=== PATIENT | female | born 1985 | race Caucasian/White ===

== ENCOUNTER 2024-06-24 19:33 | Outpatient (REF) | payer OTHER, SELFPAY | END 2024-06-24 19:34 | disposition home or self-care (01) | LOC: LAB 19:33 | PROVIDERS: Family Provider Family Medicine; Visit Provider Obstetrics & Gynecology | DX: Z01.419 Encounter for gynecological examination (general) (routine) without abnormal findings (principal) | CPT/HCPCS: 87624; 88175 ==

== ENCOUNTER 2024-06-28 10:02 | Outpatient (OUT) | payer OTHER, SELFPAY ==
--- NOTE | 2024-06-28 | US_ITS ---
[address] [address] Patient Name: BRITTANY CONNORS MRN: [id number] date: 1985 Sex: F Assigned Patient Location: US Current Patient Location: Accession/Order Number: [id number] Exam Date: 06/28/2024 11:00 Report Date: 07/01/2024 15:21 At the request of: LEVI TRAN Procedure: US pelvis w/ transvaginal EXAMINATION: US pelvis w/ transvaginal HISTORY: PCOS (Polycystic ovarian syndrome) (E28.2) COMPARISON: No relevant comparison available. TECHNIQUE: Transabdominal and/or transvaginal sonographic examination was performed as indicated by examination type. FINDINGS: UTERUS: Normal size and appearance. Uterus size: 7.1 x 3.8 x 4.5 cm ENDOMETRIUM: Normal homogeneous appearance. Endometrial thickness: 7 mm RIGHT OVARY: Contains a 3.1 cm round hypoechoic hypovascular mass versus complex cyst, and a 3.0 cm anechoic simple appearing cyst. Blood flow present within ovary on color Doppler. . Ovary size: 5.6 x 4.1 x 4.7 cm LEFT OVARY: Contains a slightly hypoechoic slightly geographic shaped 1.3 cm complex cyst versus mass. Blood flow present within ovary on color Doppler. . Ovary size: 3.0 x 2.7 x 2.9 cm CUL-DE-SAC: Unremarkable. No significant free fluid. BLADDER: Unremarkable. OTHER: None. US/US pelvis w/ transvaginal IMPRESSION: 1. Nonspecific complex cysts/lesions within right and left ovary. Follow-up ultrasound evaluation in 6 weeks to document regression is recommended. 2. No findings to suggest polycystic ovarian syndrome. Electronically authenticated by: MARCIE ALMANZA Date: 07/01/2024 15:21
--- OUTSIDE RECORDS SUMMARY | 2024-06-28 10:05 | XMS_ITS | CCD ---
Author Organization [facility] Care Team Providers Care Director Of Maintenance Name Role Phone Estevan Howardn Unavailable Jarred Siegel Unavailable Anglim, Gordon Primary Care Unavailable Jarred Siegel Attending Unavailable Jarred Siegel Admitting Unavailable TALEBROGELIO Attending Unavailable ANGLIM, GORDON A Referring Unavailable ANGLIM, GORDON A Primary Care Unavailable TALEB, ROGELIO Attending Unavailable TALEB, BRANDYD Referring Unavailable ANGLIM, GORDON A Primary Care Unavailable ANGLIM, GORDON A Referring Unavailable ANGLIM, GODRON A Primary Care Unavailable ANGLIM, GORDON A Referring Unavailable ANGLIM, GORDON A Primary Care Unavailable PHILLY RASHEED Referring Unavailab le NASREEN, ALBINA Primary Care Unavailable PHILLY RASHEED Referring Unavailab le NASREEN, ALVARADO Primary Care Unavailable PROVIDER, UNKNOWN Referring Unavailable NASREEN, ALBINA Primary Care Unavailable KATELYN ZAMORA Referring Unavailable NASREEN, ALVARADO Primary Care Unavailable NINA NGUYEN Referring Unavailable ANGLIM, GORDON A Primary Care Unavailable LEVI TRAN Attending Unavailable Medications Current Medications Medication Drug Class(es) Dates Sig (Normalized) Sig (Original) 0.25 MG, 0.5 MG Dose 3 ML semaglutide 0.68 MG/ML Pen Injector [Ozempic] (2 sources) Start: 09-03-2023 Ozempic (0.25 or 0.5 MG/DOSE) 2 MG/3ML 0.25 mg for one month and then increase to 0.5 mg dose Subcutaneous weekly for Aug, Active [id number] actuat albuterol 0.09 mg/actuat metered dose inhaler (1 source) beta2-Adrenergic Agonist Start: 01-21-2024 take 1 puff(s) by inhalation four times daily Albuterol Sulfate Active 2 PUFF INHALATION Four times daily January 21, 2024 12:00am ARIPiprazole 5 mg oral tablet (13 sources) Atypical Antipsychotic Start: 01-21-2024 take 5 mg by mouth once daily Aripiprazole Active 5 MG PO Daily January 21, 2024 12:00am [facility] ARIPiprazole 5 MG 1 tablet Orally Once a day Active atomoxetine 40 mg oral capsule (13 sources) Norepinephrine Reuptake Inhibitor Start: 01-21-2024 take 40 mg by mouth once daily Atomoxetine Active 40 MG PO Daily January 21, 2024 12:00am Strattera take 1 capsule by mo [facility] every twenty-four hours Atomoxetine HCl 40 MG 1 capsule in the morning Orally Once a day Active busPIRone hydrochloride 10 mg oral tablet (13 sources) Start: 01-21-2024 take 10 mg by mouth twice daily Buspirone Active 10 MG PO Twice daily January 21, 2024 12:00am busPIRone HCl 10 MG 1 tablet am and 1 tab. with supper( 5-6 pm) Orally Twice a day Active hydroCHLOROthiazide 25 mg oral tablet (7 sources) Thiazide Diuretic Start: 01-21-2024 take 25 mg by mouth once daily Hydrochlorothiazide Active 25 MG PO Daily January 21, 2024 12:00am hydroCHLOROthiaz mariusz 25 MG Oral for 30 Days Active hydroCHLOROthiazide 12.5 mg / lisinopril 20 mg oral tablet (6 sources) Thiazide Diuretic, Angiotensin Converting Enzyme Inhibitor take 1 tablet by mouth every twenty-four hours Lisinopril-hydroCHLOROthiazide 20-12.5 MG 1 tablet Orally Once a day Active hydrOXYzine pamoate 50 mg oral capsule ([address]) [address] ar t: take 50 mg by mouth once daily at bedtime Hydroxyzine Pamoate Active 50 MG PO Daily at bedtime January 21, 2024 12:00am take 1 capsule by mo ut every twenty-four hours hydrOXYzine Pamoate 50 MG 1 capsule at bedtime as needed Orally Once a day Active lamoTRIgine 100 mg oral tablet (13 sources) Mood Stabilizer, Anti-epileptic Agent Start: 01-21-2024 take 1 tablet by mouth once daily Lamotrigine (Lamictal) 100 mg tablet Active 100 MG PO Daily January 21, 2024 12:00am take 1 tablet by cristine th every twenty-four hours LaMICtal 100 MG 1 tablet Orally Once a day Active lisinopril 30 mg oral tablet (7 sources) Angiotensin Converting Enzyme Inhibitor Start: 01-21-2024 take 30 mg by mouth once daily Lisinopril Active 30 MG PO Daily January 21, 2024 12:00am Lisinopril 30 MG Oral for 30 Days Active magnesium oxide 400 mg oral tablet (13 sources) Start: 01-21-2024 take 400 mg by mouth once daily at bedtime Magnesium Oxide Active 400 MG PO Daily at bedtime January 21, 2024 12:00am take 1 tablet by mouth at bedtim e Magnesium Oxide 400 MG 1 tablet Orally at bedtime Active montelukast 10 mg oral tablet (13 sources) Leukotriene Receptor Antagonist Start: 01-21-2024 take 10 mg by mouth once daily Montelukast Active 10 MG PO Daily January 21, 2024 12:00am take 1 tablet by cristine th every twenty-four hours Montelukast Sodium 10 MG 1 tablet Orally Once a day Active ozempic (0.25 or 0.5 mg/dose) 2 mg/3ml solution pen-injector (1 source) Start: 09-03-2023 Ozempic (0.25 or 0.5 MG/DOSE) 2 MG/3ML 0.25 mg for one month and then increase to 0.5 mg dose Subcutaneous weekly for 30 Aug, Active microencapsulated potassium chloride 20 meq extended release oral tablet (12 sources) take 1 tablet by mouth every twenty-four hours Klor-Con M20 20 MEQ 1 tablet with food Orally Once a day Active potassium citrate (1 source) Start: 01-21-2024 Potassium Citr ate Active 0 PO .COMPLEX January 21, 2024 12:00am orally daily; wegovy 1 mg/0.5ml solution auto-injector (1 source) Start: 10-19-2023 Wegovy 1 MG/0. 5ML as directed Subcutaneous Weekly for 30 days Sep, Active Completed/Discontinued Medications Medication Drug Class(es) Dates Sig (Normalized) Sig (Original) Semaglutide (1 source) Start: 01-21-2024 End: 01-21-2024 Semaglutide (Ozempic) 0.25 mg or 0.5 mg (2 mg/3 mL) pen injector Discontinued 0.5 MG SUBCUT every week January 21, 2024 12:00am January 21, 2024 7:47am Semaglutide Base (1 source) Start: 01-21-2024 End: 03-05-2024 inject 1 mL by subcutaneous injection every week Semaglutide Base Discontinued 0.33 ML SUBCUT every week 1.32 January 21, 2024 12:00am March 05, 2024 7:23am [facility] Pre-filled Syringes using Semaglutide Base. Dispense 1.32 mL = (Four 0.33 mL pre-filled syringes) Problems Active Problems Problem Classification Problem Date Documented Da te Episodic/Chronic Asthma (20 sources) Asthma; Translations: [Unspecified asthma, uncomplicated] Onset: 11-12-2023 Chronic Diabetes mellitus without complication (8 sources) Prediabetes; Translations: [Prediabetes] Episodic Disorders of lipid metabolism (20 sources) Mixed hyperlipidemia; Translations: [Mixed hyperlipidemia] Chronic Essential hypertension (20 sources) Hypertensive disorder; Translations: [Essential (primary) hypertension] Chronic Mood disorders (18 sources) Bipolar disorder; Translations: [Bipolar disorder, unspecified] Chronic Other lower respiratory disease (6 sources) Snoring Episodic Other lower respiratory disease (1 source) Wheezing Onset: 05-12-2024 Episodic Other lower respiratory disease (1 source) Cough Onset: 05-12-2024 Episodic Other lower respiratory disease (1 source) Shortness of breath Onset: 05-12-2024 Episodic Other nutritional; endocrine; and metabolic disorders (20 sources) Obesity; Translations: [Obesity, unspecified] Chronic Other nutritional; endocrine; and metabolic disorders (20 sources) Body mass index 40+ - severely obese; Translations: [Body mass index (BMI) 40.0-44.9, adult] 01-21-2024 Chronic Other nutritional; endocrine; and metabolic disorders (10 sources) Metabolic syndrome X; Translations: [Metabolic syndrome] Chronic Other nutritional; endocrine; and metabolic disorders (8 sources) Metabolic syndrome; Translations: [Metabolic syndrome X] Chronic Other nutritional; endocrine; and metabolic disorders (5 sources) Body mass index (BMI) 45.0-49.9, adult Chronic Other nutritional; endocrine; and metabolic disorders (6 sources) Obesity, unspecified; Translations: [Obesity] Chronic Other nutritional; endocrine; and metabolic disorders (8 sources) Body mass index (BMI) 40.0-44.9, adult; Translations: [Body Mass Index 40.0-44.9, adult] Chronic Other nutritional; endocrine; and metabolic disorders (1 source) Morbid (severe) obesity due to excess calories; Translations: [Morbid (severe) obesity due to excess calories] Onset: 05-12-2024 Chronic Other nutritional; endocrine; and metabolic disorders (1 source) Abnormal weight gain Episodic Other screening for suspected conditions (not mental disorders or infectious disease) (3 sources) Encounter for screening mammogram for malignant neoplasm of breast; Translations: [Other abnormal and inconclusive findings on diagnostic imaging of breast] Onset: 05-17-2024 Episodic Unclassified (1 source) New Patient Onset: 05-12-2024 Past or Other Problems Problem Classification Problem Date Documented Date Episodic/Chronic Administrative/social admission (1 source) Dietary counseling and surveillance; Translations: [Dietary counseling and surveillance] Onset: 11-28-2023 Episodic Residual codes; unclassified (1 source) Genetic susceptibility to malignant neoplasm of breast; Translations: [Genetic susceptibility to malignant neoplasm of breast] Onset: 11-17-2023 Episodic Residual codes; unclassified (1 source) Genetic susceptibility to other malignant neoplasm; Translations: [Genetic susceptibility to other malignant neoplasm] Onset: 11-17-2023 Episodic Results Test Name Value Interpretation Reference Range Facility MAMM BX BREAST STEREO GUID I NITIAL LTon 06-10-2024 MAMM BX BREAST STEREO GUID INITIAL LT MAMM BX BREAST STEREO GUID INITIAL LT *ADDENDUM*Addendum issued for newly received pathology results, 06/10/2024 8:33 AM: For the left breast biopsy site there are pathology results of benign breast tissue with focal, mild cystic change and fibrosis. See dedicated pathology report for further detail. Results are benign and concordant with imaging findings. Patient may return to annual screening mammography. Procedure performed by Dr. Zamora, addendum issued by Dr. Romo. Continued MRI exams recommended given elevated risk ( 67 %TC lifetime risk). Patient is due October 2024. Finalized by Breanne Romo MD on 06/10/2024 8:35 AM 2000 [facility] MAMM POST BX DIAG UNI LTon 0 06-10-2024 MAMM POST BX DIAG UNI LT MAMM POST BX DIAG UNI LT *ADDENDUM*Addendum issued for newly received pathology results, 06/10/2024 8:33 AM: For the left breast biopsy site there are pathology results of benign breast tissue with focal, mild cystic change and fibrosis. See dedicated pathology report for further detail. Results are benign and concordant with imaging findings. Patient may return to annual screening mammography. Procedure performed by Dr. Zamora, addendum issued by Dr. Romo. Continued MRI exams recommended given elevated risk ( 67 %TC lifetime risk). Patient is due October 2024. Finalized by Breanne Romo MD on 06/10/2024 8:35 AM 2000 Normal [facility] Surgical Pathologyon 024 Surgical Pathology Normal [facility] Comment on above: Result Comment: [facility] [address] [place] [address] Surgical Pathology Consultation Patient Name:BRITTANY CONNORS:1985 (Age: 39)Gender:FTaken:06/06/2024eported:06/09/2024hysician(s):Philly Rasheed NP ([phone])Copy To:Katelyn ZamoraAccession #:[id number]. Rec. #:[id number]: #[id number] Final Pathologic Diagnosis Left breast, needle biopsy @3-4:00, 5 cm fn: Benign breast tissue with focal, mild cystic change and fibrosis. Report Electronically Signed Out /06/09/2024Robin Villanueva MD Interpretation [place] [address], License number: [id number]. Clinical History Biopsy procedure: Stereotactic; Target: Mass; Laterality: Left breast; Location: 3-4:00, 5cm from nipple; BI-RAD: 4a; Suspect: Fibroadenoma vs. cyst vs. R/O malignancy. Gross Description Received in formalin labeled DORY, left breast tissue are five pale mera to yellow paredes, delicate needle core biopsy segments, 0.3 to 1.6 cm in length with detached fragments of fibrofatty tissue, 1.8 x 1.2 x 0.3 cm in aggregate. The cores are entirely submitted in Cassette A with the fragmented fibrofatty tissue entirely submitted in cassette A-B. The specimen is radiographed and no definitive calcifications are identified. Fixation time: Time tissue removed from patient: 956 Time specimen placed in formalin: 1000 Cold ischemic time: 3 minutes Total fixation time: 8 hours and 30 minutes (2, ns, [id number], A???B, m1) JG jmg/06/06/2024SSI Specimen(s) Received Left breast Fee Codes(s): 1; 12318 MAMM DIAGNOSTIC UNILAT LT W CADon 05-29-2024 MAMM DIAGNOSTIC UNILAT LT W CAD MAMM DIAGNOSTIC UNILAT LT W CAD EXAM: MAMM DIAGNOSTIC UNILAT LT W CAD, US BREAST LT LIMITED, 05/29/2024 8:51 AM CLINICAL INDICATIONS: Abnormal mammogram of left breast, COMPARISON: Prior mammogram 05/17/2024 and dating back to 2019. Prior MRI of the breast 11/17/2023 TECHNIQUE: Supplemental views of the left breast were obtained for diagnostic workup. Digital tomosynthesis images were obtained, with creation of synthetic 2D views. Computer aided detection was utilized. FINDINGS: The breasts are almost entirely fatty. Redemonstration of the previously described mass at the 3 to 4:00 position left breast, 5 cm from the nipple. Targeted ultrasound will be performed for further characterization. There are no other suspicious masses, calcifications, or areas of architectural distortions. __ Left Breast Ultrasound, Limited TECHNIQUE: Multiple real-time henry-scale images of the left breast in the 2-5 o'clock axis were performed. Color Doppler was utilized to assess vascular flow. FINDINGS: Initial ultrasound evaluation demonstrated a possible corresponding sonographic abnormality as documented metastatic images and cine clip in PACS. However subsequent real-time scanning while personally present failed to reproduce an obvious sonographic correlate. __ COMBINED IMPRESSION: New 5 mm left breast mass, best demonstrated mammographically, suspicious given the setting of 67% increased lifetime risk of developing breast cancer. Stereotactic biopsy is recommended. BI-RADS: BI-RADS 4 - Suspicious Recommendation: Biopsy is recommended Patient was given the results before leaving the department. Finalized by Ned Soto MD on 05/29/2024 9:42 AM 4 a BIOPSY Normal [facility] US BREAST LT LIMITEDon 05-29 US BREAST LT LIMITED US BREAST LT LIMITED EXAM: MAMM DIAGNOSTIC UNILAT LT W CAD, US BREAST LT LIMITED, 05/29/2024 8:51 AM CLINICAL INDICATIONS: Abnormal mammogram of left breast, COMPARISON: Prior mammogram 05/17/2024 and dating back to 2019. Prior MRI of the breast 11/17/2023 TECHNIQUE: Supplemental views of the left breast were obtained for diagnostic workup. Digital tomosynthesis images were obtained, with creation of synthetic 2D views. Computer aided detection was utilized. FINDINGS: The breasts are almost entirely fatty. Redemonstration of the previously described mass at the 3 to 4:00 position left breast, 5 cm from the nipple. Targeted ultrasound will be performed for further characterization. There are no other suspicious masses, calcifications, or areas of architectural distortions. __ Left Breast Ultrasound, Limited TECHNIQUE: Multiple real-time henry-scale images of the left breast in the 2-5 o'clock axis were performed. Color Doppler was utilized to assess vascular flow. FINDINGS: Initial ultrasound evaluation demonstrated a possible corresponding sonographic abnormality as documented metastatic images and cine clip in PACS. However subsequent real-time scanning while personally present failed to reproduce an obvious sonographic correlate. __ COMBINED IMPRESSION: New 5 mm left breast mass, best demonstrated mammographically, suspicious given the setting of 67% increased lifetime risk of developing breast cancer. Stereotactic biopsy is recommended. BI-RADS: BI-RADS 4 - Suspicious Recommendation: Biopsy is recommended Patient was given the results before leaving the department. 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 BRCA2 positive, high risk COMPARISON: 02/07/2023, 08/11/2021, 08/10/2020 TECHNIQUE: Bilateral digital tomosynthesis MLO and CC views of the breasts were obtained, with creation of synthetic 2D views. Computer aided detection was utilized. FINDINGS: The breasts are almost entirely fatty. There is a new 4 x 5 mm mass of the 3-4 o'clock left breast, 5 cm from the nipple. There are no right breast suspicious masses, calcifications, or areas of architectural distortion. IMPRESSION: 1. There is a new mammographic mass measuring 5 mm of the 3-4:00 left breast. This is indeterminate, possibly a small intramammary lymph node. Additional mammographic and possibly sonographic images are recommended for further characterization. 2. Negative mammogram of the right breast. BI-RADS: BI-RADS 0 - Incomplete. Needs additional imaging evaluation. Recommendation: Additional imaging required. Additionally, continued MRI is recommended given significantly elevated risk (Tc lifetime risk 67%). Patient is due in October 2024. Finalized by Breanne Romo MD on 05/20/2024 3:05 PM 0A a ADDITIONAL I Normal [facility] XR CHEST 2 VWSon 03-18-2024 XR CHEST 2 VWS XR CHEST 2 VWS Chest 2 views History: Asthma, unspecified asthma severity, unspecified whether complicated, unspecified whether persistent Comparison: 09/15/2021 Findings: Chest 2 views. Stable cardiomediastinal silhouette. No focal opacity, effusion or pneumothorax. Impression: No evident acute cardiopulmonary process. Finalized by Jack Do MD on 03/18/2024 6:47 PM Normal [facility] Laboratory - Chemistry and C hemistry - challengeon 02-18-2024 Albumin [Mass/Vol] 4.8 g/dL [facility] ALP [Catalytic activity/Vol] 111 U/L [facility] ALT [Catalytic activity/Vol] 22 U/L [facility] AST [Catalytic activity/Vol] 16 U/L [facility] Bilirubin [Mass/Vol] 0.4 mg/dL [facility] Calcium [Mass/Vol] 9.5 mg/dL [facility] Chloride [Moles/Vol] 102 mmol/L [facility] Cholesterol [Mass/Vol] 204 mg/dL [facility] Cholesterol in HDL [Mass/Vol] 54 mg/dL [facility] Cholesterol in LDL [Mass/Vol] 122 mg/dL [facility] Cholesterol.total/C holesterol in HDL [Mass ratio] 3.8 {ratio} [facility] CO2 [Moles/Vol] 27 mmol/L [facility] Creatinine [Mass/Vol] 0.74 mg/dL [facility] GFR/1.73 sq M.predicted MDRD (S/P/Bld) [Vol rate/Area] 105 mL/min/{1.73_m2} [facility] Glucose [Mass/Vol] 98 mg/dL [facility] Potassium [Moles/Vol] 4.0 mmol/L [facility] Protein [Mass/Vol] 6.3 g/dL [facility] Sodium [Moles/Vol] 140 mmol/L [facility] Triglyceride [Mass/Vol] 142 mg/dL [facility] Urea nitrogen [Mass/Vol] 12 mg/dL [facility] Laboratory - Hematology and Cell countson 02-18-2024 HbA1c (Bld) [Mass fraction] 5.2 % [facility] No Panel Informationon 02-17 Estimated GFR (Non- 105 mL/min [facility] Thyroid Stimulating Hormone 3rd Gen 2.34 [facility] VLDL Cholesterol 28 mg/dL [facility] Vital Signs Date Time Vital Sign Value Performing Clinician Facility 03-27-2024 08:05-0400 Body height 170.18 cm [facility] 03-27-2024 08:05-0400 Body mass index (BMI) [Ratio] 45.6 kg/m2 [facility] 03-27-2024 08:050400 Body weight 132.13 kg [facility] 03-05-2024 07:120400 Body height 170.18 cm [facility] 03-05-2024 07:12-0400 Body mass index (BMI) [Ratio] 45.7 kg/m2 [facility] 03-05-2024 07:120400 Body weight 132.5 kg [facility] 03-05-2024 07:12-0400 Diastolic blood pressure 18 mm[Hg] [facility] 03-05-2024 07:12-0400 Heart rate 95 /min [facility] 03-05-2024 07:12-0400 Respiratory rate 18 /min [facility] 03-05-2024 07:12-0400 SaO2% (BldA) [Mass fraction] 99 % [facility] 03-05-2024 07:12-0400 Systolic blood pressure 100 mm[Hg] [facility] 01-24-2024 15:39-0400 Body height 170.18 cm [facility] 01-24-2024 15:39-0400 Body mass index (BMI) [Ratio] 43.8 kg/m2 [facility] 01-24-2024 15:39-0400 Body weight 127 kg [facility] 01-21-2024 07:13-0400 Body height 170.18 cm [facility] 01-21-2024 07:13-0400 Body mass index (BMI) [Ratio] 44 kg/m2 [facility] 01-21-2024 07:13-0400 Body weight 127.62 kg [facility] 01-21-2024 07:13-0400 Diastolic blood pressure 84 mm[Hg] [facility] 01-21-2024 07:13-0400 Heart rate 95 /min [facility] 01-21-2024 07:13-0400 Respiratory rate 18 /min [facility] 01-21-2024 07:13-0400 SaO2% (BldA) [Mass fraction] 98 % [facility] 01-21-2024 07:13-0400 Systolic blood pressure 121 mm[Hg] [facility] 10-19-2023 07:30-0500 Body height 170.18 cm Jarred Siegel Other [employer] [employer] Other 10-19-2023 07:30-0500 Body mass index (BMI) [Ratio] 45.13 kg/m2 Jarred Siegel Other [employer] Other 10-19-2023 07:30-0500 Body weight 130.73 kg Jarred Siegel Other [employer] Other 10-19-2023 07:30-0500 Diastolic blood pressure 89 mm[Hg] Jarred Siegel Other [employer] Other 10-19-2023 07:30-0500 Respiratory rate 18 /min Jarred Siegel Other [employer] Other 10-19-2023 07:30-0500 SaO2% (BldA) [Mass fraction] 100 % Jarred Siegel Other [employer] Other 10-19-2023 07:30-0500 Systolic blood pressure 128 mm[Hg] Jarred Siegel Other [employer] Other 10-04-2023 07:15-0500 Body height 170.18 cm Sameera Howard Other [employer] Other 10-04-2023 07:15-0500 Body mass index (BMI) [Ratio] 45.68 kg/m2 Sameera Fitt Other [employer] Other 10-04-2023 07:15-0500 Body weight 132.32 kg Sameera Fitt Other [employer] Other 09-03-2023 07:15-0500 Body height 170.18 cm Jarred Siegel Other [employer] Other 09-03-2023 07:15-0500 Body mass index (BMI) [Ratio] 46.67 kg/m2 Jarred Siegel Other [employer] Other 09-03-2023 07:15-0500 Body weight 135.17 kg Jarred Siegel Other [employer] Other 09-03-2023 07:15-0500 Diastolic blood pressure 85 mm[Hg] Jarred Siegel Other [employer] Other 09-03-2023 07:15-0500 Respiratory rate 18 /min Jarred Siegel Other [employer] Other 09-03-2023 07:15-0500 SaO2% (BldA) [Mass fraction] 98 % Jarred Siegel Other [employer] Other 09-03-2023 07:15-0500 Systolic blood pressure 121 mm[Hg] Jarred Siegel Other [employer] Other 08-09-2023 07:15-0400 Body height 170.18 cm Sameera Fitt Other [employer] Other 08-09-2023 07:15-0400 Body mass index (BMI) [Ratio] 46.26 kg/m2 Sameera Fitt Other [employer] Other 08-09-2023 07:15-0400 Body weight 133.99 kg Sameera Fitt Other [employer] Other 06-14-2023 08:00-0400 Body height 170.18 cm Sameera Fitt Other [employer] Other 06-14-2023 08:00-0400 Body mass index (BMI) [Ratio] 46.56 kg/m2 Sameera Fitt Other [employer] Other 06-14-2023 08:00-0400 Body weight 134.86 kg Sameera Fitt Other [employer] Other 03-27-2023 07:15-0400 Body height 170.18 cm Jarred Siegel Other [employer] Other 03-27-2023 07:15-0400 Body mass index (BMI) [Ratio] 47.44 kg/m2 Jarred Siegel Other [employer] Other 03-27-2023 07:15-0400 Body weight 137.4 kg Jarred Siegel Other [employer] Other 03-27-2023 07:15-0400 Diastolic blood pressure 88 mm[Hg] Jarred Siegel Other [employer] Other 03-27-2023 07:15-0400 Respiratory rate 18 /min Jarred Siegel Other [employer] Other 03-27-2023 07:15-0400 SaO2% (BldA) [Mass fraction] 99 % Jarred Bushdiff Other [employer] Other 03-27-2023 07:15-0400 Systolic blood pressure 138 mm[Hg] Jarred Bushdiff Other [employer] Other 02-06-2023 09:15-0400 Body height 170.18 cm Sameera Howard Other [employer] Other 02-05-2023 08:15-0400 Body height 170.18 cm Jarred Bushdiff Other [employer] Other 02-05-2023 08:15-0400 Body mass index (BMI) [Ratio] 45.67 kg/m2 Jarred Bushdiff Other [employer] Other 02-05-2023 08:15-0400 Body weight 132.27 kg Jarred Bushdiff Other [employer] Other 02-05-2023 08:15-0400 Diastolic blood pressure 93 mm[Hg] Jarred Siegel Other [employer] Other 02-05-2023 08:15-0400 Respiratory rate 18 /min Jarred Bushdiff Other [employer] Other 02-05-2023 08:15-0400 SaO2% (BldA) [Mass fraction] 99 % Jarred Bushdiff Other [employer] Other 02-05-2023 08:15-0400 Systolic blood pressure 123 mm[Hg] Jarred Bushdiff Other [employer] Other 12-26-2022 08:00-0500 Body height 170.18 cm Jarred Siegel Other [employer] Other 12-26-2022 08:00-0500 Body mass index (BMI) [Ratio] 45.34 kg/m2 Jarred Bushdiff Other [employer] Other 12-26-2022 08:00-0500 Body weight 131.32 kg Jarred Bushdiff Other [employer] Other 12-26-2022 08:00-0500 Diastolic blood pressure 92 mm[Hg] Jarred Bushdiff Other [employer] Other 12-26-2022 08:00-0500 Respiratory rate 18 /min Jarred Bushdiff Other [employer] Other 12-26-2022 08:00-0500 SaO2% (BldA) [Mass fraction] 98 % Jarred Bushdiff Other [employer] Other 12-26-2022 08:00-0500 Systolic blood pressure 122 mm[Hg] Jarredpearl Bushdiff Other [employer] Other 12-04-2022 09:15-0500 Body height 170.18 cm Jarred Bushdiff Other [employer] Other 12-04-2022 09:15-0500 Body mass index (BMI) [Ratio] 44.41 kg/m2 Jarred Bushdiff Other [employer] Other 12-04-2022 09:15-0500 Body weight 128.64 kg Jarred Bushdiff Other [employer] Other 12-04-2022 09:15-0500 Diastolic blood pressure 93 mm[Hg] Jarred Bushdiff Other [employer] Other 12-04-2022 09:15-0500 Respiratory rate 18 /min Jarred Bushdiff Other [employer] Other 12-04-2022 09:15-0500 SaO2% (BldA) [Mass fraction] 99 % Jarred Bushdiff Other [employer] Other 12-04-2022 09:15-0500 Systolic blood pressure 122 mm[Hg] Jarred Christal Other [employer] Other Encounters Encounter Date Encounter Type Care Provider Facility Start: 06-24-2024 End: 06-24-2024 ambulatory LEVI TRAN Not Available Start: 06-06-2024 End: 06-06-2024 ambulatory [facility] Start: 06-06-2024 End: 06-06-2024 ambulatory UNKNOWN PROVIDER [facility] Start: 05-29-2024 End: 05-29-2024 ambulatory PHILLY RASHEED [facility] Start: 05-17-2024 End: 05-17-2024 ambulatory GORDON Doron [facility] Start: 05-12-2024 End: 05-12-2024 ambulatory [facility] Start: 03-27-2024 End: 03-27-2024 Patient encounter procedure [facility] Work Phone: Start: 03-18-2024 End: 03-18-2024 ambulatory MOHAMMAD [facility] Start: 03-05-2024 End: 03-05-2024 Patient encounter procedure [facility] Work Phone: Start: 02-18-2024 Non-patient / Non-visit [facility] [employer] Work Phone: Start: 01-24-2024 End: 01-24-2024 Patient encounter procedure [facility] Work Phone: Start: 01-21-2024 End: 01-21-2024 Patient encounter procedure [facility] Work Phone: Start: 11-28-2023 End: 11-28-2023 ambulatory [facility] Facility:[facility] Start: 11-17-2023 End: 11-17-2023 ambulatory [facility] Start: 11-12-2023 End: 11-12-2023 ambulatory GORDON A [facility] Start: 10-19-2023 End: 10-19-2023 ambulatory Jarred Siegel Other [employer] Other Start: 10-19-2023 Follow-up encounter [facility] Start: 10-04-2023 ([facility] RD FU) [facility] F/ [facility] Assistant Sameera Howard [facility] Start: 10-04-2023 End: 10-04-2023 ambulatory Sameera Howard Other [employer] Other Start: 09-03-2023 End: 09-03-2023 ambulatory Jarred Siegel Other [employer] Other Start: 09-03-2023 Follow-up encounter [facility] Start: 08-09-2023 ([facility] RD FU) [facility] F/ [facility] Assistant Sameera Howard [facility] Start: 08-09-2023 End: 08-09-2023 ambulatory Sameera Kylet Other [employer] Other Start: 06-22-2023 End: 06-22-2023 ambulatory Jarred Siegel Other [employer] Other Start: 06-22-2023 Telephone encounter aJrred Bushdicanelo [facility] Start: 06-14-2023 ([facility] RD FU) [facility] F/ [facility] Assistant Sameera Howard [facility] Start: 06-14-2023 End: 06-14-2023 ambulatory Sameera Wrightt Other [employer] Other Start: 03-27-2023 End: 03-27-2023 ambulatory Jarred Mayerff Other [employer] Other Start: 03-27-2023 Follow-up encounter Jarred Christal [facility] Start: 02-06-2023 ([facility]) [facility] Initial Provider Sameera Howard [facility] Start: 02-06-2023 End: 02-06-2023 ambulatory Sameera Kylet Other [employer] Other Start: 02-05-2023 End: 02-05-2023 ambulatory Jarred Siegel Other [employer] Other Start: 02-05-2023 Follow-up encounter Jarred Christalcanelo [facility] Start: 12-26-2022 End: 12-26-2022 ambulatory Jarred Mayerff Other [employer] Other Start: 12-26-2022 Follow-up encounter Jarred Christal [facility] Start: 12-04-2022 End: 12-04-2022 ambulatory Jarred Siegel Other [employer] Other Start: 12-04-2022 Nutrition therapy Jarredpearl Siegel [facility] Start: 10-31-2022 End: 10-31-2022 ambulatory Sameera Howard Other [employer] Other Start: 10-31-2022 Telephone encounter Sameera Howard [facility] Payers Date Payer Category Payer Self-pay 2022 Unknown [id number]. [id number] 1985 Unknown [id number] 2.16.8 [id number] 1984 Unknown [id number] 2.16.8 [id number] 1984 Unknown [id number] 2.16.8 [id number] 1984 Unknown [id number] 2.16.84 [id number] 1984 Unknown [id number] 2.16.8 [id number] 1984 Unknown [id number] 2.16.8 [id number] 1984 Unknown [id number] 2.16.8 [id number] 1984 Unknown [id number] 2.16.8 [id number] 1984 Unknown [id number] 2.16.84 [id number] 1984 Unknown [id number] 2.16.84 [id number] Unknown [employer] [id number] Unknown [id number] 2.16.8 [id number] Social History Date Type Detail Facility Unknown if ever smoked [employer] Other Sex Assigned At Sex Assigned At Bir th [employer] Other Start: 1985 Sex Assigned At Female F [facility] Clinical Notes 12-04-2022 to 01-21-2024 Note Date & Type Note Facility 01-21-2024 Evaluation note Authored January 21, 2024 7:47am Start/highest weight: 283.6 lbs. She is up 2.0 lbs. today with a weight of 281.6 lbs, and down 0.7 lbs. since her last visit on 11/28/2023. Starting Date: 12/04/2022. 1. Abnormal weight gain. Her dad is a type II diabetic. She has a very strong family history of significant obesity. Everyone has some weight issues by her history. 2. Obesity-some improvement recently. We are going to increase from Ozempic 0.5 mg samples to compounded semaglutide at 1.2 mg and then increase if affordable and tolerated. She should continue to try to eat out less, not skip breakfast, make more whole food choices by eating less highly processed food, trying to increase her protein intake, cutting back her preferentially completely eliminate her regular soda, sweet tea and sugary beverage intake, try to preplan and make more of her own foods and continuing to get more exercise and activity. She needs to continue to get to bed earlier. She had issues with TikTok at night. She still needs to try to eat more fruits and vegetables and follow the plate method. Her insurance does not cover Wegovy or Ozempic but she is considering compounded semaglutide. Her psychiatric prescriber is concerned about her using Qsymia or Contrave. She is on a nonstimulant for ADHD. She has never tried Adipex in the past. We could always consider metformin. She should continue to treat with long-term lifestyle changes of improved nutrition, increased exercise and activity, stress reduction, adequate sleep and behavioral modification versus short-term dieting. She has a strong family history of obesity and has been heavy since puberty. Before starting the program she had bad eating habits she notes that she would often skip breakfast and then did not take the time to preplan and eats easy processed food . She previously did not feel she has time to make healthier things. She lives with her mom and dad and her brother. She is on multiple potentially weight positive medications for her bipolar disorder with a PHQ-9 of 7 with starting the program. Her psychiatric prescriber is Brittany Gamino from [place] where they live. Her dad is a type II diabetic and has lost 80 pounds with Ozempic and Jardiance. She has known BRCA2 positivity. She has incompletely controlled hypertension on lisinopril-HCTZ, recent onset of asthma and some mixed hypercholesterolemia. She does get the bed early but sometimes was up late on her phone and gets up about 6:30 in the morning. 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 3. Hypertension- controlled on lisinopril-HCTZ. She will treat with a low-salt diet, decreased processed and restaurant foods, healthy lifestyle changes and achieve long-term weight loss. Monitor outside the office. 4. Broca 2 positivity-benefits of healthy eating, exercise and abdominal weight loss discussed. 5. Mixed hyperlipidemia- improving with decreasing the simple sweets, added sugars, refined starches, and bad/added fats, increasing activity and exercise and continued long-term weight loss. 6. Bipolar disorder-she feels controlled on her present medications. Her PHQ-9 was 7 with starting the program. 7. ADHD-untreated. She could consider a stimulant if approved by her psychiatric prescriber. 8. Snorer/[place] of 6/neck size of 15.5 inches/mallampati score of 4-she denies significant daytime fatigue or any problems with driving. Treat with weight loss. Consider sleep study. 9. Asthma-she notes this is a newer condition. We discussed the benefits of eating anti-inflammatory food, healthy lifestyle change and abdominal weight loss. 10. Prediabetes- improving with now eating healthier and taking Ozempic. First-line treatment with long-term healthy lifestyle change, decreased simple sweets and refined starches, increased exercise and activity and long-term weight loss. Consider metformin. She needs close long-term follow-up for this condition to prevent diabetes. 11. Knee and low back pain-improving with weight loss and healthier lifestyle. 12. Metabolic syndrome-treat with long-term healthy lifestyle changes, behavioral changes, healthy nutritional changes, increased activity and exercise and achieve long-term weight loss. Follow up with me in 6 weeks. New labs needed: Up-to-date. She will continue regular lab work with her PCP. Author Jarred Siegel [facility] Authored March 05, 2024 7:59am Start/highest weight: 283.6 lbs. She is up 8.6 lbs. today with a weight of 292.2 lbs. and up 10.6 lbs. since her last visit on 01/21/2024. Starting Date: 12/04/2022. 1. Abnormal weight gain. Her dad is a type II diabetic. She has a very strong family history of significant obesity. Everyone has some weight issues by her history. 2. Obesity-some improvement recently on samples of Ozempic 0.5 mg. She had significant weight regain, increase in appetite and decreased fullness off medication. Since she cannot afford compounded semaglutide at 1.2 mg, were going to try to keep her in Ozempic samples. She has bipolar disorder so medication options are limited. She could consider bariatric surgery if covered by her commercial insurance. She should continue to try to eat out less, not skip breakfast, make more whole food choices by eating less highly processed food, trying to increase her protein intake, cutting back her preferentially completely eliminate her regular soda, sweet tea and sugary beverage intake, try to preplan and make more of her own foods and continuing to get more exercise and activity. She needs to continue to get to bed earlier. She had issues with TikTok at night. She still needs to try to eat more fruits and vegetables and follow the plate method. Her insurance does not cover Wegovy or Ozempic but she is considering compounded semaglutide. Her psychiatric prescriber is concerned about her using Qsymia or Contrave. She is on a nonstimulant for ADHD. She has never tried Adipex in the past. We could always consider metformin. She should continue to treat with long-term lifestyle changes of improved nutrition, increased exercise and activity, stress reduction, adequate sleep and behavioral modification versus short-term dieting. She has a strong family history of obesity and has been heavy since puberty. Before starting the program she had bad eating habits she notes that she would often skip breakfast and then did not take the time to preplan and eats easy processed food . She previously did not feel she has time to make healthier things. She lives with her mom and dad and her brother. She is on multiple potentially weight positive medications for her bipolar disorder with a PHQ-9 of 7 with starting the program. Her psychiatric prescriber is Brittany Gamino from [place] where they live. Her dad is a type II diabetic and has lost 80 pounds with Ozempic and Jardiance. She has known BRCA2 positivity. She has incompletely controlled hypertension on lisinopril-HCTZ, recent onset of asthma and some mixed hypercholesterolemia. She does get the bed early but sometimes was up late on her phone and gets up about 6:30 in the morning. 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 3. Hypertension-borderline controlled on lisinopril-HCTZ. She will treat with a low-salt diet, decreased processed and restaurant foods, healthy lifestyle changes and achieve long-term weight loss. Monitor outside the office. 4. Broca 2 positivity-benefits of healthy eating, exercise and abdominal weight loss discussed. 5. Mixed hyperlipidemia- improved/normalized with decreasing the simple sweets, added sugars, refined starches, and bad/added fats, increasing activity and exercise and continued long-term weight loss. 6. Bipolar disorder-she feels controlled on her present medications. Her PHQ-9 was 7 with starting the program. 7. ADHD-untreated. She could consider a stimulant if approved by her psychiatric prescriber. 8. Snorer/[place] of 6/neck size of 15.5 inches/mallampati score of 4-she denies significant daytime fatigue or any problems with driving. Treat with weight loss. Consider sleep study. 9. Asthma-she notes this is a newer condition. We discussed the benefits of eating anti-inflammatory food, healthy lifestyle change and abdominal weight loss. 10. Prediabetes- improved/resolved with now eating healthier and taking Ozempic. First-line treatment with long-term healthy lifestyle change, decreased simple sweets and refined starches, increased exercise and activity and long-term weight loss. Consider metformin. She needs close long-term follow-up for this condition to prevent diabetes. 11. Knee and low back pain-improving with weight loss and healthier lifestyle. 12. Metabolic syndrome-treat with long-term healthy lifestyle changes, behavioral changes, healthy nutritional changes, increased activity and exercise and achieve long-term weight loss. Follow up with me in 6 weeks. New labs needed: Up-to-date. She will continue regular lab work with her PCP. [facility] Work Phone: [phone]) 480-959112-22-2023 Evaluation note* Encounter Date Diagnosis Assessment Notes Treatment Notes Treatment Clinical Notes Sep, Hypertension (ICD-10 - I10) Sep, Body mass index (BMI ) of 45.0-49.9 in adult (ICD-10 - Z68.42) Sep, Mixed hyperlipidemia (ICD-10 - E78.2) Sep, Prediabetes (ICD-10 - R73.03) Sep, Metabolic syndrome X (ICD-10 - E88.81) Sep, Bipolar affective disorder (ICD-10 - F31.9) Sep, Snores (ICD-10 - R06.83) Sep, Asthma (ICD-10 - J45.909) [employer] Other 12-07-2023 Evaluation note* Encounter Date Diagnosis Assessment Notes Treatment Notes Treatment Clinical Notes Sep, Obesity (ICD-10 - E66.9) Sep, BMI 40.0-44.9, adult (ICD-10 - Z68.41) Sep, Other Summary of Visi t: (A) reviewed hunger /satiety scale in relation to food cravings, holiday sweets. Reviewed strategies of avoidance, moderation in relation to sweet cravings (B) recipe resouces (C) goal setting Patient set the following goals: - trial some new recipes to add variety; MET, CONTINUE - NEW: use hunger scale to assess reason behind snacks- pair sweets w/ a protein food or meal - NEW: continue to increase fruits and veggies - NEW: re-start walking / exercise routine using treadmill at home [employer] Other 11-06-2023 Evaluation note* Encounter Date Diagnosis Assessment Notes Treatment Notes Treatment Clinical Notes Aug, Hypertension (ICD-10 - I10) Aug, Body mass index (BMI ) of 45.0-49.9 in adult (ICD-10 - Z68.42) Aug, Mixed hyperlipidemia (ICD-10 - E78.2) Aug, Prediabetes (ICD-10 - R73.03) Aug, Metabolic syndrome X (ICD-10 - E88.81) Aug, Bipolar affective disorder (ICD-10 - F31.9) Aug, Snores (ICD-10 - R06.83) Aug, Asthma (ICD-10 - J45.909) [employer] Other 10-12-2023 Evaluation note* Encounter Date Diagnosis Assessment Notes Treatment Notes Treatment Clinical Notes Jul, Obesity (ICD-10 - E66.9) Jul, BMI 40.0-44.9, adult (ICD-10 - Z68.41) Jul, Other Summary of Visi t: (A) discussed benefits of increasing fruits and veggies for disease prevention and weight management (B) reviewed budget friendly ingredients and recipes ideas. (C) Reviewed breakfast ideas Patient set the following goals: - trial some new recipes to add variety; MET, CONTINUE [employer] Other 08-17-2023 Evaluation note* Encounter Date Diagnosis Assessment Notes Treatment Notes Treatment Clinical Notes May, Obesity (ICD-10 - E66.9) May, BMI 40.0-44.9, adult (ICD-10 - Z68.41) May, Other Summary of Visi t: (A) discussed benefits of increasing fruits and veggies for disease prevention and weight management (B) reviewed RECIPE ideas that incorporate garden produce (C) discussed variety in beverages , no sweetener options including herbal teas, hot/iced teas, infused water Patient set the following goals: - trial some new recipes to add variety; MET, CONTINUE [employer] Other 05-30-2023 Evaluation note* Encounter Date Diagnosis Assessment Notes Treatment Notes Treatment Clinical Notes February, Hypertension (ICD-10 - I10) February, Body mass index (BMI ) of 45.0-49.9 in adult (ICD-10 - Z68.42) February, Mixed hyperlipidemia (ICD-10 - E78.2) February, Prediabetes (ICD-10 - R73.03) February, Metabolic syndrome X (ICD-10 - E88.81) February, Bipolar affective disorder (ICD-10 - F31.9) February, Snores (ICD-10 - R06.83) February, Asthma (ICD-10 - J45.909) [employer] Other 04-11-2023 Evaluation note* Encounter Date Diagnosis Assessment Notes Treatment Notes Treatment Clinical Notes Jan, Obesity (ICD-10 - E66.9) Jan, BMI 40.0-44.9, adult (ICD-10 - Z68.41) Jan, Other Summary of Visi t: (A) discussed foods that can help prevent breast cancer and help w/ WM (B) benefits of fiber foods Patient set the following goals: [employer] Other 04-10-2023 Evaluation note* Encounter Date Diagnosis Assessment Notes Treatment Notes Treatment Clinical Notes Jan, Hypertension (ICD-10 - I10) Jan, Body mass index (BMI ) of 45.0-49.9 in adult (ICD-10 - Z68.42) Jan, Mixed hyperlipidemia (ICD-10 - E78.2) Jan, Prediabetes (ICD-10 - R73.03) Jan, Metabolic syndrome X (ICD-10 - E88.81) Jan, Bipolar affective disorder (ICD-10 - F31.9) Jan, Snores (ICD-10 - R06.83) Jan, Asthma (ICD-10 - J45.909) [employer] Other 02-28-2023 Evaluation note* Encounter Date Diagnosis Assessment Notes Treatment Notes Treatment Clinical Notes Nov, Hypertension (ICD-10 - I10) Nov, Body mass index (BMI ) of 45.0-49.9 in adult (ICD-10 - Z68.42) Nov, Mixed hyperlipidemia (ICD-10 - E78.2) Nov, Prediabetes (ICD-10 - R73.03) Nov, Metabolic syndrome X (ICD-10 - E88.81) Nov, Bipolar affective disorder (ICD-10 - F31.9) Nov, Snores (ICD-10 - R06.83) Nov, Asthma (ICD-10 - J45.909) [employer] Other 02-06-2023 Evaluation note* Encounter Date Diagnosis Assessment Notes Treatment Notes Treatment Clinical Notes Nov, Abnormal weight gain (ICD-10 - R63.5) Nov, Hypertension (ICD-10 - I10) Nov, Mixed hyperlipidemia (ICD-10 - E78.2) Nov, Metabolic syndrome X (ICD-10 - E88.81) Nov, Bipolar affective disorder (ICD-10 - F31.9) Nov, Snores (ICD-10 - R06.83) Nov, Asthma (ICD-10 - J45.909) [employer] Other Evaluation noteNo [employer] Other History general Narrative - Reported* Type Description Date Medical History ADHD Medical History anxiety Medical History asthma Medical History bipolar Medical History BRCA2 positive Medical History endometriosis Medical History high blood pressure Medical History hypokalemia Medical History leg cramps Surgical History gallbladder 09/19 Surgical History ERCP 09/19 Surgical History wisdom teeth Hospitalization History see above [employer] Other Chief Complaint and Reason for Visit Chief Complaint WM RD 3 mo follow up WM RD follow up 2 mo Reason for Visit BMI 40.0-44.9, adult Essential hypertension Mixed hyperlipidemia Prediabetes BMI 40.0-44.9, adult Essential hypertension Mixed hyperlipidemia Prediabetes Family History No Family History Records Found Relationship Condition Age at Onset Recorded Date/T kirill family member Obesity Unknown brother Obesity Unknown father Hypertension Unknown Diabetes mellitus Unknown Not Specified Malignant neoplasm Unknown Hypertension Unknown sister Obesity Unknown Advance Directives No Advanced Directives Records Found Advance Directive Response Recorded Date/ Time Advance Directives No December 01, 2022 4:22pm Summary Purpose Additional Source Comments REASON FOR VISIT (unrecogniz ed section and content) WMN VoicemailInitial WMNWMN f/uWMN F/UWM first after class- s/p marlee/ brca+[address] follow up2 moDLC Cx appt 07/16/23 L/VMWM RD follow up - 2 m oWMN f/uWM RD follow up 2 moWMN f/u Care Teams (unrecognized sec tion and content) Team Status: Active Member Role Status Dates Gordon Velazco APRN MACHINE PULLER OVER-C Primary Care Provider Active Team Status: Inactive Member Role Status Dates Gordon Velazco APRN MACHINE P[employer] OVER-C Primary Care Provider Active Start: January 21, 2024 End: January 21, 2024 Jarred Siegel MD Attending Provider Active Start: January 21, 2024 End: January 21, 2024 Team Status: Inactive Member Role Status Dates Gordon Velazco APRN MACHINE PULLER OVER-C Primary Care Provider Active Start: January 24, 2024 End: January 24, 2024 MGA Johnson Attending Provider Active Start: January 24, 2024 End: January 24, 2024 Team Status: Active Member Role Status Dates Gordon Velazco APRN MACHINE PULLER OVER-C Primary Care Pr ovider, Attending Provider Active Start: February 18, 2024 Team Status: Inactive Member Role Status Dates Gordon Velazco APRN MACHINE PULLER OVER-C Primary Care Provider Active Start: March 05, 2024 End: March 05, 2024 Jarred Siegel MD Attending Provider Active Start: March 05, 2024 End: March 05, 2024 Team Status: Inactive Member Role Status Dates Gordon Velazco APRN MACHINE PULLER OVER-C Primary Care Provider Active Start: March 27, 2024 End: March 27, 2024 MAG Johnson Attending Provider Active Start: March 27, 2024 End: March 27, 2024 Goals (unrecognized section and content) Goals may be documented in a n alternate section INFORMATION SOURCE (unrecogn ized section and content) DATE CREATED AUTHOR 04/01/2024 [facility] DATE CREATED AUTHOR AUTHOR'S ORGANIZ ATION 05/16/2024 [facility] DATE CREATED AUTHOR AUTHOR'S ORGANIZ ATION 05/23/2024 [facility] DATE CREATED AUTHOR AUTHOR'S ORGANIZ ATION [facility]/31/[facility] DATE CREATED AUTHOR AUTHOR'S ORGANIZ ATION 06/10/2024 [facility] DATE CREATED AUTHOR AUTHOR'S ORGANIZ ATION 06/25/2024 [facility] FOR RECORDS PERTAINING TO PATIENTS WHO ARE OR HAVE BEEN ENROLLED IN A CHEMICAL DEPENDENCY/SUBSTANCEABUSE PROGRAM, SOME INFORMATION MAY BE OMITTED. This clinical summary was aggregated from multiple sources. Caution should be exercised in using it in the provision of clinical care. This summary normalizes information from multiple sources, and as a consequence, information in this document may materially change the coding, format and clinical context of patient data. In addition, data may be omitted in some cases. CLINICAL DECISIONS SHOULD BE BASED ON THE PRIMARY CLINICAL RECORDS. [employer] provides no warranty or guarantee of the accuracy or completeness of information in this document.
[2024-06-28 10:36] LABS: Basophils Absolute Auto 0.1 10^3/uL (0.0-0.1); Basophils Percent Auto 0.8 % (0.2-2.0); Eosinophils Absolute Auto 0.1 10^3/uL (0.0-0.7); Eosinophils Percent Auto 1.4 % (0.9-7.0); Hematocrit 40.6 % (36.0-48.0); Hemoglobin 14.8 g/dL (12.0-16.0); Immature Granulocytes Abs Auto 0.02 10^3/uL (0.00-0.03); Immature Granulocytes Pct Auto 0.3 % (0.0-0.5); Lymphocytes Absolute Auto 1.6 10^3/uL (1.2-3.8); Mean Corpuscular HGB Conc 36.5 g/dL (29.9-35.2); Mean Corpuscular Hemoglobin 29.9 pg (26.7-34.0); Mean Platelet Volume 10.5 fL (9.5-13.5); Monocytes Absolute Auto 0.5 10^3/uL (0.3-0.8); Monocytes Percent Auto 6.9 % (1.7-12.0); Neutrophils Absolute Auto 5.1 10^3/uL (1.4-6.5); Neutrophils Percent Auto 69.6 % (43.0-75.0); Platelet Count 214 10^3/uL (150-450); Red Blood Count 4.95 10^6/uL (4.20-5.40); Red Cell Distribution Width 12.8 % (11.0-15.0); White Blood Count 7.4 10^3/uL (4.0-11.0)
[2024-06-28 11:08] LABS: Estimated Average Glucose 94 mg/dL; Glycohemoglobin A1C 4.9 % (4.5-6.2)
[2024-06-28 11:13] LABS: Free T4 1.32 ng/dL (0.76-1.46)
[2024-06-28 11:17] LABS: Thyroid Stimulating Hormone 1.412 uIU/mL (0.358-3.740)
[2024-06-28 11:21] LABS: HCG Quantitative <1 mIU/mL
[2024-06-29 06:37] LABS: FSH 8.3 mIU/mL (.); Luteinizing Hormone(LH) 4.8 mIU/mL (.)
[2024-07-03 16:09] LABS: DHEA, Serum 180 ng/dL (31-701)
== END 2024-06-28 10:03 | disposition home or self-care (01) ==
LOC: US 10:02
PROVIDERS: Family Provider Family Medicine; Visit Provider Obstetrics & Gynecology
DX: E28.2 Polycystic ovarian syndrome (principal); N92.0 Excessive and frequent menstruation with regular cycle
CPT/HCPCS: 36415; 76830; 76856; 82626; 82627; 83001; 83002; 83036; 84439; 84443; 84702; 85025

== ENCOUNTER 2024-07-19 10:56 | Outpatient (OUT) | payer OTHER, SELFPAY ==
--- OUTSIDE RECORDS SUMMARY | 2024-07-19 11:01 | XMS_ITS | CCD ---
Author Organization [facility] Care Team Providers Care Backpackers Manager Name Role Phone Estevan Howardn Unavailable Jarred [...] Unavailable PHILLY RASHEED Referring Unavailab le NASREEN, DARBY Primary Care Unavailable PROVIDER, UNKNOWN Referring Unavailable NASREEN, ALBINA Primary Care Unavailable KATELYN ZAMORA Referring Unavailable NASREEN, DARBY Primary Care Unavailable NINA NGUYEN Referring Unavailable [...] mg dose Subcutaneous weekly for Aug, Active [id number] 200 actuat albuterol 0.09 mg/actuat metered dose [...] 21, 2024 12:00am [facility] ARIPiprazole 5 MG 1 tablet Orally Once a day Active atomoxetine 40 mg oral capsule (13 sources) Norepinephrine Reuptake Inhibitor Start: 01-21-2024 take 40 mg by mouth once daily Atomoxetine Active 40 MG PO Daily January 21, 2024 12:00am Strattera take 1 capsule by mo [facility] every twenty-four hours Atomoxetine HCl 40 MG [...] Romo MD on 06/10/2024 8:35 AM 2000 [facility] MAMM POST BX DIAG UNI LTon [...] MD on 06/10/2024 8:35 AM 2000 Normal [facility] Surgical Pathologyon 024 Surgical Pathology Normal [facility] Comment on above: Result Comment: [facility] [address] [place] [address] Surgical Pathology Consultation Patient Name:BRITTANY CONNORS:1985 (Age: 39)Gender:FTaken:06/06/2024eported:06/09/2024hysician(s):Philly Rasheed NP ([phone])Copy To:Katelyn ZamoraAccession #:[id number]. Rec. #:[id number]: #[id number] Final Pathologic Diagnosis Left breast, needle biopsy @3-4:00, 5 cm fn: Benign breast tissue with focal, mild cystic change and fibrosis. Report Electronically Signed Out /06/09/2024Robin Villanueva MD Interpretation [place] [address], License number: [id number]. Clinical History Biopsy procedure: Stereotactic; Target: Mass; [...] 8 hours and 30 minutes (2, ns, [id number], A???B, m1) JG jmg/06/06/2024SSI Specimen(s) Received Left breast Fee Codes(s): 1; 81247 MAMM DIAGNOSTIC UNILAT LT W CADon 05-29-2024 [...] 05/29/2024 9:42 AM 4 a BIOPSY Normal [facility] US BREAST LT LIMITEDon 05-29 US BREAST [...] 05/29/2024 9:42 AM 4 a BIOPSY Normal [facility] MAMM SCREENING BILATERAL W C senior ssis developer 05-20-2024 MAMM SCREENING BILATERAL W CAD MAMM [...] 3:05 PM 0A a ADDITIONAL I Normal [facility] XR CHEST 2 VWSon 03-18-2024 XR CHEST 2 VWS XR CHEST 2 VWS Chest 2 views History: Asthma, unspecified asthma severity, unspecified whether complicated, unspecified whether persistent Comparison: 09/15/2021 Findings: Chest 2 views. Stable cardiomediastinal silhouette. No focal opacity, effusion or pneumothorax. Impression: No evident acute cardiopulmonary process. Finalized by Jack Do MD on 03/18/2024 6:47 PM Normal [facility] Laboratory - Chemistry and C hemistry - challengeon 02-18-2024 Albumin [Mass/Vol] 4.8 g/dL [facility] ALP [Catalytic activity/Vol] 111 U/L [facility] ALT [Catalytic activity/Vol] 22 U/L [facility] AST [Catalytic activity/Vol] 16 U/L [facility] Bilirubin [Mass/Vol] 0.4 mg/dL [facility] Calcium [Mass/Vol] 9.5 mg/dL [facility] Chloride [Moles/Vol] 102 mmol/L [facility] Cholesterol [Mass/Vol] 204 mg/dL [facility] Cholesterol in HDL [Mass/Vol] 54 mg/dL [facility] Cholesterol in LDL [Mass/Vol] 122 mg/dL [facility] Cholesterol.total/C holesterol in HDL [Mass ratio] 3.8 {ratio} [facility] CO2 [Moles/Vol] 27 mmol/L [facility] Creatinine [Mass/Vol] 0.74 mg/dL [facility] GFR/1.73 sq M.predicted MDRD (S/P/Bld) [Vol rate/Area] 105 mL/min/{1.73_m2} [facility] Glucose [Mass/Vol] 98 mg/dL [facility] Potassium [Moles/Vol] 4.0 mmol/L [facility] Protein [Mass/Vol] 6.3 g/dL [facility] Sodium [Moles/Vol] 140 mmol/L [facility] Triglyceride [Mass/Vol] 142 mg/dL [facility] Urea nitrogen [Mass/Vol] 12 mg/dL [facility] Laboratory - Hematology and Cell countson 02-18-2024 HbA1c (Bld) [Mass fraction] 5.2 % [facility] No Panel Informationon 02-17 Estimated GFR (Non- 105 mL/min [facility] Thyroid Stimulating Hormone 3rd Gen 2.34 [facility] VLDL Cholesterol 28 mg/dL [facility] Vital Signs Date Time Vital Sign Value Performing Clinician Facility 03-27-2024 08:05-0400 Body height 170.18 cm [facility] 03-27-2024 08:05-0400 Body mass index (BMI) [Ratio] 45.6 kg/m2 [facility] 03-27-2024 08:050400 Body weight 132.13 kg [facility] 03-05-2024 07:120400 Body height 170.18 cm [facility] 03-05-2024 07:12-0400 Body mass index (BMI) [Ratio] 45.7 kg/m2 [facility] 03-05-2024 07:120400 Body weight 132.5 kg [facility] 03-05-2024 07:12-0400 Diastolic blood pressure 18 mm[Hg] [facility] 03-05-2024 07:12-0400 Heart rate 95 /min [facility] 03-05-2024 07:12-0400 Respiratory rate 18 /min [facility] 03-05-2024 07:12-0400 SaO2% (BldA) [Mass fraction] 99 % [facility] 03-05-2024 07:12-0400 Systolic blood pressure 100 mm[Hg] [facility] 01-24-2024 15:39-0400 Body height 170.18 cm [facility] 01-24-2024 15:39-0400 Body mass index (BMI) [Ratio] 43.8 kg/m2 [facility] 01-24-2024 15:39-0400 Body weight 127 kg [facility] 01-21-2024 07:13-0400 Body height 170.18 cm [facility] 01-21-2024 07:13-0400 Body mass index (BMI) [Ratio] 44 kg/m2 [facility] 01-21-2024 07:13-0400 Body weight 127.62 kg [facility] 01-21-2024 07:13-0400 Diastolic blood pressure 84 mm[Hg] [facility] 01-21-2024 07:13-0400 Heart rate 95 /min [facility] 01-21-2024 07:13-0400 Respiratory rate 18 /min [facility] 01-21-2024 07:13-0400 SaO2% (BldA) [Mass fraction] 98 % [facility] 01-21-2024 07:13-0400 Systolic blood pressure 121 mm[Hg] [facility] 10-19-2023 07:30-0500 Body height 170.18 cm Jarred Siegel Other [id number] Other 10-19-2023 07:30-0500 Body mass index (BMI) [Ratio] 45.13 kg/m2 Jarred Siegel Other [facility] Other 10-19-2023 07:30-0500 Body weight 130.73 kg Jarred Siegel Other [facility] Other 10-19-2023 07:30-0500 Diastolic blood pressure 89 mm[Hg] Jarred Siegel Other [facility] Other 10-19-2023 07:30-0500 Respiratory rate 18 /min Jarred Siegel Other [facility] Other 10-19-2023 07:30-0500 SaO2% (BldA) [Mass fraction] 100 % Jarred Siegel Other [facility] Other 10-19-2023 07:30-0500 Systolic blood pressure 128 mm[Hg] Jarred Siegel Other [facility] Other 10-04-2023 07:15-0500 Body height 170.18 cm Sameera Howard Other [facility] Other 10-04-2023 07:15-0500 Body mass index (BMI) [Ratio] 45.68 kg/m2 Sameera Fitt Other [facility] Other 10-04-2023 07:15-0500 Body weight 132.32 kg Sameera Fitt Other [facility] Other 09-03-2023 07:15-0500 Body height 170.18 cm Jarred Siegel Other [facility] Other 09-03-2023 07:15-0500 Body mass index (BMI) [Ratio] 46.67 kg/m2 Jarred Siegel Other [facility] Other 09-03-2023 07:15-0500 Body weight 135.17 kg Jarred Siegel Other [facility] Other 09-03-2023 07:15-0500 Diastolic blood pressure 85 mm[Hg] Jarred Siegel Other [facility] Other 09-03-2023 07:15-0500 Respiratory rate 18 /min Jarred Siegel Other [facility] Other 09-03-2023 07:15-0500 SaO2% (BldA) [Mass fraction] 98 % Jarred Siegel Other [facility] Other 09-03-2023 07:15-0500 Systolic blood pressure 121 mm[Hg] Jarred Siegel Other [facility] Other 08-09-2023 07:15-0400 Body height 170.18 cm Sameera Fitt Other [facility] Other 08-09-2023 07:15-0400 Body mass index (BMI) [Ratio] 46.26 kg/m2 Sameera Fitt Other [facility] Other 08-09-2023 07:15-0400 Body weight 133.99 kg Sameera Fitt Other [facility] Other 06-14-2023 08:00-0400 Body height 170.18 cm Sameera Fitt Other [facility] Other 06-14-2023 08:00-0400 Body mass index (BMI) [Ratio] 46.56 kg/m2 Sameera Fitt Other [facility] Other 06-14-2023 08:00-0400 Body weight 134.86 kg Sameera Fitt Other [facility] Other 03-27-2023 07:15-0400 Body height 170.18 cm Jarred Siegel Other [facility] Other 03-27-2023 07:15-0400 Body mass index (BMI) [Ratio] 47.44 kg/m2 Jarred Siegel Other [facility] Other 03-27-2023 07:15-0400 Body weight 137.4 kg Jarred Siegel Other [facility] Other 03-27-2023 07:15-0400 Diastolic blood pressure 88 mm[Hg] Jarred Siegel Other [facility] Other 03-27-2023 07:15-0400 Respiratory rate 18 /min Jarred Siegel Other [facility] Other 03-27-2023 07:15-0400 SaO2% (BldA) [Mass fraction] 99 % Jarred Bushdiff Other [facility] Other 03-27-2023 07:15-0400 Systolic blood pressure 138 mm[Hg] Jarred Bushdiff Other [facility] Other 02-06-2023 09:15-0400 Body height 170.18 cm Sameera Howard Other [facility] Other 02-05-2023 08:15-0400 Body height 170.18 cm Jarred Bushdiff Other [facility] Other 02-05-2023 08:15-0400 Body mass index (BMI) [Ratio] 45.67 kg/m2 Jarred Bushdiff Other [facility] Other 02-05-2023 08:15-0400 Body weight 132.27 kg Jarred Bushdiff Other [facility] Other 02-05-2023 08:15-0400 Diastolic blood pressure 93 mm[Hg] Jarred Siegel Other [facility] Other 02-05-2023 08:15-0400 Respiratory rate 18 /min Jarred Bushdiff Other [facility] Other 02-05-2023 08:15-0400 SaO2% (BldA) [Mass fraction] 99 % Jarred Bushdiff Other [facility] Other 02-05-2023 08:15-0400 Systolic blood pressure 123 mm[Hg] Jarred Bushdiff Other [facility] Other 12-26-2022 08:00-0500 Body height 170.18 cm Jarred Siegel Other [facility] Other 12-26-2022 08:00-0500 Body mass index (BMI) [Ratio] 45.34 kg/m2 Jarred Bushdiff Other [facility] Other 12-26-2022 08:00-0500 Body weight 131.32 kg Jarred Bushdiff Other [facility] Other 12-26-2022 08:00-0500 Diastolic blood pressure 92 mm[Hg] Jarred Bushdiff Other [facility] Other 12-26-2022 08:00-0500 Respiratory rate 18 /min Jarred Bushdiff Other [facility] Other 12-26-2022 08:00-0500 SaO2% (BldA) [Mass fraction] 98 % Jarred Bushdiff Other [facility] Other 12-26-2022 08:00-0500 Systolic blood pressure 122 mm[Hg] Jarredpearl Bush[facility] Other [facility] Other 12-04-2022 09:15-0500 Body height 170.18 cm Jarred Bushdiff Other [facility] Other 12-04-2022 09:15-0500 Body mass index (BMI) [Ratio] 44.41 kg/m2 Jarred Bushdiff Other [facility] Other 12-04-2022 09:15-0500 Body weight 128.64 kg Jarred Bushdiff Other [facility] Other 12-04-2022 09:15-0500 Diastolic blood pressure 93 mm[Hg] Jarred Bushdiff Other [facility] Other 12-04-2022 09:15-0500 Respiratory rate 18 /min Jarred Bushdiff Other [facility] Other 12-04-2022 09:15-0500 SaO2% (BldA) [Mass fraction] 99 % Jarred Bushdiff Other [facility] Other 12-04-2022 09:15-0500 Systolic blood pressure 122 mm[Hg] Jarred Christal Other [facility] Other Encounters Encounter Date Encounter Type Care Provider Facility Start: 06-24-2024 End: 06-24-2024 ambulatory LEVI TRAN Not Available Start: 06-06-2024 End: 06-06-2024 ambulatory [facility] Start: 06-06-2024 End: 06-06-2024 ambulatory UNKNOWN PROVIDER [facility] Start: 05-29-2024 End: 05-29-2024 ambulatory PHILLY RASHEED [facility] Start: 05-17-2024 End: 05-17-2024 ambulatory GORDON Doron [facility] Start: 05-12-2024 End: 05-12-2024 ambulatory [facility] Start: 03-27-2024 End: 03-27-2024 Patient encounter procedure [facility] Work Phone: Start: 03-18-2024 End: 03-18-2024 ambulatory MOHAMMAD [facility] Start: 03-05-2024 End: 03-05-2024 Patient encounter procedure [facility] Work Phone: Start: 02-18-2024 Non-patient / Non-visit [facility] [employer] Work Phone: Start: 01-24-2024 End: 01-24-2024 Patient encounter procedure [facility] Work Phone: Start: 01-21-2024 End: 01-21-2024 Patient encounter procedure [facility] Work Phone: Start: 11-28-2023 End: 11-28-2023 ambulatory [facility] Facility:[facility] Start: 11-17-2023 End: 11-17-2023 ambulatory [facility] Start: 11-12-2023 End: 11-12-2023 ambulatory GORDON A [facility] Start: 10-19-2023 End: 10-19-2023 ambulatory Jarred Siegel Other [facility] Other Start: 10-19-2023 Follow-up encounter [facility] Start: 10-04-2023 ([facility] RD FU) [facility] F/ U [employer] Daycare Manager Sameera Howard [facility] Start: 10-04-2023 End: 10-04-2023 ambulatory Sameera Howard Other [facility] Other Start: 09-03-2023 End: 09-03-2023 ambulatory Jarred Siegel Other [facility] Other Start: 09-03-2023 Follow-up encounter [facility] Start: 08-09-2023 ([facility] RD FU) [facility] F/ U [employer] Daycare Manager Sameera Howard [facility] Start: 08-09-2023 End: 08-09-2023 ambulatory Sameera Kylet Other [facility] Other Start: 06-22-2023 End: 06-22-2023 ambulatory Jarred Siegel Other [facility] Other Start: 06-22-2023 Telephone encounter Jarred Bushdicanelo [facility] Start: 06-14-2023 ([facility] RD FU) [facility] F/ U [employer] Daycare Manager Sameera Howard [facility] Start: 06-14-2023 End: 06-14-2023 ambulatory Sameera Wrightt Other [facility] Other Start: 03-27-2023 End: 03-27-2023 ambulatory Jarred Mayerff Other [facility] Other Start: 03-27-2023 Follow-up encounter Jarred Christal [facility] Start: 02-06-2023 ([facility] WMNI) [facility] Initial Provider Sameera Howard [facility] Start: 02-06-2023 End: 02-06-2023 ambulatory Sameera Kylet Other [facility] Other Start: 02-05-2023 End: 02-05-2023 ambulatory Jarred Siegel Other [facility] Other Start: 02-05-2023 Follow-up encounter Jarred Christalcanelo [facility] Start: 12-26-2022 End: 12-26-2022 ambulatory Jarred Mayerff Other [facility] Other Start: 12-26-2022 Follow-up encounter Jarred Christal [facility] Start: 12-04-2022 End: 12-04-2022 ambulatory Jarred Siegel Other [facility] Other Start: 12-04-2022 Nutrition therapy Jarredpearl Siegel [facility] Start: 10-31-2022 End: 10-31-2022 ambulatory Sameera Howard Other [facility] Other Start: 10-31-2022 Telephone encounter Sameera Howard [facility] Payers Date Payer Category Payer Self-pay 2022 Unknown [id number] 2. [id number] 1985 Unknown [id number] 2.16.8 [id number] 1985 Unknown [id number] 2.16.8 [id number] 1985 Unknown [id number] 2.16.8 [id number] 1985 Unknown [id number] 2.16.84 [id number] 1985 Unknown [id number] 2.16.8 [id number] 1985 Unknown [id number] 2.16.8 [id number] 1985 Unknown [id number] 2.16.8 [id number] 1985 Unknown [id number] 2.16.8 [id number] 1985 Unknown [id number] 2.16.84 [id number] 1985 Unknown [id number] 2.16.84 [id number] Unknown [employer] [id number] Unknown [id number] 2.16.8 [id number] Social History Date Type Detail Facility Unknown if ever smoked [facility] Other Sex Assigned At Sex Assigned At Bir th [facility] Other Start: 1985 Sex Assigned At Female F [facility] Clinical Notes 12-04-2022 to 01-21-2024 Note Date [...] Her psychiatric prescriber is Brittany Gamino from [place] where they live. Her dad is a [...] in the morning. 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 8. Snorer/[place] of 6/neck size of 15.5 inches/mallampati score [...] work with her PCP. Author Jarred Siegel [facility] Authored March 05, 2024 7:59am Start/highest weight: [...] Her psychiatric prescriber is Brittany Gamino from [place] where they live. Her dad is a [...] in the morning. 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 8. Snorer/[place] of 6/neck size of 15.5 inches/mallampati score [...] continue regular lab work with her PCP. [facility] Work Phone: [phone] 943-935412-22-2023 Evaluation note* Encounter Date Diagnosis Assessment Notes [...] - R06.83) Sep, Asthma (ICD-10 - J45.909) [facility] Other 12-07-2023 Evaluation note* Encounter Date Diagnosis [...] / exercise routine using treadmill at home [facility] Other 11-06-2023 Evaluation note* Encounter Date Diagnosis [...] - R06.83) Aug, Asthma (ICD-10 - J45.909) [facility] Other 10-12-2023 Evaluation note* Encounter Date Diagnosis [...] new recipes to add variety; MET, CONTINUE [facility] Other 08-17-2023 Evaluation note* Encounter Date Diagnosis [...] new recipes to add variety; MET, CONTINUE [facility] Other 05-30-2023 Evaluation note* Encounter Date Diagnosis [...] - R06.83) February, Asthma (ICD-10 - J45.909) [facility] Other 04-11-2023 Evaluation note* Encounter Date Diagnosis Assessment Notes Treatment Notes Treatment Clinical Notes Jan, Obesity (ICD-10 - E66.9) Jan, BMI 40.0-44.9, adult (ICD-10 - Z68.41) Jan, Other Summary of Visi t: (A) discussed foods that can help prevent breast cancer and help w/ WM (B) benefits of fiber foods Patient set the following goals: [facility] Other 04-10-2023 Evaluation note* Encounter Date Diagnosis [...] - R06.83) Jan, Asthma (ICD-10 - J45.909) [facility] Other 02-28-2023 Evaluation note* Encounter Date Diagnosis [...] - R06.83) Nov, Asthma (ICD-10 - J45.909) [facility] Other 02-06-2023 Evaluation note* Encounter Date Diagnosis Assessment Notes Treatment Notes Treatment Clinical Notes Nov, Abnormal weight gain (ICD-10 - R63.5) Nov, Hypertension (ICD-10 - I10) Nov, Mixed hyperlipidemia (ICD-10 - E78.2) Nov, Metabolic syndrome X (ICD-10 - E88.81) Nov, Bipolar affective disorder (ICD-10 - F31.9) Nov, Snores (ICD-10 - R06.83) Nov, Asthma (ICD-10 - J45.909) [facility] Other Evaluation noteNo InformationNort APR Other History general Narrative - Reported* Type Description Date Medical History ADHD Medical History anxiety Medical History asthma Medical History bipolar Medical History BRCA2 positive Medical History endometriosis Medical History high blood pressure Medical History hypokalemia Medical History leg cramps Surgical History gallbladder 09/19 Surgical History ERCP 09/19 Surgical History wisdom teeth Hospitalization History see above [facility] Other Chief Complaint and Reason for Visit [...] Member Role Status Dates Gordon Velazco APRN CHECK WEIGHER-C Primary Care Provider Active Team Status: Inactive Member Role Status Dates Gordon Velazco APRN CHECK WEIGHER-C Primary Care Provider Active Start: January 21, 2024 End: January 21, 2024 Jarred Sigeel MD Attending Provider Active Start: January 21, 2024 End: January 21, 2024 Team Status: Inactive Member Role Status Dates Gordon Velazco APRN CHECK WEIGHER-C Primary Care Provider Active Start: January 24, 2024 End: January 24, 2024 MAG Johnson Attending Provider Active Start: January 24, 2024 End: January 24, 2024 Team Status: Active Member Role Status Dates Gordon Velazco APRN CHECK WEIGHER-C Primary Care Pr ovider, Attending Provider Active Start: February 18, 2024 Team Status: Inactive Member Role Status Dates Gordon Velazco APRN CHECK WEIGHER-C Primary Care Provider Active Start: March 05, 2024 End: March 05, 2024 Jarred Siegel MD Attending Provider Active Start: March 05, 2024 End: March 05, 2024 Team Status: Inactive Member Role Status Dates Gordon Velazco APRN CHECK WEIGHER-C Primary Care Provider Active Start: March 27, 2024 End: March 27, 2024 MAG Johnson Attending Provider Active Start: March 27, 2024 End: March 27, 2024 Goals (unrecognized section and content) Goals may be documented in a n alternate section INFORMATION SOURCE (unrecogn ized section and content) DATE CREATED AUTHOR 04/01/2024 [facility] DATE CREATED AUTHOR AUTHOR'S ORGANIZ ATION 05/16/2024 [facility] DATE CREATED AUTHOR AUTHOR'S ORGANIZ ATION 05/23/2024 [facility] DATE CREATED AUTHOR AUTHOR'S ORGANIZ ATION 05/31/2024 [facility] DATE CREATED AUTHOR AUTHOR'S ORGANIZ ATION 06/10/2024 [facility] DATE CREATED AUTHOR AUTHOR'S ORGANIZ ATION 06/25/2024 [facility] FOR RECORDS PERTAINING TO PATIENTS WHO ARE [...] BE BASED ON THE PRIMARY CLINICAL RECORDS. [employer] provides no warranty or guarantee of the accuracy or completeness of information in this document.
[2024-07-19 11:48] LABS: Lactate Dehydrogenase 177 U/L (81-234)
== END 2024-07-19 10:57 | disposition home or self-care (01) ==
LOC: LAB 10:58
PROVIDERS: Family Provider Family Medicine; Visit Provider Obstetrics & Gynecology
DX: Z15.01 Genetic susceptibility to malignant neoplasm of breast (principal); Z15.09 Genetic susceptibility to other malignant neoplasm
CPT/HCPCS: 36415; 83615

== ENCOUNTER 2024-07-22 07:22 | Outpatient (RCR) | payer OTHER, SELFPAY ==
[2024-07-23 08:12] LABS: Cancer Antigen (CA) 125 34.4 U/mL (0.0-38.1)
== END 2024-07-28 23:59 | disposition home or self-care (01) ==
LOC: HEMC 07:22
PROVIDERS: Family Provider Family Medicine; PCP Nurse Practitioner; Visit Provider Internal Medicine Hematology & Oncology
DX: Z15.09 Genetic susceptibility to other malignant neoplasm (principal); Z84.81 Family history of carrier of genetic disease; Z80.3 Family history of malignant neoplasm of breast; Z80.6 Family history of leukemia; Z80.8 Family history of malignant neoplasm of other organs or systems
CPT/HCPCS: 36415; 86304; G0463

== ENCOUNTER 2024-07-29 13:58 | Outpatient (REF) | payer OTHER, SELFPAY ==
--- OUTSIDE RECORDS SUMMARY | 2024-07-31 14:08 | XMS_ITS | CCD ---
Author Organization [facility] Care Team Providers Care Vp Clinical Research Name Role Phone Sameera Howard Unavailable Jarred Siegel Unavailable Anglim, Gordon Primary Care Unavailable Jarred Siegel Attending Unavailable Jarred Siegel Admitting Unavailable TALEBROGELIO Attending Unavailable ANGLIM, GORDON A Referring Unavailable ANGLIM, GORDON A Primary Care Unavailable TALEB, ROGELIO Attending Unavailable TALEB, DESIREAMMAD Referring Unavailable ANGLIM, GORDON A Primary Care Unavailable ANGLIM, GORDON A Referring Unavailable ANGLIM, GORDON A Primary Care Unavailable ANGLIM, GORDON A Referring Unavailable ANGLIM, GORDON A Primary Care Unavailable PHILLY RASHEED Referring Unavailab le NASREEN, ALBINA Primary Care Unavailable PHILLY RASHEED Referring Unavailab le NASREEN, ALBINA Primary Care Unavailable PROVIDER, UNKNOWN Referring Unavailable NASREEN, ALBINA Primary Care Unavailable KATELYN ZAMORA Referring Unavailable NASREEN, ALBINA Primary Care Unavailable AHMED, ABEER Referring Unavailable ANGLIM, GORDON A Primary Care Unavailable Unavailable Primary Care Provider Unavailabl e LEVI DORSEY Attending Unavailable LEVI DORSEY Attending Unavailable Allergies Allergy Classification Reported Allergen(s) Allergy Type Date of Onset Reaction(s) Facility (1 source) Shellfish Propensity to adverse reactions 4 [facility] Work Phone: (1 source) Fish-Derived Products Propensity to adverse reactions 4 Anaphylaxis, Hives, Itching [facility] (1 source) Shellfish-Deriv ed Products Drug Allergy 4 Anaphylaxis [facility] Medications Current Medications Medication Drug Class(es) Dates Sig (Normalized) Sig (Original) 0.25 MG, 0.5 MG Dose 3 ML semaglutide 0.68 MG/ML Pen Injector [Ozempic] (2 sources) Start: 09-03-2023 Ozempic (0.25 or 0.5 MG/DOSE) 2 MG/3ML 0.25 mg for one month and then increase to 0.5 mg dose Subcutaneous weekly for 30 Aug, Active [id number] 200 actuat albuterol 0.09 mg/actuat metered dose inhaler (2 sources) beta2-Adrenergic Agonist Start: 05-12-2024 take 2 puff(s) by inhalation every six hours albuterol HFA 90 mcg/act inhaler Inhale 2 puffs every 6 (six) hours if needed 05/12/2024 Active Start: 01-21-2024 take 1 puff(s) by in halation four times daily Albuterol Sulfate Active 2 PUFF INHALATION Four times daily January 21, 2024 12:00am ARIPiprazole 5 mg oral tablet (15 sources) Atypical Antipsychotic Start: 07-15-2024 take 1 tablet by mouth at bedtime ARIPiprazole (Abilify) 5 MG tablet Take 5 mg by mouth at bedtime 07/15/2024 Active Start: 01-21-2024 take 5 mg by mouth once daily Aripiprazole Active 5 MG PO Daily January 21, 2024 12:00am Start: 06-23-2020 take 1 tablet by cristine th in the morning ARIPiprazole (Abilify) 2 MG tablet Take 2 mg by mouth in the morning. 06/23/2020 Active take 1 tablet by cristine th every twenty-four hours ARIPiprazole 5 MG 1 tablet Orally Once a day Active atomoxetine 40 mg oral capsule (14 sources) Norepinephrine Reuptake Inhibitor Start: 01-21-2024 take 40 mg by mouth once daily Atomoxetine Active 40 MG PO Daily January 21, 2024 12:00am Strattera breath-actuated 120 actuat beclomethasone dipropionate 0.04 mg/actuat metered dose inhaler (1 source) Corticosteroid Start: 05-12-2024 take 2 puff(s) by inhalation in the morning beclomethasone HFA (Qvar) 40 MCG/ACT inhaler Inhale 2 puffs in the morning and 2 puffs in the evening. 05/12/2024 Active busPIRone hydrochloride 10 mg oral tablet (14 sources) Start: 06-23-2020 take 10 mg by mouth twice daily Buspirone Active 10 MG PO Twice daily January 21, 2024 12:00am hydroCHLOROthiazide 25 mg oral tablet (7 sources) Thiazide Diuretic Start: 01-21-2024 take 25 mg by mouth once daily Hydrochlorothiazide Active 25 MG PO Daily January 21, 2024 12:00am hydroCHLOROthiaz mariusz 25 MG Oral for 30 Days Active hydroCHLOROthiazide 12.5 mg / lisinopril 20 mg oral tablet (7 sources) Thiazide Diuretic, Angiotensin Converting Enzyme Inhibitor take 1 tablet by mouth in the morning lisinopril-hydroCHLOROthiazide 20-12.5 MG tablet Take 1 tablet by mouth in the morning. Active take 1 tablet by cristine th every twenty-four hours Lisinopril-hydroCHLOROthiazide 20-12.5 M G 1 tablet Orally Once a day Active hydrOXYzine pamoate 50 mg oral capsule (14 sources) Antihistamine Start: 01-21-2024 take 1 capsule by mouth once hydrOXYzine pamoate (Vistaril) 50 MG capsule Take 50 mg by mouth 1 (one) time 01/21/2024 Active take 1 capsule by mo [facility] every twenty-four hours hydrOXYzine Pamoate 50 MG 1 capsule at bedtime as needed Orally Once a day Active lamoTRIgine 100 mg oral tablet (14 sources) Mood Stabilizer, Anti-epileptic Agent Start: 01-21-2024 take 1 tablet by mouth every other day lamoTRIgine (LaMICtal) 100 MG tablet Take 100 mg by mouth every other day 01/21/2024 Active Start: 01-21-2024 take 1 tablet by cristine th once daily Lamotrigine (Lamictal) 100 mg tablet Active 100 MG PO Daily January 21, 2024 12:00am take 1 tablet by cristine th every twenty-four hours LaMICtal 100 MG 1 tablet Orally Once a day Active lisinopril 30 mg oral tablet (8 sources) Angiotensin Converting Enzyme Inhibitor Start: 01-21-2024 lisinopril 30 MG tablet 1 (one) time each day at the same time 01/21/2024 Active Lisinopril 30 MG Oral for 30 Days Active magnesium oxide 400 mg oral tablet (15 sources) Start: 01-21-2024 take 400 mg by mouth once daily at bedtime Magnesium Oxide Active 400 MG PO Daily at bedtime January 21, 2024 12:00am take 1 capsule by mouth once ewa ly Magnesium 500 MG capsule Take 500 mg by mouth Daily Active montelukast 10 mg oral tablet (14 sources) Leukotriene Receptor Antagonist Start: 01-21-2024 take 1 tablet by mouth at bedtime montelukast (Singulair) 10 MG tablet Take 10 mg by mouth at bedtime 01/21/2024 Active take 1 tablet by cristine th every twenty-four hours Montelukast Sodium 10 MG 1 tablet Orally Once a day Active ozempic (0.25 or 0.5 mg/dose) 2 mg/3ml solution pen-injector (1 source) Start: 09-03-2023 Ozempic (0.25 or 0.5 MG/DOSE) 2 MG/3ML 0.25 mg for one month and then increase to 0.5 mg dose Subcutaneous weekly for Aug, Active potassium 99 mg extended release oral tablet (1 source) take 1 tablet by mouth once daily Potassium 99 MG tablet Take 99 mg by mouth Daily Active microencapsulated potassium chloride 20 meq extended release oral tablet (12 sources) take 1 tablet by mouth every twenty-four hours Klor-Con M20 20 MEQ 1 tablet with food Orally Once a day Active potassium citrate (1 source) Start: 01-21-2024 Potassium Citr ate Active 0 PO .COMPLEX January 21, 2024 12:00am orally daily; Semaglutide (OZEMPIC, 1 MG/DOSE, SC) (1 source) Semaglutide (OZEMPIC, 1 MG/DOSE, SC) Active semaglutide (Ozempic, 1 MG/DOSE,) 4 MG/3ML solution pen-injector (1 source) Start: 04-16-2024 inject 1 mg by subcutaneous injection every week semaglutide (Ozempic, 1 MG/DOSE,) 4 MG/3ML solution pen-injector Inject 1 mg under the skin 1 (one) time per week 04/16/2024 Active Vitamin D-Vitamin K (K2-D3 10,000) 36011-89 UNIT-MCG capsule (1 source) take 1 capsule by mouth once daily Vitamin D-Vitamin K (K2-D3 10,000) 74823-72 UNIT-MCG capsule Take 1 each by mouth Daily Active wegovy 1 mg/0.5ml solution auto-injector (1 source) [...] Base Discontinued 0.33 ML SUBCUT every week .32 January 21, 2024 12:00am March 05, 2024 7:23am [facility] Pre-filled Syringes using Semaglutide Base. Dispense 1.32 mL = (Four 0.33 mL pre-filled syringes) Problems Active Problems Problem Classification Problem Date Documented Date Episodic/Chronic Abdominal pain (1 source) Pain in female pelvis; Translations: [Pelvic and perineal pain] 07-29-2024 Episodic Asthma (20 sources) Asthma; Translations: [Unspecified asthma, uncomplicated] Onset: 11-12-2023 Chronic Diabetes mellitus without complication (8 sources) Prediabetes; Translations: [Prediabetes] Episodic Disorders of lipid metabolism (20 sources) Mixed hyperlipidemia; Translations: [Mixed hyperlipidemia] Chronic Essential hypertension (20 sources) Hypertensive disorder; Translations: [Essential (primary) hypertension] Chronic Menstrual disorders (1 source) Menorrhagia; Translations: [Excessive and frequent menstruation with regular cycle] 07-29-2024 Chronic Mood disorders (18 sources) Bipolar disorder; [...] diagnostic imaging of breast] Onset: 05-17-2024 Episodic Ovarian cyst (1 source) Complex ovarian cyst; Translations: [Other ovarian cyst, unspecified side] 07-29-2024 Episodic Residual codes; unclassified (1 source) BRCA2 gene mutation positive; Translations: [Genetic susceptibility to malignant neoplasm of breast] 07-29-2024 Episodic Unclassified (1 source) New Patient Onset: [...] Test Name Value Interpretation Reference Range Facility HCG ( test) Ql (U)o n 07-29-2024 Interpretation and review of laboratory results [facility], Ur Negative [facility] Health [facility] MAMM BX BREAST STEREO GUID I NITIAL [...] Breanne Romo MD on 06/10/2024 8:35 AM 1999 Normal [facility] MAMM POST BX DIAG UNI LTon [...] Breanne Romo MD on 06/10/2024 8:35 AM 1999 Normal [facility] Surgical Pathologyon 024 Surgical Pathology Normal [facility] Comment on above: Result Comment: [facility] [address] [place] [address] Surgical Pathology Consultation Patient Name:BRITTANY CONNORS:1985 (Age: 39)Gender:FTaken:06/06/2024eported:06/09/2024hysician(s):Philly Rasheed NP ([phone])Copy To:Katelyn ZamoraAccession #:[id number]. Rec. #:[id number]: #[id number] Final Pathologic Diagnosis Left breast, needle biopsy @3-4:00, 5 cm fn: Benign breast tissue with focal, mild cystic change and fibrosis. Report Electronically Signed Out 06/09/2024Robin Villanueva MD [place] [address], License number: [id number]. Clinical History Biopsy procedure: Stereotactic; Target: Mass; [...] 8 hours and 30 minutes (2, ns, [id number], A???B, m1) JG jmg/06/06/2024SSI Specimen(s) Received Left breast Fee Codes(s): 1; 42056 MAMM DIAGNOSTIC UNILAT LT W CADon 05-29-2024 [...] masses, calcifications, or areas of architectural distortions. ____ Left Breast Ultrasound, Limited TECHNIQUE: Multiple real-time henry-scale images of the left breast in the 2-5 o'clock axis were performed. Color Doppler was utilized to assess vascular flow. FINDINGS: Initial ultrasound evaluation demonstrated a possible corresponding sonographic abnormality as documented metastatic images and cine clip in PACS. However subsequent real-time scanning while personally present failed to reproduce an obvious sonographic correlate. ____ COMBINED IMPRESSION: New 5 mm left breast mass, best demonstrated mammographically, suspicious given the setting of 67% increased lifetime risk of developing breast cancer. Stereotactic biopsy is recommended. BI-RADS: BI-RADS 4 - Suspicious Recommendation: Biopsy is recommended Patient was given the results before leaving the department. Finalized by Ned Soto MD on 05/29/2024 9:42 AM 4 a BIOPSY Normal [facility] US BREAST LT LIMITEDon 05-29 US [...] masses, calcifications, or areas of architectural distortions. ____ Left Breast Ultrasound, Limited TECHNIQUE: Multiple real-time henry-scale images of the left breast in the 2-5 o'clock axis were performed. Color Doppler was utilized to assess vascular flow. FINDINGS: Initial ultrasound evaluation demonstrated a possible corresponding sonographic abnormality as documented metastatic images and cine clip in PACS. However subsequent real-time scanning while personally present failed to reproduce an obvious sonographic correlate. ____ COMBINED IMPRESSION: New 5 mm left breast mass, best demonstrated mammographically, suspicious given the setting of 67% increased lifetime risk of developing breast cancer. Stereotactic biopsy is recommended. BI-RADS: BI-RADS 4 - Suspicious Recommendation: Biopsy is recommended Patient was given the results before leaving the department. Finalized by Ned Soto MD on 05/29/2024 9:42 AM 4 a BIOPSY Normal [facility] MAMM SCREENING BILATERAL W C receiving associate 05-20-2024 MAMM SCREENING BILATERAL W CAD MAMM [...] 3:05 PM 0A a ADDITIONAL I Normal [facility] XR CHEST 2 VWSon 03-18-2024 XR CHEST 2 VWS XR CHEST 2 VWS Chest 2 views History: Asthma, unspecified asthma severity, unspecified whether complicated, unspecified whether persistent Comparison: 09/15/2021 Findings: Chest 2 views. Stable cardiomediastinal silhouette. No focal opacity, effusion or pneumothorax. Impression: No evident acute cardiopulmonary process. Finalized by Jack Do MD on 03/18/2024 6:47 PM Normal [facility] Laboratory - Chemistry and C hemistry - challengeon 02-18-2024 Albumin [Mass/Vol] 4.8 g/dL [facility] ALP [Catalytic activity/Vol] 111 U/L [facility] ALT [Catalytic activity/Vol] 22 U/L [facility] AST [Catalytic activity/Vol] 16 U/L [facility] Bilirubin [Mass/Vol] 0.4 mg/dL [facility] Calcium [Mass/Vol] 9.5 mg/dL [facility] Chloride [Moles/Vol] 102 mmol/L [facility] Cholesterol [Mass/Vol] 204 mg/dL [facility] Cholesterol in HDL [Mass/Vol] 54 mg/dL [facility] Cholesterol in LDL [Mass/Vol] 122 mg/dL [facility] Cholesterol.total/C holesterol in HDL [Mass ratio] 3.8 {ratio} [facility] CO2 [Moles/Vol] 27 mmol/L [facility] Creatinine [Mass/Vol] 0.74 mg/dL [facility] GFR/1.73 sq M.predicted MDRD (S/P/Bld) [Vol rate/Area] 105 mL/min/{1.73_m2} [facility] Glucose [Mass/Vol] 98 mg/dL [facility] Potassium [Moles/Vol] 4.0 mmol/L [facility] Protein [Mass/Vol] 6.3 g/dL [facility] Sodium [Moles/Vol] 140 mmol/L [facility] Triglyceride [Mass/Vol] 142 mg/dL [facility] Urea nitrogen [Mass/Vol] 12 mg/dL [facility] Laboratory - Hematology and Cell countson 02-18-2024 HbA1c (Bld) [Mass fraction] 5.2 % [facility] No Panel Informationon 02-17 Estimated GFR (Non- 105 mL/min [facility] Thyroid Stimulating Hormone 3rd Gen 2.34 [facility] VLDL Cholesterol 28 mg/dL [facility] Vital Signs Date Time Vital Sign Value Performing Clinician Facility 07-29-2024 09:45-0400 Body mass index (BMI) [Ratio] 44.9 kg/m2 [facility] Work Phone: [facility] 07-29-2024 09:45-0400 Body weight 122.38 kg [facility] [employer] Work Phone: [facility] 07-29-2024 09:45-0400 Diastolic blood pressure 80 mm[Hg] [facility] [employer] Work Phone: [facility] 07-29-2024 09:45-0400 Systolic blood pressure 124 mm[Hg] [facility] [employer] Work Phone: [facility] 03-27-2024 08:05-0400 Body height 170.18 cm [facility] 03-27-2024 08:05-0400 Body mass index (BMI) [Ratio] 45.6 kg/m2 [facility] 03-27-2024 08:05-0400 Body weight 132.13 kg [facility] 03-05-2024 07:120400 Body height 170.18 cm [facility] 03-05-2024 07:12-0400 Body mass index (BMI) [Ratio] 45.7 kg/m2 [facility] 03-05-2024 07:12-0400 Body weight 132.5 kg [facility] 03-05-2024 07:12-0400 Diastolic blood pressure 18 mm[Hg] [facility] 03-05-2024 07:12-0400 Heart rate 95 /min [facility] 03-05-2024 07:12-0400 Respiratory rate 18 /min [facility] 03-05-2024 07:12-0400 SaO2% (BldA) [Mass fraction] 99 % [facility] 03-05-2024 07:12-0400 Systolic blood pressure 100 mm[Hg] [facility] 01-24-2024 15:39-0400 Body height 170.18 cm [facility] 01-24-2024 15:39-0400 Body mass index (BMI) [Ratio] 43.8 kg/m2 [facility] 01-24-2024 15:39-0400 Body weight 127 kg [facility] 01-21-2024 07:13-0400 Body height 170.18 cm [facility] 01-21-2024 07:13-0400 Body mass index (BMI) [Ratio] 44 kg/m2 [facility] 01-21-2024 07:13-0400 Body weight 127.62 kg [facility] 01-21-2024 07:13-0400 Diastolic blood pressure 84 mm[Hg] [facility] 01-21-2024 07:13-0400 Heart rate 95 /min [facility] 01-21-2024 07:13-0400 Respiratory rate 18 /min [facility] 01-21-2024 07:13-0400 SaO2% (BldA) [Mass fraction] 98 % [facility] 01-21-2024 07:13-0400 Systolic blood pressure 121 mm[Hg] [facility] 10-19-2023 07:30-0500 Body height 170.18 cm Jarred Bushdiff Other [facility] Other 10-19-2023 07:30-0500 Body mass index (BMI) [Ratio] 45.13 kg/m2 Jarred Siegel Other [facility] Other 10-19-2023 07:30-0500 Body weight 130.73 kg Jarred Bushdiff Other [facility] Other 10-19-2023 07:30-0500 Diastolic blood pressure 89 mm[Hg] Jarred [facility]diff Other [facility] Other 10-19-2023 07:30-0500 Respiratory rate 18 /min Jarred Bushdiff Other [facility] Other 10-19-2023 07:30-0500 SaO2% (BldA) [Mass fraction] 100 % Jarred [facility]diff Other [facility] Other 10-19-2023 07:30-0500 Systolic blood pressure 128 mm[Hg] Jarred Christal Other [facility] Other 10-04-2023 07:15-0500 Body height 170.18 cm Sameera Fitt Other [facility] Other 10-04-2023 07:15-0500 Body mass index (BMI) [Ratio] 45.68 kg/m2 Sameera Fitt Other [facility] 10-04-2023 07:15-0500 Body weight 132.32 kg Sameera Fitt Other [facility] Other 09-03-2023 07:15-0500 Body height 170.18 cm Jarred Bushdiff Other [facility] Other 09-03-2023 07:15-0500 Body mass index (BMI) [Ratio] 46.67 kg/m2 Jarred Bushdiff Other [facility] Other 09-03-2023 07:15-0500 Body weight 135.17 kg Jarred Bushdiff Other [facility] Other 09-03-2023 07:15-0500 Diastolic blood pressure 85 mm[Hg] Jarred Bushdiff Other [facility] Other 09-03-2023 07:15-0500 Respiratory rate 18 /min Jarred Bushdiff Other [facility] Other 09-03-2023 07:15-0500 SaO2% (BldA) [Mass fraction] 98 % Jarred Bushdiff Other [facility] Other 09-03-2023 07:15-0500 Systolic blood pressure 121 mm[Hg] Jarred Siegel Other [facility] Other 08-09-2023 07:15-0400 Body height 170.18 cm Sameera Fitt Other [facility] Other 08-09-2023 07:15-0400 Body mass index (BMI) [Ratio] 46.26 kg/m2 Sameera Fitt Other [facility] Other 08-09-2023 07:15-0400 Body weight 133.99 kg Sameera Fitt Other [facility] Other 06-14-2023 08:00-0400 Body height 170.18 cm Sameera Fitt Other [facility] Other 06-14-2023 08:00-0400 Body mass index (BMI) [Ratio] 46.56 kg/m2 Sameera Fitt Other [facility] Other 06-14-2023 08:00-0400 Body weight 134.86 kg Sameera Fitt Other [facility] Other 03-27-2023 07:15-0400 Body height 170.18 cm Jarredpearl Siegel Other [facility] Other 03-27-2023 07:15-0400 Body mass index (BMI) [Ratio] 47.44 kg/m2 Jarred Siegel Other [facility] Other 03-27-2023 07:15-0400 Body weight 137.4 kg Jarred Siegel Other [facility] Other 03-27-2023 07:15-0400 Diastolic blood pressure 88 mm[Hg] Jarred Siegel Other [facility] Other 03-27-2023 07:15-0400 Respiratory rate 18 /min Jarred Siegel Other [facility] Other 03-27-2023 07:15-0400 SaO2% (BldA) [Mass fraction] 99 % Jarred Siegel Other [facility] Other 03-27-2023 07:15-0400 Systolic blood pressure 138 mm[Hg] Jarred Christal Other [facility] Other 02-06-2023 09:15-0400 Body height 170.18 cm Sameera Howard Other [facility] Other 02-05-2023 08:15-0400 Body height 170.18 cm Jarredpearl Siegel Other [facility] Other 02-05-2023 08:15-0400 Body mass index (BMI) [Ratio] 45.67 kg/m2 Jarred Siegel Other [facility] Other 02-05-2023 08:15-0400 Body weight 132.27 kg Jarred Siegel Other [facility] Other 02-05-2023 08:15-0400 Diastolic blood pressure 93 mm[Hg] Jarred Siegel Other [facility] Other 02-05-2023 08:15-0400 Respiratory rate 18 /min Jarred Christal Other [facility] Other 02-05-2023 08:15-0400 SaO2% (BldA) [Mass fraction] 99 % Jarred Siegel Other [facility] Other 02-05-2023 08:15-0400 Systolic blood pressure 123 mm[Hg] Jarred Siegel Other [facility] Other 12-26-2022 08:00-0500 Body height 170.18 cm Jarred Siegel Other [facility] Other 12-26-2022 08:00-0500 Body mass index (BMI) [Ratio] 45.34 kg/m2 Jarred [facility]diff Other [facility] Other 12-26-2022 08:00-0500 Body weight 131.32 kg Jarred Bushdiff Other [facility] Other 12-26-2022 08:00-0500 Diastolic blood pressure 92 mm[Hg] Jarred Bushdiff Other [facility] Other 12-26-2022 08:00-0500 Respiratory rate 18 /min Jarred Bushdiff Other [facility] Other 12-26-2022 08:00-0500 SaO2% (BldA) [Mass fraction] 98 % Jarred Bushdiff Other [facility] Other 12-26-2022 08:00-0500 Systolic blood pressure 122 mm[Hg] Jarred Christal Other [facility] Other 12-04-2022 09:15-0500 Body height 170.18 cm Jarred Christal Other [facility] Other 12-04-2022 09:15-0500 Body mass index (BMI) [Ratio] 44.41 kg/m2 Jarred Bushdiff Other [facility] Other 12-04-2022 09:15-0500 Body weight 128.64 kg Jarred Christal Other [facility] Other 12-04-2022 09:15-0500 Diastolic blood pressure 93 mm[Hg] Jarred Siegel Other [facility] Other 12-04-2022 09:15-0500 Respiratory rate 18 /min Jarred Siegel Other [facility] Other 12-04-2022 09:15-0500 SaO2% (BldA) [Mass fraction] 99 % Jarred Siegel Other [facility] Other 12-04-2022 09:15-0500 Systolic blood pressure 122 mm[Hg] Jarred Siegel Other [facility] Other Encounters Encounter Date Encounter Type Care Provider Facility Start: 07-29-2024 End: 07-29-2024 Patient encounter procedure Levi Sunita DO Work Phone: [facility] Comment on above: Menorrhagia with reg ular cycle; BRCA2 gene mutation positive; Complex ovarian cyst; Pelvic pain in female Start: 07-29-2024 End: 07-29-2024 ambulatory LEVI SUNITA Not Available Start: 06-24-2024 End: 06-24-2024 ambulatory LEVI SUNITA Not Available Start: 06-06-2024 End: 06-06-2024 ambulatory [facility] Start: 06-06-2024 End: 06-06-2024 ambulatory [facility] Start: 05-29-2024 End: 05-29-2024 ambulatory PHILLY RASHEED [facility] Start: 05-17-2024 End: 05-17-2024 [facility] Start: 05-12-2024 End: 05-12-2024 ambulatory [facility] Start: 03-27-2024 End: 03-27-2024 Patient encounter procedure [facility][note 3] Work Phone: Start: 03-18-2024 End: 03-18-2024 ambulatory ROGELIO FENTON [facility] Start: 03-05-2024 End: 03-05-2024 Patient encounter procedure [facility] Work Phone: Start: 02-18-2024 Non-patient / Non-visit [facility] [place] Work Phone: Start: 01-24-2024 End: 01-24-2024 Patient encounter procedure [facility] Work Phone: Start: 01-21-2024 End: 01-21-2024 Patient encounter procedure [facility] Work Phone: Start: 11-28-2023 End: 11-28-2023 ambulatory [facility] Facility:[facility] Start: 11-17-2023 End: 11-17-2023 ambulatory [facility] Start: 11-12-2023 End: 11-12-[address] [facility] Start: 10-19-2023 End: 10-19-2023 ambulatory Jarred Siegel Other [facility] Other Start: 10-19-2023 Follow-up encounter [facility] Start: 10-04-2023 ([facility] FU) [facility] F/ [employer] Psychologist Sameera Howard [facility] Start: 10-04-2023 End: 10-04-2023 ambulatory Sameera Howard Other [facility] Other Start: 09-03-2023 End: 09-03-2023 ambulatory Jarred Siegel Other [facility] Other Start: 09-03-2023 Follow-up encounter Jarred [facility] Start: 08-09-2023 ([facility] FU) [facility] F/ [employer] Psych[employer] Sameera Howard [facility] Start: 08-09-2023 End: 08-09-2023 ambulatory Sameera Wrightt Other [facility] Other Start: 06-22-2023 End: 06-22-2023 ambulatory Jarred Siegel Other [facility] Other Start: 06-22-2023 Telephone encounter Jarred Bush[facility] Start: 06-14-2023 ([facility] [address] FU) [facility]/ [employer] Psychologist Sameera Howard [facility] Start: 06-14-2023 End: 06-14-2023 ambulatory Sameera Howard Other [facility] Other Start: 03-27-2023 End: 03-27-2023 ambulatory Jarred Siegel Other [facility] Other Start: 03-27-2023 Follow-up encounter Jarred Christalcanelo [facility] Start: 02-06-2023 ([facility]) [facility] Init ial Provider Sameera Howard [facility] Start: 02-06-2023 End: 02-06-2023 ambulatory Sameera Wrightt Other [facility] Other Start: 02-05-2023 End: 02-05-2023 ambulatory Jarred Siegel Other [facility] Other Start: 02-05-2023 Follow-up encounter Jarred Christalcanelo [facility] Start: 12-26-2022 End: 12-26-2022 ambulatory Jarred Mayerff Other [facility] Other Start: 12-26-2022 Follow-up encounter Jarred Christal Boyd [facility] Start: 12-04-2022 End: 12-04-2022 ambulatory Jarred Siegel Other [facility] Other Start: 12-04-2022 Nutrition therapy Jarred Siegel [facility] Start: 10-31-2022 End: 10-31-2022 ambulatory Sameera Howard Other [facility] Other Start: 10-31-2022 Telephone encounter Sameera Howard [facility] Procedures Date Procedure Procedure Detail Performing Clinician Start: 07-29-2024 Urine test visual color cmprsn meths Levi Fano DO Work Phone: Start: 06-24-2024 Microscopic observat ion [Identifier] in Cervix by Cyto stain Levi Fano DO Work Phone: Start: 06-06-2024 Mammography Levi ViewReple o DO Work Phone: Plan of Treatment Date Care Activity Detail Author Start: 06-24-2027 Screening for malign ant neoplasm of cervix [facility] Start: 06-06-2025 Screening for malign ant neoplasm of breast Mammogram [facility] Start: 06-29-2024 Influenza vaccination Influenza Vacc ine (#1) [facility] Start: 02-21-2014 Screening for malign ant neoplasm of cervix HPV/Cotest [facility] Biopsy endometrium Biopsy endome trium Procedures Routine Menorrhagia with regular cycle Ordered: 07/29/2024 [facility] Work Phone: Comment on above: Ordered: 07/29/2024 Immunizations Immunization Date Immunization Notes Care Provider Fa cility 08-28-2023 influenza virus vacc ine, unspecified formulation Levi Dorsey DO Work Phone: [facility] Payers Date Payer Category Payer Unknown [employer] [id number] 2023-Present [address] [place] [address] [id number] 2022 Self-pay 2022 Unknown [id number] 1984 Unknown [id number] 1984 Unknown [id number] [id number] 1984 Unknown [id number] [id number] 1984 Unknown [id number] [id number] 1984 Unknown [id number] 2.16.840.1.141768.3.579.2.1285 1984 Unknown [id number] 2.840.1.547051.3.579.2.1285 1984 Unknown [id number] 2.840.1.175173.3.579.2.1285 1984 Unknown [id number] 2.16840.1.886082.3.579.2.128 1984 Unknown [id number] 2.16840.1.777134.3.579.2.1285 1984 Unknown [id number] 2.16840.1.135070.3.579.2.1259 1984 Unknown [id number] 2.840.1.259566.3.579.2.1259 Unknown [employer] [id number] Unknown [id number] Social History Date Type Detail Facility Unknown if ever smoked [facility] Other Sex Assigned At [facility] Other Start: 1985 Sex Assigned At Female [facility] Tobacco smoking status NHIS Tobacco smoking consumption unknown [facility] Start: 06-18-2024 Gender identity Identifies as female gender (finding) [facility] Clinical Notes 12-04-2022 to 07-29-2024 Iwona LermaARETHA - 07/29/2024 9:30 AM EDT Note Date & Type Note Facility 07-29-2024 History of Presen t illness Narrative Reason for Appointment: Patient ID: Brittany Connors is a 39 y.o. female who presents for EMBX Patient presents today for Acute Visit. and Consult appointment. MEDICATIONS Current Outpatient Medications Medication Instructions albuterol HFA 90 mcg/act inhaler 2 puffs, Inhalation, Every 6 hours PRN ARIPiprazole (ABILIFY) 2 mg, Oral, Daily RT ARIPiprazole (ABILIFY) 5 mg, Oral, Nightly atomoxetine (STRATTERA) 40 mg, Oral, Daily beclomethasone HFA (Qvar) 40 MCG/ACT inhaler 2 puffs, Inhalation, 2 times daily busPIRone (BUSPAR) 10 mg, Oral, 2 times daily hydrOXYzine pamoate (VISTARIL) 50 mg, Oral, Once lamoTRIgine (LAMICTAL) 100 mg, Oral, Every other day lisinopril 30 MG tablet Every 24 hours lisinopril-hydroCHLOROthiazide 20-12.5 MG tablet 1 tablet, Oral, Daily RT magnesium oxide (MAG-OX) 400 mg, Oral, Nightly Magnesium 500 mg, Oral, Daily montelukast (SINGULAIR) 10 mg, Oral, Nightly Ozempic (1 MG/DOSE) 1 mg, Subcutaneous, Weekly Potassium 99 mg, Oral, Daily Semaglutide (OZEMPIC, 1 MG/DOSE, SC) Vitamin D-Vitamin K (K2-D3 10,000) 35261-04 UNIT-MCG capsule 1 each, Oral, Daily ALLERGIES Allergies Allergen Reactions Fish-Derived Products Anaphylaxis, Hives and Itching Shellfish-Derived Products Anaphylaxis Shellfish Allergy PROBLEMS Active Ambulatory Problems Diagnosis Date Noted No Active Ambulatory Problems Resolved Ambulatory Problems Diagnosis Date Noted No Resolved Ambulatory Problems Past Medical History: Diagnosis Date ADHD (attention deficit hyperactivity disorder) ([facility] Anxiety and depression ([facility]) Asthma ([facility]) Bipolar 1 disorder ([facility]) BRCA gene positive High blood pressure ([facility]) HISTORY PAST MEDICAL HISTORY SOCIAL HISTORY Past Medical History: Diagnosis Date ADHD (attention deficit hyperactivity disorder) ([facility]) Anxiety and depression ([facility]) Asthma ([facility]) Bipolar 1 disorder ([facility]) BRCA gene positive 2 High blood pressure ([facility]) Social History Tobacco Use Smoking status: Not on file Smokeless tobacco: Not on file Substance Use Topics Alcohol use: Not on file Drug use: Not on file FAMILY HISTORY Family History Problem Relation Name Age of Onset Breast cancer Mother Breast cancer Mother's Sister 75 LUMPECTOMY Pancreatic cancer Maternal Grandfather Leukemia Paternal Grandfather Brain cancer Cousin SURGICAL HISTORY Past Surgical History: Procedure Laterality Date BI STEREOTACTIC GUIDED BREAST LOCALIZATION AND BIOPSY LEFT Left 06/06/2024 BI STEREOTACTIC GUIDED BREAST LOCALIZATION AND BIOPSY LEFT 06/06/2024 ERCP 09/13/2022 GALLBLADDER 09/27/2022 WISDOM TOOTH EXTRACTION REVIEW OF SYSTEMS Review of Systems: Review of Systems Constitutional: Negative. HENT: Negative. Eyes: Negative. Respiratory: Negative. Cardiovascular: Negative. Gastrointestinal: Negative. Genitourinary: Negative. Musculoskeletal: Negative. Skin: Negative. Neurological: Negative. All other systems reviewed and are negative. Hematological: Negative. Endocrine: Negative. Allergic/Immunologic: Negative. OBJECTIVE Objective: Physical Exam Constitutional: Appearance: Normal appearance. She is well-developed. Genitourinary: Vulva normal. Cardiovascular: Rate and Rhythm: Normal rate and regular rhythm. Pulmonary: Effort: Pulmonary effort is normal. Breath sounds: Normal breath sounds. Abdominal: General: Bowel sounds are normal. There is no distension. Palpations: Abdomen is soft. Tenderness: There is no abdominal tenderness. There is no guarding or rebound. Musculoskeletal: General: No swelling. Normal range of motion. Right lower leg: No edema. Left lower leg: No edema. Neurological: Mental Status: She is alert and oriented to person, place, and time. Skin: General: Skin is warm and dry. Psychiatric: Mood and Affect: Mood normal. Behavior: Behavior normal. Vitals and nursing note reviewed. Exam conducted with a ruby software developer present. Vitals: Estimated body mass index is 44.9 kg/m as calculated from the following: Height as of 06/24/24: 5' 5 . Weight as of this encounter: 269 lb 12.8 oz. BP: 124/80 No LMP recorded. ASSESSMENT & PLAN ICD-10-CM 1. Menorrhagia with regular cycle N92.0 Biopsy endometrium POC , urine 2. BRCA2 gene mutation positive Z15.01 Z15.09 3. Complex ovarian cyst N83.299 4. Pelvic pain in female R10.2 EMBX: Patient was placed in dorsal lithotomy position with feet in stirrups. A sterile speculum was placed into the vagina and the cervix was visualized. The cervix was grasped with a single tooth tenaculum. The endometrial pipette was placed through the cervix into the uterus, endometrial curettage was performed and sampling was obtained, endometrial curettings were placed in formalin, and single tooth tenaculum was removed. Excellent hemostasis was assured. All instruments were removed from vagina. Reviewed labs with pt in detail. Pt saw Dr Vega and desires surgical management at this time. Pt to be scheduled for a bilateral oophorectomy. Follow Up: Patient is to return for preop. Documented by Iwona Lerma LPN on behalf of: Levi Dorsey DO documented in this encounter [facility] 01-21-2024 Evaluation note Authored January 21, 2024 [...] Her psychiatric prescriber is Brittany Gamino from [place] where they live. Her dad is a [...] in the morning. 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 8. Snorer/[place] of 6/neck size of 15.5 inches/mallampati score [...] work with her PCP. Author Jarred Siegel [facility] Authored March 05, 2024 7:59am Start/highest [...] Her psychiatric prescriber is Brittany Gamino from [place] where they live. Her dad is a [...] in the morning. 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 8. Snorer/[place] of 6/neck size of 15.5 inches/mallampati score [...] continue regular lab work with her PCP. [facility] Work Phone: [phone] 526-159512-22-2023 Evaluation note* Encounter Date Diagnosis Assessment Notes [...] - R06.83) Sep, Asthma (ICD-10 - J45.909) [facility] Other 12-07-2023 Evaluation note* Encounter Date Diagnosis [...] / exercise routine using treadmill at home [facility] Other 11-06-2023 Evaluation note* Encounter Date Diagnosis [...] - R06.83) Aug, Asthma (ICD-10 - J45.909) [facility] Other 10-12-2023 Evaluation note* Encounter Date Diagnosis [...] new recipes to add variety; MET, CONTINUE [facility] Other 08-17-2023 Evaluation note* Encounter Date Diagnosis [...] new recipes to add variety; MET, CONTINUE [facility] Other 05-30-2023 Evaluation note* Encounter Date Diagnosis [...] - R06.83) February, Asthma (ICD-10 - J45.909) [facility] Other 04-11-2023 Evaluation note* Encounter Date Diagnosis Assessment Notes Treatment Notes Treatment Clinical Notes Jan, Obesity (ICD-10 - E66.9) Jan, BMI 40.0-44.9, adult (ICD-10 - Z68.41) Jan, Other Summary of Visi t: (A) discussed foods that can help prevent breast cancer and help w/ WM (B) benefits of fiber foods Patient set the following goals: [facility] Other 04-10-2023 Evaluation note* Encounter Date Diagnosis [...] - R06.83) Jan, Asthma (ICD-10 - J45.909) [facility] Other 02-28-2023 Evaluation note* Encounter Date Diagnosis [...] - R06.83) Nov, Asthma (ICD-10 - J45.909) [facility] Other 02-06-2023 Evaluation note* Encounter Date Diagnosis Assessment Notes Treatment Notes Treatment Clinical Notes Nov, Abnormal weight gain (ICD-10 - R63.5) Nov, Hypertension (ICD-10 - I10) Nov, Mixed hyperlipidemia (ICD-10 - E78.2) Nov, Metabolic syndrome X (ICD-10 - E88.81) Nov, Bipolar affective disorder (ICD-10 - F31.9) Nov, Snores (ICD-10 - R06.83) Nov, Asthma (ICD-10 - J45.909) [facility] Other [facility] Other Evaluation note* Diagnosis Menorrhagia with regular cycle BRCA2 gene mutation positive Complex ovarian cyst Pelvic pain in female Unspecified symptom associated with female genital organs documented in this [facility] N[facility] - Reported* Type Description Date Medical History ADHD Medical History anxiety Medical History asthma Medical History bipolar Medical History BRCA2 positive Medical History endometriosis Medical History high blood pressure Medical History hypokalemia Medical History leg cramps Surgical History gallbladder 09/19 Surgical History ERCP 09/19 Surgical History wisdom teeth Hospitalization History see above [facility] Other Chief Complaint and Reason for Visit [...] FOR VISIT (unrecogniz ed section and content) Reason Comments EMBX Care Teams (unrecognized sec tion and content) Team Status: Active Member Role Status Dates Gordon Velazco APRN GRAIN MILL WORKER-C Primary Care Provider Active Team Status: Inactive Member Role Status Dates Gordon Velazco APRN GRAIN MILL WORKER-C Primary Care Provider Active Start: January 21, 2024 End: January 21, 2024 Jarred Siegel MD Attending Provider Active Start: January 21, 2024 End: January 21, 2024 Team Status: Inactive Member Role Status Dates Gordon Velazco APRN GRAIN MILL WORKER-C Primary Care Provider Active Start: January 24, 2024 End: January 24, 2024 MAG Johnson Attending Provider Active Start: January 24, 2024 End: January 24, 2024 Team Status: Active Member Role Status Dates Gordon Velazco APRN GRAIN MILL WORKER-C Primary Care Ani acmpo Attending Provider Active Start: February 18, 2024 Team Status: Inactive Member Role Status Dates Gordon Velazco APRN GRAIN MILL WORKER-C Primary Care Provider Active Start: March 05, 2024 End: March 05, 2024 Jarred Siegel MD Attending Provider Active Start: March 05, 2024 End: March 05, 2024 Team Status: Inactive Member Role Status Dates Gordon Velazco APRN GRAIN MILL WORKER-C Primary Care Provider Active Start: March 27, 2024 End: March 27, 2024 MAG Johnson Attending Provider Active Start: March 27, 2024 End: March 27, 2024 Goals (unrecognized section and content) Goals may be documented in a n alternate section INFORMATION SOURCE (unrecogn ized section and content) DATE CREATED AUTHOR 04/01/2024 [facility] DATE CREATED AUTHOR AUTHOR'S ORGANIZ ATION 05/16/2024 [facility] DATE CREATED AUTHOR AUTHOR'S ORGANIZ ATION [facility] DATE CREATED AUTHOR AUTHOR'S ORGANIZ ATION 05/31/2024 [facility] DATE CREATED AUTHOR AUTHOR'S ORGANIZ ATION 06/10/2024 [facility] DATE CREATED AUTHOR AUTHOR'S ORGANIZ ATION 07/30/2024 [facility] EPIC FOR RECORDS PERTAINING TO PATIENTS WHO ARE [...] BE BASED ON THE PRIMARY CLINICAL RECORDS. [facility]. provides no warranty or guarantee of the accuracy or completeness of information in this document.
== END 2024-07-29 13:59 | disposition home or self-care (01) ==
LOC: LAB 13:58
PROVIDERS: Family Provider Family Medicine; PCP Nurse Practitioner; Visit Provider Obstetrics & Gynecology
DX: N92.0 Excessive and frequent menstruation with regular cycle (principal)
CPT/HCPCS: 88305

== ENCOUNTER 2024-08-07 07:35 | Outpatient (RCR) | payer OTHER, SELFPAY | END 2024-08-28 23:59 | disposition home or self-care (01) | LOC: HEMC 07:35 | PROVIDERS: Family Provider Family Medicine; PCP Nurse Practitioner; Visit Provider Internal Medicine Hematology & Oncology | DX: Z15.09 Genetic susceptibility to other malignant neoplasm (principal); Z84.81 Family history of carrier of genetic disease; Z80.3 Family history of malignant neoplasm of breast; Z80.6 Family history of leukemia; Z80.8 Family history of malignant neoplasm of other organs or systems | CPT/HCPCS: G0463 ==

== ENCOUNTER 2024-08-07 07:51 | Outpatient (OUT) | payer OTHER, SELFPAY ==
--- OUTSIDE RECORDS SUMMARY | 2024-08-07 07:54 | XMS_ITS | CCD ---
Author Organization [facility] Care Team Providers Care Marketing Liaison Name Role Phone Sameera Howard Unavailable Jarred Siegel Unavailable ROGELIO FENTON Attending Unavailable ANGLIM, GORDON A Referring Unavailable ANGLIM, GORDON A Primary Care Unavailable TALEB, BRANDYD Attending Unavailable TALEB, DESIREAMMAD Referring Unavailable ANGLIM, GORDON A Primary Care Unavailable ANGLIM, GORDON A Referring Unavailable ANGLIM, GORDON A Primary Care Unavailable ANGLIM, GORDON A Referring Unavailable ANGLIM, GORDON A Primary Care Unavailable MYERESTELA GAMAINE K Referring Unavailab le NASREEN, ALBINA Primary Care Unavailable MYERHOLPHILLY RICHARDSON K Referring Unavailab le NASREEN, FARRAGUT Primary Care Unavailable PROVIDER, UNKNOWN Referring Unavailable NASREEN, FARRAGUT Primary Care Unavailable KATELYN ZAMORA Referring Unavailable NASREEN, FARRAGUT Primary Care Unavailable AHMED, EER Referring Unavailable ANGLIM, GORDON A Primary Care Unavailable Unavailable Primary Care Provider Unavailabl e LEVI DORSEY Attending Unavailable LEVI DORSEY Attending Unavailable Levi Dorsey Admitting Unavailable Anglim, Gordon Primary Care Unavailable Levi Dorsey Attending Unavailable Anglim, Gordon Primary Care Unavailable Jarred Siegel Attending Unavailable Jarred Siegel Admitting Unavailable Anglim, ROOF DESIGNER Gordon Primary Care Provider DO Levi Dorsey Attending Provider [phone] Allergies Allergy Classification Reported Allergen(s) Allergy Type [...] mg dose Subcutaneous weekly for Aug, Active [id number] 200 actuat albuterol 0.09 mg/actuat metered dose inhaler (3 sources) beta2-Adrenergic Agonist Start: 05-12-2024 take 2 puff(s) by inhalation every six hours albuterol HFA 90 mcg/act inhaler Inhale 2 puffs every 6 (six) hours if needed 05/12/2024 Active Start: 01-21-2024 take 1 puff(s) by in halation four times daily Albuterol Sulfate Active 2 PUFF INHALATION Four times daily January 21, 2024 12:00am ARIPiprazole 5 mg oral tablet (16 sources) Atypical Antipsychotic Start: 01-21-2024 take 1 tablet by mouth at bedtime ARIPiprazole (Abilify) 5 MG tablet Take 5 mg by mouth at bedtime 07/15/2024 Active Start: 06-23-2020 take 1 tablet by cristine th in the morning ARIPiprazole (Abilify) 2 MG tablet Take 2 mg by mouth in the morning. 06/23/2020 Active take 1 tablet by cristine th every twenty-four hours ARIPiprazole 5 MG 1 tablet Orally Once a day Active atomoxetine 40 mg oral capsule (15 sources) Norepinephrine Reuptake Inhibitor Start: 01-21-2024 take [...] Active busPIRone hydrochloride 10 mg oral tablet (15 sources) Start: 06-23-2020 take 10 mg by mouth twice daily Buspirone Active 10 MG PO Twice daily January 21, 2024 12:00am hydroCHLOROthiazide 25 mg oral tablet (8 sources) Thiazide Diuretic Start: 01-21-2024 take 25 [...] Active hydrOXYzine pamoate 50 mg oral capsule (15 sources) Antihistamine Start: 01-21-2024 take 50 mg by mouth once daily at bedtime Hydroxyzine Pamoate Active 50 MG PO Daily at bedtime January 21, 2024 12:00am take 1 capsule by mo ut every twenty-four hours hydrOXYzine Pamoate 50 MG 1 capsule at bedtime as needed Orally Once a day Active lamoTRIgine 100 mg oral tablet (15 sources) Mood Stabilizer, Anti-epileptic Agent Start: 01-21-2024 [...] day Active lisinopril 30 mg oral tablet (9 sources) Angiotensin Converting Enzyme Inhibitor Start: 01-21-2024 take 30 mg by mouth once daily Lisinopril Active 30 MG PO Daily January 21, 2024 12:00am Lisinopril 30 MG Oral for 30 Days Active montelukast 10 mg oral tablet (15 sources) Leukotriene Receptor Antagonist Start: 01-21-2024 take [...] dose Subcutaneous weekly for 30 Aug, Active potassium 99 mg extended release oral tablet (1 source) take 1 tablet by mouth once daily Potassium 99 MG tablet Take 99 mg by mouth Daily Active microencapsulated potassium chloride 20 meq extended release oral tablet (12 sources) take 1 tablet by mouth every twenty-four hours Klor-Con M20 20 MEQ 1 tablet with food Orally Once a day Active potassium citrate (2 sources) Start: 01-21-2024 Potassium Citr ate Active 0 [...] 04/16/2024 Active Vitamin D-Vitamin K (K2-D3 10,000) 46119-32 UNIT-MCG capsule (1 source) take 1 capsule by mouth once daily Vitamin D-Vitamin K (K2-D3 10,000) 98806-41 UNIT-MCG capsule Take 1 each by mouth Daily Active wegovy 1 mg/0.5ml solution auto-injector (1 source) Start: 10-19-2023 Wegovy 1 MG/0. 5ML as directed Subcutaneous Weekly for 30 days Sep, Active Completed/Discontinued Medications Medication Drug Class(es) Dates Sig (Normalized) Sig (Original) magnesium oxide 400 mg oral tablet (16 sources) Start: 01-21-2024 End: 04-17-2024 take 400 mg by mouth once daily at bedtime Magnesium Oxide Discontinued 400 MG PO Daily at bedtime January 21, 2024 12:00am April 17, 2024 7:54am take 1 capsule by mouth once ewa ly Magnesium 500 MG capsule Take 500 mg by mouth Daily Active Semaglutide (2 sources) Start: 01-21-2024 End: 01-21-2024 Semaglutide (Ozempic) 0.25 mg or 0.5 mg (2 mg/3 mL) pen injector Discontinued 0.5 MG SUBCUT every week January 21, 2024 12:00am January 21, 2024 7:47am Semaglutide Base (2 sources) Start: 01-21-2024 End: 03-05-2024 inject 1 mL [...] Onset: 11-12-2023 Chronic Diabetes mellitus without complication (9 sources) Prediabetes; Translations: [Prediabetes] Episodic Disorders of [...] [facility] Test, Ur Negative [facility] Health care [facility] 07-29-2024 L Specimen: [id number] Received: 07/30/24 Status: EDGARDO Gus Num: [id number] Spec Type: Surgical Subm Dr: Levi Dorsey Tissues: A Endometrium - Biopsy (EMBX) Procedures: HE/2, Gross/Micro L4 Age/ Patient Sex Location Account Attending Physician Brittany Connors 39/F LABELL [id number] Levi Dorsey SPEC NUM: [id number] RECD: 07/30/24 STATUS: EDGARDO WEBER NUM: [id number] JERMAINE: 07/29/[address]: Levi Dorsey ENTERED: 07/30/24 [facility] DR: Ligia,Lab SPEC TYPE: Surgical DEPT: KRUPA COREY ENTERED BY: [id number] RECV BY: [id number] ORDERED: HE/2, Gross/Micro L4 ORDERED: HE/2, Gross/Micro L4 Pathological Diagnosis Endometrium, biopsy: - Late secretory phase endometrium. - No evidence of hyperplasia or malignancy identified. Clinical Information Menorrhagia with regular cycles N92.0 Gross Description The specimen is received in formalin with the patient's name and endometrial biopsy and consists of multiple paredes tissue fragments measuring 1.5 x 0.9 x 0.4 cm in aggregate. The specimen is filtered and entirely submitted in cassette A1. Microscopic Description Microscopic examination is performed CPT Codes 17170 ---- ---- Specimen: [id number] Received: 07/30/24 Status: EDGARDO Weber Num: [id number] Spec Type: Surgical Subm Dr: Levi Dorsey Tissues: A Endometrium - Biopsy (EMBX) Procedures: HE/2, Gross/Micro L4 ---- Patient: Brittany Connors [id number] (Continued) ---- Signed (signature on file) Librado Sheehan MD 07/31/24 1118 Normal [facility] MAMM BX BREAST STEREO GUID I NITIAL [...] MD on 06/10/2024 8:35 AM 1999 Normal [facility] MAMM POST BX DIAG UNI LTon 0 [...] MD on 06/10/2024 8:35 AM 1999 Normal [facility] Surgical Pathologyon 024 Surgical Pathology Normal [facility] Comment on above: Result Comment: [facility] [address] [place] [address] Surgical Pathology Consultation Patient Name:BRITTANY CONNORS:1985 (Age: 39)Gender:FTaken:4Reported:06/09/2024hysician(s):Philly Rasheed NP ([phone])Copy To:Katelyn ZamoraAccession #:[id number]. Rec. #:[id number]: #[id number] Final Pathologic Diagnosis Left breast, needle biopsy @3-4:00, 5 cm fn: Benign breast tissue with focal, mild cystic change and fibrosis. Report Electronically Signed Out gr/06/09/2024Robin Villanueva MD Interpretation [place] [address], License number: [id number]. 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 Stable cardiomediastinal silhouette. No focal opacity, effusion or pneumothorax. Impression: No evident acute cardiopulmonary process. Finalized by Jack Do MD on 03/18/2024 6:47 PM Normal [facility] Laboratory - Chemistry and C hemistry - challengeon 02-18-2024 Albumin [Mass/Vol] 4.8 g/dL [facility] ALP [Catalytic activity/Vol] 111 U/L [facility] ALT [Catalytic activity/Vol] 22 U/L [facility] AST [Catalytic activity/Vol] 16 U/L [facility] Bilirubin [Mass/Vol] 0.4 mg/dL [facility] Calcium [Mass/Vol] 9.5 mg/dL [facility] Chloride [Moles/Vol] 102 mmol/L [facility] Cholesterol [Mass/Vol] 204 mg/dL [facility] Cholesterol in HDL [Mass/Vol] 54 mg/dL [facility] Cholesterol in LDL [Mass/Vol] 122 mg/dL [facility] Cholesterol.total/C holesterol in HDL [Mass ratio] 3.8 {ratio} [facility] CO2 [Moles/Vol] 27 mmol/L [facility] Creatinine [Mass/Vol] 0.74 mg/dL [facility] GFR/1.73 sq M.predicted MDRD (S/P/Bld) [Vol rate/Area] 105 mL/min/{1.73_m2} [facility] Glucose [Mass/Vol] 98 mg/dL [facility] Potassium [Moles/Vol] 4.0 mmol/L [facility] Protein [Mass/Vol] 6.3 g/dL [facility] Sodium [Moles/Vol] 140 mmol/L [facility] Triglyceride [Mass/Vol] 142 mg/dL [facility] Urea nitrogen [Mass/Vol] 12 mg/dL [facility] Laboratory - Hematology and Cell countson 02-18-2024 HbA1c (Bld) [Mass fraction] 5.2 % [facility] No Panel Informationon 02-17 Estimated GFR (Non- 105 mL/min [facility] Thyroid Stimulating Hormone 3rd Gen 2.34 [facility] VLDL Cholesterol 28 mg/dL [facility] Vital Signs Date Time Vital Sign Value Performing Clinician Facility 07-29-2024 09:45-0400 Body mass index (BMI) [Ratio] 44.9 kg/m2 [employer] Work Phone: [facility] 07-29-2024 09:45-0400 Body weight 122.38 kg [employer] Work Phone: [facility] 07-29-2024 09:45-0400 Diastolic blood pressure 80 mm[Hg] [employer] Work Phone: [facility] 07-29-2024 09:45-0400 Systolic blood pressure 124 mm[Hg] [employer] Work Phone: [facility] 03-27-2024 08:05-0400 Body height 170.18 cm [facility] 03-27-2024 08:05-0400 Body mass index (BMI) [Ratio] 45.6 kg/m2 [facility] 03-27-2024 08:05-0400 Body weight 132.13 kg [facility] 03-05-2024 07:12-0400 Body height 170.18 cm [facility] 03-05-2024 07:12-0400 Body mass index (BMI) [Ratio] 45.7 kg/m2 [facility] 03-05-2024 07:12-0400 Body weight 132.5 kg [facility] 03-05-2024 07:12-0400 Diastolic blood pressure 18 mm[Hg] [facility] 03-05-2024 07:12-0400 Heart rate 95 /min [facility] 03-05-2024 07:12-0400 Respiratory rate 18 /min [facility] 03-05-2024 07:12-0400 SaO2% (BldA) [Mass fraction] 99 % [facility] 03-05-2024 07:12-0400 Systolic blood pressure 100 mm[Hg] [facility] 01-24-2024 15:39-0400 Body height 170.18 cm [facility] 01-24-2024 15:39-0400 Body mass index (BMI) [Ratio] 43.8 kg/m2 [facility] 01-24-2024 15:39-0400 Body weight 127 kg [facility] 01-21-2024 07:13-0400 Body height 170.18 cm [facility] 01-21-2024 07:13-0400 Body mass index (BMI) [Ratio] 44 kg/m2 [facility] 01-21-2024 07:13-0400 Body weight 127.62 kg [facility] 01-21-2024 07:13-0400 Diastolic blood pressure 84 mm[Hg] [facility] 01-21-2024 07:13-0400 Heart rate 95 /min [facility] 01-21-2024 07:13-0400 Respiratory rate 18 /min [facility] 01-21-2024 07:13-0400 SaO2% (BldA) [Mass fraction] 98 % [facility] 01-21-2024 07:13-0400 Systolic blood pressure 121 mm[Hg] [facility] 10-19-2023 07:30-0500 Body height 170.18 cm Jarred Siegel Other [employer] [facility] [employer] Other 10-19-2023 07:30-0500 Body mass index (BMI) [Ratio] 45.13 kg/m2 Jarred Siegel Other [employer] [facility] [employer] Other 10-19-2023 07:30-0500 Body weight 130.73 kg Jarred Siegel Other [employer] [facility] [employer] Other 10-19-2023 07:30-0500 Diastolic blood pressure 89 mm[Hg] Jarred Siegel Other [employer] Other 10-19-2023 07:30-0500 Respiratory rate 18 /min Jarred Bushdiff Other [employer] Other 10-19-2023 07:30-0500 SaO2% (BldA) [Mass fraction] 100 % Jarred Bushdiff Other [employer] Other 10-19-2023 07:30-0500 Systolic blood pressure 128 mm[Hg] Jarred Bushdiff Other [employer] Other 10-04-2023 07:15-0500 Body height 170.18 cm Sameera Fitt Other [employer] Other 10-04-2023 07:15-0500 Body mass index (BMI) [Ratio] 45.68 kg/m2 Sameera Fitt Other [employer] Other 10-04-2023 07:15-0500 Body weight 132.32 kg Sameera Fitt Other [employer] Other 09-03-2023 07:15-0500 Body height 170.18 cm Jarred Bushdiff Other [employer] Other 09-03-2023 07:15-0500 Body mass index (BMI) [Ratio] 46.67 kg/m2 Jarred Christal Other [employer] Other 09-03-2023 07:15-0500 Body weight 135.17 kg Jarred Siegel Other [employer] Other 11-06-2023 07:15-0500 Diastolic blood pressure 85 mm[Hg] Jarred Bushdiff Other [employer] Other 09-03-2023 07:15-0500 Respiratory rate 18 /min Jarred Bushdiff Other [employer] Other 09-03-2023 07:15-0500 SaO2% (BldA) [Mass fraction] 98 % Jarred Bushdiff Other [employer] Other 09-03-2023 07:15-0500 Systolic blood pressure 121 mm[Hg] Jarred Bushdiff Other [employer] Other 08-09-2023 07:15-0400 Body height 170.18 cm Sameera Fitt Other [employer] Other 08-09-2023 07:15-0400 Body mass index (BMI) [Ratio] 46.26 kg/m2 Sameera Fitt Other [employer] Other 08-09-2023 07:15-0400 Body weight 133.99 kg Sameera Fitt Other [employer] Other 06-14-2023 08:00-0400 Body height 170.18 cm Sameera Fitt Other [employer] Other 06-14-2023 08:00-0400 Body mass index (BMI) [Ratio] 46.56 kg/m2 Sameera Fitt Other [employer] Other 06-14-2023 08:00-0400 Body weight 134.86 kg Sameera Fitt Other [employer] Other 03-27-2023 07:15-0400 Body height 170.18 cm Jarred Bushdiff Other [employer] Other 03-27-2023 07:15-0400 Body mass index (BMI) [Ratio] 47.44 kg/m2 Jarred Siegel Other [employer] Other 03-27-2023 07:15-0400 Body weight 137.4 kg Jarred Bushdiff Other [employer] Other 03-27-2023 07:15-0400 Diastolic blood pressure 88 mm[Hg] Jarred Bushdiff Other [employer] Other 03-27-2023 07:15-0400 Respiratory rate 18 /min Jarred Bushdiff Other [employer] Other 03-27-2023 07:15-0400 SaO2% (BldA) [Mass fraction] 99 % Jarred Bushdiff Other [employer] Other 03-27-2023 07:15-0400 Systolic blood pressure 138 mm[Hg] Jarredpearl [employer] Other [employer] Other 02-06-2023 09:15-0400 Body height 170.18 cm Sameera Howard Other [employer] Other 02-05-2023 08:15-0400 Body height 170.18 cm Jarredpearl [employer] Other [employer] Other 02-05-2023 08:15-0400 Body mass index (BMI) [Ratio] 45.67 kg/m2 Jarred Christal Other [employer] Other 02-05-2023 08:15-0400 Body weight 132.27 kg Jarred Siegel Other [employer] Other 02-05-2023 08:15-0400 Diastolic blood pressure 93 mm[Hg] Jarred Bushdiff Other [employer] Other 02-05-2023 08:15-0400 Respiratory rate 18 /min Jarred Bushdiff Other [employer] Other 02-05-2023 08:15-0400 SaO2% (BldA) [Mass fraction] 99 % Jarred Bushdiff Other [employer] Other 02-05-2023 08:15-0400 Systolic blood pressure 123 mm[Hg] Jarred Bushdiff Other [employer] Other 12-26-2022 08:00-0500 Body height 170.18 cm Jarred Bushdiff Other [employer] Other 12-26-2022 08:00-0500 Body mass index (BMI) [Ratio] 45.34 kg/m2 Jarred Bushdiff Other [employer] Other 12-26-2022 08:00-0500 Body weight 131.32 kg Jarredpearl [employer] Other [employer] Other 12-26-2022 08:00-0500 Diastolic blood pressure 92 mm[Hg] Jarredpearl [employer] Other [employer] Other 12-26-2022 08:00-0500 Respiratory rate 18 /min Jarredpearl [employer] Other [employer] Other 12-26-2022 08:00-0500 SaO2% (BldA) [Mass fraction] 98 % Jarred Bushdiff Other [employer] Other 12-26-2022 08:00-0500 Systolic blood pressure 122 mm[Hg] Jarred Siegel Other [employer] Other 12-04-2022 09:15-0500 Body height 170.18 cm Jarred Bushdiff Other [employer] Other 12-04-2022 09:15-0500 Body mass index (BMI) [Ratio] 44.41 kg/m2 Jarred Bushdiff Other [employer] Other 12-04-2022 09:15-0500 Body weight 128.64 kg Jarred Bushdiff Other [employer] Other 12-04-2022 09:15-0500 Diastolic blood pressure 93 mm[Hg] Jarred Christal Other [employer] Other 12-04-2022 09:15-0500 Respiratory rate 18 /min Jarredpearl Siegel Other [employer] Other 12-04-2022 09:15-0500 SaO2% (BldA) [Mass fraction] 99 % Jarred Siegel Other [employer] Other 12-04-2022 09:15-0500 Systolic blood pressure 122 mm[Hg] Jarred Siegel Other [employer] Other Encounters Encounter Date Encounter Type Care Provider Facility Start: 07-30-2024 End: 07-30-2024 ambulatory Levi Sunita Facility:[facility] Start: 07-30-2024 End: 07-30-2024 Departed Referred JOANNA Velazco Work Phone: [facility] Start: 07-29-2024 End: 07-29-2024 Patient encounter procedure Levi Sunita DO Work Phone: [facility] Comment on above: Menorrhagia with reg ular cycle; BRCA2 gene mutation positive; Complex ovarian cyst; Pelvic pain in female Start: 07-29-2024 End: 07-29-2024 ambulatory LEVI SUNITA Not Available Start: 06-24-2024 End: 06-24-2024 ambulatory LEVI SUNITA Not Available Start: 06-06-2024 End: 06-06-2024 ambulatory [facility] Start: 06-06-2024 End: 06-06-2024 ambulatory [facility] Start: 05-29-2024 End: 05-29-2024 [facility] Start: 05-17-2024 End: 05-17-2024 ambulatory GORDON VELAZCO [facility] Start: 05-12-2024 End: 05-12-2024 ambulatory [facility] Start: 03-27-2024 End: 03-27-2024 Patient encounter procedure [facility] Work Phone: Start: 03-18-2024 End: 03-18-2024 ambulatory [facility] Start: 03-05-2024 End: 03-05-2024 Patient encounter procedure [facility] Work Phone: Start: 02-18-2024 Non-patient / Non-visit [facility] Work Phone: Start: 01-24-2024 End: 01-24-2024 Patient encounter procedure [facility] Work Phone: Start: 01-21-2024 End: 01-21-2024 Patient encounter procedure [facility] Work Phone: Start: 11-28-2023 End: 11-28-2023 ambulatory Gordon Velazco Facility:[facility] Start: 11-17-2023 End: 11-17-2023 ambulatory CARLOSR WENDY [facility] Start: 11-12-2023 End: 11-12-2023 ambulatory GORDON Sal [facility] Start: 10-19-2023 End: 10-19-2023 ambulatory Jarred Siegel Other [employer] Other Start: 10-19-2023 Follow-up encounter Jarred [facility] Start: 10-04-2023 ([facility] RD FU) [facility] F/ U Registerd Photographer Still Sameera Howard [facility] Start: 10-04-2023 End: 10-04-2023 ambulatory Sameera Howard Other [employer] Other Start: 09-03-2023 End: 09-03-2023 ambulatory Jarred Siegel Other [employer] Other Start: 09-03-2023 Follow-up encounter Jarred [facility] Start: 08-09-2023 ([facility] RD FU) [facility] F/ U Registerd Photographer Still Sameera Howard [facility] Start: 08-09-2023 End: 08-09-2023 ambulatory Sameera Howard Other [employer] Other Start: 06-22-2023 End: 06-22-2023 ambulatory Jarred Siegel Other [employer] Other Start: 06-22-2023 Telephone encounter Jarred will[facility] Start: 06-14-2023 ([facility] RD FU) [facility] F/ U Registerd Photographer Still Sameera Howard [facility] Start: 06-14-2023 End: 06-14-2023 ambulatory Sameera Howard Other [employer] Other Start: 03-27-2023 End: 03-27-2023 ambulatory Jarred Bushdiff Other [employer] Other Start: 03-27-2023 Follow-up encounter Jarred willis [facility] Start: 02-06-2023 ([facility] WMNI) [facility] Init ial Provider Sameera Howard [facility] Start: 02-06-2023 End: 02-06-2023 ambulatory Sameera Howard Other [employer] Other Start: 02-05-2023 End: 02-05-2023 ambulatory Jarred Siegel Other [employer] Other Start: 02-05-2023 Follow-up encounter Jarred willis [facility] Start: 12-26-2022 End: 12-26-2022 ambulatory Jarred Bushdiff Other [employer] Other Start: 12-26-2022 Follow-up encounter Jarred willis [facility] Start: 12-04-2022 End: 12-04-2022 ambulatory Jarred Bushdiff Other [employer] Other Start: 12-04-2022 [facility] Start: 10-31-2022 End: 10-31-2022 ambulatory Sameera Howard Other [employer] Other Start: 10-31-2022 Telephone encounter Sameera hughes [facility] Procedures Date Procedure Procedure Detail Performing Clinician Start: 07-29-2024 Urine test visual color cmprsn meths Levi Dorsey DO Work Phone: Start: 06-24-2024 Microscopic observat ion [Identifier] in Cervix by Cyto stain Levi Dorsey DO Work Phone: Start: 06-06-2024 Mammography Levinicole cespedes DO Work Phone: Plan of Treatment Date Care Activity Detail Author Start: 06-24-2027 Screening for malign ant neoplasm of cervix [facility] Start: 06-06-2025 Screening for malign ant neoplasm of breast Mammogram [facility] Start: 06-29-2024 Influenza vaccination Influenza Vacc ine (#1) [facility] Start: 02-21-2014 Screening for malign ant neoplasm of cervix HPV/Cotest [facility] Biopsy endometrium Biopsy endome trium Procedures Routine Menorrhagia with regular cycle Ordered: 07/29/2024 [facility] Work Phone: Comment on above: Ordered: 07/29/2024 Immunizations Immunization Date Immunization Notes Care Provider Fa [facility] 08-28-2023 influenza virus vacc ine, unspecified formulation Levi Dorsey DO Work Phone: [facility] Payers Date Payer Category Payer Unknown [employer] [id number] 2023-Present [address] [place] [address] [id number] 2022 Self-pay 2022 Unknown [id number] 1984 Unknown [id number] 2.16.840.1.152827.3.579.2.1286 1984 Unknown [id number] 2..840.1.879247.3.579.2.1286 1984 Unknown [id number] 2.16.840.1.989785.3.579.2.1286 1984 Unknown [id number] 2.16.840.1.105688.3.579.2.1286 1984 Unknown [id number] 2.16.840.1.858259.3.579.2.1286 1984 Unknown [id number] 2.16.840.1.873704.3.579.2.1286 1984 Unknown [id number] 2.16.840.1.121372.3.579.2.1286 1984 Unknown [id number] 2.16.840.1.977215.3.579.2.1286 1984 Unknown [id number] 2.16.840.1.491253.3.579.2.1286 1984 Unknown [id number] 2.16.840.1.313336.3.579.2.1259 1984 Unknown [id number] 2.16.840.1.428546.3.579.2.1259 Unknown [employer] [id number] Unknown [id number] 2.16.840.1.763374.3.579.2.531 Unknown [id number] 2.16.840.1.039461.3.579.2.531 Social History Date Type Detail Facility Unknown if ever smoked [facility] Other Sex Assigned At [facility] Other Start: 1985 Sex Assigned At Female [facility] Tobacco smoking status SCIS Tobacco smoking consumption unknown [facility] Start: 06-18-2024 Gender identity Identifies as female gender (finding) [facility] Clinical Notes 12-04-2022 to 07-29-2024 Iwona Lerma LPN - 07/29/2024 9:30 AM EDT Note Date [...] MG/DOSE, SC) Vitamin D-Vitamin K (K2-D3 10,000) 71790-48 UNIT-MCG capsule 1 each, Oral, Daily ALLERGIES Allergies Allergen Reactions Fish-Derived Products Anaphylaxis, Hives and Itching Shellfish-Derived Products Anaphylaxis Shellfish Allergy PROBLEMS Active Ambulatory Problems Diagnosis Date Noted No Active Ambulatory Problems Resolved Ambulatory Problems Diagnosis Date Noted No Resolved Ambulatory Problems Past Medical History: Diagnosis Date ADHD (attention deficit hyperactivity disorder) (CMS/HCC) Anxiety and depression (CMS/HCC) Asthma (CMS/HCC) Bipolar 1 disorder (CMS/HCC) BRCA gene positive High blood pressure ([facility]/HCC) HISTORY PAST MEDICAL HISTORY SOCIAL HISTORY Past Medical History: Diagnosis Date ADHD (attention deficit hyperactivity disorder) (CMS/HCC) Anxiety and depression (CMS/HCC) Asthma (CMS/HCC) Bipolar 1 disorder (CMS/HCC) BRCA gene positive 2 High blood pressure (CMS/HCC) Social History Tobacco Use Smoking status: Not [...] nursing note reviewed. Exam conducted with a aircraft powerplant repairer present. Vitals: Estimated body mass index is [...] Levi Dorsey DO documented in this encounter [facility] 01-21-2024 Evaluation note Authored January 21, 2024 [...] Her psychiatric prescriber is Brittany Gamino from [place] where they live. Her dad is a [...] in the morning. 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 8. Snorer/Ellabell of 6/neck size of 15.5 inches/mallampati score [...] work with her PCP. Author Jarred Siegel [facility] Authored March 05, 2024 7:59am Start/highest [...] Her psychiatric prescriber is Brittany Gamino from [place] where they live. Her dad is a [...] in the morning. 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 8. Snorer/Ellabell of 6/neck size of 15.5 inches/mallampati score [...] continue regular lab work with her PCP. [facility] Work Phone: [phone] 456-502012-22-2023 Evaluation note* Encounter Date Diagnosis Assessment Notes [...] - R06.83) Sep, Asthma (ICD-10 - J45.909) [facility] Other 12-07-2023 Evaluation note* Encounter Date Diagnosis [...] / exercise routine using treadmill at home [facility] Other 11-06-2023 Evaluation note* Encounter Date Diagnosis [...] - R06.83) Aug, Asthma (ICD-10 - J45.909) [facility] Other 10-12-2023 Evaluation note* Encounter Date Diagnosis [...] new recipes to add variety; MET, CONTINUE [facility] Other 08-17-2023 Evaluation note* Encounter Date Diagnosis [...] new recipes to add variety; MET, CONTINUE [facility] Other 05-30-2023 Evaluation note* Encounter Date Diagnosis [...] - R06.83) February, Asthma (ICD-10 - J45.909) [facility] Other 04-11-2023 Evaluation note* Encounter Date Diagnosis Assessment Notes Treatment Notes Treatment Clinical Notes Jan, Obesity (ICD-10 - E66.9) Jan, BMI 40.0-44.9, adult (ICD-10 - Z68.41) Jan, Other Summary of Visi t: (A) discussed foods that can help prevent breast cancer and help w/ WM (B) benefits of fiber foods Patient set the following goals: [facility] Other 04-10-2023 Evaluation note* Encounter Date Diagnosis [...] - R06.83) Jan, Asthma (ICD-10 - J45.909) [facility] Other 02-28-2023 Evaluation note* Encounter Date Diagnosis [...] - R06.83) Nov, Asthma (ICD-10 - J45.909) [facility] Other 02-06-2023 Evaluation note* Encounter Date Diagnosis Assessment Notes Treatment Notes Treatment Clinical Notes Nov, Abnormal weight gain (ICD-10 - R63.5) Nov, Hypertension (ICD-10 - I10) Nov, Mixed hyperlipidemia (ICD-10 - E78.2) Nov, Metabolic syndrome X (ICD-10 - E88.81) Nov, Bipolar affective disorder (ICD-10 - F31.9) Nov, Snores (ICD-10 - R06.83) Nov, Asthma (ICD-10 - J45.909) [facility] Other Evaluation noteNo InformationNort [employer] Other Evaluation note* Diagnosis Menorrhagia with regular cycle BRCA2 gene mutation positive Complex ovarian cyst Pelvic pain in female Unspecified symptom associated with female genital organs documented in this encounter [facility] HealthcareEvaluation noteNo assessment information availableParkview Health Work Phone: History general Narrative - Reported* Type Description Date Medical History ADHD Medical History anxiety Medical History asthma Medical History bipolar Medical History BRCA2 positive Medical History endometriosis Medical History high blood pressure Medical History hypokalemia Medical History leg cramps Surgical History gallbladder 09/19 Surgical History ERCP 09/19 Surgical History wisdom teeth Hospitalization History see above [facility] Other Chief Complaint and Reason for Visit Chief Complaint WM RD 3 mo follow up WM RD follow up 2 mo Reason for Visit BMI 40.0-44.9, adult Essential hypertension Mixed hyperlipidemia Prediabetes BMI 40.0-44.9, adult Essential hypertension Mixed hyperlipidemia Prediabetes Chief Complaint Unknown Family History Relationship Condition Age at Onset Recorded Date/T kirill family member Obesity Unknown brother Obesity Unknown father Hypertension Unknown Diabetes mellitus Unknown Not Specified Malignant neoplasm Unknown Hypertension Unknown sister Obesity Unknown Relationship Condition Age at Onset Recorded Date/T kirill aunt Obesity Unknown brother Obesity Unknown father Hypertension Unknown Diabetes mellitus Unknown mother Malignant neoplasm Unknown Hypertension Unknown sister Obesity Unknown Advance Directives Advance Directive Response Recorded Date/ Time Advance Directives No December 01, 2022 4:22pm Summary Purpose Additional Source Comments REASON FOR VISIT (unrecogniz ed section and content) Reason Comments [facility] Care Teams (unrecognized sec tion and content) Team Status: Active Member Role Status Dates Gordon Velazco APRN WAREHOUSE CHECKER-C Primary Care Provider Active Team Status: Inactive Member Role Status Dates Gordon Velazco APRN WAREHOUSE CHECKER-C Primary Care Provider Active Start: January 21, 2024 End: January 21, 2024 Jarred Siegel MD Attending Provider Active Start: January 21, 2024 End: January 21, 2024 Team Status: Inactive Member Role Status Bree Velazco APRN WAREHOUSE CHECKER-C Primary Care Provider Active Start: January 24, 2024 End: January 24, 2024 MAG Johnson Attending Provider Active Start: January 24, 2024 End: January 24, 2024 Team Status: Active Member Role Status Bree Velazco APRN WAREHOUSE CHECKER-C Primary Care Pr ovider, Attending Provider Active Start: February 18, 2024 Team Status: Inactive Member Role Status Bree Velazco APRN WAREHOUSE CHECKER-C Primary Care Provider Active Start: March 05, 2024 End: March 05, 2024 Jarred Siegel MD Attending Provider Active Start: March 05, 2024 End: March 05, 2024 Team Status: Inactive Member Role Status Bree Velazco APRN WAREHOUSE CHECKER-C Primary Care Provider Active Start: March 27, 2024 End: March 27, 2024 MAG Johnson Attending Provider Active Start: March 27, 2024 End: March 27, 2024 Team Status: Inactive Member Role Status Dates Gordon Velazco APRN WAREHOUSE CHECKER-C Primary Care Provider Active Start: July 30, 2024 End: July 30, 2024 Levi Dorsey DO Attending Provider Active Start : July 30, 2024 End: July 30, 2024 Goals (unrecognized section and content) Goals may be documented in a n alternate section INFORMATION SOURCE (unrecogn ized section and content) DATE CREATED AUTHOR 05/16/2024 [facility] DATE CREATED AUTHOR AUTHOR'S ORGANIZ ATION 05/23/2024 [facility] DATE CREATED AUTHOR AUTHOR'S ORGANIZ ATION 05/31/2024 [facility] DATE CREATED AUTHOR AUTHOR'S ORGANIZ ATION 06/10/2024 [facility] DATE CREATED AUTHOR AUTHOR'S ORGANIZ ATION 07/30/2024 [facility] EPIC DATE CREATED AUTHOR AUTHOR'S ORGANIZ ATION 08/01/2024 [facility] FOR RECORDS PERTAINING TO PATIENTS WHO ARE [...] BE BASED ON THE PRIMARY CLINICAL RECORDS. [employer] provides no warranty or guarantee of the accuracy or completeness of information in this document.
[2024-08-08 08:12] LABS: AFP, Serum, Tumor Marker 12.4 ng/mL (0.0-6.4); CEA <0.6 ng/mL (0.0-4.7); HCG Tumor Marker <1 mIU/mL (.)
== END 2024-08-07 07:52 | disposition home or self-care (01) ==
LOC: LAB 07:51
PROVIDERS: Family Provider Family Medicine; PCP Nurse Practitioner; Visit Provider Obstetrics & Gynecology
DX: N83.299 Other ovarian cyst, unspecified side (principal)
CPT/HCPCS: 36415; 82105; 82378; 84702

== ENCOUNTER 2024-08-23 08:32 | Outpatient (OUT) | payer OTHER, SELFPAY ==
--- NOTE | 2024-08-23 | US_ITS ---
[address] [address] Patient Name: BRITTANY CONNORS MRN: [id number] date: 1985 Sex: F Assigned Patient Location: [place] Current Patient Location: Accession/Order Number: [id number] Exam Date: 08/23/2024 08:40 Report Date: 08/24/2024 06:02 At the request of: LEVI TRAN Procedure: US pelvis w/ transvaginal EXAMINATION: US pelvis w/ transvaginal HISTORY: COMPLEX OVARIAN CYST N83.299 ; chronic pelvic pain COMPARISON: Ultrasound pelvis/transvaginal 06/28/2024 TECHNIQUE: Transabdominal and/or transvaginal sonographic examination was performed as indicated by examination type. FINDINGS: UTERUS: Normal size and appearance. Uterus size: 6.8 x 4.5 x 3.3 cm ENDOMETRIUM: Normal homogeneous appearance. Endometrial thickness: 9 mm RIGHT OVARY: Contains a 1.8 cm benign-appearing cyst on today's study. Duplex Doppler demonstrates normal waveform and flow; resistive index 3.2 x 2.3 x 2.1 cm. Ovary size: 0.6 LEFT OVARY: Contains a homogeneous hypoechoic complex cyst versus mass on today's study, 2.4 x 2.8 x 3.0 cm. Duplex Doppler demonstrates normal waveform and flow; resistive index 0.6. Ovary size: 4.8 x 3.5 x 3.3 cm CUL-DE-SAC: Unremarkable. No significant free fluid. BLADDER: Unremarkable. OTHER: None. US/US pelvis w/ transvaginal IMPRESSION: 1. Bilateral ovarian cysts/complex cysts. The ovaries may be mobile as the appearance of the right ovary looks like the left ovary on the prior study and today's left ovary looks like prior right ovary, or they may have been inadvertently mislabeled. No appreciable change in appearance of the ovarian cysts/lesions. Consider additional follow-up in 6 weeks to evaluate for regression. Electronically authenticated by: MARCIE ALMANZA Date: 08/24/2024 06:02
--- OUTSIDE RECORDS SUMMARY | 2024-08-23 08:35 | XMS_ITS | CCD ---
Author Organization [facility] Care Team Providers Care Cook Cold Meat Name Role Phone KyleEstevan zhangn Unavailable Jarred Siegel Unavailable ROGELIO FENTON Attending Unavailable ANGLIM, GORDON A Referring Unavailable ANGLIM, GORDON A Primary Care Unavailable TALEBBRANDYD Attending Unavailable TALEB, DESIREAMMAD Referring Unavailable ANGLIM, GORDON A Primary Care Unavailable ANGLIM, GORDON A Referring Unavailable ANGLIM, GORDON A Primary Care Unavailable ANGLIM, GORDON A Referring Unavailable ANGLIM, GORDON A Primary Care Unavailable MYPHILLY BRIGHT K Referring Unavailab le NASREEN, ALBINA Primary Care Unavailable MYERPHILLY GAMA K Referring Unavailab le NASREEN, HAMPSHIRE Primary Care Unavailable PROVIDER, UNKNOWN Referring Unavailable NASREEN, HAMPSHIRE Primary Care Unavailable KATELYN ZAMORA Referring Unavailable NASREEN, HAMPSHIRE Primary Care Unavailable AHMED ABEER Referring Unavailable ANGLIM, GORDON A Primary Care Unavailable Unavailable Primary Care Provider Unavailabl e LEVI DORSEY Attending Unavailable LEVI DORSEY Attending Unavailable Levi Dorsey Admitting Unavailable Anglim, Gordon Primary Care Unavailable Levi Dorsey Attending Unavailable Anglim, Gordon Primary Care Unavailable Jarred Siegel Attending Unavailable Jarred Siegel Admitting Unavailable Anglim, SENIOR [employer] NET DEVELOPER Gordon Primary Care Provider [phone] DO Levi Dorsey Attending Provider Allergies Allergy Classification Reported Allergen(s) Allergy Type Date of Onset Reaction(s) Facility (2 sources) Shellfish Propensity to adverse reactions 4 [facility] Work Phone: (2 sources) Fish-Derived Products Propensity to adverse reactions 4 Anaphylaxis, Hives, Itching [facility] (2 sources) Shellfish-Deriv ed Products Drug Allergy 4 Anaphylaxis [facility] Medications Current Medications Medication Drug Class(es) Dates Sig (Normalized) Sig (Original) 0.25 MG, 0.5 MG Dose 3 ML semaglutide 0.68 MG/ML Pen Injector [Ozempic] (2 sources) Start: 09-03-2023 Ozempic (0.25 or 0.5 MG/DOSE) 2 MG/3ML 0.25 mg for one month and then increase to 0.5 mg dose Subcutaneous weekly for Aug, Active [id number] actuat albuterol 0.09 mg/actuat metered dose inhaler (4 sources) beta2-Adrenergic Agonist Start: 05-12-2024 take 2 puff(s) by inhalation every six hours albuterol HFA 90 mcg/act inhaler Inhale 2 puffs every 6 (six) hours if needed 05/12/2024 Active Start: 01-21-2024 take 1 puff(s) by in halation four times daily Albuterol Sulfate Active 2 PUFF INHALATION Four times daily January 21, 2024 12:00am ARIPiprazole 5 mg oral tablet (18 sources) Atypical Antipsychotic Start: 01-21-2024 take 1 [...] day Active atomoxetine 40 mg oral capsule (16 sources) Norepinephrine Reuptake Inhibitor Start: 01-21-2024 take 40 mg by mouth once daily Atomoxetine Active 40 MG PO Daily January 21, 2024 12:00am Strattera breath-actuated 120 actuat beclomethasone dipropionate 0.04 mg/actuat metered dose inhaler (2 sources) Corticosteroid Start: 05-12-2024 take 2 puff(s) by inhalation in the morning beclomethasone HFA (Qvar) 40 MCG/ACT inhaler Inhale 2 puffs in the morning and 2 puffs in the evening. 05/12/2024 Active busPIRone hydrochloride 10 mg oral tablet (16 sources) Start: 06-23-2020 take 1 tablet by mouth in the morning busPIRone (Buspar) 10 MG tablet Take 10 mg by mouth in the morning and 10 mg before bedtime. 06/23/2020 Active hydroCHLOROthiazide 25 mg oral tablet (8 sources) Thiazide Diuretic Start: 01-21-2024 take 25 mg by mouth once daily Hydrochlorothiazide Active 25 MG PO Daily January 21, 2024 12:00am hydroCHLOROthiaz mariusz 25 MG Oral for 30 Days Active hydroCHLOROthiazide 12.5 mg / lisinopril 20 mg oral tablet (8 sources) Thiazide Diuretic, Angiotensin Converting Enzyme Inhibitor take 1 tablet by mouth in the morning lisinopril-hydroCHLOROthiazide 20-12.5 MG tablet Take 1 tablet by mouth in the morning. Active take 1 tablet by cristine th every twenty-four hours Lisinopril-hydroCHLOROthiazide 20-12.5 M G 1 tablet Orally Once a day Active hydrOXYzine pamoate 50 mg oral capsule (16 sources) Antihistamine Start: 01-21-2024 take 1 capsule by mouth once hydrOXYzine pamoate (Vistaril) 50 MG capsule Take 50 mg by mouth 1 (one) time 01/21/2024 Active take 1 capsule by [facility] every twenty-four hours hydrOXYzine Pamoate 50 MG 1 capsule at bedtime as needed Orally Once a day Active lamoTRIgine 100 mg oral tablet (16 sources) Mood Stabilizer, Anti-epileptic Agent Start: 01-21-2024 [...] day Active lisinopril 30 mg oral tablet (10 sources) Angiotensin Converting Enzyme Inhibitor Start: 01-21-2024 lisinopril 30 MG tablet 1 (one) time each day at the same time 01/21/2024 Active Lisinopril 30 MG Oral for 30 Days Active montelukast 10 mg oral tablet (16 sources) Leukotriene Receptor Antagonist Start: 01-21-2024 take [...] potassium 99 mg extended release oral tablet (2 sources) take 1 tablet by mouth once daily [...] orally daily; Semaglutide (OZEMPIC, 1 MG/DOSE, SC) (2 sources) Semaglutide (OZEMPIC, 1 MG/DOSE, SC) Active semaglutide (Ozempic, 1 MG/DOSE,) 4 MG/3ML solution pen-injector (2 sources) Start: 04-16-2024 inject 1 mg by subcutaneous injection every week semaglutide (Ozempic, 1 MG/DOSE,) 4 MG/3ML solution pen-injector Inject 1 mg under the skin 1 (one) time per week 04/16/2024 Active Vitamin D-Vitamin K (K2-D3 10,000) 44573-26 UNIT-MCG capsule (2 sources) take 1 capsule by mouth once daily Vitamin D-Vitamin K (K2-D3 10,000) 82504-48 UNIT-MCG capsule Take 1 each by mouth Daily Active wegovy 1 mg/0.5ml solution auto-injector (1 source) Start: 10-19-2023 Wegovy 1 MG/0. 5ML as directed Subcutaneous Weekly for 30 days Sep, Active Completed/Discontinued Medications Medication Drug Class(es) Dates Sig (Normalized) Sig (Original) magnesium oxide 400 mg oral tablet (18 sources) Start: 01-21-2024 End: 04-17-2024 take 400 [...] Test Name Value Interpretation Reference Range Facility ALL CEAon 08-08-2024 CEA <0.6 0.0 - 4.7 ng/mL [facility] Comment on above: Nonsmokers <3.9 Smokers <5.6 [employer] Electrochemiluminescence Immunoassay (ECLIA) Values obtained with different assay methods or kits cannot be used interchangeably. Results cannot be interpreted as absolute evidence of the presence or absence of malignant disease. Performed at: [address] [id number] Metallurgy Teacher: Gustavo Dawson PhD, Phone: [phone] [facility] AFP TUMOR MARKERon 07-29 AFP, SERUM, TUMOR MARKER 12.4 ng/mL Abnormal 0.0 - 6.4 ng/mL [facility] Comment on above: [facility] [employer] ectrochemiluminescence Immunoassay (ECLIA) Values obtained with different assay methods or kits cannot be used interchangeably. Results cannot be interpreted as absolute evidence of the presence or absence of malignant disease. This test is not interpretable in females. Interpretation and review of laboratory results Abnormal [facility] No Panel Informationon 08-08 [facility] HCG,BETA-QUANT,TUMOR BHAVESH Dustin 08-08-2024 HCG TUMOR MARKER <1 . mIU/mL [facility] Comment on above: Female (Non- ) 0 - 5 (Postmenopausal) 0 - 8 [employer] [employer] Electrochemiluminescence Immunoassay (ECLIA) The [employer] HCG + beta assay recognizes the holo-hormone, human chorionic gonadotropin (hCG), nicked forms of hCG, the beta-core fragment and the free beta-subunit in human serum and plasma. Results obtained with different test methods or kits cannot used interchangeably. This assay is intended for the early detection of . The result should not be used for treatment or for diagnostic purposes without confirmation of the diagnosis by another medically established diagnostic product or procedure. This test was developed and its performance characteristics determined by [employer]. It has not been cleared or approved by the Food and Drug Administration for use as a tumor marker. This test is not interpretable as a tumor marker in females. Performed at: [address] [id number] Metallurgy Teacher: Gustavo Dawson PhD, Phone: [phone] HCG ( test) Ql (U)o n 07-29-2024 Interpretation and review of laboratory results Normal [facility] Preg Test, Ur Negative [facility] 07-29-2024 L Specimen: [id number] Received: 07/30/24 Status: EDGARDO Weber Num: [id number] Spec Type: Surgical Subm Dr: Levi Dorsey Tissues: A Endometrium - Biopsy (EMBX) Procedures: HE/2, Gross/Micro L4 Age/ Patient Sex Location Account Attending Physician Brittany Connors 39/F LABELL [id number] Levi Dorsey SPEC NUM: [id number] RECD: 07/30/24 STATUS: EDGARDO WEBER NUM: [id number] JERMAINE: 07/29/[address]: Lvei Dorsey ENTERED: 07/30/24 [facility] DR: Ligia,Lab SPEC TYPE: Surgical DEPT: KRUPA COREY ENTERED BY: [id number] RECV BY: [id number] ORDERED: HE/2, Gross/Micro L4 ORDERED: HE/2, Gross/Micro [...] Description Microscopic examination is performed CPT Codes 78516 Specimen: [id number] Received: 07/30/24 Status: EDGARDO Weber Num: [id number] Spec Type: Surgical Subm Dr: Levi Dorsey Tissues: A Endometrium - Biopsy (EMBX) Procedures: HE/2, Gross/Micro L4 Patient: Brittany Connors [id number] (Continued) Signed (signature on file) Librado Sheehan MD 07/31/24 1118 Normal [facility] MAMM BX BREAST STEREO GUID [...] MD on 06/10/2024 8:35 AM 1999 Normal [facility] MAMM POST BX DIAG UNI LTon [...] MD on 06/10/2024 8:35 AM 1999 Normal [facility] Surgical Pathologyon 024 Surgical Pathology Normal [facility] Comment on above: Result Comment: [facility] [address] [place] [address] Surgical Pathology Consultation Patient Name:BRITTANY CONNORS:1985 (Age: 39)Gender:FTaken:4Reported:4Physician(s):Philly Rasheed NP ([phone])Copy To:Katelyn ZamoraAccession #:[id number]. Rec. #:[id number]: #[id number] Final Pathologic Diagnosis Left breast, needle biopsy @3-4:00, 5 cm fn: Benign breast tissue with focal, mild cystic change and fibrosis. Report Electronically Signed Out gr/06/09/2024Robin Villanueva MD [place] [address], License number: [id number]. Clinical History Biopsy procedure: Stereotactic; Target: Mass; [...] 8 hours and 30 minutes (2, ns, [id number], A???B, m1) [facility]06/06/2024SSI Specimen(s) Received Left breast Fee Codes(s): 1; 85867 MAMM DIAGNOSTIC UNILAT LT W CADon 05-29-2024 [...] masses, calcifications, or areas of architectural distortions. Left Breast Ultrasound, Limited TECHNIQUE: Multiple real-time henry-scale images of the left breast in the 2-5 o'clock axis were performed. Color Doppler was utilized to assess vascular flow. FINDINGS: Initial ultrasound evaluation demonstrated a possible corresponding sonographic abnormality as documented metastatic images and cine clip in PACS. However subsequent real-time scanning while personally present failed to reproduce an obvious sonographic correlate. COMBINED IMPRESSION: New 5 mm left breast mass, best demonstrated mammographically, suspicious given the setting of 67% increased lifetime risk of developing breast cancer. Stereotactic biopsy is recommended. BI-RADS: BI-RADS 4 - Suspicious Recommendation: Biopsy is recommended Patient was given the results before leaving the department. Finalized by Ned Soto MD on 05/29/2024 9:42 AM 4 a BIOPSY Normal [facility] US BREAST LT LIMITEDon 05-29 [...] masses, calcifications, or areas of architectural distortions. Left Breast Ultrasound, Limited TECHNIQUE: Multiple real-time henry-scale images of the left breast in the 2-5 o'clock axis were performed. Color Doppler was utilized to assess vascular flow. FINDINGS: Initial ultrasound evaluation demonstrated a possible corresponding sonographic abnormality as documented metastatic images and cine clip in PACS. However subsequent real-time scanning while personally present failed to reproduce an obvious sonographic correlate. COMBINED IMPRESSION: New 5 mm left breast mass, best demonstrated mammographically, suspicious given the setting of 67% increased lifetime risk of developing breast cancer. Stereotactic biopsy is recommended. BI-RADS: BI-RADS 4 - Suspicious Recommendation: Biopsy is recommended Patient was given the results before leaving the department. Finalized by Ned Soto MD on 05/29/2024 9:42 AM 4 a BIOPSY Normal [facility] MAMM SCREENING BILATERAL W C patient registrar 05-20-2024 MAMM SCREENING BILATERAL W CAD MAMM [...] is due in October 2024. Finalized by Braenne Romo MD on 05/20/2024 3:05 PM 0A a ADDITIONAL I Normal [facility] XR CHEST 2 VWSon 03-18-2024 XR CHEST 2 VWS XR CHEST 2 VWS Chest 2 views History: Asthma, unspecified asthma severity, unspecified whether complicated, unspecified whether persistent Comparison: 09/15/2021 Findings: Chest 2 views. Stable cardiomediastinal silhouette. No focal opacity, effusion or pneumothorax. Impression: No evident acute cardiopulmonary process. Finalized by Jack Do MD on 03/18/2024 6:47 PM Normal [facility] Laboratory - Chemistry and C hemistry - challengeon 02-18-2024 Albumin [Mass/Vol] 4.8 g/dL [facility] ALP [Catalytic activity/Vol] 111 U/L [facility] ALT [Catalytic activity/Vol] 22 U/L [facility] AST [Catalytic activity/Vol] 16 U/L [facility] Bilirubin [Mass/Vol] 0.4 mg/dL [facility] Calcium [Mass/Vol] 9.5 mg/dL [facility] Chloride [Moles/Vol] 102 mmol/L [facility] Cholesterol [Mass/Vol] 204 mg/dL [facility] Cholesterol in HDL [Mass/Vol] 54 mg/dL [facility] Cholesterol in LDL [Mass/Vol] 122 mg/dL [facility] Cholesterol.total/ Cholesterol in HDL [Mass ratio] 3.8 {ratio} [facility] CO2 [Moles/Vol] 27 mmol/L [facility] Creatinine [Mass/Vol] 0.74 mg/dL [facility] GFR/1.73 sq M.predicted MDRD (S/P/Bld) [Vol rate/Area] 105 mL/min/{1.73_m2} [facility] Glucose [Mass/Vol] 98 mg/dL [facility] Potassium [Moles/Vol] 4.0 mmol/L [facility] Protein [Mass/Vol] 6.3 g/dL [facility] Sodium [Moles/Vol] 140 mmol/L [facility] Triglyceride [Mass/Vol] 142 mg/dL [facility] Urea nitrogen [Mass/Vol] 12 mg/dL [facility] Laboratory - Hematology and Cell countson 02-18-2024 HbA1c (Bld) [Mass fraction] 5.2 % [facility] No Panel Informationon 02-17 Estimated GFR (Non- 105 mL/min [facility] Thyroid Stimulating Hormone 3rd Gen 2.34 [facility] VLDL Cholesterol 28 mg/dL [facility] Vital Signs Date Time Vital Sign Value Performing Clinician Facility 07-29-2024 09:45-0400 Body mass index (BMI) [Ratio] 44.9 kg/m2 [employer] Work Phone: [facility] 07-29-2024 09:45-0400 Body weight 122.38 kg [employer] Work Phone: [facility] 07-29-2024 09:45-0400 Diastolic blood pressure 80 mm[Hg] [employer] Work Phone: [facility] 07-29-2024 09:45-0400 Systolic blood pressure 124 mm[Hg] [employer] Work Phone: [facility] 03-27-2024 08:05-0400 Body height 170.18 cm [facility] 03-27-2024 08:05-0400 Body mass index (BMI) [Ratio] 45.6 kg/m2 [facility] 03-27-2024 08:05-0400 Body weight 132.13 kg [facility] 03-05-2024 07:12-0400 Body height 170.18 cm [facility] 03-05-2024 07:12-0400 Body mass index (BMI) [Ratio] 45.7 kg/m2 [facility] 03-05-2024 07:12-0400 Body weight 132.5 kg [facility] 03-05-2024 07:12-0400 Diastolic blood pressure 18 mm[Hg] [facility] 03-05-2024 07:12-0400 Heart rate 95 /min [facility] 03-05-2024 07:12-0400 Respiratory rate 18 /min [facility] 03-05-2024 07:12-0400 SaO2% (BldA) [Mass fraction] 99 % [facility] 03-05-2024 07:12-0400 Systolic blood pressure 100 mm[Hg] [facility] 01-24-2024 15:39-0400 Body height 170.18 cm [facility] 01-24-2024 15:39-0400 Body mass index (BMI) [Ratio] 43.8 kg/m2 [facility] 01-24-2024 15:39-0400 Body weight 127 kg [facility] 01-21-2024 07:13-0400 Body height 170.18 cm [facility] 01-21-2024 07:13-0400 Body mass index (BMI) [Ratio] 44 kg/m2 [facility] 01-21-2024 07:13-0400 Body weight 127.62 kg [facility] 01-21-2024 07:13-0400 Diastolic blood pressure 84 mm[Hg] [facility] 01-21-2024 07:13-0400 Heart rate 95 /min [facility] 01-21-2024 07:13-0400 Respiratory rate 18 /min [facility] 01-21-2024 07:13-0400 SaO2% (BldA) [Mass fraction] 98 % [facility] 01-21-2024 07:13-0400 Systolic blood pressure 121 mm[Hg] [facility] 10-19-2023 07:30-0500 Body height 170.18 cm Jarred Siegel Other [employer] [facility] Other 10-19-2023 07:30-0500 Body mass index (BMI) [Ratio] 45.13 kg/m2 Jarred Siegel Other [employer] [facility] Other 10-19-2023 07:30-0500 Body weight 130.73 kg Jarred Siegel Other [employer] [facility] Other 10-19-2023 07:30-0500 Diastolic blood pressure 89 mm[Hg] Jarred Siegel Other [employer] Other 10-19-2023 07:30-0500 Respiratory rate 18 /min Jarred Bushdiff Other [employer] Other 10-19-2023 07:30-0500 SaO2% (BldA) [Mass fraction] 100 % Jarred [employer]diff Other [employer] Other 10-19-2023 07:30-0500 Systolic blood pressure 128 mm[Hg] Jarred Bushdiff Other [employer] Other 10-04-2023 07:15-0500 Body height 170.18 cm Sameera Fitt Other [employer] Other 10-04-2023 07:15-0500 Body mass index (BMI) [Ratio] 45.68 kg/m2 Sameera Fitt Other [employer] Other 10-04-2023 07:15-0500 Body weight 132.32 kg Sameera Fitt Other [employer] Other 09-03-2023 07:15-0500 Body height 170.18 cm Jarred Bushdiff Other [employer] Other 09-03-2023 07:15-0500 Body mass index (BMI) [Ratio] 46.67 kg/m2 Jarred Bushdiff Other [employer] Other 09-03-2023 07:15-0500 Body weight 135.17 kg Jarred Siegel Other [employer] Other 09-03-2023 07:15-0500 Diastolic blood pressure 85 mm[Hg] Jarred Bushdiff Other [employer] Other 09-03-2023 07:15-0500 Respiratory rate 18 /min Jarred [employer]diff Other [employer] Other 09-03-2023 07:15-0500 SaO2% (BldA) [Mass fraction] 98 % Jarred [employer]diff Other [employer] Other 09-03-2023 07:15-0500 Systolic blood pressure 121 mm[Hg] Jarred [employer]diff Other [employer] Other 08-09-2023 07:15-0400 Body height 170.18 cm Sameera Fitt Other [employer] Other 08-09-2023 07:15-0400 Body mass index (BMI) [Ratio] 46.26 kg/m2 Sameera Fitt Other [employer] Other 08-09-2023 07:15-0400 Body weight 133.99 kg Sameera Fitt Other [employer] Other 06-14-2023 08:00-0400 Body height 170.18 cm Sameera Fitt Other [employer] Other 06-14-2023 08:00-0400 Body mass index (BMI) [Ratio] 46.56 kg/m2 Sameera Fitt Other [employer] Other 06-14-2023 08:00-0400 Body weight 134.86 kg Sameera Fitt Other [employer] Other 03-27-2023 07:15-0400 Body height 170.18 cm Jarredpearl [employer] Other [employer] Other 03-27-2023 07:15-0400 Body mass index (BMI) [Ratio] 47.44 kg/m2 Jarred [employer] Other [employer] Other 03-27-2023 07:15-0400 Body weight 137.4 kg Jarred [employer]diff Other [employer] Other 03-27-2023 07:15-0400 Diastolic blood pressure 88 mm[Hg] Jarred [employer] Other [employer] Other 03-27-2023 07:15-0400 Respiratory rate 18 /min Jarred [employer] Other [employer] Other 03-27-2023 07:15-0400 SaO2% (BldA) [Mass fraction] 99 % Jarred [employer]diff Other [employer] Other 03-27-2023 07:15-0400 Systolic blood pressure 138 mm[Hg] Jarred Siegel Other [employer] Other 02-06-2023 09:15-0400 Body height 170.18 cm Sameera Howard Other [employer] Other 02-05-2023 08:15-0400 Body height 170.18 cm Jarred Siegel Other [employer] Other 02-05-2023 08:15-0400 Body mass index (BMI) [Ratio] 45.67 kg/m2 Jarred Christal Other [employer] Other 02-05-2023 08:15-0400 Body weight 132.27 kg Jarred Siegel Other [employer] Other 02-05-2023 08:15-0400 Diastolic blood pressure 93 mm[Hg] Jarred [employer] Other [employer] Other 02-05-2023 08:15-0400 Respiratory rate 18 /min Jarred Siegel Other [employer] Other 02-05-2023 08:15-0400 SaO2% (BldA) [Mass fraction] 99 % Jarred [employer] Other [employer] Other 02-05-2023 08:15-0400 Systolic blood pressure 123 mm[Hg] Jarred Siegel Other [employer] Other 12-26-2022 08:00-0500 Body height 170.18 cm Jarred Siegel Other [employer] Other 12-26-2022 08:00-0500 Body mass index (BMI) [Ratio] 45.34 kg/m2 Jarred [employer]diff Other [employer] Other 12-26-2022 08:00-0500 Body weight 131.32 kg Jarred [employer]diff Other [employer] Other 12-26-2022 08:00-0500 Diastolic blood pressure 92 mm[Hg] Jarred [employer]diff Other [employer] Other 12-26-2022 08:00-0500 Respiratory rate 18 /min Jarredpearl [employer] Other [employer] Other 12-26-2022 08:00-0500 SaO2% (BldA) [Mass fraction] 98 % Jarred [employer] Other [employer] Other 12-26-2022 08:00-0500 Systolic blood pressure 122 mm[Hg] Jarred [employer]diff Other [employer] Other 12-04-2022 09:15-0500 Body height 170.18 cm Jarred Bushdiff Other [employer] Other 12-04-2022 09:15-0500 Body mass index (BMI) [Ratio] 44.41 kg/m2 Jarred [employer] Other [employer] Other 12-04-2022 09:15-0500 Body weight 128.64 kg Jarred Bushdiff Other [employer] Other 12-04-2022 09:15-0500 Diastolic blood pressure 93 mm[Hg] Jarred [employer]diff Other [employer] Other 12-04-2022 09:15-0500 Respiratory rate 18 /min Jarred [employer]diff Other [employer] Other 12-04-2022 09:15-0500 SaO2% (BldA) [Mass fraction] 99 % Jarred [employer]diff Other [employer] Other 12-04-2022 09:15-0500 Systolic blood pressure 122 mm[Hg] Jarred Siegel Other [employer] Other Encounters Encounter Date Encounter Type Care Provider Facility Start: 08-07-2024 End: 08-08-2024 [facility] Result Encounter Levi Sunita DO Work Phone: [facility] Unsolicited Start: 08-07-2024 End: 08-08-2024 [facility] Result Encounter Levi Sunita DO Work Phone: [facility] Unsolicited Start: 07-30-2024 End: 07-30-2024 ambulatory Levi Sunita Facility:[facility] Start: 07-30-2024 End: 07-30-2024 Departed Referred SENIOR [employer] DEVELOPER Gordon Velazco Work Phone: [facility] Start: 07-29-2024 End: 07-29-2024 Patient encounter procedure Levi Sunita DO Work Phone: [facility] Comment on above: Menorrhagia with reg ular cycle; BRCA2 gene mutation positive; Complex ovarian cyst; Pelvic pain in female Start: 07-29-2024 End: 07-29-2024 ambulatory LEVI SUNITA Not Available Start: 06-24-2024 End: 06-24-2024 ambulatory LEVI SUNITA Not Available Start: 06-06-2024 End: 06-06-2024 ambulatory [facility] Start: 06-06-2024 End: 06-06-2024 ambulatory [facility] Start: 05-29-2024 End: 05-29-2024 ambulatory PHILLY RASHEED [facility] Start: 05-17-2024 End: 05-17-2024 ambulatory GORDON [facility] Start: 05-12-2024 End: 05-12-2024 ambulatory [facility] Start: 03-27-2024 End: 03-27-2024 Patient encounter procedure [facility] Work Phone: Start: 03-18-2024 End: 03-18-2024 ambulatory [facility] Start: 03-05-2024 End: 03-05-2024 Patient encounter procedure [facility] Physician [facility] Work Phone: Start: 02-18-2024 Non-patient / Non-visit [facility] Work Phone: Start: 01-24-2024 End: 01-24-2024 Patient encounter procedure [facility] Work Phone: Start: 01-21-2024 End: 01-21-2024 Patient encounter procedure [facility] Work Phone: Start: 11-28-2023 End: 11-28-2023 ambulatory [facility] Facility:[facility] Start: 11-17-2023 End: 11-17-2023 ambulatory [facility] Start: 11-12-2023 End: 11-12-2023 ambulatory [facility] Start: 10-19-2023 End: 10-19-2023 ambulatory Jarred Siegel Other [employer] Other Start: 10-19-2023 Follow-up encounter [facility] Start: 10-04-2023 ([facility] RD FU) [facility] F/ U [employer] Sameera Howard [facility] Start: 10-04-2023 End: 10-04-2023 ambulatory Sameera Howard Other [employer] Other Start: 09-03-2023 End: 09-03-2023 ambulatory Jarred Siegel Other [employer] Other Start: 09-03-2023 Follow-up encounter [facility]red [facility] Start: 08-09-2023 ([facility] RD FU) [facility] F/ U [employer] Sameera Howard [facility] Start: 08-09-2023 End: 08-09-2023 ambulatory Sameera Fitt Other [employer] Other Start: 06-22-2023 End: 06-22-2023 ambulatory Jarred Siegel Other [employer] Other Start: 06-22-2023 Telephone encounter Jarred Bushdicanelo [facility] Start: 06-14-2023 ([facility] RD FU) [facility] F/ U [employer] Sameera Wrightleatha [facility] Start: 06-14-2023 End: 06-14-2023 ambulatory Sameera Fitt Other [employer] Other Start: 03-27-2023 End: 03-27-2023 ambulatory Jarred Bushdiff Other [employer] Other Start: 03-27-2023 Follow-up encounter Jarred Bushdicanelo [facility] Start: 02-06-2023 ([facility] WMNI) [facility] Init ial Provider Sameera Kyleleatha [facility] Start: 02-06-2023 End: 02-06-2023 ambulatory Sameera Fitt Other [employer] Other Start: 02-05-2023 End: 02-05-2023 ambulatory Jarred Christal Other [employer] Other Start: 02-05-2023 Follow-up encounter Jarred Bushdicanelo [facility] Start: 12-26-2022 End: 12-26-2022 ambulatory Jarred Mayerff Other [employer] Other Start: 12-26-2022 Follow-up encounter Jarred Bushdicanelo [facility] Start: 12-04-2022 End: 12-04-2022 ambulatory Jarred Mayerff Other [employer] Other Start: 12-04-2022 Nutrition therapy Jarred Siegel [facility] Start: 10-31-2022 End: 10-31-2022 ambulatory Sameera Howard Other [employer] [facility] [employer] Other Start: 10-31-2022 Telephone encounter Sameera Howard [facility] Procedures Date Procedure Procedure Detail Performing Clinician Start: 08-07-2024 ALL CEA Levi Fazi o DO Work Phone: Start: 08-07-2024 ELCH AFP TUMOR MARKER C orey Sunita DO Work Phone: Start: 08-07-2024 [facility] HCG,BETA-QUANT,TU MOR MARKER Levi Sunita DO Work Phone: Start: 07-29-2024 Urine test visual color cmprsn meths Levi Sunita DO Work Phone: Start: 06-24-2024 Microscopic observat ion [Identifier] in Cervix by Cyto stain Levi Sunita DO Work Phone: Start: 06-06-2024 Mammography Levi Fazi o DO Work Phone: Plan of Treatment Date Care Activity Detail Author Start: 06-24-2027 Screening for malign ant neoplasm of cervix [facility] Start: 06-06-2025 Screening for malign ant neoplasm of breast Mammogram [facility] Start: 09-04-2024 End: 09-04-2024 Patient encounter procedure 09/04/2024 9:40 AM EST Consult [facility] [address] [place] [address] Levi Dorsey, DO [address] [place] [address] [facility] Start: 06-29-2024 Influenza vaccination Influenza Vacc ine (#1) [facility] Start: 02-21-2014 Screening for malign ant neoplasm of cervix HPV/Cotest [facility] Biopsy endometrium Biopsy endome trium Procedures Routine Menorrhagia with regular cycle Ordered: 07/29/2024 [facility] Work Phone: Comment on above: Ordered: 07/29/2024 Immunizations Immunization Date Immunization Notes Care Provider Brenton montana 08-28-2023 influenza virus vacc ine, unspecified formulation Levi Dorsey DO Work Phone: [facility] Payers Date Payer Category Payer Unknown [employer] [id number] 2023-Present [address] [place] [address] [id number] 2022 Self-pay 2022 Unknown [id number] 1984 Unknown [id number] 1984 Unknown [id number] [id number] 1984 Unknown [id number] [id number] 1984 Unknown [id number] 2.16.840.1.419290.3.579.2.1285 1984 Unknown [id number] 2.16.840.1.212303.3.579.2.1285 1984 Unknown [id number] 2.16.840.1.578173.3.579.2.1285 1984 Unknown [id number] 2.16.840.1.145573.3.579.2.1285 1984 Unknown [id number] 2.16.840.1.395710.3.579.2.1285 1984 Unknown [id number] 2.16.840.1.676605.3.579.2.1285 1984 Unknown [id number] 2.16.840.1.420503.3.579.2.1259 1984 Unknown [id number] 2.16.840.1.151075.3.579.2.1259 Unknown [employer] [id number] Unknown [id number] [id number] Unknown [id number] [id number] Social History Date Type Detail Facility Unknown if ever smoked [facility] [employer] Other Sex Assigned At [employer] Other Start: 1985 Sex Assigned At Female [facility] Tobacco smoking status CAIS Tobacco smoking consumption unknown [facility] Start: 06-18-2024 Gender identity Identifies as female gender (finding) [facility] Clinical Notes 12-04-2022 to 07-29-2024 Iwona Lerma [...] MG/DOSE, SC) Vitamin D-Vitamin K (K2-D3 10,000) 17956-66 UNIT-MCG capsule 1 each, Oral, Daily ALLERGIES [...] (CMS/HCC) BRCA gene positive High blood pressure (CMS/HCC) HISTORY PAST MEDICAL HISTORY SOCIAL HISTORY Past [...] nursing note reviewed. Exam conducted with a payment specialist present. Vitals: Estimated body mass index is [...] Levi Dorsey DO documented in this encounter [facility] 01-21-2024 Evaluation note Authored January 21, 2024 [...] Her psychiatric prescriber is Brittany Gamino from [place] where they live. Her dad is a [...] in the morning. 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 8. Snorer/Iron of 6/neck size of 15.5 inches/mallampati score [...] work with her PCP. Author Jarred Siegel [facility] Authored March 05, 2024 7:59am Start/highest [...] Her psychiatric prescriber is Brittany Gamino from [place] where they live. Her dad is a [...] in the morning. 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 8. Snorer/Iron of 6/neck size of 15.5 inches/mallampati score [...] continue regular lab work with her PCP. [facility] Work Phone: [phone] 617-883412-22-2023 Evaluation note* Encounter Date Diagnosis Assessment Notes [...] - R06.83) Sep, Asthma (ICD-10 - J45.909) [employer] Other 12-07-2023 Evaluation note* Encounter Date Diagnosis [...] / exercise routine using treadmill at home [employer] Other 11-06-2023 Evaluation note* Encounter Date Diagnosis [...] (ICD-10 - R06.83) Aug, Asthma (ICD-10 - J45.900) [employer] Other 10-12-2023 Evaluation note* Encounter Date Diagnosis [...] new recipes to add variety; MET, CONTINUE [employer] Other 08-17-2023 Evaluation note* Encounter Date Diagnosis [...] new recipes to add variety; MET, CONTINUE [employer] Other 05-30-2023 Evaluation note* Encounter Date Diagnosis [...] - R06.83) February, Asthma (ICD-10 - J45.909) [employer] Other 04-11-2023 Evaluation note* Encounter Date Diagnosis Assessment Notes Treatment Notes Treatment Clinical Notes 11 Jan, 2023 Obesity (ICD-10 - E66.9) Jan, BMI 40.0-44.9, adult (ICD-10 - Z68.41) Jan, Other Summary of Visi t: (A) discussed foods that can help prevent breast cancer and help w/ WM (B) benefits of fiber foods Patient set the following goals: [employer] Other 04-10-2023 Evaluation note* Encounter Date Diagnosis [...] - R06.83) Jan, Asthma (ICD-10 - J45.909) [employer] Other 02-28-2023 Evaluation note* Encounter Date Diagnosis [...] - R06.83) Nov, Asthma (ICD-10 - J45.909) [employer] Other 02-06-2023 Evaluation note* Encounter Date Diagnosis Assessment Notes Treatment Notes Treatment Clinical Notes Nov, Abnormal weight gain (ICD-10 - R63.5) Nov, Hypertension (ICD-10 - I10) Nov, Mixed hyperlipidemia (ICD-10 - E78.2) Nov, Metabolic syndrome X (ICD-10 - E88.81) Nov, Bipolar affective disorder (ICD-10 - F31.9) Nov, Snores (ICD-10 - R06.83) Nov, Asthma (ICD-10 - J45.909) [employer] Other Evaluation noteNo [employer] Other Evaluation note* Diagnosis Menorrhagia with regular cycle BRCA2 gene mutation positive Complex ovarian cyst Pelvic pain in female Unspecified symptom associated with female genital organs documented in this encounter [facility] HealthcareEvaluation noteNo assessment information [facility] Work Phone: Hisoipv general Narrative - Reported* Type Description Date Medical History ADHD Medical History anxiety Medical History asthma Medical History bipolar Medical History BRCA2 positive Medical History endometriosis Medical History high blood pressure Medical History hypokalemia Medical History leg cramps Surgical History gallbladder 09/19 Surgical History ERCP 09/19 Surgical History wisdom teeth Hospitalization History see above [employer] Other Chief Complaint and Reason for Visit [...] Member Role Status Dates Gordon Velazco APRN [employer]UMP[employer]ER-C Primary Care Provider Active Team Status: Inactive Member Role Status Dates Gordon Velazco APRN [employer]C Primary Care Provider Active Start: January 21, 2024 End: January 21, 2024 Jarred Siegel MD Attending Provider Active Start: January 21, 2024 End: January 21, 2024 Team Status: Inactive Member Role Status Dates Gordon Velazco APRN [employer]C Primary Care Provider Active Start: January 24, 2024 End: January 24, 2024 MAG Johnson Attending Provider Active Start: January 24, 2024 End: January 24, 2024 Team Status: Active Member Role Status Dates Gordon Velazco APRN [employer]C Primary Care Pr ovider, Attending Provider Active Start: February 18, 2024 Team Status: Inactive Member Role Status Dates Gordon Velazco APRN [employer]C Primary Care Provider Active Start: March 05, 2024 End: March 05, 2024 Jarred Siegel MD Attending Provider Active Start: March 05, 2024 End: March 05, 2024 Team Status: Inactive Member Role Status Dates Gordon Velazco APRN [employer]C Primary Care Provider Active Start: March 27, 2024 End: March 27, 2024 MAG Johnson Attending Provider Active Start: March 27, 2024 End: March 27, 2024 Team Status: Inactive Member Role Status Dates Gordon Velazco APRN [employer]C Primary Care Provider Active Start: July 30, 2024 End: July 30, 2024 Levi Dorsey DO Attending Provider Active Start : July 30, 2024 End: July 30, 2024 Goals (unrecognized section and content) Goals may be documented in a n alternate section INFORMATION SOURCE (unrecogn ized section and content) DATE CREATED AUTHOR 05/16/2024 [facility] DATE CREATED AUTHOR AUTHOR'S ORGANIZ ATION 05/23/2024 [facility] DATE CREATED AUTHOR AUTHOR'S ORGANIZ ATION 05/31/2024 [facility] DATE CREATED AUTHOR AUTHOR'S ORGANIZ ATION 06/10/2024 [facility] DATE CREATED AUTHOR AUTHOR'S ORGANIZ ATION 07/30/2024 [facility] EP[facility] DATE CREATED AUTHOR AUTHOR'S DWIGHT ATJO 08/01/2024 [facility] ysician Group FOR RECORDS PERTAINING TO PATIENTS [...] BE BASED ON THE PRIMARY CLINICAL RECORDS. [employer] [facility]. provides no warranty or guarantee of the accuracy or completeness of information in this document.
== END 2024-08-23 08:33 | disposition home or self-care (01) ==
LOC: US 08:33
PROVIDERS: Family Provider Family Medicine; PCP Nurse Practitioner; Visit Provider Obstetrics & Gynecology
DX: N83.291 Other ovarian cyst, right side (principal); N83.292 Other ovarian cyst, left side
CPT/HCPCS: 76830; 76856

== ENCOUNTER 2024-09-23 08:34 | Outpatient (OUT) | payer OTHER, SELFPAY ==
--- OUTSIDE RECORDS SUMMARY | 2024-09-23 08:54 | XMS_ITS | CCD ---
Author Organization [facility] Care Team Providers Care Telecom Assistant Name Role Phone KyleEstevan zhangn Unavailable Jarred Siegel Unavailable ROGELIO FENTON Attending Unavailable ANGLIM, GORDON A Referring Unavailable ANGLIM, GORDON A Primary Care Unavailable TALEBBRANDYD Attending Unavailable TALEB, MOHAMMAD Referring Unavailable ANGLIM, GORDON A Primary Care Unavailable ANGLIM, GORDON A Referring Unavailable ANGLIM, GORDON A Primary Care Unavailable ANGLIM, GORDON A Referring Unavailable ANGLIM, GORDON A Primary Care Unavailable MYPHILLY BRIGHT Referring Unavailab le NASREEN, ALBINA Primary Care Unavailable MYERPHILLY GAMA K Referring Unavailab le NASREEN, [place] Primary Care Unavailable PROVIDER, UNKNOWN Referring Unavailable NASREEN, ALBINA Primary Care Unavailable KATELYN ZAMORA Referring Unavailable NASREEN, [place] Primary Care Unavailable AHMED ABEER Referring Unavailable ANGLIM, GORDON A Primary Care Unavailable Unavailable Primary Care Provider Unavailabl e Levi Dorsey Admitting Unavailable Anglim, Gordon Primary Care Unavailable Levi Dorsey Attending Unavailable Anglim, Gordon Primary Care Unavailable Jarred Siegel Attending Unavailable Jarred Siegel Admitting Unavailable Anglim, TRAVEL AGENT Gordon Primary Care Provider [phone] DO Levi Dorsey Attending Provider LEVI DORSEY Attending Unavailable LEVI DORSEY Attending Unavailable LEVI DORSEY Attending Unavailable Allergies Allergy Classification Reported Allergen(s) Allergy Type Date of Onset Reaction(s) Facility (4 sources) Shellfish Propensity to adverse reactions 4 [facility] Work Phone: (4 sources) Fish-Derived Products Propensity to adverse reactions 4 Anaphylaxis, Hives, Itching [facility] (4 sources) Shellfish-Deriv ed Products Drug Allergy 4 Anaphylaxis [facility] Medications Current Medications Medication Drug Class(es) Dates Sig (Normalized) Sig (Original) 0.25 MG, 0.5 MG Dose 3 ML semaglutide 0.68 MG/ML Pen Injector [Ozempic] (2 sources) Start: 09-03-2023 Ozempic (0.25 or 0.5 MG/DOSE) 2 MG/3ML 0.25 mg for one month and then increase to 0.5 mg dose Subcutaneous weekly for Aug, Active [id number] 200 actuat albuterol 0.09 mg/actuat metered dose inhaler (6 sources) beta2-Adrenergic Agonist Start: 05-12-2024 take 2 puff(s) by inhalation every six hours albuterol HFA 90 mcg/act inhaler Inhale 2 puffs every 6 (six) hours if needed 05/12/2024 Active Start: 01-21-2024 take 1 puff(s) by in halation four times daily Albuterol Sulfate Active 2 PUFF INHALATION Four times daily January 21, 2024 12:00am ARIPiprazole 5 mg oral tablet (20 sources) Atypical Antipsychotic Start: 01-21-2024 take 1 tablet by mouth at bedtime ARIPiprazole (Abilify) 5 MG tablet Take 5 mg by mouth at bedtime 07/15/2024 Active Start: 06-23-2020 End: 09-04-2024 take 1 tablet by mouth in the morning ARIPiprazole (Abilify) 2 MG tablet Take 2 mg by mouth in the morning. 06/23/2020 09/04/2024 Discontinued (Therapy completed) take 1 tablet by cristine th every twenty-four hours ARIPiprazole 5 MG 1 tablet Orally Once a day Active atomoxetine 40 mg oral capsule (18 sources) Norepinephrine Reuptake Inhibitor Start: 01-21-2024 take 40 mg by mouth once daily Atomoxetine Active 40 MG PO Daily January 21, 2024 12:00am Strattera breath-actuated 120 actuat beclomethasone dipropionate 0.04 mg/actuat metered dose inhaler (4 sources) Corticosteroid Start: 05-12-2024 take 2 puff(s) by inhalation in the morning beclomethasone HFA (Qvar) 40 MCG/ACT inhaler Inhale 2 puffs in the morning and 2 puffs in the evening. 05/12/2024 Active busPIRone hydrochloride 10 mg oral tablet (18 sources) Start: 06-23-2020 take 1 tablet by [...] mg / lisinopril 20 mg oral tablet (10 sources) Thiazide Diuretic, Angiotensin Converting Enzyme Inhibitor take 1 tablet by mouth in the morning lisinopril-hydroCHLOROthiazide 20-12.5 MG tablet Take 1 tablet by mouth in the morning. Active take 1 tablet by cristine th every twenty-four hours Lisinopril-hydroCHLOROthiazide 20-12.5 M G 1 tablet Orally Once a day Active hydrOXYzine pamoate 50 mg oral capsule (18 sources) Antihistamine Start: 01-21-2024 take 1 capsule by mouth once hydrOXYzine pamoate (Vistaril) 50 MG capsule Take 50 mg by mouth 1 (one) time 01/21/2024 Active take 1 capsule by mo ut every twenty-four hours hydrOXYzine Pamoate 50 MG 1 capsule at bedtime as needed Orally Once a day Active lamoTRIgine 100 mg oral tablet (18 sources) Mood Stabilizer, Anti-epileptic Agent Start: 01-21-2024 [...] day Active lisinopril 30 mg oral tablet (12 sources) Angiotensin Converting Enzyme Inhibitor Start: 01-21-2024 lisinopril 30 MG tablet 1 (one) time each day at the same time 01/21/2024 Active Lisinopril 30 MG Oral for 30 Days Active montelukast 10 mg oral tablet (18 sources) Leukotriene Receptor Antagonist Start: 01-21-2024 take [...] potassium 99 mg extended release oral tablet (4 sources) take 1 tablet by mouth once [...] orally daily; Semaglutide (OZEMPIC, 1 MG/DOSE, SC) (4 sources) Semaglutide (OZEMPIC, 1 MG/DOSE, SC) Active semaglutide (Ozempic, 1 MG/DOSE,) 4 MG/3ML solution pen-injector (4 sources) Start: 04-16-2024 inject 1 mg by subcutaneous injection every week semaglutide (Ozempic, 1 MG/DOSE,) 4 MG/3ML solution pen-injector Inject 1 mg under the skin 1 (one) time per week 04/16/2024 Active Vitamin D-Vitamin K (K2-D3 10,000) 37444-87 UNIT-MCG capsule (4 sources) take 1 capsule by mouth once daily Vitamin D-Vitamin K (K2-D3 10,000) 48448-22 UNIT-MCG capsule Take 1 each by mouth Daily Active wegovy 1 mg/0.5ml solution auto-injector (1 source) Start: 10-19-2023 Wegovy 1 MG/0. 5ML as directed Subcutaneous Weekly for 30 days Sep, Active Completed/Discontinued Medications Medication Drug Class(es) Dates Sig (Normalized) Sig (Original) magnesium oxide 400 mg oral tablet (20 sources) Start: 01-21-2024 End: 04-17-2024 take 400 [...] to malignant neoplasm of breast] 07-29-2024 Episodic Residual codes; unclassified (2 sources) Breast cancer genetic marker of susceptibility positive; Translations: [Genetic susceptibility to malignant neoplasm of breast] Onset: 09-04-2024 09-04-2024 Episodic Unclassified (1 source) New Patient Onset: [...] 08-08-2024 CEA <0.6 0.0 - 4.7 ng/mL [facility] Comment on above: Nonsmokers <3.9 Smokers <5.6 [employer] [employer] Electrochemiluminescence Immunoassay (ECLIA) Values obtained with different assay methods or kits cannot be used interchangeably. Results cannot be interpreted as absolute evidence of the presence or absence of malignant disease. Performed at: [facility] [employer] [id number] Cable Wire[employer]: Gustavo Dawson PhD, Phone: [phone] [facility] AFP TUMOR MARKERon 07-29 AFP, SERUM, TUMOR MARKER 12.4 ng/mL Abnormal 0.0 - 6.4 ng/mL [facility] Comment on above: [employer] El ectrochemiluminescence Immunoassay (ECLIA) Values obtained with different assay methods or kits cannot be used interchangeably. Results cannot be interpreted as absolute evidence of the presence or absence of malignant disease. This test is not interpretable in females. Interpretation and review of laboratory results Abnormal [facility] No Panel Informationon 08-08 [facility] HCG,BETA-QUANT,TUMOR BHAEVSH Dustin 08-08-2024 HCG TUMOR MARKER <1 . mIU/mL [facility] Comment on above: Female (Non- ) 0 [...] developed and its performance characteristics determined by [facility]. It has not been cleared or approved by the Food and Drug Administration for use as a tumor marker. This test is not interpretable as a tumor marker in females. Performed at: [address] [id number] [employer]: Gustavo Dawson PhD, Phone: [phone] HCG ( test) Ql (U)o n 07-29-2024 Interpretation and review of laboratory results Normal [facility] Preg Test, Ur Negative [facility] 07-29-2024 L Specimen: [id number] Received: 07/30/24 Status: EDGARDO Weber Num: [id number] Spec Type: Surgical Subm Dr: Levi Dorsey Tissues: A Endometrium - Biopsy (EMBX) Procedures: HE/2, Gross/Micro L4 Age/ Patient Sex Location Account Attending Physician Brittany Connors 39/F LABELL [id number] Levi Dorsey SPEC NUM: [id number] RECD: 07/30/24 STATUS: EDGARDO WEBER NUM: [id number] JERMAINE: 07/29/24- SUBM : Levi Dorsey ENTERED: 07/30/24 [facility] DR: Ligia,Lab SPEC TYPE: Surgical DEPT: KRPUA COREY ENTERED BY: [id number] RECV BY: [id number] ORDERED: HE/2, Gross/Micro L4 ORDERED: HE/2, Gross/Micro [...] Description Microscopic examination is performed CPT Codes 55908 Specimen: [id number] Received: 07/30/24 Status: CHARLOTTELeatha Weber Num: [id number] Spec Type: Surgical Subm Dr: Levi Dorsey Tissues: A Endometrium - Biopsy (EMBX) Procedures: Araceli HOFFMAN/Irvin L4 Patient: Brittany Connors [id number] (Continued) Signed (signature on file) Librado Sheehan MD 07/31/24 1118 Normal [facility] MAMM BX BREAST STEREO [...] MD on 06/10/2024 8:35 AM [address] [facility] MAMM POST BX DIAG UNI LTon [...] MD on 06/10/2024 8:35 AM [address] [facility] Surgical Pathologyon 024 Surgical Pathology Normal [facility] Comment on above: Result Comment: [facility] [address] [place] [address] Surgical Pathology Consultation Patient Name:BRITTANY CONNORS:1985 (Age: 39)Gender:FTaken:4Reported:4Physician(s):Philly Rasheed NP ([phone])Copy To:Katelyn ZamoraAccession #:[id number]. Rec. #:[id number]: #[id number] Final Pathologic Diagnosis Left breast, needle biopsy @3-4:00, 5 cm fn: Benign breast tissue with focal, mild cystic change and fibrosis. Report Electronically Signed Out 06/09/2024Robin Villanueva MD Interpretation [place] [address], License number: [id number]. Clinical History Biopsy procedure: Stereotactic; Target: Mass; [...] 8 hours and 30 minutes (2, ns, [id number], A???B, m1) JG jmg/06/06/2024SSI Specimen(s) Received Left breast Fee Codes(s): 1; 18670 MAMM DIAGNOSTIC UNILAT LT W CADon 05-29-2024 [...] 05/29/2024 9:42 AM 4 a BIOPSY Normal [facility] US BREAST LT LIMITEDon 05-29 US BREAST [...] 05/29/2024 9:42 AM 4 a BIOPSY Normal [facility] MAMM SCREENING BILATERAL W C [employer] tech 05-20-2024 MAMM SCREENING BILATERAL W CAD MAMM [...] 3:05 PM 0A a ADDITIONAL I Normal [facility] XR CHEST 2 VWSon 03-18-2024 XR CHEST 2 VWS XR CHEST 2 VWS Chest 2 views History: Asthma, unspecified asthma severity, unspecified whether complicated, unspecified whether persistent Comparison: 09/15/2021 Findings: Chest 2 views. Stable cardiomediastinal silhouette. No focal opacity, effusion or pneumothorax. Impression: No evident acute cardiopulmonary process. Finalized by Jack Do MD on 03/18/2024 6:47 PM Normal [facility] Laboratory - Chemistry and C hemistry - challengeon 02-18-2024 Albumin [Mass/Vol] 4.8 g/dL [facility] ALP [Catalytic activity/Vol] 111 U/L [facility] ALT [Catalytic activity/Vol] 22 U/L [facility] AST [Catalytic activity/Vol] 16 U/L [facility] Bilirubin [Mass/Vol] 0.4 mg/dL [facility] Calcium [Mass/Vol] 9.5 mg/dL [facility] Chloride [Moles/Vol] 102 mmol/L [facility] Cholesterol [Mass/Vol] 204 mg/dL [facility] Cholesterol in HDL [Mass/Vol] 54 mg/dL [facility] Cholesterol in LDL [Mass/Vol] 122 mg/dL [facility] Cholesterol.total/ Cholesterol in HDL [Mass ratio] 3.8 {ratio} [facility] CO2 [Moles/Vol] 27 mmol/L [facility] Creatinine [Mass/Vol] 0.74 mg/dL [facility] GFR/1.73 sq M.predicted MDRD (S/P/Bld) [Vol rate/Area] 105 mL/min/{1.73_m2} [facility] Glucose [Mass/Vol] 98 mg/dL [facility] Potassium [Moles/Vol] 4.0 mmol/L [facility] Protein [Mass/Vol] 6.3 g/dL [facility] Sodium [Moles/Vol] 140 mmol/L [facility] Triglyceride [Mass/Vol] 142 mg/dL [facility] Urea nitrogen [Mass/Vol] 12 mg/dL [facility] Laboratory - Hematology and Cell countson 02-18-2024 HbA1c (Bld) [Mass fraction] 5.2 % [facility] No Panel Informationon 02-17 Estimated GFR (Non- 105 mL/min [facility] Thyroid Stimulating Hormone 3rd Gen 2.34 [facility] VLDL Cholesterol 28 mg/dL [facility] Vital Signs Date Time Vital Sign Value Performing Clinician Facility 09-04-2024 09:54-0500 Body mass index (BMI) [Ratio] 44.93 kg/m2 Levi Sunita DO Work Phone: [facility] 09-04-2024 09:54-0500 Body weight 122.47 kg Levi Sunita DO Work Phone: [facility] 09-04-2024 09:54-0500 Diastolic blood pressure 80 mm[Hg] Levi Sunita DO Work Phone: [facility] 09-04-2024 09:54-0500 Systolic blood pressure 124 mm[Hg] Levi Sunita DO Work Phone: [facility] 07-29-2024 09:45-0400 Body mass index (BMI) [Ratio] 44.9 kg/m2 Levi Sunita DO Work Phone: [facility] 07-29-2024 09:45-0400 Body weight 122.38 kg Levi Sunita DO Work Phone: [facility] 07-29-2024 09:45-0400 Diastolic blood pressure 80 mm[Hg] Levi Sunita DO Work Phone: [facility] 07-29-2024 09:45-0400 Systolic blood pressure 124 mm[Hg] Levi Sunita DO Work Phone: [facility] 03-27-2024 08:05-0400 Body height 170.18 cm [facility] 03-27-2024 08:05-0400 Body mass index (BMI) [Ratio] 45.6 kg/m2 [facility] 03-27-2024 08:05-0400 Body weight 132.13 kg [facility] 03-05-2024 07:12-0400 Body height 170.18 cm [facility] 03-05-2024 07:12-0400 Body mass index (BMI) [Ratio] 45.7 kg/m2 [facility] 03-05-2024 07:12-0400 Body weight 132.5 kg [facility] 03-05-2024 07:12-0400 Diastolic blood pressure 18 mm[Hg] [facility] 03-05-2024 07:12-0400 Heart rate 95 /min [facility] 03-05-2024 07:12-0400 Respiratory rate 18 /min [facility] 03-05-2024 07:12-0400 SaO2% (BldA) [Mass fraction] 99 % [facility] 03-05-2024 07:12-0400 Systolic blood pressure 100 mm[Hg] [facility] 01-24-2024 15:39-0400 Body height 170.18 cm [facility] 01-24-2024 15:39-0400 Body mass index (BMI) [Ratio] 43.8 kg/m2 [facility] 01-24-2024 15:39-0400 Body weight 127 kg [facility] 01-21-2024 07:13-0400 Body height 170.18 cm [facility] 01-21-2024 07:13-0400 Body mass index (BMI) [Ratio] 44 kg/m2 [facility] 01-21-2024 07:13-0400 Body weight 127.62 kg [facility] 01-21-2024 07:13-0400 Diastolic blood pressure 84 mm[Hg] [facility] 01-21-2024 07:13-0400 Heart rate 95 /min [facility] 01-21-2024 07:13-0400 Respiratory rate 18 /min [facility] 01-21-2024 07:13-0400 SaO2% (BldA) [Mass fraction] 98 % [facility] 01-21-2024 07:13-0400 Systolic blood pressure 121 mm[Hg] [facility] 10-19-2023 07:30-0500 Body height 170.18 cm Jarred Siegel Other [employer] Other 10-19-2023 07:30-0500 Body mass index (BMI) [Ratio] 45.13 kg/m2 Jarred Christal Other [employer] Other 10-19-2023 07:30-0500 Body weight 130.73 kg Jarredpearl Bush[facility] Other [employer] Other 10-19-2023 07:30-0500 Diastolic blood pressure 89 mm[Hg] Jarred Siegel Other [employer] Other 10-19-2023 07:30-0500 Respiratory rate 18 /min Jarred Christal Other [employer] Other 10-19-2023 07:30-0500 SaO2% (BldA) [Mass fraction] 100 % Jarred Siegel Other [employer] Other 10-19-2023 07:30-0500 Systolic blood pressure 128 mm[Hg] Jarred Siegel Other [employer] Other 10-04-2023 07:15-0500 Body height 170.18 cm Sameera Spiral Gatewayleatha Other [employer] Other 10-04-2023 07:15-0500 Body mass index (BMI) [Ratio] 45.68 kg/m2 Sameera Fitt Other [employer] Other 10-04-2023 07:15-0500 Body weight 132.32 kg Sameera Fitt Other [employer] Other 09-03-2023 07:15-0500 Body height 170.18 cm Jarred Christal Other [employer] Other 09-03-2023 07:15-0500 Body mass index (BMI) [Ratio] 46.67 kg/m2 Jarred Siegel Other [employer] Other 09-03-2023 07:15-0500 Body weight 135.17 kg Jarred Christal Other [employer] Other 09-03-2023 07:15-0500 Diastolic blood pressure 85 mm[Hg] Jarred Siegel Other [employer] Other 09-03-2023 07:15-0500 Respiratory rate 18 /min Jarred Siegel Other [employer] Other 09-03-2023 07:15-0500 SaO2% (BldA) [Mass fraction] 98 % Jarred Siegel Other [employer] Other 09-03-2023 07:15-0500 Systolic blood pressure 121 mm[Hg] Jarred Siegel Other [employer] Other 08-09-2023 07:15-0400 Body height 170.18 cm Sameera Fitt Other [employer] Other 08-09-2023 07:15-0400 Body mass index (BMI) [Ratio] 46.26 kg/m2 Sameera Fitt Other [employer] Other 08-09-2023 07:15-0400 Body weight 133.99 kg Sameera Fitt Other [employer] Other 06-14-2023 08:00-0400 Body height 170.18 cm Sameera Fitt Other [employer] Other 06-14-2023 08:00-0400 Body mass index (BMI) [Ratio] 46.56 kg/m2 Sameera Fitt Other [employer] Other 06-14-2023 08:00-0400 Body weight 134.86 kg Sameera Fitt Other [employer] Other 03-27-2023 07:15-0400 Body height 170.18 cm Jarred Bushdiff Other [employer] Other 03-27-2023 07:15-0400 Body mass index (BMI) [Ratio] 47.44 kg/m2 Jarred Christal Other [employer] Other 03-27-2023 07:15-0400 Body weight 137.4 kg Jarredpearl Siegel Other [employer] Other 03-27-2023 07:15-0400 Diastolic blood pressure 88 mm[Hg] Jarred Siegel Other [employer] Other 03-27-2023 07:15-0400 Respiratory rate 18 /min Jarredpearl Siegel Other [employer] Other 03-27-2023 07:15-0400 SaO2% (BldA) [Mass fraction] 99 % Jarred Bushdiff Other [employer] Other 03-27-2023 07:15-0400 Systolic blood pressure 138 mm[Hg] Jarred [facility]diff Other [employer] Other 02-06-2023 09:15-0400 Body height 170.18 cm Sameera Kyleleatha Other [employer] Other 02-05-2023 08:15-0400 Body height 170.18 cm Jarredpearl Siegel Other [employer] Other 02-05-2023 08:15-0400 Body mass index (BMI) [Ratio] 45.67 kg/m2 Jarredpearl [employer] Other [employer] Other 02-05-2023 08:15-0400 Body weight 132.27 kg Jarred [employer] Other [employer] Other 02-05-2023 08:15-0400 Diastolic blood pressure 93 mm[Hg] Jrared Siegel Other [employer] Other 02-05-2023 08:15-0400 Respiratory rate 18 /min Jarred Christal Other [employer] Other 02-05-2023 08:15-0400 SaO2% (BldA) [Mass fraction] 99 % Jarred Siegel Other [employer] Other 02-05-2023 08:15-0400 Systolic blood pressure 123 mm[Hg] Jarred Siegel Other [employer] Other 12-26-2022 08:00-0500 Body height 170.18 cm Jarred [facility]diff Other [employer] Other 12-26-2022 08:00-0500 Body mass index (BMI) [Ratio] 45.34 kg/m2 Jarredpearl [employer] Other [employer] Other 12-26-2022 08:00-0500 Body weight 131.32 kg Jarred [facility]diff Other [employer] Other 12-26-2022 08:00-0500 Diastolic blood pressure 92 mm[Hg] Jarred Siegel Other [employer] Other 12-26-2022 08:00-0500 Respiratory rate 18 /min Jarred Siegel Other [employer] Other 12-26-2022 08:00-0500 SaO2% (BldA) [Mass fraction] 98 % Jarred Siegel Other [employer] Other 12-26-2022 08:00-0500 Systolic blood pressure 122 mm[Hg] Jarred Siegel Other [employer] Other 12-04-2022 09:15-0500 Body height 170.18 cm Jarred Siegel Other [employer] Other 12-04-2022 09:15-0500 Body mass index (BMI) [Ratio] 44.41 kg/m2 Jarred Siegel Other [employer] Other 12-04-2022 09:15-0500 Body weight 128.64 kg Jarred Siegel Other [employer] Other 12-04-2022 09:15-0500 Diastolic blood pressure 93 mm[Hg] Jarred Siegel Other [employer] Other 12-04-2022 09:15-0500 Respiratory rate 18 /min Jarred Siegel Other [employer] Other 12-04-2022 09:15-0500 SaO2% (BldA) [Mass fraction] 99 % Jarred Siegel Other [employer] Other 12-04-2022 09:15-0500 Systolic blood pressure 122 mm[Hg] Jarred Siegel Other [employer] Other Encounters Encounter Date Encounter Type Care Provider Facility Start: 09-04-2024 End: 09-04-2024 Bamboo flowsheet Levi Sunita DO Work Phone: [facility] Start: 09-04-2024 End: 09-04-2024 Bamboo flowsheet Levi Sunita DO Work Phone: [facility] Start: 09-04-2024 End: 09-04-2024 Office outpatient visit 15 minutes Levi Sunita DO Work Phone: [facility] Comment on above: Pre-op examination; BRCA gene mutation positive Start: 09-04-2024 End: 09-04-2024 Preprocedural examination done Levi Sunita DO Work Phone: [facility] Start: 09-04-2024 End: 09-04-2024 ambulatory LEVI SUNITA Not Available Start: 08-07-2024 End: 08-08-2024 Clinis[facility] Result Encounter Levi Sunita DO Work Phone: [facility] External Department Unsolicited Start: 08-07-2024 End: 08-08-2024 Clinisync Result Encounter Levi Sunita DO Work Phone: [facility] External Department Unsolicited Start: 07-30-2024 End: 07-30-2024 ambulatory Levi Sunita Facility:[facility] Start: 07-30-2024 End: 07-30-2024 Departed Referred TRAVEL AGENT Gordon Velazco Work Phone: [facility] Start: 07-29-2024 End: 07-29-2024 Patient encounter procedure Levi Sunita DO Work Phone: [facility] Comment on above: Menorrhagia with reg ular cycle; BRCA2 gene mutation positive; Complex ovarian cyst; Pelvic pain in female Start: 07-29-2024 End: 07-29-2024 ambulatory LEVI SUNITA Not Available Start: 06-24-2024 End: 06-24-2024 ambulatory LEVI SUNITA Not Available Start: 06-06-2024 End: 06-06-2024 ambulatory [facility] Start: 06-06-2024 End: 06-06-2024 ambulatory [facility] Start: 05-29-2024 End: 05-29-2024 [facility] Start: 05-17-2024 End: 05-17-2024 ambulatory GORDON VELAZCO [facility] Start: 05-12-2024 End: 05-12-2024 ambulatory [facility] Start: 03-27-2024 End: 03-27-2024 Patient encounter procedure [facility] Work Phone: Start: 03-18-2024 End: 03-18-2024 ambulatory [facility] Start: 03-05-2024 End: 03-05-2024 Patient encounter procedure [facility] Work Phone: Start: 02-18-2024 Non-patient / Non-visit [facility] Work Phone: Start: 01-24-2024 End: 01-24-2024 Patient encounter procedure [facility] Work Phone: Start: 01-21-2024 End: 01-21-2024 Patient encounter procedure [facility] Work Phone: Start: 11-28-2023 End: 11-28-2023 ambulatory [facility] Facility:[facility] Start: 11-17-2023 End: 11-17-2023 ambulatory ABR [facility] Start: 11-12-2023 End: 11-12-2023 ambulatory GORDON A [facility] Start: 10-19-2023 End: 10-19-2023 ambulatory Jarred Siegel Other [employer] Other Start: 10-19-2023 Follow-up encounter Jarred Siegel [facility] Start: 10-04-2023 ([facility] FU) [facility] F/ U Registerd Patcher Sameera Howard [facility] Start: 10-04-2023 End: 10-04-2023 ambulatory Sameera Wrightt Other [employer] Other Start: 09-03-2023 End: 09-03-2023 ambulatory Jarred Siegel Other [employer] Other Start: 09-03-2023 Follow-up encounter Jarred Christal [facility] Start: 08-09-2023 ([facility] F[facility]) [facility] F/ U Registerd Patcher Sameera Howard [facility] Start: 08-09-2023 End: 08-09-2023 ambulatory Sameera Fitt Other [employer] Other Start: 06-22-2023 End: 06-22-2023 ambulatory Jarred Siegel Other [employer] Other Start: 06-22-2023 Telephone encounter Jarred Bushdicanelo will[facility] Start: 06-14-2023 ([facility]) [facility] F/ U Registerd Patcher Sameera Howard [facility] Start: 06-14-2023 End: 06-14-2023 ambulatory Sameera Howard Other [employer] Other Start: 03-27-2023 End: 03-27-2023 ambulatory Jarred Siegel Other [employer] Other Start: 03-27-2023 Follow-up encounter Jarred Bushdicanelo [facility] Start: 02-06-2023 ([facility]) [facility] Init ial Provider Sameera Howard [facility] Start: 02-06-2023 End: 02-06-2023 ambulatory Sameera Howard Other [employer] Other Start: 02-05-2023 End: 02-05-2023 ambulatory Jarred Siegel Other [employer] Other Start: 02-05-2023 Follow-up encounter Jarred Christal [facility] Start: 12-26-2022 End: 12-26-2022 ambulatory Jarred Siegel Other [employer] Other Start: 12-26-2022 Follow-up encounter Jarred Christal [facility] Start: 12-04-2022 End: 12-04-2022 ambulatory Jarred Siegel Other [employer] Other Start: 12-04-2022 Nutrition therapy Jarred hughes [facility] Start: 10-31-2022 End: 10-31-2022 ambulatory Sameera Howard Other [facility] [employer] Other Start: 10-31-2022 Telephone encounter Sameera Cadena [facility] Procedures Date Procedure Procedure [...] Screening for malign ant neoplasm of cervix [facility] Start: 06-06-2025 Screening for malign ant neoplasm of breast Mammogram [facility] Start: 09-04-2024 End: 09-04-2024 Patient encounter procedure [facility] OB Comment on above: Arrived Start: 06-29-2024 Influenza vaccination Influenza Vacc ine (#1) [facility] Start: 02-21-2014 Screening for malign ant neoplasm of cervix HPV/Cotest [facility] Biopsy endometrium Biopsy endome trium Procedures Routine Menorrhagia with regular cycle Ordered: 07/29/2024 [facility] Work Phone: Comment on above: Ordered: 07/29/2024 Immunizations Immunization Date Immunization Notes Care Provider Fa cility 08-28-2023 influenza virus vacc ine, unspecified formulation Levi Sunita DO Work Phone: [facility] Payers Date Payer Category Payer Private Health Insurance [employer] [id number] 2023 Unknown [employer] [id number] 2023-Present [address] [place] [address] [id number] 2022 Self-pay 2022 Unknown [id number] 1984 Unknown [id number] 2.840.1.119167.3.579.2. 1285 1984 Unknown [id number] 2.840.1.047762.3.579.2. 1285 1984 Unknown [id number] 2.16840.1.762287.3.579.2. 1285 1984 Unknown [id number] 2.16840.1.660007.3.579.2. 1285 1984 Unknown [id number] 2.16840.1.432800.3.579.2. 1285 1984 Unknown [id number] 2.16840.1.461341.3.579.2. 1285 1984 Unknown [id number] 2.16840.1.439057.3.579.2. 1285 1984 Unknown [id number] 2.16840.1.625271.3.579.2. 1285 1984 Unknown [id number] 2.16840.1.039566.3.579.2. 1285 1984 Unknown [id number] 2.16.840.1.508909.3.579.2. 1259 1984 Unknown [id number] 2.16.840.1.712587.3.579.2. 1259 1984 Unknown [id number] 2.16.840.1.675070.3.579.2. 1259 Unknown [employer] [id number] Unknown [id number] 2.16.840.1.347898.3.579.2. 531 Unknown [id number] 2.16.840.1.312058.3.579.2. 531 Social History Date Type Detail Facility Unknown if ever smoked [facility] [employer] Other Sex Assigned At [employer] Other Start: 1985 Sex Assigned At Female F [facility] Tobacco smoking status DEIS Tobacco smoking consumption unknown [facility] Start: 06-18-2024 Gender identity Identifies as female gender (finding) [facility] Clinical Notes 12-04-2022 to 09-04-2024 Elaine Walters - 09/04/2024 9:40 AM Darrell Lerma LPN - 07/29/2024 9:30 AM EDT Note Date & Type Note Facility 09-04-2024 History of Presen t illness Narrative Reason for Appointment: Patient ID: Brittany Connors is a 39 y.o. female who presents for Pre-op Visit Patient presents today for Pre Op appointment. Patient is scheduled to undergo Da Helga assisted Bilateral Laparoscopic Salpingo-Oophorectomy on 10/03/[address] Dorsey at [facility]. MEDICATIONS Current Outpatient Medications Medication Instructions albuterol [...] MG/DOSE, SC) Vitamin D-Vitamin K (K2-D3 10,000) 49385-51 UNIT-MCG capsule 1 each, Oral, Daily ALLERGIES [...] (CMS/HCC) BRCA gene positive High blood pressure ([facility]/HCC) HISTORY PAST MEDICAL HISTORY SOCIAL HISTORY Past Medical History: Diagnosis Date ADHD (attention deficit hyperactivity disorder) (CMS/HCC) Anxiety and depression (CMS/HCC) Asthma (CMS/HCC) Bipolar 1 disorder (CMS/HCC) BRCA gene positive 2 High blood pressure ([facility]/HCC) Social History Tobacco Use Smoking status: Not [...] Constitutional: Appearance: Normal appearance. She is well-developed. Cardiovascular: Rate and Rhythm: Normal rate and [...] nursing note reviewed. Exam conducted with a record changer tester present. Vitals: Estimated body mass index is 44.9 kg/m as calculated from the following: Height as of 06/24/24: 5' 5 . Weight as of 07/29/24: 269 lb 12.8 oz. BP: No LMP recorded. ASSESSMENT & PLAN ICD-10-CM 1. Pre-op examination Z01.818 2. BRCA gene mutation positive Z15.01 Z15.09 Pre Op: Patient and mother present for pre-op appointment today. Patient is doing well but has desire for permanent sterilization with the removal of her ovaries due to BRAC gene mutation positive. I have discussed conservative management vs. surgical management with the patient in detail and patient desires surgical management at this time. Patient has voiced understanding that a Bilateral Salpingectomy is considered to be permanent and patient will undergo Da Helga assisted Bilateral Laparoscopic Salpingo-Oophorectomy on 10/03/2024. Surgical consents were signed, mmc was reviewed, and patient is to proceed to [facility] OR. Patient aware that she will be off at least a week after procedure. Follow Up: Patient is to follow up between 1-2 weeks post op to assess proper healing and recovery from procedure. Documented by Sylvia Benz LPN on behalf of: Levi Dorsey DO documented in this encounter [facility] 07-29-2024 History of Presen t illness Narrative [...] MG/DOSE, SC) Vitamin D-Vitamin K (K2-D3 10,000) 61447-83 UNIT-MCG capsule 1 each, Oral, Daily ALLERGIES [...] (CMS/HCC) BRCA gene positive High blood pressure (CMS/[facility]) HISTORY PAST MEDICAL HISTORY SOCIAL HISTORY Past [...] nursing note reviewed. Exam conducted with a record changer tester present. Vitals: Estimated body mass index is [...] Levi Dorsey DO documented in this encounter [facility] 01-21-2024 Evaluation note Authored January 21, 2024 [...] Her psychiatric prescriber is Brittany Gamino from [place] where they live. Her dad is a [...] in the morning. 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 8. Snorer/[place]iston of 6/neck size of 15.5 inches/mallampati score [...] work with her PCP. Author Jarred Siegel [facility] Authored March 05, 2024 7:59am Start/highest [...] Her psychiatric prescriber is Brittany Gamino from [place] where they live. Her dad is a [...] in the morning. 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 8. Snorer/[place]iston of 6/neck size of 15.5 inches/mallampati score [...] continue regular lab work with her PCP. [facility] Work Phone: [phone] 680-798712-22-2023 Evaluation note* Encounter Date Diagnosis Assessment Notes [...] - R06.83) Sep, Asthma (ICD-10 - J45.909) [employer] Other 12-07-2023 Evaluation note* Encounter Date Diagnosis [...] / exercise routine using treadmill at home [employer] Other 11-06-2023 Evaluation note* Encounter Date Diagnosis [...] - R06.83) Aug, Asthma (ICD-10 - J45.909) [employer] Other 10-12-2023 Evaluation note* Encounter Date Diagnosis [...] new recipes to add variety; MET, CONTINUE [employer] Other 08-17-2023 Evaluation note* Encounter Date Diagnosis [...] new recipes to add variety; MET, CONTINUE [employer] Other 05-30-2023 Evaluation note* Encounter Date Diagnosis [...] - R06.83) February, Asthma (ICD-10 - J45.909) [employer] Other 04-11-2023 Evaluation note* Encounter Date Diagnosis Assessment Notes Treatment Notes Treatment Clinical Notes Jan, Obesity (ICD-10 - E66.9) Jan, BMI 40.0-44.9, adult (ICD-10 - Z68.41) Jan, Other Summary of Visi t: (A) discussed foods that can help prevent breast cancer and help w/ WM (B) benefits of fiber foods Patient set the following goals: [employer] Other 04-10-2023 Evaluation note* Encounter Date Diagnosis [...] - R06.83) Jan, Asthma (ICD-10 - J45.909) [employer] Other 02-28-2023 Evaluation note* Encounter Date Diagnosis [...] - R06.83) Nov, Asthma (ICD-10 - J45.909) [employer] Other 02-06-2023 Evaluation note* Encounter Date Diagnosis Assessment Notes Treatment Notes Treatment Clinical Notes Nov, Abnormal weight gain (ICD-10 - R63.5) Nov, Hypertension (ICD-10 - I10) Nov, Mixed hyperlipidemia (ICD-10 - E78.2) Nov, Metabolic syndrome X (ICD-10 - E88.81) Nov, Bipolar affective disorder (ICD-10 - F31.9) Nov, Snores (ICD-10 - R06.83) Nov, Asthma (ICD-10 - J45.909) [employer] Other Evaluation noteNo [employer] Other Evaluation note* Diagnosis Menorrhagia with regular cycle BRCA2 gene mutation positive Complex ovarian cyst Pelvic pain in female Unspecified symptom associated with female genital organs documented in this encounter [facility] HealthcareEvaluation noteNo assessment [facility] Work Phone: Evaluation note* Diagnosis Pre-op examination BRCA gene mutation positive documented in this encounter [facility] general Narrative - Reported* Type Description Date Medical History ADHD Medical History anxiety Medical History asthma Medical History bipolar Medical History BRCA2 positive Medical History endometriosis Medical History high blood pressure Medical History hypokalemia Medical History leg cramps Surgical History gallbladder 09/19 Surgical History ERCP 09/19 Surgical History wisdom teeth Hospitalization History see above [employer] Other Chief Complaint and Reason for Visit Chief Complaint WM RD 3 mo follow up WM RD follow up 2 mo Reason for Visit BMI 40.0-44.9, adult Essential hypertension Mixed hyperlipidemia Prediabetes BMI 40.0-44.9, adult Essential hypertension Mixed hyperlipidemia Prediabetes Chief Complaint Unknown Family History No Family History Records Found [...] ed section and content) Reason Comments EMBX Reason Comments Pre-op Visit Care Teams (unrecognized sec tion and content) Team Status: Active Member Role Status Dates Gordon Velazco APRN OUTPLACEMENT CONSULTANT-C Primary Care Provider Active Team Status: Inactive Member Role Status Dates Gordon Velazco APRN OUTPLACEMENT CONSULTANT-C Primary Care Provider Active Start: January 21, 2024 End: January 21, 2024 Jarred Siegel MD Attending Provider Active Start: January 21, 2024 End: January 21, 2024 Team Status: Inactive Member Role Status Dates Gordon Velazco APRN OUTPLACEMENT CONSULTANT-C Primary Care Provider Active Start: January 24, 2024 End: January 24, 2024 MAG Johnson Attending Provider Active Start: January 24, 2024 End: January 24, 2024 Team Status: Active Member Role Status Dates Gordon Velazco APRN OUTPLACEMENT CONSULTANT-C Primary Care Ani campo Attending Provider Active Start: February 18, 2024 Team Status: Inactive Member Role Status Dates Gordon Velazco APRN OUTPLACEMENT CONSULTANT-C Primary Care Provider Active Start: March 05, 2024 End: March 05, 2024 Jarred Siegel MD Attending Provider Active Start: March 05, 2024 End: March 05, 2024 Team Status: Inactive Member Role Status Dates Gordon Velazco APRN OUTPLACEMENT CONSULTANT-C Primary Care Provider Active Start: March 27, 2024 End: March 27, 2024 MAG Johnson Attending Provider Active Start: March 27, 2024 End: March 27, 2024 Team Status: Inactive Member Role Status Dates Gordon Velazco APRN OUTPLACEMENT CONSULTANT-C Primary Care Provider Active Start: July 30, 2024 End: July 30, 2024 Levi Dorsey DO Attending Provider Active Start : July 30, 2024 End: July 30, 2024 Goals (unrecognized section and content) Goals may be documented in a n alternate section INFORMATION SOURCE (unrecogn ized section and content) DATE CREATED AUTHOR 05/16/2024 [facility] DATE CREATED AUTHOR AUTHOR'S ORGANIZ ATION 05/23/2024 [facility] DATE CREATED AUTHOR AUTHOR'S ORGANIZ ATION 05/31/2024 [facility] DATE CREATED AUTHOR AUTHOR'S ORGANIZ ATION 06/10/[address] [facility] DATE CREATED AUTHOR AUTHOR'S ORGANIZ ATION 08/01/2024 [facility] DATE CREATED AUTHOR AUTHOR'S ORGANIZ ATION 09/06/2024 [facility] dical Specialists EPIC FOR RECORDS PERTAINING [...] BE BASED ON THE PRIMARY CLINICAL RECORDS. [employer] provides no warranty or guarantee of the accuracy or completeness of information in this document.
--- NOTE | 2024-09-23 09:42 | ECG_ITS ---
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
[2024-09-23 13:21] LABS: Anion Gap 16.7; BUN Creatinine Ratio 15.1; Calcium 9.5 mg/dL (8.5-10.1); Carbon Dioxide 25.1 mmol/L (21.0-32.0); Chloride 102 mmol/L (98-107); Estimated GFR (African America >60 (>=60 mL/min/1.73m^2); Estimated GFR (Non-African Ame >60 (>=60 mL/min/1.73m^2); Glucose 91 mg/dL (74-106); Potassium 3.8 mmol/L (3.5-5.1); Sodium 140 mmol/L (136-145)
== END 2024-09-23 08:35 | disposition home or self-care (01) ==
LOC: PST 08:35
PROVIDERS: Family Provider Family Medicine; PCP Nurse Practitioner; Visit Provider Obstetrics & Gynecology
DX: Z01.810 Encounter for preprocedural cardiovascular examination (principal); Z01.812 Encounter for preprocedural laboratory examination; Z15.01 Genetic susceptibility to malignant neoplasm of breast
CPT/HCPCS: 36415; 80048; 93005

== ENCOUNTER 2024-09-27 08:53 | Outpatient (OUT) | payer OTHER, SELFPAY ==
--- NOTE | 2024-09-27 08:54 | US_ITS ---
[address] [address] Patient Name: RBITTANY CONNORS MRN: [id number] date: 1985 Sex: F Assigned Patient Location: US Current Patient Location: Accession/Order Number: [id number] Exam Date: 09/27/2024 09:00 Report Date: 09/28/2024 06:20 At the request of: LEVI TRAN Procedure: US pelvis w/ transvaginal EXAMINATION: US pelvis w/ transvaginal HISTORY: Bilateral ovarian cysts COMPARISON: Ultrasound pelvis 08/23/2024 TECHNIQUE: Transabdominal and/or transvaginal sonographic examination was performed as indicated by examination type. FINDINGS: UTERUS: Normal size and appearance. Uterus size: 7.7 x 4.6 x 3.3 cm ENDOMETRIUM: Normal homogeneous appearance. Endometrial thickness: 8 mm RIGHT OVARY: Contains a 2.5 cm cyst. In addition there may be a 1.6 cm paraovarian cyst or exophytic uterine cyst. Duplex Doppler demonstrates normal waveform and flow; resistive index 0.5. Ovary size: 3.1 x 2.7 x 2.6 cm LEFT OVARY: Contains a 3.3 cm hypoechoic slightly heterogeneous cyst. Duplex Doppler demonstrates normal waveform and flow; resistive index 0.6. Ovary size: 4.9 x 3.9 x 3.3 cm CUL-DE-SAC: Unremarkable. No significant free fluid. BLADDER: Unremarkable. OTHER: None. US/US pelvis w/ transvaginal IMPRESSION: 1. Nonspecific bilateral ovarian cysts. The largest 3.3 cm left ovarian cyst may represent an endometrioma given its appearance. Electronically authenticated by: MARCIE ALMANZA Date: 09/28/2024 06:20
--- OUTSIDE RECORDS SUMMARY | 2024-09-27 08:55 | XMS_ITS | CCD ---
Author Organization [facility] Care Team Providers Care Diesel Engine Operator Name Role Phone Estevan Howardn Unavailable Jarred Siegel Unavailable ROGELIO FENTON Attending [...] MYERPHILLY GAMA K Referring Unavailab le NASREEN, MOBILE Primary Care Unavailable PROVIDER, UNKNOWN Referring Unavailable NASREEN, ALBINA Primary Care Unavailable KATELYN ZAMORA Referring Unavailable NASREEN, MOBILE Primary Care Unavailable AHMED ABEER Referring Unavailable ANGLIM, GORDON A Primary Care Unavailable Unavailable Primary Care Provider Unavailabl e Levi Dorsey Admitting Unavailable Anglim, Gordon Primary Care Unavailable Levi Dorsey Attending Unavailable Anglim, Gordon Primary Care Unavailable Jarred Siegel Attending Unavailable Jarred Siegel Admitting Unavailable Anglim, AS400 PROGRAMMER Gordon Primary Care Provider DO Levi Dorsey Attending Provider LEVI DORSEY Attending Unavailable LEVI DORSEY Attending Unavailable LEVI DORSEY Attending Unavailable Allergies Allergy Classification Reported Allergen(s) Allergy Type Date of Onset Reaction(s) Facility (5 sources) Shellfish Propensity to adverse reactions 4 [facility] Work Phone: (5 sources) Fish-Derived Products Propensity to adverse reactions 4 Anaphylaxis, Hives, Itching [facility] (5 sources) Shellfish-Deriv ed Products Drug Allergy 4 Anaphylaxis [facility] Medications Current Medications Medication Drug Class(es) Dates Sig (Normalized) Sig (Original) 0.25 MG, 0.5 MG Dose 3 ML semaglutide 0.68 MG/ML Pen Injector [Ozempic] (2 sources) Start: 09-03-2023 Ozempic (0.25 or 0.5 MG/DOSE) 2 MG/3ML 0.25 mg for one month and then increase to 0.5 mg dose Subcutaneous weekly for Aug, Active [id number] 200 actuat albuterol 0.09 mg/actuat metered dose inhaler (7 sources) beta2-Adrenergic Agonist Start: 05-12-2024 take 2 [...] day Active atomoxetine 40 mg oral capsule (19 sources) Norepinephrine Reuptake Inhibitor Start: 01-21-2024 take 40 mg by mouth once daily Atomoxetine Active 40 MG PO Daily January 21, 2024 12:00am Strattera breath-actuated 120 actuat beclomethasone dipropionate 0.04 mg/actuat metered dose inhaler (5 sources) Corticosteroid Start: 05-12-2024 take 2 puff(s) by inhalation in the morning beclomethasone HFA (Qvar) 40 MCG/ACT inhaler Inhale 2 puffs in the morning and 2 puffs in the evening. 05/12/2024 Active busPIRone hydrochloride 10 mg oral tablet (19 sources) Start: 06-23-2020 take 1 tablet by [...] mg / lisinopril 20 mg oral tablet (11 sources) Thiazide Diuretic, Angiotensin Converting Enzyme Inhibitor take 1 tablet by mouth in the morning lisinopril-hydroCHLOROthiazide 20-12.5 MG tablet Take 1 tablet by mouth in the morning. Active take 1 tablet by cristine th every twenty-four hours Lisinopril-hydroCHLOROthiazide 20-12.5 M G 1 tablet Orally Once a day Active hydrOXYzine pamoate 50 mg oral capsule (19 sources) Antihistamine Start: 01-21-2024 take 1 capsule by mouth once hydrOXYzine pamoate (Vistaril) 50 MG capsule Take 50 mg by mouth 1 (one) time 01/21/2024 Active take 1 capsule by mo uth every twenty-four hours hydrOXYzine Pamoate 50 MG 1 capsule at bedtime as needed Orally Once a day Active lamoTRIgine 100 mg oral tablet (19 sources) Mood Stabilizer, Anti-epileptic Agent Start: 01-21-2024 [...] day Active lisinopril 30 mg oral tablet (13 sources) Angiotensin Converting Enzyme Inhibitor Start: 01-21-2024 lisinopril 30 MG tablet 1 (one) time each day at the same time 01/21/2024 Active Lisinopril 30 MG Oral for 30 Days Active montelukast 10 mg oral tablet (19 sources) Leukotriene Receptor Antagonist Start: 01-21-2024 take [...] potassium 99 mg extended release oral tablet (5 sources) take 1 tablet by mouth once [...] orally daily; Semaglutide (OZEMPIC, 1 MG/DOSE, SC) (5 sources) Semaglutide (OZEMPIC, 1 MG/DOSE, SC) Active semaglutide (Ozempic, 1 MG/DOSE,) 4 MG/3ML solution pen-injector (5 sources) Start: 04-16-2024 inject 1 mg by subcutaneous injection every week semaglutide (Ozempic, 1 MG/DOSE,) 4 MG/3ML solution pen-injector Inject 1 mg under the skin 1 (one) time per week 04/16/2024 Active Vitamin D-Vitamin K (K2-D3 10,000) 85534-01 UNIT-MCG capsule (5 sources) take 1 capsule by mouth once daily Vitamin D-Vitamin K (K2-D3 10,000) 54588-89 UNIT-MCG capsule Take 1 each by mouth [...] of breast] 07-29-2024 Episodic Residual codes; unclassified (3 sources) Breast cancer genetic marker of susceptibility [...] Name Value Interpretation Reference Range Facility ALL BASIC METABOLIC PANELon 09-23-2024 Anion gap [Moles/Vol] 16.7 mmol/L [facility] Calcium [Mass/Vol] 9.5 mg/dL 8.5 - 10. 1 mg/dL [facility] Chloride [Moles/Vol] 102 mmol/L 98 - 107 mmol/L [facility] CO2 [Moles/Vol] 25.1 mmol/L 21.0 - 32.0 mmol/L [facility] Creatinine [Mass/Vol] 0.73 mg/dL 0.55 - 1.02 mg/dL [facility] GFR/1.73 sq M.predicted CKD-EPI (S/P/Bld) [Vol rate/Area] >60 >=60 mL/min/1.73m 2 [facility] Glucose [Mass/Vol] 91 mg/dL 74 - 106 mg/dL [facility] Potassium [Moles/Vol] 3.8 mmol/L 3.5 - 5.1 mmol/L [facility] Sodium [Moles/Vol] 140 mmol/L 136 - 145 mmol/L [facility] TBH EGFR-NON AF CHINESE >60 >=60 mL/min/1.73m 2 [facility] Urea nitrogen [Mass/Vol] 11 mg/dL 7.0 - 18.0 mg/dL [facility] Urea nitrogen/Creatinin e [Mass ratio] 15.1 mg/mg [facility] ALL CEAon 08-08-2024 CEA <0.6 0.0 - 4.7 ng/mL [facility] Comment on above: Nonsmokers <3.9 Smokers <5.6 [employer] Electrochemiluminescence Immunoassay (ECLIA) Values obtained with different assay methods or kits cannot be used interchangeably. Results cannot be interpreted as absolute evidence of the presence or absence of malignant disease. Performed at: [facility] [address] [id number] Power Transformer Assembler: Gustavo Dawson PhD, Phone: [phone] [facility] AFP TUMOR MARKERon 07-29 AFP, SERUM, TUMOR MARKER 12.4 ng/mL Abnormal 0.0 - 6.4 ng/mL [facility] Comment on above: [employer] El ectrochemiluminescence Immunoassay (ECLIA) Values obtained with different assay methods or kits cannot be used interchangeably. Results cannot be interpreted as absolute evidence of the presence or absence of malignant disease. This test is not interpretable in females. Interpretation and review of laboratory results Abnormal [facility] No Panel Informationon 08-08 [facility] HCG,BETA-QUANT,TUMOR BHAVESH Dustin 08-08-2024 HCG TUMOR MARKER <1 . mIU/mL [facility] Comment on above: Female (Non- ) 0 [...] developed and its performance characteristics determined by [employer]. It has not been cleared or approved by the Food and Drug Administration for use as a tumor marker. This test is not interpretable as a tumor marker in females. Performed at: [facility] [address] [id number] Power Transformer Assembler: Gustavo Dawson PhD, Phone: [phone] HCG ( test) Ql (U)o n 07-29-2024 Interpretation and review of laboratory results Normal [facility] Preg Test, Ur Negative [facility] Grupo 07-29-2024 L Specimen: [id number] Received: 07/30/24 Status: EDGARDO Dow: [id number] Spec Type: Surgical Subm Dr: Levi Dorsey Tissues: A Endometrium - Biopsy (EMBX) Procedures: HE/2, Gross/Micro L4 Age/ Patient Sex Location Account Attending Physician DoryBrittany Jarquin 39/F [facility] [id number] Levi Dorsey SPEC NUM: [id number] RECD: 07/30/24 STATUS: EDGARDO GUS NUM: [id number] JERMAINE: 07/29/24- SUBM DR: Levi Dorsey ENTERED: 07/30/24 [facility] DR: Santosh Strong SPEC TYPE: Surgical DEPT: KRUPA COREY ENTERED BY: [id number] RECV BY: [id number] ORDERED: HE/2, Gross/Micro L4 ORDERED: HE/2, Gross/Micro [...] Description Microscopic examination is performed CPT Codes 46266 Specimen: [id number] Received: 07/30/24 Status: EDGARDO Gus Num: [id number] Spec Type: Surgical Subm Dr: Levi Dorsey Tissues: A Endometrium - Biopsy (EMBX) Procedures: HE/2, Gross/Micro L4 Patient: Brittany Connors [id number] (Continued) Signed (signature on file) Librado Sheehan MD 07/31/24 1118 Normal [facility] MAMM BX BREAST STEREO GUID [...] MD on 06/10/2024 8:35 AM 1999 Normal [facility] MAMM POST BX DIAG UNI LTon 0 [...] MD on 06/10/2024 8:35 AM 1999 Normal [facility] Surgical Pathologyon 024 Surgical Pathology Normal [facility] Comment on above: Result Comment: [facility] [address] [place] [address] Surgical Pathology Consultation Patient Name:BRITTANY CONNORS:1985 (Age: 39)Gender:FTaken:4Reported:06/09/2024hysician(s):Philly Rasheed NP ([phone])Copy To:Katelyn Vickers NoahAccession #:[id number]. Rec. #:[id number]: #[id number] Final Pathologic Diagnosis Left breast, needle biopsy @3-4:00, 5 cm fn: Benign breast tissue with focal, mild cystic change and fibrosis. Report Electronically Signed Out gr/06/09/2024Robin Villanueva MD [place] [address], License number: [id number]. 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 Stable cardiomediastinal silhouette. No focal opacity, effusion or pneumothorax. Impression: No evident acute cardiopulmonary process. Finalized by Jack Do MD on 03/18/2024 6:47 PM Normal [facility] Laboratory - Chemistry and C hemistry - challengeon 02-18-2024 Albumin [Mass/Vol] 4.8 g/dL [facility] ALP [Catalytic activity/Vol] 111 U/L [facility] ALT [Catalytic activity/Vol] 22 U/L [facility] AST [Catalytic activity/Vol] 16 U/L [facility] Bilirubin [Mass/Vol] 0.4 mg/dL [facility] Calcium [Mass/Vol] 9.5 mg/dL [facility] Chloride [Moles/Vol] 102 mmol/L [facility] Cholesterol [Mass/Vol] 204 mg/dL [facility] Cholesterol in HDL [Mass/Vol] 54 mg/dL [facility] Cholesterol in LDL [Mass/Vol] 122 mg/dL [facility] Cholesterol.total/ Cholesterol in HDL [Mass ratio] 3.8 {ratio} [facility] CO2 [Moles/Vol] 27 mmol/L [facility] Creatinine [Mass/Vol] 0.74 mg/dL [facility] GFR/1.73 sq M.predicted MDRD (S/P/Bld) [Vol rate/Area] 105 mL/min/{1.73_m2} [facility] Glucose [Mass/Vol] 98 mg/dL [facility] Potassium [Moles/Vol] 4.0 mmol/L [facility] Protein [Mass/Vol] 6.3 g/dL [facility] Sodium [Moles/Vol] 140 mmol/L [facility] Triglyceride [Mass/Vol] 142 mg/dL [facility] Urea nitrogen [Mass/Vol] 12 mg/dL [facility] Laboratory - Hematology and Cell countson 02-18-2024 HbA1c (Bld) [Mass fraction] 5.2 % [facility] No Panel Informationon 02-17 Estimated GFR (Non- 105 mL/min [facility] Thyroid Stimulating Hormone 3rd Gen 2.34 [facility] VLDL Cholesterol 28 mg/dL [facility] Vital Signs Date Time Vital Sign Value Performing Clinician Facility 09-04-2024 09:54-0500 Body mass index (BMI) [Ratio] 44.93 kg/m2 Levi Dorsey DO Work Phone: [facility] 09-04-2024 09:54-0500 Body weight 122.47 kg Levi Sunita DO Work Phone: [facility] 09-04-2024 09:54-0500 Diastolic blood pressure 80 mm[Hg] Levi Sunita DO Work Phone: [facility] 09-04-2024 09:54-0500 Systolic blood pressure 124 mm[Hg] Levi Sunita DO Work Phone: [facility] 07-29-2024 09:45-0400 Body mass index (BMI) [Ratio] 44.9 kg/m2 Levi Sunita DO Work Phone: [facility] 07-29-2024 09:45-0400 Body weight 122.38 kg Levi Sunita DO Work Phone: [facility] 07-29-2024 09:45-0400 Diastolic blood pressure 80 mm[Hg] Levi Sunita DO Work Phone: [facility] 07-29-2024 09:45-0400 Systolic blood pressure 124 mm[Hg] Levi Sunita DO Work Phone: [facility] 03-27-2024 08:05-0400 Body height 170.18 cm [facility] 03-27-2024 08:05-0400 Body mass index (BMI) [Ratio] 45.6 kg/m2 [facility] 03-27-2024 08:05-0400 Body weight 132.13 kg [facility] 03-05-2024 07:12-0400 Body height 170.18 cm [facility] 03-05-2024 07:12-0400 Body mass index (BMI) [Ratio] 45.7 kg/m2 [facility] 03-05-2024 07:12-0400 Body weight 132.5 kg [facility] 03-05-2024 07:12-0400 Diastolic blood pressure 18 mm[Hg] [facility] 03-05-2024 07:12-0400 Heart rate 95 /min [facility] 03-05-2024 07:12-0400 Respiratory rate 18 /min [facility] 03-05-2024 07:12-0400 SaO2% (BldA) [Mass fraction] 99 % [facility] 03-05-2024 07:12-0400 Systolic blood pressure 100 mm[Hg] [facility] 01-24-2024 15:39-0400 Body height 170.18 cm [facility] 01-24-2024 15:39-0400 Body mass index (BMI) [Ratio] 43.8 kg/m2 [facility] 01-24-2024 15:39-0400 Body weight 127 kg [facility] 01-21-2024 07:13-0400 Body height 170.18 cm [facility] 01-21-2024 07:13-0400 Body mass index (BMI) [Ratio] 44 kg/m2 [facility] 01-21-2024 07:13-0400 Body weight 127.62 kg [facility] 01-21-2024 07:13-0400 Diastolic blood pressure 84 mm[Hg] [facility] 01-21-2024 07:13-0400 Heart rate 95 /min [facility] 01-21-2024 07:13-0400 Respiratory rate 18 /min [facility] 01-21-2024 07:13-0400 SaO2% (BldA) [Mass fraction] 98 % [facility] 01-21-2024 07:13-0400 Systolic blood pressure 121 mm[Hg] [facility] 10-19-2023 07:30-0500 Body height 170.18 cm Jarred Siegel Other [facility] Other 10-19-2023 07:30-0500 Body mass index (BMI) [Ratio] 45.13 kg/m2 Jarred Siegel Other [facility] Other 10-19-2023 07:30-0500 Body weight 130.73 kg Jarred Siegel Other [facility] Other 10-19-2023 07:30-0500 Diastolic blood pressure 89 mm[Hg] Jarred Christal Other [facility] Other 10-19-2023 07:30-0500 Respiratory rate 18 /min Jarred Bushdiff Other [facility] Other 10-19-2023 07:30-0500 SaO2% (BldA) [Mass fraction] 100 % Jarred Bushdiff Other [facility] Other 10-19-2023 07:30-0500 Systolic blood pressure 128 mm[Hg] Jarred Siegel Other [facility] Other 10-04-2023 07:15-0500 Body height 170.18 cm Sameera Fitt Other [facility] Other 10-04-2023 07:15-0500 Body mass index (BMI) [Ratio] 45.68 kg/m2 Sameera Fitt Other [facility] Other 10-04-2023 07:15-0500 Body weight 132.32 kg Sameera Fitt Other [facility] Other 09-03-2023 07:15-0500 Body height 170.18 cm Jarred Siegel Other [facility] Other 09-03-2023 07:15-0500 Body mass index (BMI) [Ratio] 46.67 kg/m2 Jarred Siegel Other [facility] Other 09-03-2023 07:15-0500 Body weight 135.17 kg Jarred Siegel Other [facility] Other 09-03-2023 07:15-0500 Diastolic blood pressure 85 mm[Hg] Jarred Bushdiff Other [facility] Other 09-03-2023 07:15-0500 Respiratory rate 18 /min Jarred Bushdiff Other [facility] Other 09-03-2023 07:15-0500 SaO2% (BldA) [Mass fraction] 98 % Jarred Bushdiff Other [facility] Other 09-03-2023 07:15-0500 Systolic blood pressure 121 mm[Hg] Jarred Bushdiff Other [facility] Other 08-09-2023 07:15-0400 Body height 170.18 cm Sameera Fitt Other [facility] Other 08-09-2023 07:15-0400 Body mass index (BMI) [Ratio] 46.26 kg/m2 Sameera Fitt Other [facility] Other 08-09-2023 07:15-0400 Body weight 133.99 kg Sameera Fitt Other [facility] Other 06-14-2023 08:00-0400 Body height 170.18 cm Sameera Fitt Other [facility] Other 06-14-2023 08:00-0400 Body mass index (BMI) [Ratio] 46.56 kg/m2 Sameera Fitt Other [facility] Other 06-14-2023 08:00-0400 Body weight 134.86 kg Sameera Fitt Other [facility] Other 03-27-2023 07:15-0400 Body height 170.18 cm Jarred Bushdiff Other [facility] Other 03-27-2023 07:15-0400 Body mass index (BMI) [Ratio] 47.44 kg/m2 Jarred Bushdiff Other [facility] Other 03-27-2023 07:15-0400 Body weight 137.4 kg Jarred Bushdiff Other [facility] Other 03-27-2023 07:15-0400 Diastolic blood pressure 88 mm[Hg] Jarred Christal Other [facility] Other 03-27-2023 07:15-0400 Respiratory rate 18 /min Jarred Bushdiff Other [facility] Other 03-27-2023 07:15-0400 SaO2% (BldA) [Mass fraction] 99 % Jarred Bushdiff Other [facility] Other 03-27-2023 07:15-0400 Systolic blood pressure 138 mm[Hg] Jarred Siegel Other [facility] Other 02-06-2023 09:15-0400 Body height 170.18 cm Sameera Fitt Other [facility] Other 02-05-2023 08:15-0400 Body height 170.18 cm Jarred Siegel Other [facility] Other 02-05-2023 08:15-0400 Body mass index (BMI) [Ratio] 45.67 kg/m2 Jarred Siegel Other [facility] Other 02-05-2023 08:15-0400 Body weight 132.27 kg Jarred Siegel Other [facility] Other 02-05-2023 08:15-0400 Diastolic blood pressure 93 mm[Hg] Jarred Bushdiff Other [facility] Other 02-05-2023 08:15-0400 Respiratory rate 18 /min Jarred Bushdiff Other [facility] Other 02-05-2023 08:15-0400 SaO2% (BldA) [Mass fraction] 99 % Jarred Bushdiff Other [facility] Other 02-05-2023 08:15-0400 Systolic blood pressure 123 mm[Hg] Jarred Bushdiff Other [facility] Other 12-26-2022 08:00-0500 Body height 170.18 cm Jarred Bushdiff Other [facility] Other 12-26-2022 08:00-0500 Body mass index (BMI) [Ratio] 45.34 kg/m2 Jarred Siegel Other [facility] Other 12-26-2022 08:00-0500 Body weight 131.32 kg Jarred Bushdiff Other [facility] Other 12-26-2022 08:00-0500 Diastolic blood pressure 92 mm[Hg] Jarredpearl Bushdiff Other [facility] Other 12-26-2022 08:00-0500 Respiratory rate 18 /min Jarred Siegel Other [facility] Other 12-26-2022 08:00-0500 SaO2% (BldA) [Mass fraction] 98 % Jarred Siegel Other [facility] Other 12-26-2022 08:00-0500 Systolic blood pressure 122 mm[Hg] Jarred Siegel Other [facility] Other 12-04-2022 09:15-0500 Body height 170.18 cm Jarred Siegel Other [facility] Other 12-04-2022 09:15-0500 Body mass index (BMI) [Ratio] 44.41 kg/m2 Jarred Siegel Other [facility] Other 12-04-2022 09:15-0500 Body weight 128.64 kg Jarred Siegel Other [facility] Other 12-04-2022 09:15-0500 Diastolic blood pressure 93 mm[Hg] Jarred Siegel Other [facility] Other 12-04-2022 09:15-0500 Respiratory rate 18 /min Jarred Siegel Other [facility] Other 12-04-2022 09:15-0500 SaO2% (BldA) [Mass fraction] 99 % Jarred Siegel Other [facility] Other 12-04-2022 09:15-0500 Systolic blood pressure 122 mm[Hg] Jarred Siegel Other [facility] [employer] Other Encounters Encounter Date Encounter Type Care Provider Facility Start: 09-23-2024 End: 09-23-2024 [facility] Result Encounter Levi Sunita DO Work Phone: [facility] Unsolicited Start: 09-23-2024 End: 09-23-2024 [facility] Result Encounter Levi Sunita DO Work Phone: [facility] Unsolicited Start: 09-04-2024 End: 09-04-2024 Bamboo flowsheet Levi Sunita DO Work Phone: [facility] Start: 09-04-2024 End: 09-04-2024 Bamboo flowsheet Levi Sunita DO Work Phone: [facility] Start: 09-04-2024 End: 09-04-2024 Office outpatient visit 15 minutes Levi Sunita DO Work Phone: [facility] Comment on above: Pre-op examination; BRCA gene mutation positive Start: 09-04-2024 End: 09-04-2024 Preprocedural examination done Levi Sunita DO Work Phone: [facility] Start: 09-04-2024 End: 09-04-2024 ambulatory LEVI SUNIAT Not Available Start: 08-07-2024 End: 08-08-2024 [facility] Result Encounter Levi Sunita DO Work Phone: [facility] Unsolicited Start: 08-07-2024 End: 08-08-2024 [facility] Result Encounter Levi Sunita DO Work Phone: [facility] Unsolicited Start: 07-30-2024 End: 07-30-2024 ambulatory Levi Sunita Facility:[facility] Start: 07-30-2024 End: 07-30-2024 Departed Referred JOANNA Velazco Work Phone: [facility] Start: 07-29-2024 End: 07-29-2024 Patient encounter procedure Levi Fano DO Work Phone: [facility] Comment on above: Menorrhagia with reg ular cycle; BRCA2 gene mutation positive; Complex ovarian cyst; Pelvic pain in female Start: 07-29-2024 End: 07-29-2024 ambulatory LEVI SUNITA Not Available Start: 06-24-2024 End: 06-24-2024 ambulatory LEVI SUNITA Not Available Start: 06-06-2024 End: [facility]: 06-06-[facility]24 End: 06-06-2024 ambulatory [facility] Start: 05-29-2024 End: 05-29-2024 ambulatory PHILLY RASHEED [facility] Start: 05-17-2024 End: 05-17-2024 ambulatory REGINA Doron [facility] Start: 05-12-2024 End: 05-12-2024 ambulatory [facility] Start: 03-27-2024 End: 03-27-2024 Patient encounter procedure [facility] Work Phone: Start: 03-18-2024 End: 03-18-2024 ambulatory [facility] Start: 03-05-2024 End: 03-05-2024 Patient encounter procedure [facility] Work Phone: Start: 02-18-2024 Non-patient / Non-visit [facility] Work Phone: Start: 01-24-2024 End: 01-24-2024 Patient encounter procedure [facility] Work Phone: Start: 01-21-2024 End: 01-21-2024 Patient encounter procedure [facility] Work Phone: Start: 11-28-2023 End: 11-28-2023 ambulatory Gordon Velazco Facility:[facility] Start: 11-17-2023 End: 11-17-2023 ambulatory NINA JUNIOR [facility] Start: 11-12-2023 End: 11-12-2023 ambulatory GORDON Sal [facility] Start: 10-19-2023 End: 10-19-2023 ambulatory Jarred Siegel Other [facility] Other Start: 10-19-2023 Follow-up encounter Jarred Bushdicanelo [facility] Start: 10-04-2023 ([facility] RD FU) [facility] F/ U Registerd Seo Engineer Sameera Howard [facility] Start: 10-04-2023 End: 10-04-2023 ambulatory Sameera Fitt Other [facility] Other Start: 09-03-2023 End: 09-03-2023 ambulatory Jarredpearl Bushdiff Other [facility] Other Start: 09-03-2023 Follow-up encounter Jarredpearl Bushdicanelo [facility] Start: 08-09-2023 ([facility] RD FU) [facility] F/ U Registerd Seo Engineer Sameera Howard [facility] Start: 08-09-2023 End: 08-09-2023 ambulatory Sameera Fitt Other [facility] Other Start: 06-22-2023 End: 06-22-2023 ambulatory Jarredpearl Siegel Other [facility] Other Start: 06-22-2023 Telephone encounter Jarredpearl Bushdicanelo [facility] Start: 06-14-2023 ([facility] RD FU) [facility] F/ U Registerd Seo Engineer Sameera Howard [facility] Start: 06-14-2023 End: 06-14-2023 ambulatory Sameera Fitt Other [facility] Other Start: 03-27-2023 End: 03-27-2023 ambulatory Jarred Siegel Other [facility] Other Start: 03-27-2023 Follow-up encounter Jarred [facility] Start: 02-06-2023 ([facility] Init ial Provider Sameera Howard [facility] Start: 02-06-2023 End: 02-06-2023 ambulatory Sameera Howard Other [facility] Other Start: 02-05-2023 End: 02-05-2023 ambulatory Jarred Siegel Other [facility] Other Start: 02-05-2023 Follow-up encounter Jarred Nix [facility] Start: 12-26-2022 End: 12-26-2022 ambulatory Jarred Siegel Other [facility] Other Start: 12-26-2022 Follow-up encounter Jarred willis [facility] Start: 12-04-2022 End: 12-04-2022 ambulatory Jarred Siegel Other [facility] Other Start: 12-04-2022 Nutrition therapy Jarred Mayercanelo [facility] Start: 10-31-2022 End: 10-31-2022 ambulatory Sameera Howard Other [facility] Other Start: 10-31-2022 Telephone encounter Sameera Howard Tammi [facility] Procedures Date Procedure Procedure Detail Performing Clinician Start: 09-23-2024 ALL BASIC METABOLIC PANEL Levi Sunita DO Work Phone: Start: 08-07-2024 ALL CEA Levi Fazi o DO Work Phone: Start: 08-07-2024 ELCH AFP TUMOR MARKER C peggy Dorsey DO Work Phone: Start: 08-07-2024 [facility] HCG,BETA-QUANT,TU MOR MARKER Levi Dorsey DO Work Phone: Start: 07-29-2024 Urine test visual color cmprsn meths Levi Dorsey DO Work Phone: Start: 06-24-2024 Microscopic observat ion [Identifier] in Cervix by Cyto stain Levi Dorsey DO Work Phone: Start: 06-06-2024 Mammography Levinicole cespedes DO Work Phone: Plan of Treatment Date Care Activity Detail Author Start: 06-24-2027 Screening for malign ant neoplasm of cervix [facility] Start: 06-06-2025 Screening for malign ant neoplasm of breast Mammogram [facility] Start: 09-04-2024 End: 09-04-2024 Patient encounter procedure [facility] OB Comment on above: Arrived Start: 06-29-2024 Influenza vaccination Influenza Vacc ine (#1) [facility] Start: 02-21-2014 Screening for malign ant neoplasm of cervix HPV/Cotest [facility] Biopsy endometrium Biopsy endome trium Procedures Routine Menorrhagia with regular cycle Ordered: 07/29/2024 [facility] Work Phone: Comment on above: Ordered: 07/29/2024 Immunizations Immunization Date Immunization Notes Care Provider [facility] 08-28-2023 influenza virus vacc ine, unspecified formulation Levi Dorsey DO Work Phone: [facility] Payers Date Payer Category Payer Private Health Insurance [employer] [id number] 2023 Unknown [employer] [id number] 2023-Present [address] [place] [address] [id number] 2022 Self-pay 2022 Unknown [id number] 1984 Unknown [id number] 2.16.840.1.783920.3.579.2. 1285 1984 Unknown [id number] 2.16.840.1.235294.3.579.2. 1285 1984 Unknown [id number] 2.16.840.1.647491.3.579.2. 1285 1984 Unknown [id number] 2.16.840.1.217796.3.579.2. 1286 1984 Unknown [id number] 2.16.840.1.490496.3.579.2. 1285 1984 Unknown [id number] 2.16.840.1.250009.3.579.2. 1285 1984 Unknown [id number] 2.16.840.1.430288.3.579.2. 1285 1984 Unknown [id number] 2.16.840.1.964404.3.579.2. 128 1984 Unknown [id number] 2.16.840.1.467476.3.579.2. 1285 1984 Unknown [id number] 2.16.840.1.457618.3.579.2. 9 1984 Unknown [id number] 2.16.840.1.760805.3.579.2. 9 1984 Unknown [id number] 2.16.840.1.450589.3.579.2. 1259 Unknown [employer] [id number] Unknown [id number] 2.16.840.1.742512.3.579.2. 531 Unknown [id number] 2.16.840.1.500896.3.579.2. 531 Social History Date Type Detail Facility Unknown if ever smoked [facility] Other Sex Assigned At tritrue Other Start: 1985 Sex Assigned At Female F [facility] Tobacco smoking status OHIS Tobacco smoking consumption unknown [facility] Start: 06-18-2024 Gender identity Identifies as female gender (finding) [facility] Clinical Notes 12-04-2022 to 09-04-2024 Elaine Walters [...] on 10/03/[address] Dorsey at [facility]. MEDICATIONS Current Outpatient Medications Medication Instructions albuterol [...] MG/DOSE, SC) Vitamin D-Vitamin K (K2-D3 10,000) 39644-98 UNIT-MCG capsule 1 each, Oral, Daily ALLERGIES [...] nursing note reviewed. Exam conducted with a insurance inspector present. Vitals: Estimated body mass index is [...] reviewed, and patient is to proceed to TB OR. Patient aware that she will be off at least a week after procedure. Follow Up: Patient is to follow up between 1-2 weeks post op to assess proper healing and recovery from procedure. Documented by Sylvia Benz LPN on behalf of: Levi Dorsey DO documented in this encounter [facility] 07-29-2024 History of Presen t illness Narrative [...] MG/DOSE, SC) Vitamin D-Vitamin K (K2-D3 10,000) 18673-32 UNIT-MCG capsule 1 each, Oral, Daily ALLERGIES Allergies Allergen Reactions Fish-Derived Products Anaphylaxis, Hives and Itching Shellfish-Derived Products Anaphylaxis Shellfish Allergy PROBLEMS Active Ambulatory Problems Diagnosis Date Noted No Active Ambulatory Problems Resolved Ambulatory Problems Diagnosis Date Noted No Resolved Ambulatory Problems Past Medical History: Diagnosis Date ADHD (attention deficit hyperactivity disorder) ([facility]) Anxiety and depression ([facility] Asthma ([facility] Bipolar 1 disorder ([facility]) BRCA gene positive High blood pressure ([facility]) HISTORY PAST MEDICAL HISTORY SOCIAL HISTORY Past Medical History: Diagnosis Date ADHD (attention deficit hyperactivity disorder) ([facility]) Anxiety and depression ([facility] Asthma ([facility] Bipolar 1 disorder ([facility] BRCA gene positive 2 High blood pressure ([facility]) Social History Tobacco Use Smoking status: Not [...] nursing note reviewed. Exam conducted with a insurance inspector present. Vitals: Estimated body mass index is [...] Levi Dorsey DO documented in this encounter [facility] 01-21-2024 Evaluation note Authored January 21, 2024 [...] Her psychiatric prescriber is Brittany Gamino from [place] where they live. Her dad is a [...] in the morning. 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 8. Snorer/[place] of 6/neck size of 15.5 inches/mallampati score [...] with her PCP. Author Jarred Siegel [facility] Authored March 05, 2024 7:59am Start/highest [...] Her psychiatric prescriber is Brittany Gamino from [place] where they live. Her dad is a [...] in the morning. 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 8. Snorer/[place] of 6/neck size of 15.5 inches/mallampati score [...] continue regular lab work with her PCP. [facility] Work Phone: [phone] 624-749912-22-2023 Evaluation note* Encounter Date Diagnosis Assessment Notes [...] - R06.83) Sep, Asthma (ICD-10 - J45.909) [facility] Other 12-07-2023 Evaluation note* Encounter Date Diagnosis [...] / exercise routine using treadmill at home [facility] Other 11-06-2023 Evaluation note* Encounter Date Diagnosis [...] - R06.83) Aug, Asthma (ICD-10 - J45.909) [facility] Other 10-12-2023 Evaluation note* Encounter Date Diagnosis [...] new recipes to add variety; MET, CONTINUE [facility] Other 08-17-2023 Evaluation note* Encounter Date Diagnosis [...] new recipes to add variety; MET, CONTINUE [facility] Other 05-30-2023 Evaluation note* Encounter Date Diagnosis [...] - R06.83) February, Asthma (ICD-10 - J45.909) [facility] Other 04-11-2023 Evaluation note* Encounter Date Diagnosis Assessment Notes Treatment Notes Treatment Clinical Notes Jan, Obesity (ICD-10 - E66.9) Jan, BMI 40.0-44.9, adult (ICD-10 - Z68.41) Jan, Other Summary of Visi t: (A) discussed foods that can help prevent breast cancer and help w/ WM (B) benefits of fiber foods Patient set the following goals: [facility] Other 04-10-2023 Evaluation note* Encounter Date Diagnosis [...] - R06.83) Jan, Asthma (ICD-10 - J45.909) [facility] Other 02-28-2023 Evaluation note* Encounter Date Diagnosis [...] - R06.83) Nov, Asthma (ICD-10 - J45.909) [facility] Other 02-06-2023 Evaluation note* Encounter Date Diagnosis Assessment Notes Treatment Notes Treatment Clinical Notes Nov, Abnormal weight gain (ICD-10 - R63.5) Nov, Hypertension (ICD-10 - I10) Nov, Mixed hyperlipidemia (ICD-10 - E78.2) Nov, Metabolic syndrome X (ICD-10 - E88.81) Nov, Bipolar affective disorder (ICD-10 - F31.9) Nov, Snores (ICD-10 - R06.83) Nov, Asthma (ICD-10 - J45.909) [facility] Other [facility]No [facility] Other Evaluation note* Diagnosis Menorrhagia with regular cycle BRCA2 gene mutation positive Complex ovarian cyst Pelvic pain in female Unspecified symptom associated with female genital organs [facility] note[facility] assessment information available[facility] Work Phone: Evaluation note* Diagnosis Pre-op examination BRCA gene mutation positive documented [facility] this encounter [facility] Narrative - Reported* Type Description Date Medical History ADHD Medical History anxiety Medical History asthma Medical History bipolar Medical History BRCA2 positive Medical History endometriosis Medical History high blood pressure Medical History hypokalemia Medical History leg cramps Surgical History gallbladder 09/19 Surgical History ERCP 11/22 Surgical History wisdom teeth Hospitalization History see above [facility] Other Chief Complaint and Reason for Visit [...] Member Role Status Dates Gordon Velazco APRN VP RESPIRATORY-C Primary Care Provider Active Team Status: Inactive Member Role Status Dates Gordon Velaczo APRN VP RESPIRATORY-C Primary Care Provider Active Start: January 21, 2024 End: January 21, 2024 Jarred Siegel MD Attending Provider Active Start: January 21, 2024 End: January 21, 2024 Team Status: Inactive Member Role Status Dates Gordon Velazco APRN VP RESPIRATORY-C Primary Care Provider Active Start: January 24, 2024 End: January 24, 2024 MAG Johnson Attending Provider Active Start: January 24, 2024 End: January 24, 2024 Team Status: Active Member Role Status Dates Gordon Velazco APRN VP RESPIRATORY-C Primary Care Pr ovider, Attending Provider Active Start: February 18, 2024 Team Status: Inactive Member Role Status Dates Gordon Velazco APRN VP RESPIRATORY-C Primary Care Provider Active Start: March 05, 2024 End: March 05, 2024 Jarred Siegel MD Attending Provider Active Start: March 05, 2024 End: March 05, 2024 Team Status: Inactive Member Role Status Dates Gordon Velazco APRN VP RESPIRATORY-C Primary Care Provider Active Start: March 27, 2024 End: March 27, 2024 MAG Johnson Attending Provider Active Start: March 27, 2024 End: March 27, 2024 Team Status: Inactive Member Role Status Dates Gordon Velazco APRN VP RESPIRATORY-C Primary Care Provider Active Start: July 30, 2024 End: July 30, 2024 Levi Dorsey DO Attending Provider Active Start : July 30, 2024 End: July 30, 2024 Goals (unrecognized section and content) Goals may be documented in a n alternate section INFORMATION SOURCE (unrecogn ized section and content) DATE CREATED AUTHOR 05/16/2024 [facility] al Amb[facility] DATE CREATED AUTHOR AUTHOR'S ORGANIZ ATION 05/23/2024 [facility] DATE CREATED AUTHOR AUTHOR'S ORGANIZ ATION 05/31/2024 [facility] DATE CREATED AUTHOR AUTHOR'S ORGANIZ ATION 06/10/2024 [facility] DATE CREATED AUTHOR AUTHOR'S ORGANIZ ATION 08/01/2024 [facility] DATE CREATED AUTHOR AUTHOR'S ORGANIZ ATION 09/06/2024 [facility] EPIC FOR RECORDS PERTAINING [...] BE BASED ON THE PRIMARY CLINICAL RECORDS. [employer] provides no warranty or guarantee of the accuracy or completeness of information in this document.
== END 2024-09-27 08:54 | disposition home or self-care (01) ==
LOC: US 08:53
PROVIDERS: Family Provider Family Medicine; PCP Nurse Practitioner; Visit Provider Obstetrics & Gynecology
DX: N83.291 Other ovarian cyst, right side (principal); N83.292 Other ovarian cyst, left side
CPT/HCPCS: 76830; 76856

== ENCOUNTER 2024-10-03 08:24 | Day surgery (SDC) | payer OTHER, SELFPAY ==
[2024-09-23 09:16] VITALS: BP 129/87; PULSE 107; TEMP 36.6; O2SAT 98; BMI 44.0
[2024-10-03] VITALS (11 sets, daily range): BP systolic 110–148; BP diastolic 74–94; PULSE 91–109; TEMP 36.2–36.6; O2SAT 98–100; BMI 44.3
--- OUTSIDE RECORDS SUMMARY | 2024-10-03 08:28 | XMS_ITS | CCD ---
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 Name Role Phone Estevan Howardn Unavailable [...] MYERPHILLY GAMA K Referring Unavailab le NASREEN, WENDELL Primary Care Unavailable PROVIDER, UNKNOWN Referring Unavailable NASREEN, ALBINA Primary Care Unavailable KATELYN ZAMORA Referring Unavailable NASREEN, WENDELL Primary Care Unavailable AHMED ABEER Referring Unavailable ANGLIM, GORDON A Primary Care Unavailable Unavailable Primary Care Provider Unavailabl e Levi Dorsey Admitting Unavailable Anglim, Gordon Primary Care Unavailable Levi Dorsey Attending Unavailable Anglim, Gordon Primary Care Unavailable Jarred Siegel Attending Unavailable Jarred Siegel Admitting Unavailable Anglim, SHRIMP PEELER Gordon Primary Care Provider DO Levi Dorsey Attending Provider [phone] LEVI DORSEY Attending Unavailable LEVI DORSEY Attending [...] mg dose Subcutaneous weekly for Aug, Active [id number] 200 actuat albuterol 0.09 mg/actuat metered dose [...] 04/16/2024 Active Vitamin D-Vitamin K (K2-D3 10,000) 96571-21 UNIT-MCG capsule (5 sources) take 1 capsule by mouth once daily Vitamin D-Vitamin K (K2-D3 10,000) 90679-77 UNIT-MCG capsule Take 1 each by mouth [...] PANELon 09-23-2024 Anion gap [Moles/Vol] 16.7 mmol/L [facility] Calcium [Mass/Vol] 9.5 mg/dL 8.5 - 10. 1 mg/dL [facility] Chloride [Moles/Vol] 102 mmol/L 98 - 107 mmol/L [facility] CO2 [Moles/Vol] 25.1 mmol/L 21.0 - 32.0 mmol/L [facility] Creatinine [Mass/Vol] 0.73 mg/dL 0.55 - 1.02 mg/dL [facility] GFR/1.73 sq M.predicted CKD-EPI (S/P/Bld) [Vol rate/Area] >60 >=60 mL/min/1.73m 2 [facility] Glucose [Mass/Vol] 91 mg/dL 74 - 106 mg/dL [facility] Potassium [Moles/Vol] 3.8 mmol/L 3.5 - 5.1 mmol/L [facility] Sodium [Moles/Vol] 140 mmol/L 136 - 145 mmol/L [facility] TBH EGFR-NON AF GUATEMALAN >60 >=60 mL/min/1.73m 2 [facility] Urea nitrogen [Mass/Vol] 11 mg/dL 7.0 - 18.0 mg/dL [facility] Urea nitrogen/Creatinin e [Mass ratio] 15.1 mg/mg [facility] ALL CEAon 08-08-2024 CEA <0.6 0.0 - 4.7 ng/mL [facility] Comment on above: Nonsmokers <3.9 Smokers <5.6 [employer] Electrochemiluminescence Immunoassay (ECLIA) Values obtained with different assay methods or kits cannot be used interchangeably. Results cannot be interpreted as absolute evidence of the presence or absence of malignant disease. Performed at: [facility] [address] [id number] [employer]: Gustavo Dawson PhD, Phone: [phone] [facility] AFP TUMOR MARKERon 07-29 AFP, SERUM, TUMOR MARKER 12.4 ng/mL Abnormal 0.0 - 6.4 ng/mL [facility] Comment on above: [employer] El ectrochemiluminescence Immunoassay (ECLIA) Values obtained with different assay methods or kits cannot be used interchangeably. Results cannot be interpreted as absolute evidence of the presence or absence of malignant disease. This test is not interpretable in females. Interpretation and review of laboratory results Abnormal [facility] No Panel Informationon 08-08 [facility]H HCG,BETA-QUANT,TUMOR BHAVESH Dustin 08-08-2024 HCG TUMOR MARKER <1 . mIU/mL [facility] Comment on above: Female (Non- ) 0 [...] developed and its performance characteristics determined by [employer]. It has not been cleared or approved by the Food and Drug Administration for use as a tumor marker. This test is not interpretable as a tumor marker in females. Performed at: [facility] [address] [id number] [employer]: Gustavo Dawson PhD, Phone: [phone] HCG ( test) Ql (U)o n 07-29-2024 Interpretation and review of laboratory results Normal [facility] Preg Test, Ur Negative [facility] 07-29-2024 L Specimen: [id number] Received: 07/30/24 Status: EDGARDO Dow: [id number] Spec Type: Surgical Subm Dr: Levi Dorsey Tissues: A Endometrium - Biopsy (EMBX) Procedures: HE/2, Gross/Micro L4 Age/ Patient Sex Location Account Attending Physician DoryBrittany Jarquin 39/F [place] [id number] Levi Dorsey SPEC NUM: [id number] RECD: 07/30/24 STATUS: EDGARDO GUS NUM: [id number] JERMAINE: 07/29/24- SUBM DR: Levi Dorsey ENTERED: 07/30/[address] [facility] [address]: Santosh Strong SPEC TYPE: Surgical DEPT: KRUPA COREY ENTERED BY: [id number] RECV BY: [id number] ORDERED: HE/2, Gross/Micro L4 ORDERED: HE/2, Gross/Micro [...] Description Microscopic examination is performed CPT Codes 07824 Specimen: [id number] Received: 07/30/24 Status: EDGARDO Gus Num: [id number] Spec Type: Surgical Subm Dr: Levi Dorsey Tissues: A Endometrium - Biopsy (EMBX) Procedures: HE/2, Gross/Micro L4 Patient: Brittany Connors [id number] (Continued) Signed (signature on file) Librado Sheehan MD 07/31/24 1118 Normal [facility] MAMM BX BREAST [...] MD on 06/10/2024 8:35 AM 1999 Normal [facility] MAMM POST BX DIAG UNI LTon [...] MD on 06/10/2024 8:35 AM 1999 Normal [facility] Surgical Pathologyon 024 Surgical Pathology Normal [facility] Comment on above: Result Comment: [facility] [address] [place] [address] Surgical Pathology Consultation Patient Name:BRITTANY CONNORS:1985 (Age: 39)Gender:FTaken:4Reported:06/09/2024hysician(s):Philly Rasheed NP ([phone])Copy To:Katelyn Vickers NoahAccession #:[id number]. Rec. #:[id number]: #[id number] Final Pathologic Diagnosis Left breast, needle biopsy @3-4:00, 5 cm fn: Benign breast tissue with focal, mild cystic change and fibrosis. Report Electronically Signed Out gr/06/09/2024Robin Villanueva MD [place] [address], License number: [id number]. Clinical History Biopsy procedure: Stereotactic; Target: Mass; [...] 8 hours and 30 minutes (2, yogi, [id number], A???B, m1) JG jmg/06/06/2024SSI Specimen(s) Received Left breast Fee Codes(s): 1; 86276 MAMM DIAGNOSTIC UNILAT LT W CADon 05-29-2024 [...] 05/29/2024 9:42 AM 4 a BIOPSY Normal [facility] US BREAST LT LIMITEDon 05-29 US [...] 05/29/2024 9:42 AM 4 a BIOPSY Normal [facility] MAMM SCREENING BILATERAL W C athletic scout 05-20-2024 MAMM SCREENING BILATERAL W CAD MAMM [...] 3:05 PM 0A a ADDITIONAL I Normal [facility] XR CHEST 2 VWSon 03-18-2024 XR CHEST 2 VWS XR CHEST 2 VWS Chest 2 views History: Asthma, unspecified asthma severity, unspecified whether complicated, unspecified whether persistent Comparison: 09/15/2021 Findings: Chest 2 views. Stable cardiomediastinal silhouette. No focal opacity, effusion or pneumothorax. Impression: No evident acute cardiopulmonary process. Finalized by Jack Do MD on 03/18/2024 6:47 PM Normal [facility] Laboratory - Chemistry and C hemistry - challengeon 02-18-2024 Albumin [Mass/Vol] 4.8 g/dL [facility] ALP [Catalytic activity/Vol] 111 U/L [facility] ALT [Catalytic activity/Vol] 22 U/L [facility] AST [Catalytic activity/Vol] 16 U/L [facility] Bilirubin [Mass/Vol] 0.4 mg/dL [facility] Calcium [Mass/Vol] 9.5 mg/dL [facility] Chloride [Moles/Vol] 102 mmol/L [facility] Cholesterol [Mass/Vol] 204 mg/dL [facility] Cholesterol in HDL [Mass/Vol] 54 mg/dL [facility] Cholesterol in LDL [Mass/Vol] 122 mg/dL [facility] Cholesterol.total/ Cholesterol in HDL [Mass ratio] 3.8 {ratio} [facility] CO2 [Moles/Vol] 27 mmol/L [facility] Creatinine [Mass/Vol] 0.74 mg/dL [facility] GFR/1.73 sq M.predicted MDRD (S/P/Bld) [Vol rate/Area] 105 mL/min/{1.73_m2} [facility] Glucose [Mass/Vol] 98 mg/dL [facility] Potassium [Moles/Vol] 4.0 mmol/L [facility] Protein [Mass/Vol] 6.3 g/dL [facility] Sodium [Moles/Vol] 140 mmol/L [facility] Triglyceride [Mass/Vol] 142 mg/dL [facility] Urea nitrogen [Mass/Vol] 12 mg/dL [facility] Laboratory - Hematology and Cell countson 02-18-2024 HbA1c (Bld) [Mass fraction] 5.2 % [facility] No Panel Informationon 02-17 Estimated GFR (Non- 105 mL/min [facility] Thyroid Stimulating Hormone 3rd Gen 2.34 [facility] VLDL Cholesterol 28 mg/dL [facility] Vital Signs Date Time Vital Sign Value Performing Clinician Facility 09-04-2024 09:54-0500 Body mass index (BMI) [Ratio] 44.93 kg/m2 Levi Dorsey DO Work Phone: [facility] 09-04-2024 09:54-0500 Body weight 122.47 kg Levi Sunita DO Work Phone: [facility] 09-04-2024 09:54-0500 Diastolic blood pressure 80 mm[Hg] Levi Sunita DO Work Phone: [facility] 09-04-2024 09:54-0500 Systolic blood pressure 124 mm[Hg] Levi Sunita DO Work Phone: [facility] 07-29-2024 09:45-0400 Body mass index (BMI) [Ratio] 44.9 kg/m2 Levi Sunita DO Work Phone: [facility] 07-29-2024 09:45-0400 Body weight 122.38 kg Levi Sunita DO Work Phone: [facility] 07-29-2024 09:45-0400 Diastolic blood pressure 80 mm[Hg] Levi Sunita DO Work Phone: [facility] 07-29-2024 09:45-0400 Systolic blood pressure 124 mm[Hg] Levi Sunita DO Work Phone: [facility] 03-27-2024 08:05-0400 Body height 170.18 cm [facility] 03-27-2024 08:05-0400 Body mass index (BMI) [Ratio] 45.6 kg/m2 [facility] 03-27-2024 08:05-0400 Body weight 132.13 kg [facility] 03-05-2024 07:12-0400 Body height 170.18 cm [facility] 03-05-2024 07:12-0400 Body mass index (BMI) [Ratio] 45.7 kg/m2 [facility] 03-05-2024 07:12-0400 Body weight 132.5 kg [facility] 03-05-2024 07:12-0400 Diastolic blood pressure 18 mm[Hg] [facility] 03-05-2024 07:12-0400 Heart rate 95 /min [facility] 03-05-2024 07:12-0400 Respiratory rate 18 /min [facility] 03-05-2024 07:12-0400 SaO2% (BldA) [Mass fraction] 99 % [facility] 03-05-2024 07:12-0400 Systolic blood pressure 100 mm[Hg] [facility] 01-24-2024 15:39-0400 Body height 170.18 cm [facility] 01-24-2024 15:39-0400 Body mass index (BMI) [Ratio] 43.8 kg/m2 [facility] 01-24-2024 15:39-0400 Body weight 127 kg [facility] 01-21-2024 07:13-0400 Body height 170.18 cm [facility] 01-21-2024 07:13-0400 Body mass index (BMI) [Ratio] 44 kg/m2 [facility] 01-21-2024 07:13-0400 Body weight 127.62 kg [facility] 01-21-2024 07:13-0400 Diastolic blood pressure 84 mm[Hg] [facility] 01-21-2024 07:13-0400 Heart rate 95 /min [facility] 01-21-2024 07:13-0400 Respiratory rate 18 /min [facility] 01-21-2024 07:13-0400 SaO2% (BldA) [Mass fraction] 98 % [facility] 01-21-2024 07:13-0400 Systolic blood pressure 121 mm[Hg] [facility] 10-19-2023 07:30-0500 Body height 170.18 cm Jarred Siegel Other [facility] Other 10-19-2023 07:30-0500 Body mass index (BMI) [Ratio] 45.13 kg/m2 Jarred Siegel Other [facility] Other 10-19-2023 07:30-0500 Body weight 130.73 kg Jarred Siegel Other [facility] Other 10-19-2023 07:30-0500 Diastolic blood pressure 89 mm[Hg] Jarred Christal Other [facility] Other 10-19-2023 07:30-0500 Respiratory rate 18 /min Jarred Bushdiff Other [facility] Other 10-19-2023 07:30-0500 SaO2% (BldA) [Mass fraction] 100 % Jarred Bushdiff Other [facility] Other 10-19-2023 07:30-0500 Systolic blood pressure 128 mm[Hg] Jarred Siegel Other [facility] Other 10-04-2023 07:15-0500 Body height 170.18 cm Sameera Fitt Other [facility] Other 10-04-2023 07:15-0500 Body mass index (BMI) [Ratio] 45.68 kg/m2 Sameera Fitt Other [facility] Other 10-04-2023 07:15-0500 Body weight 132.32 kg Sameera Fitt Other [facility] Other 09-03-2023 07:15-0500 Body height 170.18 cm Jarred Siegel Other [facility] Other 09-03-2023 07:15-0500 Body mass index (BMI) [Ratio] 46.67 kg/m2 Jarred Siegel Other [facility] Other 09-03-2023 07:15-0500 Body weight 135.17 kg Jarred Siegel Other [facility] Other 09-03-2023 07:15-0500 Diastolic blood pressure 85 mm[Hg] Jarred Bushdiff Other [facility] Other 09-03-2023 07:15-0500 Respiratory rate 18 /min Jarred Bushdiff Other [facility] Other 09-03-2023 07:15-0500 SaO2% (BldA) [Mass fraction] 98 % Jarred Bushdiff Other [facility] Other 09-03-2023 07:15-0500 Systolic blood pressure 121 mm[Hg] Jarred Bushdiff Other [facility] Other 08-09-2023 07:15-0400 Body height 170.18 cm Sameera Fitt Other [facility] Other 08-09-2023 07:15-0400 Body mass index (BMI) [Ratio] 46.26 kg/m2 Sameera Fitt Other [facility] Other 08-09-2023 07:15-0400 Body weight 133.99 kg Sameera Fitt Other [facility] Other 06-14-2023 08:00-0400 Body height 170.18 cm Sameera Fitt Other [facility] Other 06-14-2023 08:00-0400 Body mass index (BMI) [Ratio] 46.56 kg/m2 Sameera Fitt Other [facility] Other 06-14-2023 08:00-0400 Body weight 134.86 kg Sameera Fitt Other [facility] Other 03-27-2023 07:15-0400 Body height 170.18 cm Jarred Bushdiff Other [facility] Other 03-27-2023 07:15-0400 Body mass index (BMI) [Ratio] 47.44 kg/m2 Jarred Bushdiff Other [facility] Other 03-27-2023 07:15-0400 Body weight 137.4 kg Jarred Bushdiff Other [facility] Other 03-27-2023 07:15-0400 Diastolic blood pressure 88 mm[Hg] Jarred Christal Other [facility] Other 03-27-2023 07:15-0400 Respiratory rate 18 /min Jarred Bushdiff Other [facility] Other 03-27-2023 07:15-0400 SaO2% (BldA) [Mass fraction] 99 % Jarred Bushdiff Other [facility] Other 03-27-2023 07:15-0400 Systolic blood pressure 138 mm[Hg] Jarred Siegel Other [facility] Other 02-06-2023 09:15-0400 Body height 170.18 cm Sameera Fitt Other [facility] Other 02-05-2023 08:15-0400 Body height 170.18 cm Jarred Siegel Other [facility] Other 02-05-2023 08:15-0400 Body mass index (BMI) [Ratio] 45.67 kg/m2 Jarred Siegel Other [facility] Other 02-05-2023 08:15-0400 Body weight 132.27 kg Jarred Siegel Other [facility] Other 02-05-2023 08:15-0400 Diastolic blood pressure 93 mm[Hg] Jarred Bushdiff Other [facility] Other 02-05-2023 08:15-0400 Respiratory rate 18 /min Jarred Bushdiff Other [facility] Other 02-05-2023 08:15-0400 SaO2% (BldA) [Mass fraction] 99 % Jarred Bushdiff Other [facility] Other 02-05-2023 08:15-0400 Systolic blood pressure 123 mm[Hg] Jarred Bushdiff Other [facility] Other 12-26-2022 08:00-0500 Body height 170.18 cm Jarred Bushdiff Other [facility] Other 12-26-2022 08:00-0500 Body mass index (BMI) [Ratio] 45.34 kg/m2 Jarred Siegel Other [facility] Other 12-26-2022 08:00-0500 Body weight 131.32 kg Jarred Bushdiff Other [facility] Other 12-26-2022 08:00-0500 Diastolic blood pressure 92 mm[Hg] Jarredpearl [facility]diff Other [facility] Other 12-26-2022 08:00-0500 Respiratory rate 18 /min Jarred Siegel Other [facility] Other 12-26-2022 08:00-0500 SaO2% (BldA) [Mass fraction] 98 % Jarred Siegel Other [facility] Other 12-26-2022 08:00-0500 Systolic blood pressure 122 mm[Hg] Jarred Siegel Other [facility] Other 12-04-2022 09:15-0500 Body height 170.18 cm Jarred Siegel Other [facility] Other 12-04-2022 09:15-0500 Body mass index (BMI) [Ratio] 44.41 kg/m2 Jarred Siegel Other [facility] Other 12-04-2022 09:15-0500 Body weight 128.64 kg Jarred Siegel Other [facility] Other 12-04-2022 09:15-0500 Diastolic blood pressure 93 mm[Hg] Jarred Siegel Other [facility] Other 12-04-2022 09:15-0500 Respiratory rate 18 /min Jarred Siegel Other [facility] Other 12-04-2022 09:15-0500 SaO2% (BldA) [Mass fraction] 99 % Jarred Siegel Other [facility] Other 12-04-2022 09:15-0500 Systolic blood pressure 122 mm[Hg] Jarred Siegel Other [facility] [employer] Other Encounters Encounter Date Encounter Type Care [...] Start: 07-30-2024 End: 07-30-2024 ambulatory Levi Sunita Facility:[facility] Start: 07-30-2024 End: 07-30-2024 Departed Referred JOANNA Velazco Work Phone: [facility] Start: 07-29-2024 End: 07-29-2024 Patient encounter procedure Levi Fano DO Work Phone: [facility] Comment on above: Menorrhagia with reg ular cycle; BRCA2 gene mutation positive; Complex ovarian cyst; Pelvic pain in female Start: 07-29-2024 End: 07-29-2024 ambulatory LEVI SUNITA Not Available Start: 06-24-2024 End: 06-24-2024 ambulatory LEVI SUNITA Not Available Start: 06-06-2024 End: 06-06-2024 [facility] Start: 06-06-2024 End: 06-06-2024 ambulatory [facility] Start: 05-29-2024 End: 05-29-2024 ambulatory PHILLY RASHEED [facility] Start: 05-17-2024 End: 05-17-2024 ambulatory POWDERLY Doron [facility] Start: 05-12-2024 End: 05-12-2024 ambulatory [facility] Start: 03-27-2024 End: 03-27-2024 Patient encounter procedure [facility] Work Phone: Start: 03-18-2024 End: 03-18-2024 ambulatory [facility] Start: 03-05-2024 End: 03-05-2024 Patient encounter procedure [facility] Work Phone: Start: 02-18-2024 Non-patient / Non-visit [facility] [place] Work Phone: Start: 01-24-2024 End: 01-24-2024 Patient encounter procedure [facility] Work Phone: Start: 01-21-2024 End: 01-21-2024 Patient encounter procedure [facility] Work Phone: Start: 11-28-2023 End: 11-28-2023 ambulatory Gordon Velazco Facility:[facility] Start: 11-17-2023 End: 11-17-2023 ambulatory NINA JUNIOR [facility] Start: 11-12-2023 End: 11-12-2023 ambulatory GORDON Sal [facility] Start: 10-19-2023 End: 10-19-2023 ambulatory Jarred Siegel Other [facility] Other Start: 10-19-2023 Follow-up encounter Jarred Bushdicanelo [facility] Start: 10-04-2023 ([facility] RD FU) [facility] F/ [employer] Manager Sameera Howard [facility] Start: 10-04-2023 End: 10-04-2023 ambulatory Sameera Fitt Other [facility] Other Start: 09-03-2023 End: 09-03-2023 ambulatory Jarredpearl Bushdiff Other [facility] Other Start: 09-03-2023 Follow-up encounter Jarredpearl Bushdicanelo [facility] Start: 08-09-2023 ([facility] [address] FU) [facility] F/ [employer] Manager Sameera Howard [facility] Start: 08-09-2023 End: 08-09-2023 ambulatory Sameera Fitt Other [facility] Other Start: 06-22-2023 End: 06-22-2023 ambulatory Jarredpearl Siegel Other [facility] Other Start: 06-22-2023 Telephone encounter Jarredpearl Bushdicanelo [facility] Start: 06-14-2023 ([facility] FU) [facility] F/ [employer] Sameera Howard [facility] Start: 06-14-2023 End: 06-14-2023 ambulatory Sameera Fitt Other [facility] Other Start: 03-27-2023 End: 03-27-2023 ambulatory Jarred Siegel Other [facility] Other Start: 03-27-2023 Follow-up encounter Jarred willis [facility] Sameera Howard [facility] Start: 02-06-2023 End: 02-06-2023 ambulatory Sameera Howard Other [facility] Other Start: 02-05-2023 End: 02-05-2023 ambulatory Jarred Siegel Other [facility] Other Start: 02-05-2023 Follow-up encounter Jarred N[facility] Start: 12-26-2022 End: 12-26-2022 ambulatory Jarred Siegel Other [facility] Other Start: 12-26-2022 Follow-up encounter Jarred willis [facility] Start: 12-04-2022 End: 12-04-2022 ambulatory Jarred Siegel Other [facility] Other Start: 12-04-2022 Nutrition therapy Jarred Mayercanelo Cad[facility] Start: 10-31-2022 End: 10-31-2022 ambulatory Sameera Howard Other [facility] Other Start: 10-31-2022 Telephone encounter Sameera Howard [facility] Procedures Date Procedure [...] Screening for malign ant neoplasm of cervix [facility] Start: 06-06-2025 Screening for malign ant neoplasm of breast Mammogram [facility] Start: 09-04-2024 End: 09-04-2024 Patient encounter procedure [facility] Comment on above: Arrived Start: 06-29-2024 Influenza vaccination Influenza Vacc ine (#1) [facility] Start: 02-21-2014 Screening for malign ant neoplasm of cervix HPV/Cotest [facility] Biopsy endometrium Biopsy endome trium Procedures Routine Menorrhagia with regular cycle Ordered: 07/29/2024 [facility] Work Phone: Comment on above: Ordered: 07/29/2024 Immunizations Immunization Date Immunization Notes Care Provider [facility] 08-28-2023 influenza virus vacc ine, unspecified formulation Levi Dorsey DO Work Phone: [facility] Payers Date Payer Category Payer Private Health Insurance [employer] [id number] 2023 Unknown [employer] [id number] 2023-Present [address] [place] [address] [id number] 2022 Self-pay 2022 Unknown [id number] 1984 Unknown [id number] 2.16.840.1.513262.3.579.2. 1285 1984 Unknown [id number] 2.16.840.1.431519.3.579.2. 1285 1984 Unknown [id number] 2.16.840.1.657900.3.579.2. 1285 1984 Unknown [id number] 2.16.840.1.393857.3.579.2. 1286 1984 Unknown [id number] 2.16.840.1.345751.3.579.2. 1285 1984 Unknown [id number] 2.16.840.1.169794.3.579.2. 1285 1984 Unknown [id number] 2.16.840.1.371800.3.579.2. 1285 1984 Unknown [id number] 2.16.840.1.438111.3.579.2. 128 1984 Unknown [id number] 2.16.840.1.365903.3.579.2. 1285 1984 Unknown [id number] 2.16.840.1.606693.3.579.2. 9 1984 Unknown [id number] 2.16.840.1.197549.3.579.2. 9 1984 Unknown [id number] 2.16.840.1.563289.3.579.2. 1259 Unknown [employer] [id number] Unknown [id number] 2.16.840.1.061546.3.579.2. 531 Unknown [id number] Social History Date Type Detail Facility Unknown if ever smoked [facility] Other Sex Assigned At [facility] Other Start: 1985 Sex Assigned At Female F [facility] Tobacco smoking status LAIS Tobacco smoking consumption unknown [facility] Start: 06-18-2024 Gender identity Identifies as female gender (finding) [facility] Clinical Notes 12-04-2022 to 09-04-2024 Elaine Walters [...] on 10/03/[address] Dorsey at [facility]. MEDICATIONS Current Outpatient Medications Medication Instructions [...] MG/DOSE, SC) Vitamin D-Vitamin K (K2-D3 10,000) 34187-47 UNIT-MCG capsule 1 each, Oral, Daily ALLERGIES [...] nursing note reviewed. Exam conducted with a recharger present. Vitals: Estimated body mass index is [...] Levi Dorsey DO documented in this encounter [facility] 07-29-2024 History of Presen t illness Narrative [...] MG/DOSE, SC) Vitamin D-Vitamin K (K2-D3 10,000) 39799-97 UNIT-MCG capsule 1 each, Oral, Daily ALLERGIES Allergies Allergen Reactions Fish-Derived Products Anaphylaxis, Hives and Itching Shellfish-Derived Products Anaphylaxis Shellfish Allergy PROBLEMS Active Ambulatory Problems Diagnosis Date Noted No Active Ambulatory Problems Resolved Ambulatory Problems Diagnosis Date Noted No Resolved Ambulatory Problems Past Medical History: Diagnosis Date ADHD (attention deficit hyperactivity disorder) ([facility]) Anxiety and depression ([facility]) Asthma ([facility]) Bipolar 1 disorder ([facility]) BRCA gene positive High blood pressure ([facility]) HISTORY PAST MEDICAL HISTORY SOCIAL HISTORY Past Medical History: Diagnosis Date ADHD (attention deficit hyperactivity disorder) ([facility]) Anxiety and depression ([facility] Asthma ([facility]) Bipolar 1 disorder ([facility]) BRCA gene positive 2 High blood pressure ([facility]) Social History Tobacco Use Smoking status: Not [...] nursing note reviewed. Exam conducted with a recharger present. Vitals: Estimated body mass index is [...] Levi Dorsey DO documented in this encounter [facility] 01-21-2024 Evaluation note Authored January 21, 2024 [...] Her psychiatric prescriber is Brittany Gamino from [place] where they live. Her dad is a [...] in the morning. 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 8. Snorer/[place] of 6/neck size of 15.5 inches/mallampati score [...] work with her PCP. Author Jarred Siegel [facility] Authored March 05, 2024 7:59am Start/highest weight: [...] Her psychiatric prescriber is Brittany Gamino from [place] where they live. Her dad is a [...] in the morning. 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 8. Snorer/[place] of 6/neck size of 15.5 inches/mallampati score [...] continue regular lab work with her PCP. [facility] Work Phone: [phone]) 903-296812-22-2023 Evaluation note* Encounter Date Diagnosis Assessment Notes [...] - R06.83) Sep, Asthma (ICD-10 - J45.909) [facility] Other 12-07-2023 Evaluation note* Encounter Date Diagnosis [...] / exercise routine using treadmill at home [facility] Other 11-06-2023 Evaluation note* Encounter Date Diagnosis [...] - R06.83) Aug, Asthma (ICD-10 - J45.909) [facility] Other 10-12-2023 Evaluation note* Encounter Date Diagnosis [...] new recipes to add variety; MET, CONTINUE [facility] Other 08-17-2023 Evaluation note* Encounter Date Diagnosis [...] new recipes to add variety; MET, CONTINUE [facility] Other 05-30-2023 Evaluation note* Encounter Date Diagnosis [...] - R06.83) February, Asthma (ICD-10 - J45.909) [facility] Other 04-11-2023 Evaluation note* Encounter Date Diagnosis Assessment Notes Treatment Notes Treatment Clinical Notes Jan, Obesity (ICD-10 - E66.9) Jan, BMI 40.0-44.9, adult (ICD-10 - Z68.41) Jan, Other Summary of Visi t: (A) discussed foods that can help prevent breast cancer and help w/ WM (B) benefits of fiber foods Patient set the following goals: [facility] Other 04-10-2023 Evaluation note* Encounter Date Diagnosis [...] - R06.83) Jan, Asthma (ICD-10 - J45.909) [facility] Other 02-28-2023 Evaluation note* Encounter Date Diagnosis [...] - R06.83) Nov, Asthma (ICD-10 - J45.909) [facility] Other 02-06-2023 Evaluation note* Encounter Date Diagnosis Assessment Notes Treatment Notes Treatment Clinical Notes Nov, Abnormal weight gain (ICD-10 - R63.5) Nov, Hypertension (ICD-10 - I10) Nov, Mixed hyperlipidemia (ICD-10 - E78.2) Nov, Metabolic syndrome X (ICD-10 - E88.81) Nov, Bipolar affective disorder (ICD-10 - F31.9) Nov, Snores (ICD-10 - R06.83) Nov, Asthma (ICD-10 - J45.909) [facility] Other Evaluation note* Diagnosis Menorrhagia with regular cycle BRCA2 gene mutation positive Complex ovarian cyst Pelvic pain in female Unspecified symptom associated with female genital organs documented [facility] assessment information available[facility] Work Phone: Evaluation note* Diagnosis [...] History wisdom teeth Hospitalization History see above [facility] Other Chief Complaint and Reason for Visit [...] Member Role Status Dates Gordon Velazco APRN [employer] DEVELOPER-C Primary Care Provider Active Team Status: Inactive Member Role Status Dates Gordon Velazco APRN [employer] DEVELOPER-C Primary Care Provider Active Start: January 21, 2024 End: January 21, 2024 Jarred Siegel MD Attending Provider Active Start: January 21, 2024 End: January 21, 2024 Team Status: Inactive Member Role Status Dates Gordon Velazco APRN [employer] DEVELOPER-C Primary Care Provider Active Start: January 24, 2024 End: January 24, 2024 MAG Johnson Attending Provider Active Start: January 24, 2024 End: January 24, 2024 Team Status: Active Member Role Status Dates Gordon Velazco APRN [employer] DEVELOPER-C Primary Care Pr ovider, Attending Provider Active Start: February 18, 2024 Team Status: Inactive Member Role Status Dates Gordon Velazco APRN [employer] DEVELOPER-C Primary Care Provider Active Start: March 05, 2024 End: March 05, 2024 Jarred Siegel MD Attending Provider Active Start: March 05, 2024 End: March 05, 2024 Team Status: Inactive Member Role Status Dates Gordon Velazco APRN [employer] DEVELOPER-C Primary Care Provider Active Start: March 27, 2024 End: March 27, 2024 MAG Johnson Attending Provider Active Start: March 27, 2024 End: March 27, 2024 Team Status: Inactive Member Role Status Dates Gordon Velazco APRN [employer] DEVELOPER-C Primary Care Provider Active Start: July 30, 2024 End: July 30, 2024 Levi Dorsey DO Attending Provider Active Start : July 30, 2024 End: July 30, 2024 Goals (unrecognized section and content) Goals may be documented in a n alternate section INFORMATION SOURCE (unrecogn ized section and content) DATE CREATED AUTHOR 05/16/2024 [facility] Ambulatory [facility] DATE CREATED AUTHOR AUTHOR'S ORGANIZ ATION 05/23/2024 [facility] DATE CREATED AUTHOR AUTHOR'S ORGANIZ ATION 05/31/2024 [facility] DATE CREATED AUTHOR AUTHOR'S ORGANIZ ATION 06/10/2024 [facility] DATE CREATED AUTHOR AUTHOR'S ORGANIZ ATION 08/01/2024 [facility] DATE CREATED AUTHOR AUTHOR'S ORGANIZ ATION 09/06/2024 [facility] EPIC FOR RECORDS PERTAINING [...] BE BASED ON THE PRIMARY CLINICAL RECORDS. [employer] provides no warranty or guarantee of the accuracy or completeness of information in this document.
[2024-10-03 08:42] LABS: Basophils Absolute Auto 0.1 10^3/uL (0.0-0.1); Basophils Percent Auto 0.6 % (0.2-2.0); Eosinophils Absolute Auto 0.1 10^3/uL (0.0-0.7); Eosinophils Percent Auto 1.6 % (0.9-7.0); Hematocrit 44.7 % (36.0-48.0); Hemoglobin 15.2 g/dL (12.0-16.0); Immature Granulocytes Abs Auto 0.02 10^3/uL (0.00-0.03); Immature Granulocytes Pct Auto 0.2 % (0.0-0.5); Lymphocytes Absolute Auto 2.2 10^3/uL (1.2-3.8); Lymphocytes Percent Auto 27.3 % (20.5-60.0); Mean Corpuscular Hemoglobin 29.1 pg (26.7-34.0); Mean Corpuscular Volume 85.5 fL (81.0-99.0); Mean Platelet Volume 9.9 fL (9.5-13.5); Monocytes Absolute Auto 0.5 10^3/uL (0.3-0.8); Monocytes Percent Auto 6.6 % (1.7-12.0); Neutrophils Absolute Auto 5.2 10^3/uL (1.4-6.5); Neutrophils Percent Auto 63.7 % (43.0-75.0); Platelet Count 229 10^3/uL (150-450); Red Blood Count 5.23 10^6/uL (4.20-5.40); Red Cell Distribution Width 12.9 % (11.0-15.0); White Blood Count 8.2 10^3/uL (4.0-11.0)
--- NOTE | 2024-10-03 09:21 | PC.NURSE ---
Rash to inside of left thigh per patient.
[2024-10-03 09:22] LABS: HCG Quantitative <1 mIU/mL
[2024-10-03] MEDS: LACTATED RINGER'S SOLUTION 1,000 ML 50 ML IV ×3 (09:22→14:17)
--- NOTE | 2024-10-03 11:36 | P.ON_ITS ---
Brief Operative Note Date of procedure: 10/03/24 Pre-op diagnosis general: family ho of ovarian ca, brca gene positive Post-op diagnosis: same as pre-op Procedure: NAME OF PROCEDURE: robotic assisted bilateral laparoscopic salpingoopherectomy PROCEDURE: The patient was taken back to the Operating Room where she was given general anesthesia without difficulty. She was then prepped and draped in the normal sterile fashion after being placed in a dorsal lithotomy position. A wet sponge stick was placed into the patient's vagina. Attention was then turned to the patient's abdomen, where a scalpel was used to make a small infraumbilical incision. The S retractors were then used to dissect the underlying layers until the fascia could be seen. The fascia was then grasped with Roula clamps and tented up. A knife was then used to make a small incision to the fascia. The muscle was identified, at that time two sutures of #0 Vicryl on a GI needle was then used and placed through the fascia. the peritoneum was then identified and entered bluntly. The 10-4 Jeremías was then placed into the patient's abdomen. This was confirmed with direct visualization of the bowel, using the laparoscope. The patient's abdomen was then insufflated using approximately 4 liters of CO2 gas. Survey of the patient's abdomen demonstrated ovaries were normal in appearance as well as both tubes and uterus. A second and third rt and lt lateral robotic ports which were 8 mm in size, was then placed after the skin incision was made under direct visualization . the robotic arms were engaged. The patient's tube and ovary on the patient's right side was identified and tented up using a grasper, the ligasure apparatus was then used to come across the mesosalpingx from the fimbriated end to the insertion site at the uterus and the infundibular pelvic ligament, the tube and ovary was then amputated and removed in its entirety. This was done on the contralateral side. The tubes were the removed from the patients abdomen. Excellent hemostasis was noted. The lateral ports were then moved under direct visualization with excellent hemostasis. All instruments were removed from the patient's abdomen. The fascia was closed using the #0 Vicryl on GI needle. The skin was closed using 4-0 Vicryl subcuticularly. All instruments were removed from the patient's vagina as well. The patient was taken out of the dorsal lithotomy position and placed in the supine position and taken to recovery in stable condition. Sponge, lap and needle counts were correct x2. please note the endocatch was used to remove the tubes and ovaries Surgeon: Cheikh Dorsey Digital Advertising Specialist: Jaimie Humphries Estimated blood loss (mL): 5 Pathology: other (tubes and ovaries) Condition: stable Disposition: PACU Urinary Catheter Management Urinary Catheter Management Urethral: Cath placed during this visit: no
--- NOTE | 2024-10-03 13:26 | PC.NURSE ---
Very drowsy; does not rate surgical pain; states that it hurts; no restlessness or facial grimacing; heating pack applied
== END 2024-10-03 15:20 | disposition home or self-care (01) ==
PROVIDERS: Family Provider Family Medicine; PCP Nurse Practitioner; Visit Provider Obstetrics & Gynecology
PROC: (CPT 840; principal; 2024-10-03 09:45)
DX: Z15.01 Genetic susceptibility to malignant neoplasm of breast (principal); Z80.41 Family history of malignant neoplasm of ovary; N83.8 Other noninflammatory disorders of ovary, fallopian tube and broad ligament; N83.202 Unspecified ovarian cyst, left side; N83.201 Unspecified ovarian cyst, right side; Z90.49 Acquired absence of other specified parts of digestive tract; I10 Essential (primary) hypertension; F41.9 Anxiety disorder, unspecified; F31.9 Bipolar disorder, unspecified; Z15.09 Genetic susceptibility to other malignant neoplasm
CPT/HCPCS: 58661; 36415; 84702; 85025; 88305; J1100; J1885; J2250; J2405; J3010

== ENCOUNTER 2025-01-27 07:30 | Outpatient (RCR) | payer OTHER, SELFPAY ==
--- OUTSIDE RECORDS SUMMARY | 2025-01-27 07:33 | XMS_ITS | CCD ---
Author Organization [facility] Care Team Providers Care [employer]eg[employer] Console Operator Track Name Role Phone Estevan Howardn Unavailable Jarred Siegel Unavailable JOSH FENTON Attending Unavailable ANGLIM, GORDON A Referring Unavailable ANGLIM, GORDON A Primary Care Unavailable TALEB, BRANDYD Attending Unavailable TALEB, MOHAMMAD Referring Unavailable ANGLIM, GORDON A Primary Care Unavailable ANGLIM, GORDON A Referring Unavailable ANGLIM, GORDON A Primary Care Unavailable ANGLIM, GORDON A Referring Unavailable ANGLIM, GORDON A Primary Care Unavailable PHILLY RASHEED K Referring Unavailab le NASREEN, ALBINA Primary Care Unavailable MYPHILLY BRIGHT Referring Unavailab le NASREEN, ALBINA Primary Care Unavailable PROVIDER, UNKNOWN Referring Unavailable NASREEN, ALBINA Primary Care Unavailable KATELYN ZAMORA Referring Unavailable NASREEN, ALBINA Primary Care Unavailable NINA NGUYEN Referring Unavailable ANGLIM, GORDON A Primary Care Unavailable Unavailable Primary Care Provider Unavailabl e Anglim, CAREER DEVELOPMENT COORDINATOR/TEACHER Gordon Primary Care Provider [phone] DO Josue Dorseyy Attending Provider Sunita, Cheikh Admitting Unavailable Sunita, Cheikh Attending Unavailable Anglim, Gordon Primary Care Unavailable Sunita, Cheikh Attending Unavailable Anglim, Gordon Primary Care Unavailable Sunita, Cheikh Admitting Unavailable Johnie Siegelald L Admitting Unavailable Johnie Siegelald L Attending Unavailable Anglim, Gordon Primary Care Unavailable SUNITA, CHEIKH Attending Unavailable SUNITA, CHEIKH Attending Unavailable SUNITA, CHIEKH Attending Unavailable SUELLEN JUAREZ Attending Unavailable Anglim CAREER DEVELOPMENT COORDINATOR/TEACHER-DISABILITIES SERVICES OFFICER, Gordon A Primary Care Provider Nasreen CAREER DEVELOPMENT COORDINATOR/TEACHER-TACK CUTTER, Albina Primary Care Provider Allergies Allergy Classification Reported Allergen(s) Allergy Type Date of Onset Reaction(s) Facility (14 sources) Shellfish Propensity to adverse reactions 4 [facility] Work Phone: (9 sources) Fish-Derived Products Propensity to adverse reactions 4 Anaphylaxis, Hives, Itching [facility] (9 sources) Shellfish-Deriv ed Products Drug Allergy 4 Anaphylaxis [facility] Medications Current Medications Medication Drug Class(es) Dates Sig (Normalized) Sig (Original) 0.25 MG, 0.5 MG Dose 3 ML semaglutide 0.68 MG/ML Pen Injector [Ozempic] (2 sources) Start: 09-03-2023 Ozempic (0.25 or 0.5 MG/DOSE) 2 MG/3ML 0.25 mg for one month and then increase to 0.5 mg dose Subcutaneous weekly for Aug, Active [id number] actuat albuterol 0.09 mg/actuat metered dose inhaler (20 sources) beta2-Adrenergic Agonist Start: 05-12-2024 take 2 puff(s) by inhalation every six hours albuterol HFA 90 mcg/act inhaler Inhale 2 puffs every 6 (six) hours if needed 05/12/2024 Active Start: 05-12-2024 take 2 puff(s) by in halation every six hours as needed for wheezing albuterol (PROVENTIL HFA;VENTOLIN HFA) 90 mcg/actuation inhaler Indications: Mild persistent asthma without complication Inhale 2 puffs every 6 (six) hours as needed for wheezing or shortness of breath. 18 g 11 05/12/2024 Active Start: 01-21-2024 take 1 puff(s) by in halation four times daily Albuterol Sulfate Active 2 PUFF INHALATION Four times daily January 21, 2024 12:00am End: 05-12-2024 take 2 puff(s) by inhalation every six hours as needed for wheezing albuterol (PROVENTIL HFA;VENTOLIN HFA) 90 mcg/actuation inhaler Inhale 2 puffs every 6 (six) hours as needed for wheezing or shortness of breath. 05/12/2024 Discontinued (Reorder) ARIPiprazole 5 mg oral tablet (20 sources) [...] day Active atomoxetine 40 mg oral capsule (20 sources) Norepinephrine Reuptake Inhibitor Start: 01-21-2024 take 40 mg by mouth once daily Atomoxetine Active 40 MG PO Daily January 21, 2024 12:00am Strattera breath-actuated 120 actuat beclomethasone dipropionate 0.04 mg/actuat metered dose inhaler (12 sources) Corticosteroid Start: 05-12-2024 take 2 puff(s) by inhalation in the morning beclomethasone HFA (Qvar) 40 MCG/ACT inhaler Inhale 2 puffs in the morning and 2 puffs in the evening. 05/12/2024 Active Start: 05-12-2024 take 2 puff(s) by in halation in the morning beclomethasone HFA (QVAR REDIHALER) 40 mcg/actuation Inhale 2 puffs in the morning and 2 puffs before bedtime. 10.6 g 11 05/12/2024 Active busPIRone hydrochloride 10 mg oral tablet (20 sources) Start: 06-23-2020 take 1 tablet by [...] mg / lisinopril 20 mg oral tablet (20 sources) Thiazide Diuretic, Angiotensin Converting Enzyme Inhibitor take 1 tablet by mouth in the morning lisinopril-hydroCHLOROthiazide 20-12.5 MG tablet Take 1 tablet by mouth in the morning. Active take 1 tablet by cristine th once in the morning lisinopril-hydroCHLOROthiazide (PRINZIDE ,ZESTORETIC) 20-12.5 mg per tablet Indications: hypertension Take 1 tablet by mouth in the morning. Indications: high blood pressure. Active take 1 tablet by cristine th every twenty-four hours Lisinopril-hydroCHLOROthiazide 20-12.5 M G 1 tablet Orally Once a day Active hydrOXYzine pamoate 50 mg oral capsule (20 sources) Antihistamine Start: 08-18-2022 take 1 capsule by mouth once hydrOXYzine pamoate (Vistaril) 50 MG capsule Take 50 mg by mouth 1 (one) time 01/21/2024 Active lamoTRIgine 100 mg oral tablet (20 sources) Mood Stabilizer, Anti-epileptic Agent Start: 01-21-2024 [...] day Active lisinopril 30 mg oral tablet (17 sources) Angiotensin Converting Enzyme Inhibitor Start: 01-21-2024 lisinopril 30 MG tablet 1 (one) time each day at the same time 01/21/2024 Active Lisinopril 30 MG Oral for 30 Days Active montelukast 10 mg oral tablet (20 sources) Leukotriene Receptor Antagonist Start: 01-21-2024 take 1 tablet by mouth at bedtime montelukast (Singulair) 10 MG tablet Take 10 mg by mouth at bedtime 01/21/2024 Active ozempic (0.25 or 0.5 mg/dose) 2 mg/3ml solution pen-injector (1 source) Start: 09-03-2023 Ozempic (0.25 or 0.5 MG/DOSE) 2 MG/3ML 0.25 mg for one month and then increase to 0.5 mg dose Subcutaneous weekly for Aug, Active potassium 99 mg extended release oral tablet (14 sources) take 1 tablet by mouth once daily Potassium 99 MG tablet Take 99 mg by mouth Daily Active microencapsulated potassium chloride 10 meq extended release oral tablet (16 sources) potassium chloride (K-TAB,KLOR-CON) 10 MEQ CR tablet Take 10 mEq by mouth daily. Active take 1 tablet by cristine th every twenty-four hours Klor-Con M20 20 MEQ 1 tablet with food Orally Once a day Active potassium citrate (2 sources) Start: 01-21-2024 Potassium Citr ate Active 0 PO .COMPLEX January 21, 2024 12:00am orally daily; Semaglutide (OZEMPIC, 1 MG/DOSE, SC) (9 sources) End: 10-13-2024 Semaglutide (OZEMPIC, 1 MG/D OSE, SC) 10/13/2024 Discontinued Semaglutide (OZE MPIC, 1 MG/DOSE, SC) Active semaglutide (Ozempic, 1 MG/DOSE,) 4 MG/3ML solution pen-injector (14 sources) Start: 04-16-2024 inject 1 mg by subcutaneous injection every week semaglutide (Ozempic, 1 MG/DOSE,) 4 MG/3ML solution pen-injector Inject 1 mg under the skin 1 (one) time per week 04/16/2024 Active Vitamin D-Vitamin K (K2-D3 10,000) 04982-16 UNIT-MCG capsule (14 sources) take 1 capsule by mouth once daily Vitamin D-Vitamin K (K2-D3 10,000) 11906-90 UNIT-MCG capsule Take 1 each by mouth [...] Problem Date Documented Date Episodic/Chronic Abdominal pain (3 sources) Pain in female pelvis; Translations: [Pelvic and perineal pain] 07-29-2024 Episodic Asthma (20 sources) Asthma; Translations: [Unspecified asthma, uncomplicated] Onset: 11-12-2023 Chronic Attention-deficit, conduct, and disruptive behavior disorders (4 sources) Attention deficit hyperactivity disorder; Translations: [Attention-deficit hyperactivity disorder, unspecified type] 05-29-2019 Chronic Diabetes mellitus without complication (9 sources) Prediabetes; Translations: [Prediabetes] Episodic Disorders of lipid metabolism (20 sources) Mixed hyperlipidemia; Translations: [Mixed hyperlipidemia] Chronic Essential hypertension (20 sources) Hypertensive disorder; Translations: [Essential (primary) hypertension] Chronic Menstrual disorders (3 sources) Menorrhagia; Translations: [Excessive and frequent menstruation with regular cycle] 07-29-2024 Chronic Mood disorders (18 sources) Bipolar disorder; Translations: [Bipolar disorder, unspecified] Chronic Other aftercare (2 sources) Surgical follow-up; Translations: [Encounter for follow-up examination after completed treatment for conditions other than malignant neoplasm] 10-13-2024 Episodic Other endocrine disorders (2 sources) Polycystic ovary syndrome; Translations: [Polycystic ovarian syndrome] 06-24-2024 Chronic Other lower respiratory disease (6 sources) [...] endocrine; and metabolic disorders (1 source) Morbid obesity; Translations: [Morbid (severe) obesity due to excess calories] 05-12-2024 Chronic Other nutritional; endocrine; and metabolic [...] unspecified side] 07-29-2024 Episodic Residual codes; unclassified (3 sources) BRCA2 gene mutation positive; Translations: [Genetic susceptibility to malignant neoplasm of breast] 07-29-2024 Episodic Residual codes; unclassified (7 sources) Breast cancer genetic marker of susceptibility positive; Translations: [Genetic susceptibility to malignant neoplasm of breast] Onset: 09-04-2024 09-04-2024 Episodic Unclassified (1 source) New Patient Onset: 05-12-2024 Past or Other Problems Problem Classification Problem Date Documented Date Episodic/Chronic Administrative/social admission (1 source) Dietary counseling and surveillance; Translations: [Dietary counseling and surveillance] Onset: 11-28-2023 Episodic Biliary tract disease (4 sources) Common bile duct calculus; Translations: [Calculus of bile duct without cholangitis or cholecystitis without obstruction] Onset: 09-06-2022 09-06-2022 Episodic Nonspecific chest pain (4 sources) Chest pain; Translations: [Other chest pain] Onset: 10-11-2021 10-11-2021 Episodic Residual codes; unclassified (1 source) Genetic susceptibility to malignant neoplasm of breast; Translations: [Genetic susceptibility to malignant neoplasm of breast] Onset: 11-17-2023 Episodic Residual codes; unclassified (1 source) Genetic susceptibility to other malignant neoplasm; Translations: [Genetic susceptibility to other malignant neoplasm] Onset: 11-17-2023 Episodic Results Test Name Value Interpretation Reference Range Facility ALL CBC WITH AUTO DIFFon BASOPHILS ABSOLUTE AUTO 0.1 [facility] Basophils/100 WBC (Bld) 0.6 % 0.2 - 2.0 % [facility] Eosinophils/100 WBC (Bld) 1.6 % 0.9 - 7.0 % [facility] Erythrocyte distribution width (RBC) [Ratio] 12.9 % 11.0 - 15.0 % [facility] Hematocrit (Bld) [Volume fraction] 44.7 % 36.0 - 48.0 % [facility] Hemoglobin (Bld) [Mass/Vol] 15.2 g/dL 12.0 - 16.0 g/dL [facility] IMMATURE GRANULOCYTES ABS AUTO 0.02 [facility] Immature granulocytes/100 WBC (Bld) 0.2 % 0.0 - 0.5 % [facility] LYMPHOCYTES ABSOLUTE AUTO 2.2 [facility] Lymphocytes/100 WBC (Bld) 27.3 % 20.5 - 60.0 % [facility] MCH (RBC) [Entitic mass] 29.1 pg 26.7 - 34.0 pg [facility] MCHC (RBC) [Mass/Vol] 34 g/dL 29.9 - 35.2 g/dL [facility] MCV (RBC) [Entitic vol] 85.5 fL 81.0 - 99.0 fL [facility] MONOCYTES ABSOLUTE AUTO 0.5 [facility] Monocytes/100 WBC (Bld) 6.6 % 1.7 - 12.0 % [facility] NEUTROPHILS ABSOLUTE AUTO 5.2 [facility] Neutrophils/100 WBC (Bld) 63.7 % 43.0 - 75.0 % [facility] Platelet mean volume (Bld) [Entitic vol] 9.9 fL 9.5 - 13.5 fL [facility] EO # 0.1 [facility] PLT 229 [facility] RBC 5.23 [facility] WBC 8.2 [facility] Grupo 10-03-2024 L ------- Specimen: [id number] Received: 10/06/24 Status: EDGARDO Weber Num: [id number] Spec Type: Surgical Subm Dr: Cheikh Dorsey Tissues: A Ovary W/ or W/O Fallopian Tube, Non-Neoplastic (BILATERAL FAL TUBES AND OVAR Procedures: , Gross/Micro L4 Age/ Patient Sex Location Account Attending Physician Patricia Connors 39/F LABELL [id number] Cheikh Dorsey SPEC NUM: [id number] RECD: 10/06/24 STATUS: EDGARDO WEBER NUM: [id number] JERMAINE: 10/03/[address]: Cheikh Dorsey ENTERED: 10/06/[address]: Ligia,Lab SPEC TYPE: Surgical DEPT: [facility] C[facility] ENTERED BY: [id number] RECV BY: [id number] ORDERED: HE/, Gross/Micro L4 ORDERED: , Gross/Micro L4 Pathological Diagnosis Bilateral fallopian tube and ovaries, bilateral salpingo-oophorectomy: - Bilateral fallopian tubes with paratubal cysts. - Bilateral ovaries with hemorrhagic functional cysts. - No evidence of malignancy identified. Clinical Information BRCA gene positive Gross Description Received in formalin labeled with the patients name, date of , and bilateral ovaries and tubes are bilateral, unoriented adnexal complexes. The first adnexal complex is 17.2 grams and displays a collapsed, cystic ovary, 2.9 x 2.5 x 3.1 cm. The capsular surface is paredes-pink to henry-purple, ranging from smooth and glistening to bosselated. Serial sections reveal peripheral smooth lined cysts, 2.5 cm in greatest dimension, filled with a henry-pink, watery material. The remaining ovarian parenchyma is paredes-pink to yellow with focal simple cysts. The overlying fallopian tube with fimbriated distal and is 7 cm in length by up to 0.9 cm in diameter. The serosa is henry-purple, smooth and glistening. Serial sections reveal a pinpoint lumen. The second adnexal complex is 16.7 grams and displays a cystic, intact ovary, 3.2 x 2.9 x 2.7 cm. The capsular surface is paredes-pink to henry-purple, ranging from smooth and glistening to bosselated. Serial sections reveal peripheral, smooth lined cysts, 2.5 cm in greatest Specimen: [id number] Received: 10/06/24 Status: EDGARDO Weber Num: [id number] Spec Type: Surgical Subm Dr: Cheikh Dorsey Tissues: A Ovary W/ or W/O Fallopian Tube, Non-Neoplastic (BILATERAL FAL TUBES AND OVAR Procedures: , Gross/Micro L4 Patient: Patricia Connors [id number] (Continued) Specimen: [id number] Received: 10/06/24 (Continued) Gross Description (Continued) Signed (signature on file) Librado Sheehan MD 10/07/24 1425 Specimen: [id number] Received: 10/06/24 Status: EDGARDO Weber Num: [id number] Spec Type: Surgical Subm Dr: Cheikh Dorsey Tissues: A Ovary W/ or W/O Fallopian Tube, Non-Neoplastic (BILATERAL FAL TUBES AND OVAR Procedures: , Gross/Micro L4 Patient: Patricia Connors [id number] (Continued) Specimen: [id number] Received: 10/06/24 (Continued) Gross Description (Continued) dimension that are filled with a henry-pink, watery material. The remaining ovarian parenchyma is paredes-pink to yellow with focal simple cysts. No papillations or excrescences are identified. The overlying fallopian tube with fimbriated distal end is 6.5 cm in length by up to 1.5 cm in diameter. The serosa is henry-purple, smooth and glistening with a 1.6 cm in greatest dimension paratubal cyst. Serial sections reveal a pinpoint lumen. The specimen is entirely submitted as follows:. Cassettes: A1?A8 Entirety of first, cystic and collapsed ovary A9?A12 Entirety of first fallopian tube, progressing from proximal to distal (SEE-FIM protocol) A13?A20 Entirety of second, cystic and intact ovary A21?A25 Entirety of second fallopian tube, progressing from proximal to distal (to include paratubal cyst, SEE-FIM protocol) (25, ns, [id number] A)J Microscopic Description Microscopic examination is performed. CPT Codes 77536 (more content not included)... Normal [facility] ALL BASIC METABOLIC PANELon 09-23-2024 Anion gap [Moles/Vol] 16.7 mmol/L [facility] Calcium [Mass/Vol] 9.5 mg/dL 8.5 - 10. 1 mg/dL [facility] Chloride [Moles/Vol] 102 mmol/L 98 - 107 mmol/L [facility] CO2 [Moles/Vol] 25.1 mmol/L 21.0 - 32.0 mmol/L [facility] Creatinine [Mass/Vol] 0.73 mg/dL 0.55 - 1.02 mg/dL [facility] GFR/1.73 sq M.predicted CKD-EPI (S/P/Bld) [Vol rate/Area] >60 >=60 mL/min/1.73m 2 [facility] Glucose [Mass/Vol] 91 mg/dL 74 - 106 mg/dL [facility] Potassium [Moles/Vol] 3.8 mmol/L 3.5 - 5.1 mmol/L [facility] Sodium [Moles/Vol] 140 mmol/L 136 - 145 mmol/L [facility]H EGFR-NON AF ENGLISH >60 >=60 mL/min/1.73m 2 [facility] Urea nitrogen [Mass/Vol] 11 mg/dL 7.0 - 18.0 mg/dL [facility] Urea nitrogen/Creatinin e [Mass ratio] 15.1 mg/mg [facility] ALL CEAon 08-08-2024 CEA <0.6 0.0 - 4.7 ng/mL [facility] Comment on above: Nonsmokers <3.9 Smokers <5.6 [employer] Electrochemiluminescence Immunoassay (ECLIA) Values obtained with different assay methods or kits cannot be used interchangeably. Results cannot be interpreted as absolute evidence of the presence or absence of malignant disease. Performed at: [address] [id number] [employer] Console Operator Track: Gustavo Dawson PhD, Phone: [phone] [facility] AFP TUMOR MARKERon 07-29 AFP, SERUM, TUMOR MARKER 12.4 ng/mL Abnormal 0.0 - 6.4 ng/mL [facility] Comment on above: [employer] ectrochemiluminescence Immunoassay (ECLIA) Values obtained with different assay methods or kits cannot be used interchangeably. Results cannot be interpreted as absolute evidence of the presence or absence of malignant disease. This test is not interpretable in females. Interpretation and review of laboratory results Abnormal [facility] No Panel Informationon 08-08 [facility] HCG,BETA-QUANT,TUMOR BHAVESH Dustin 08-08-2024 HCG TUMOR MARKER <1 . mIU/mL [facility] Comment on above: Female (Non- ) 0 [...] developed and its performance characteristics determined by [employer]. It has not been cleared or approved by the Food and Drug Administration for use as a tumor marker. This test is not interpretable as a tumor marker in females. Performed at: [address] [id number] [employer] Console Operator Track: Gustavo Dawson PhD, Phone: [phone] HCG ( test) Ql (U)o n 07-29-2024 Interpretation and review of laboratory results Normal [facility] Preg Test, Ur Negative [facility] 07-29-2024 L Specimen: [id number] Received: 07/30/24 Status: EDGARDO Weber Num: [id number] Spec Type: Surgical Subm Dr: Cheikh Dorsey Tissues: A Endometrium - Biopsy (EMBX) Procedures: HE/2, Gross/Micro L4 Age/ Patient Sex Location Account Attending Physician Patricia Connors 39/F LABE[facility] [id number] Cheikh Dorsey SPEC NUM: [id number] RECD: 07/30/24 STATUS: EDGARDO WEBER NUM: [id number] JERMAINE: 07/29/24 DR: Cheikh Dorsey ENTERED: 07/30/24 [facility] DR: Ligia,Lab SPEC TYPE: Surgical DEPT: [facility] ENTERED BY: [id number] RECV BY: [id number] ORDERED: HE/2, Gross/Micro L4 ORDERED: HE/2, Gross/Micro [...] Description Microscopic examination is performed CPT Codes 70981 Specimen: [id number] Received: 07/30/24 Status: EDGARDO Weber Num: [id number] Spec Type: Surgical Subm Dr: Cheikh Dorsey Tissues: A Endometrium - Biopsy (EMBX) Procedures: HE/2, Gross/Micro L4 Patient: Patricia Connors [id number] (Continued) Signed (signature on file) Librado Sheehan MD 07/31/24 1118 Normal [facility] ALL LDHon 07-19-2024 LDH [Catalytic activity/Vol] 177 U/L 81 - 234 U/L [facility] IGP,APTIMA HPV,AGE GDLNon AGE GDLN ACOG TESTING Note . [facility] Comment on above: TESTS RESULT FLAG UN ITS REF RANGE LAB Clinician Provided Cytology Information Source.............Cervix;Endocervix No. of containers..01 ThinPrep Vial Age Algo ACOG Tiffanie... 29 FLAG LEGEND: L-Low Normal,H-High Normal,LL-Alert Low,HH-Alert High <-Panic Low,>-Panic High,A-Abnormal,AA-Critical Abnormal Performed at: 01 = [facility] [id number] Carole Arnold MD, HPV APTIMA Negative Negative [facility] Comment on above: This nucleic acid am plification test detects fourteen high- risk HPV types (16,18,31,33,35,39,45,51,52,56,58,59,66,68) without differentiation. Performed at: =[facility] [id number] [employer] Console Operator Track: Carole Arnold MD, Phone: [phone] Performed at: [facility] [id number] [place] [id number] [employer] Console Operator Track: Sammy Murrieta MD, Phone: [phone] IGP, APTIMA HPV, RFX 16/18,45 Note . [facility] Comment on above: TESTS RESULT FLAG UN ITS REF RANGE LAB DIAGNOSIS: 02 NEGATIVE FOR INTRAEPITHELIAL LESION OR MALIGNANCY. Specimen adequacy: 02 Satisfactory for evaluation. Endocervical and/or squamous metaplastic cells (endocervical component) are present. Performed by: 02 Сергей Connors Community Relations Representative (ASCP) . 02 Note: Note 03 The Pap smear is a screening test designed to aid in the detection of premalignant and malignant conditions of the uterine cervix. It is not a diagnostic procedure and should not be used as the sole means of detecting cervical cancer. Both false-positive and false-negative reports do occur. Test Methodology: Note 03 This liquid based ThinPrep(R) pap test was screened with the use of an image guided system. HPV Genotype Reflex Note 02 Criteria not met, HPV Genotype not performed. FLAG LEGEND: L-Low Normal,H-High Normal,LL-Alert Low,HH-Alert High <-Panic Low,>-Panic High,A-Abnormal,AA-Critical Abnormal Performed at: 02 [facility] [address] [place] [address] Sammy Murrieta MD, 03 WB [facility] [address] [address] Carole Arnold MD, BRUSH-SPATULA ENDOCERVIX CERVIX [facility] ALL CBC WITH AUTO DIFFon BASOPHILS ABSOLUTE AUTO 0.1 [facility] Basophils/100 WBC (Bld) 0.8 % 0.2 - 2.0 % [facility] Eosinophils/100 WBC (Bld) 1.4 % 0.9 - 7.0 % [facility] Erythrocyte distribution width (RBC) [Ratio] 12.8 % 11.0 - 15.0 % [facility] Hematocrit (Bld) [Volume fraction] 40.6 % 36.0 - 48.0 % [facility] Hemoglobin (Bld) [Mass/Vol] 14.8 g/dL 12.0 - 16.0 g/dL [facility] IMMATURE GRANULOCYTES ABS AUTO 0.02 [facility] Immature granulocytes/100 WBC (Bld) 0.3 % 0.0 - 0.5 % [facility] Interpretation and review of laboratory results Abnormal [facility] LYMPHOCYTES ABSOLUTE AUTO 1.6 [facility] Lymphocytes/100 WBC (Bld) 21.0 % 20.5 - 60.0 % [facility] MCH (RBC) [Entitic mass] 29.9 pg 26.7 - 34.0 pg [facility] MCHC (RBC) [Mass/Vol] 36.5 g/dL High 29.9 - 35.2 g/dL [facility] MCV (RBC) [Entitic vol] 82.0 fL 81.0 - 99.0 fL [facility] MONOCYTES ABSOLUTE AUTO 0.5 [facility] Monocytes/100 WBC (Bld) 6.9 % 1.7 - 12.0 % [facility] NEUTROPHILS ABSOLUTE AUTO 5.1 [facility] Neutrophils/100 WBC (Bld) 69.6 % 43.0 - 75.0 % [facility] [facility] Platelet mean volume (Bld) [Entitic vol] 10.5 fL 9.5 - 13.5 fL [facility] EO # 0.1 [facility] PLT 214 [facility] RBC 4.95 [facility] WBC 7.4 [facility] CLINISYNC [facility] MAMM BX BREAST STEREO GUID I NITIAL [...] MD on 06/10/2024 8:35 AM 1999 Normal [facility] MAMM POST BX DIAG UNI LTon 0 [...] MD on 06/10/2024 8:35 AM 1999 Normal [facility] Surgical Pathologyon 024 Surgical Pathology Normal [facility] Comment on above: Result Comment: [facility] [address] [place] [address] Surgical Pathology Consultation Patient Name:PATRICIA CONNORS:1985 (Age: 39)Gender:FTaken:4Reported:06/09/2024hysician(s):Philly Rasheed NP ([phone])Copy To:Katelyn Alee ZamoraAccession #:[id number]. Rec. #:[id number]: #[id number] Final Pathologic Diagnosis Left breast, needle biopsy @3-4:00, 5 cm fn: Benign breast tissue with focal, mild cystic change and fibrosis. Report Electronically Signed Out gr/06/09/2024Robin Villanueva MD Interpretation [place] [address], License number: [id number]. Clinical History Biopsy procedure: Stereotactic; Target: Mass; Laterality: Left breast; Location: 3-4:00, 5cm from nipple; BI-RAD: 4a; Suspect: Fibroadenoma vs. cyst vs. R/O malignancy. 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 Stable cardiomediastinal silhouette. No focal opacity, effusion or pneumothorax. Impression: No evident acute cardiopulmonary process. Finalized by Jack Do MD on 03/18/2024 6:47 PM Normal [facility] Laboratory - Chemistry and C hemistry - challengeon 02-18-2024 Albumin [Mass/Vol] 4.8 g/dL [facility] ALP [Catalytic activity/Vol] 111 U/L [facility] ALT [Catalytic activity/Vol] 22 U/L [facility] AST [Catalytic activity/Vol] 16 U/L [facility] Bilirubin [Mass/Vol] 0.4 mg/dL [facility] Calcium [Mass/Vol] 9.5 mg/dL [facility] Chloride [Moles/Vol] 102 mmol/L [facility] Cholesterol [Mass/Vol] 204 mg/dL [facility] Cholesterol in HDL [Mass/Vol] 54 mg/dL [facility] Cholesterol in LDL [Mass/Vol] 122 mg/dL [facility] Cholesterol.total/ Cholesterol in HDL [Mass ratio] 3.8 {ratio} [facility] CO2 [Moles/Vol] 27 mmol/L [facility] Creatinine [Mass/Vol] 0.74 mg/dL [facility] GFR/1.73 sq M.predicted MDRD (S/P/Bld) [Vol rate/Area] 105 mL/min/{1.73_m2} [facility] Glucose [Mass/Vol] 98 mg/dL [facility] Potassium [Moles/Vol] 4.0 mmol/L [facility] Protein [Mass/Vol] 6.3 g/dL [facility] Sodium [Moles/Vol] 140 mmol/L [facility] Triglyceride [Mass/Vol] 142 mg/dL [facility] Urea nitrogen [Mass/Vol] 12 mg/dL [facility] Laboratory - Hematology and Cell countson 02-18-2024 HbA1c (Bld) [Mass fraction] 5.2 % [facility] No Panel Informationon 02-17 Estimated GFR (Non- 105 mL/min [facility] Thyroid Stimulating Hormone 3rd Gen 2.34 [facility] VLDL Cholesterol 28 mg/dL [facility] Vital Signs Date Time Vital Sign Value Performing Clinician Facility 10-13-2024 09:00-0500 Body mass index (BMI) [Ratio] 43.93 kg/m2 Suellen CONNOR Work Phone: [facility] 10-13-2024 09:00-0500 Body weight 119.75 kg Suellen Neeraj CONNOR Work Phone: [facility] 10-13-2024 09:00-0500 Diastolic blood pressure 84 mm[Hg] Suellen CONNOR Work Phone: [facility] 10-13-2024 09:00-0500 Systolic blood pressure 120 mm[Hg] Suellen Neeraj CONNOR Work Phone: [facility] 09-04-2024 09:54-0500 Body mass index (BMI) [Ratio] 44.93 kg/m2 Cheikh Sunita DO Work Phone: [facility] 09-04-2024 09:54-0500 Body weight 122.47 kg Cheikh Sunita DO Work Phone: [facility] 09-04-2024 09:54-0500 Diastolic blood pressure 80 mm[Hg] Cheikh Sunita DO Work Phone: [facility] 09-04-2024 09:54-0500 Systolic blood pressure 124 mm[Hg] Cheikh Sunita DO Work Phone: [facility] 07-29-2024 09:45-0400 Body mass index (BMI) [Ratio] 44.9 kg/m2 Cheikh Sunita DO Work Phone: [facility] 07-29-2024 09:45-0400 Body weight 122.38 kg Cheikh Sunita DO Work Phone: [facility] 07-29-2024 09:45-0400 Diastolic blood pressure 80 mm[Hg] Cheikh Sunita DO Work Phone: [facility] 07-29-2024 09:45-0400 Systolic blood pressure 124 mm[Hg] Cheikh Sunita DO Work Phone: [facility] 06-24-2024 09:13-0400 Body height 165.1 cm Cheikh Sunita DO Work Phone: [facility] 06-24-2024 09:13-0400 Body mass index (BMI) [Ratio] 46.06 kg/m2 Cheikh Sunita DO Work Phone: [facility] 06-24-2024 09:13-0400 Body weight 125.56 kg Cheikh Sunita DO Work Phone: [facility] 06-24-2024 09:13-0400 Diastolic blood pressure 82 mm[Hg] Cheikh Sunita DO Work Phone: [facility] 06-24-2024 09:13-0400 Systolic blood pressure 120 mm[Hg] Cheikh Sunita DO Work Phone: [facility] 05-12-2024 12:54-0400 Body height 167.6 cm Josh Fenton MD Work Phone: [facility] 05-12-2024 12:54-0400 Body mass index (BMI) [Ratio] 45.68 kg/m2 Josh Fenton MD Work Phone: [facility] 05-12-2024 12:54-0400 Body weight 128.37 kg Josh Fenton MD Work Phone: [facility] 05-12-2024 12:54-0400 Diastolic blood pressure 96 mm[Hg] Josh Fenton MD Work Phone: [facility] 05-12-2024 12:54-0400 Heart rate 105 /min Josh Fenton MD Work Phone: [facility] 05-12-2024 12:54-0400 SaO2% (BldA) [Mass fraction] 97 % Josh Fenton MD Work Phone: [facility] 05-12-2024 12:54-0400 Systolic blood pressure 139 mm[Hg] Josh Fenton MD Work Phone: [facility] 03-27-2024 08:05-0400 Body height 170.18 cm [facility] 03-27-2024 08:05-0400 Body mass index (BMI) [Ratio] 45.6 kg/m2 [facility] 03-27-2024 08:05-0400 Body weight 132.13 kg [facility] 03-05-2024 07:12-0400 Body height 170.18 cm [facility] 03-05-2024 07:12-0400 Body mass index (BMI) [Ratio] 45.7 kg/m2 [facility] 03-05-2024 07:12-0400 Body weight 132.5 kg [facility] 03-05-2024 07:12-0400 Diastolic blood pressure 18 mm[Hg] [facility] 03-05-2024 07:12-0400 Heart rate 95 /min [facility] 03-05-2024 07:12-0400 Respiratory rate 18 /min [facility] 03-05-2024 07:12-0400 SaO2% (BldA) [Mass fraction] 99 % [facility] 03-05-2024 07:12-0400 Systolic blood pressure 100 mm[Hg] [facility] 01-24-2024 15:39-0400 Body height 170.18 cm [facility] 01-24-2024 15:39-0400 Body mass index (BMI) [Ratio] 43.8 kg/m2 [facility] 01-24-2024 15:39-0400 Body weight 127 kg [facility] 01-21-2024 07:13-0400 Body height 170.18 cm [facility] 01-21-2024 07:13-0400 Body mass index (BMI) [Ratio] 44 kg/m2 [facility] 01-21-2024 07:13-0400 Body weight 127.62 kg [facility] 01-21-2024 07:13-0400 Diastolic blood pressure 84 mm[Hg] [facility] 01-21-2024 07:13-0400 Heart rate 95 /min [facility] 01-21-2024 07:13-0400 Respiratory rate 18 /min [facility] 01-21-2024 07:13-0400 SaO2% (BldA) [Mass fraction] 98 % [facility] 01-21-2024 07:13-0400 Systolic blood pressure 121 mm[Hg] [facility] 10-19-2023 07:30-0500 Body height 170.18 cm Jarred Bushdiff Other [employer] Other 10-19-2023 07:30-0500 Body mass index (BMI) [Ratio] 45.13 kg/m2 Jarred Bushdiff Other [employer] Other 10-19-2023 07:30-0500 Body weight 130.73 kg Jarred Bushdiff Other [employer] Other 10-19-2023 07:30-0500 Diastolic blood pressure 89 mm[Hg] Jarred Christal Other [employer] Other 10-19-2023 07:30-0500 Respiratory rate 18 /min Jarred Bushdiff Other [employer] Other 10-19-2023 07:30-0500 SaO2% (BldA) [Mass fraction] 100 % Jarred Bushdiff Other [employer] Other 10-19-2023 07:30-0500 Systolic blood pressure 128 mm[Hg] Jarred Siegel Other [employer] Other 10-04-2023 07:15-0500 Body height 170.18 cm Sameerafelicia Howard Other [employer] Other 10-04-2023 07:15-0500 Body mass index (BMI) [Ratio] 45.68 kg/m2 Sameera Fitt Other [employer] Other 10-04-2023 07:15-0500 Body weight 132.32 kg Sameera Fitt Other [employer] Other 09-03-2023 07:15-0500 Body height 170.18 cm Jarredpearl Bushdiff Other [employer] Other 09-03-2023 07:15-0500 Body mass index (BMI) [Ratio] 46.67 kg/m2 Jarred Siegel Other [employer] Other 09-03-2023 07:15-0500 Body weight 135.17 kg Jarred Christal Other [employer] Other 09-03-2023 07:15-0500 Diastolic blood pressure 85 mm[Hg] Jarred Siegel Other [employer] Other 09-03-2023 07:15-0500 Respiratory rate 18 /min Jarred Bushdiff Other [employer] Other 09-03-2023 07:15-0500 SaO2% (BldA) [Mass fraction] 98 % Jarred Siegel Other [employer] Other 09-03-2023 07:15-0500 Systolic blood pressure 121 mm[Hg] Jarred Siegel Other [employer] Other 08-09-2023 07:15-0400 Body height 170.18 cm Sameera Fitt Other [employer] Other 08-09-2023 07:15-0400 Body mass index (BMI) [Ratio] 46.26 kg/m2 Sameera Fitt Other [employer] Other 08-09-2023 07:15-0400 Body weight 133.99 kg Sameera Fitt Other [employer] Other 06-14-2023 08:00-0400 Body height 170.18 cm Sameera Fitt Other [employer] Other 06-14-2023 08:00-0400 Body mass index (BMI) [Ratio] 46.56 kg/m2 Sameera Fitt Other [employer] Other 06-14-2023 08:00-0400 Body weight 134.86 kg Sameera Fitt Other [employer] Other 03-27-2023 07:15-0400 Body height 170.18 cm Jarred Siegel Other [employer] Other 03-27-2023 07:15-0400 Body mass index (BMI) [Ratio] 47.44 kg/m2 Jarred Siegel Other [employer] Other 03-27-2023 07:15-0400 Body weight 137.4 kg Jarred Siegel Other [employer] Other 03-27-2023 07:15-0400 Diastolic blood pressure 88 mm[Hg] Jarred Siegel Other [employer] Other 03-27-2023 07:15-0400 Respiratory rate 18 /min Jarred Siegel Other [employer] Other 03-27-2023 07:15-0400 SaO2% (BldA) [Mass fraction] 99 % Jarred Siegel Other [employer] Other 03-27-2023 07:15-0400 Systolic blood pressure 138 mm[Hg] Jarred Siegel Other [employer] Other 02-06-2023 09:15-0400 Body height 170.18 cm Sameera Howard Other [employer] Other 02-05-2023 08:15-0400 Body height 170.18 cm Jarred Siegel Other [employer] Other 02-05-2023 08:15-0400 Body mass index (BMI) [Ratio] 45.67 kg/m2 Jarredpearl Bushdiff Other [employer] Other 02-05-2023 08:15-0400 Body weight 132.27 kg Jarredpearl Bushdiff Other [employer] Other 02-05-2023 08:15-0400 Diastolic blood pressure 93 mm[Hg] Jarred Siegel Other [employer] Other 02-05-2023 08:15-0400 Respiratory rate 18 /min Jarred Siegel Other [employer] Other 02-05-2023 08:15-0400 SaO2% (BldA) [Mass fraction] 99 % Jarred Siegel Other [employer] Other 02-05-2023 08:15-0400 Systolic blood pressure 123 mm[Hg] Jarred Siegel Other [employer] [facility] Other 12-26-2022 08:00-0500 Body height 170.18 cm Jarred Bushdiff Other [employer] Other 12-26-2022 08:00-0500 Body mass index (BMI) [Ratio] 45.34 kg/m2 Jarred Siegel Other [employer] Other 12-26-2022 08:00-0500 Body weight 131.32 kg Jarred Bushdiff Other [employer] Other 12-26-2022 08:00-0500 Diastolic blood pressure 92 mm[Hg] Jarred Bushdiff Other [employer] Other 12-26-2022 08:00-0500 Respiratory rate 18 /min Jarred Bushdiff Other [employer] Other 12-26-2022 08:00-0500 SaO2% (BldA) [Mass fraction] 98 % Jarred Bushdiff Other [employer] Other 12-26-2022 08:00-0500 Systolic blood pressure 122 mm[Hg] Jarred Bushdiff Other [employer] Other 12-04-2022 09:15-0500 Body height 170.18 cm Jarred Bushdiff Other [employer] Other 12-04-2022 09:15-0500 Body mass index (BMI) [Ratio] 44.41 kg/m2 Jarred Bushdiff Other [employer] Other 12-04-2022 09:15-0500 Body weight 128.64 kg Jarredpearl Bushdiff Other [employer] Other 02-06-2023 09:15-0500 Diastolic blood pressure 93 mm[Hg] Jarred Bushdiff Other [employer] Other 12-04-2022 09:15-0500 Respiratory rate 18 /min Jarred Bushdiff Other [employer] Other 12-04-2022 09:15-0500 SaO2% (BldA) [Mass fraction] 99 % Jarred Bushdiff Other [employer] Other 12-04-2022 09:15-0500 Systolic blood pressure 122 mm[Hg] Jarred Bushdiff Other [employer] Other Encounters Encounter Date Encounter Type Care Provider Facility Start: 10-13-2024 End: 10-13-2024 Bamboo flowsheet Suellen CONNOR Work Phone: [facility] Start: 10-13-2024 End: 10-13-2024 Bamboo flowsheet Suellen CONNOR Work Phone: [facility] Start: 10-13-2024 End: 10-13-2024 Postop follow up visit related to original px Suellen CONNOR Work Phone: [facility] Comment on above: Postoperative examin ation Start: 10-13-2024 End: 10-13-2024 ambulatory SUELLEN JUAREZ Not Available Start: 10-03-2024 End: 10-03-2024 Clinisync Result Encounter Cheikh Sunita DO Work Phone: [facility] Unsolicited Start: 10-03-2024 End: 10-03-2024 Clinisync Result Encounter Cheikh Sunita DO Work Phone: [facility] Unsolicited Start: 10-03-2024 End: 10-03-2024 ambulatory Cheikh Sunita Facility:[facility] Start: 09-23-2024 End: 09-23-2024 Clinisync Result Encounter Cheikh Sunita DO Work Phone: [facility] Unsolicited Start: 09-23-2024 End: 09-23-2024 Clinisync Result Encounter Cheikh Sunita DO Work Phone: [facility] Unsolicited Start: 09-04-2024 End: 09-04-2024 Bamboo flowsheet Cheikh Sunita DO Work Phone: [facility] Start: 09-04-2024 End: 09-04-2024 Bamboo flowsheet Cheikh Sunita DO Work Phone: [facility] Start: 09-04-2024 End: 09-04-2024 Office outpatient visit 15 minutes Cheikh Sunita DO Work Phone: [facility] Comment on above: Pre-op examination; BRCA gene mutation positive Start: 09-04-2024 End: 09-04-2024 Preprocedural examination done Cheikh Sunita DO Work Phone: [facility] Start: 09-04-2024 End: 09-04-2024 ambulatory CHEIKH SUNITA Not Available Start: 08-07-2024 End: 08-08-2024 Clinisync Result Encounter Cheikh Sunita DO Work Phone: [facility] Unsolicited Start: 08-07-2024 End: 08-08-2024 Clinisync Result Encounter Cheikh Sunita DO Work Phone: [facility] Unsolicited Start: 07-30-2024 End: 07-30-2024 ambulatory CAREER DEVELOPMENT COORDINATOR/TEACHER Gordon Velazco Work Phone: [facility] Work Phone: Start: 07-30-2024 End: 07-30-2024 Departed Referred CAREER DEVELOPMENT COORDINATOR/TEACHER Gordon Velazco Work Phone: [facility] Start: 07-29-2024 End: 07-29-2024 Patient encounter procedure Cheikh Sunita DO Work Phone: [facility] Comment on above: Menorrhagia with reg ular cycle; BRCA2 gene mutation positive; Complex ovarian cyst; Pelvic pain in female Start: 07-29-2024 End: 07-29-2024 ambulatory CHEIKH SUNITA Not Available Start: 07-19-2024 End: 07-19-2024 Clinisync Result Encounter Cheikh Sunita DO Work Phone: [facility] Unsolicited Start: 07-19-2024 End: 07-19-2024 Clinisync Result Encounter Cheikh Sunita DO Work Phone: [facility] Unsolicited Start: 06-28-2024 End: 06-28-2024 Clinisync Result Encounter Cheikh Sunita DO Work Phone: [facility] Unsolicited Start: 06-28-2024 End: 06-28-2024 Clinisync Result Encounter Cheikh Sunita DO Work Phone: [facility] Unsolicited Start: 06-24-2024 End: 06-24-2024 Bamboo flowsheet Cheikh Sunita DO Work Phone: [facility] Start: 06-24-2024 End: 06-30-2024 Bamboo flowsheet Cheikh Sunita DO Work Phone: [facility] Start: 06-24-2024 End: 06-30-2024 Clinisync Result Encounter Cheikh Sunita DO Work Phone: [facility] Unsolicited Start: 06-24-2024 End: 06-24-2024 Patient encounter procedure Cheikh Sunita DO Work Phone: [facility] Work Phone: Start: 06-24-2024 End: 06-24-2024 Periodic preventive med est patient 40-64yrs Cheikh Sunita DO Work Phone: [facility] Comment on above: Well woman exam with routine gynecological exam; Menorrhagia with regular cycle; Pelvic pain in female; BRCA2 gene mutation positive; PCOS (polycystic ovarian syndrome) Start: 06-24-2024 End: 06-24-2024 ambulatory CHEIKH DORSEY Not Available Start: 06-10-2024 End: 06-10-2024 Telephone encounter Kristy Foster [facility] Start: 06-06-2024 End: 06-06-2024 Documentation procedure Kristy Gardner [facility] Start: 06-06-2024 End: 06-06-2024 ambulatory KATELYN MASTER [facility] Start: 06-06-2024 End: 06-06-2024 ambulatory UNKNOWN PROVIDER [facility] Start: 05-29-2024 End: 05-29-2024 ambulatory PHILLY RASHEED [facility] Start: 05-17-2024 End: 05-17-2024 ambulatory GORDON Doron [facility] Start: 05-12-2024 End: 05-12-2024 Office outpatient new 45 minutes Josh Fenton MD Work Phone: [facility] Comment on above: Mild persistent asth ma without complication (Primary Dx); Morbid obesity (CMS-HCC) Start: 05-12-2024 End: 05-12-2024 ambulatory [facility] Start: 03-27-2024 End: 03-27-2024 Patient encounter [address] [facility] Work Phone: Start: 03-18-2024 End: 03-18-2024 ambulatory [facility] Comment on above: Asthma, unspecified asthma severity, unspecified whether complicated, unspecified whether persistent (Primary Dx) Start: 03-05-2024 End: 03-05-2024 Patient encounter procedure [facility] Physician [facility] Work Phone: Start: 02-18-2024 Non-patient / Non-visit [facility] Physician [facility] Work Phone: Start: 01-24-2024 End: 01-24-2024 Patient encounter procedure [facility] Work Phone: Start: 01-21-2024 End: 01-21-2024 Patient encounter procedure [facility] Work Phone: Start: 11-28-2023 End: 11-28-2023 ambulatory Jarred Siegel Facility:[facility] Start: 11-17-2023 End: 11-17-2023 ambulatory NINA NGUYEN [facility] Start: 11-12-2023 End: 11-12-2023 ambulatory GORDON Sal [facility] Start: 10-19-2023 End: 10-19-2023 ambulatory Jarred Siegel Other [employer] Other Start: 10-19-2023 Follow-up encounter Jarred [facility] Start: 10-04-2023 ([facility] RD FU) [facility] F/ U Registerd Antique Repairer Sameera Howard [facility] Start: 10-04-2023 End: 10-04-2023 ambulatory Sameera Howard Other [employer] Other Start: 09-03-2023 End: 09-03-2023 ambulatory Jarred Siegel Other [employer] Other Start: 09-03-2023 Follow-up encounter Jarred will[facility] Start: 08-09-2023 ([facility] RD FU) [facility] F/ U Registerd Antique Repairer Sameera Fitleatha [facility] Start: 08-09-2023 End: 08-09-2023 ambulatory Sameera Howard Other [employer] Other Start: 06-22-2023 End: 06-22-2023 ambulatory Jarred Siegel Other [employer] Other Start: 06-22-2023 Telephone encounter Jarred will[facility] Start: 06-14-2023 ([facility] RD FU) [facility] F/ U Registerd Antique Repairer Sameera Howard [facility] Start: 06-14-2023 End: 06-14-2023 ambulatory Sameera Howard Other [employer] Other Start: 03-27-2023 End: 03-27-2023 ambulatory Jarred Siegel Other [employer] Other Start: 03-27-2023 Follow-up encounter Jarred Nix sarasotakathie [facility] Start: 02-06-2023 ([facility] WMNI) [facility] Init ial Provider Sameera Howard [facility] Start: 02-06-2023 End: 02-06-2023 ambulatory Sameera Howard Other [employer] Other Start: 02-05-2023 End: 02-05-2023 ambulatory Jarred Siegel Other [employer] Other Start: 02-05-2023 Follow-up encounter Jarred will[facility] Start: 12-26-2022 End: 12-26-2022 ambulatory Jarred Siegel Other [employer] Other Start: 12-26-2022 Follow-up encounter Jarred willis [facility] Start: 12-04-2022 End: 12-04-2022 ambulatory Jarred Siegel Other [employer] Other Start: 12-04-2022 Nutrition therapy Jarred hughes [facility] Start: 10-31-2022 End: 10-31-2022 ambulatory Sameera Howard Other [employer] Other Start: 10-31-2022 Telephone encounter Sameera hughes [facility] Procedures Date Procedure Procedure Detail Performing Clinician Start: 10-03-2024 ALL CBC WITH AUTO DIFF Cheikh Sunita DO Work Phone: Start: 09-23-2024 ALL BASIC METABOLIC PANEL Cheikh Sunita DO Work Phone: Start: 08-07-2024 ALL CEA Cheikh Fazi o DO Work Phone: Start: 08-07-2024 ELCH AFP TUMOR MARKER C orey Sunita DO Work Phone: Start: 08-07-2024 [facility] HCG,BETA-QUANT,TU MOR MARKER Cheikh Sunita DO Work Phone: Start: 07-29-2024 Urine test visual color cmprsn meths Cheikh Sunita DO Work Phone: Start: 07-19-2024 ALL LDH Cheikh Fazi o DO Work Phone: Start: 06-28-2024 ALL CBC WITH AUTO DIFF Cheikh Sunita DO Work Phone: Start: 06-24-2024 IGP,APTIMA HPV,AGE GDLN Cheikh Sunita DO Work Phone: Start: 06-24-2024 Microscopic observat ion [Identifier] in Cervix by Cyto stain Cheikh Sunita DO Work Phone: Start: 06-06-2024 Mammography Cheikh Fazi o DO Work Phone: Plan of Treatment Date Care Activity Detail Author Start: 08-28-2033 DTaP,Tdap and Td Vaccines (2 - Td or Tdap) DTaP,Tdap and Td Vaccines (2 - Td or Tdap) [facility] Start: 06-24-2027 Screening for malign ant neoplasm of cervix [facility] Start: 06-06-2025 Adult BMI Screening Adult BMI Screen ing [facility] Start: 06-06-2025 Screening for malign ant neoplasm of breast Mammogram [facility] Start: 05-12-2025 Tobacco Screening Tobacco Screening [facility] Start: 11-12-2024 Adult BMI Screening Adult BMI Screen [facility] Start: 10-13-2024 End: 10-13-2024 Patient encounter procedure 10/13/2024 9:00 AM EST Office Visit [facility] [address] [place] [id number] Suellen Juarez PA [address] [place], [place] [id number] Arrived [facility] Comment on above: Arrived Start: 09-04-2024 End: 09-04-2024 Patient encounter procedure [facility] OB Comment on above: Arrived Start: 07-29-2024 End: 07-29-2024 Patient encounter procedure 07/29/2024 9:30 AM EDT Procedure Visit [facility] [address] [place] [phone] Cheikh Dorsey, [address], [place] [id number] [facility] Start: 06-29-2024 Influenza vaccination [facility] Start: 06-24-2024 End: 06-24-2025 DHEA DHEA Lab Routine PCOS (polycystic ovarian syndrome) Expected: 06/24/2024 (Approximate), Expires: 06/24/2025 [facility] Comment on above: Expected: 06/24/2024 (Approximate), Expires: 06/24/2025 Start: 06-24-2024 End: 06-24-2025 US for US PELVIS-TRANSVAG IF INDICATED Imaging Routine PCOS (polycystic ovarian syndrome) Expected: 06/24/2024 (Approximate), Expires: 06/24/2025 [facility] Comment on above: Expected: 06/24/2024 (Approximate), Expires: 06/24/2025 Start: 06-24-2024 End: 06-24-2024 Patient encounter procedure 06/24/2024 9:00 AM EDT Office Visit [facility] [address] [place] [phone] Cheikh Dorsey, DO [address] [place] [address] Arrived [facility] Comment on above: Arrived Start: 05-17-2024 End: 05-17-2024 Patient encounter procedure 05/17/2024 10:30 AM EDT Appointment [facility] - Mammogram DEXA [address] [place] [phone] [facility] - Mammogram DEXA Start: 05-12-2024 End: 05-12-2024 Patient encounter procedure 05/12/2024 1:00 PM EDT Office Visit [facility] [address] [phone] Josh Fenton MD [address] [facility] [place] [address] [facility] Start: 03-18-2024 End: 03-18-2025 XR Chest PA and Lateral [facility] Work Phone: Comment on above: Expected: 03/18/2024 , Expires: 03/18/2025 Start: 10-09-2023 Tobacco Screening Tobacco Screening [facility] Start: 06-29-2023 COVID-19 Vaccine ( season) COVID-19 Vaccine () [facility] Start: 06-29-2023 COVID-19 Vaccine ( season) COVID-19 Vaccine ( season) [facility] Start: 02-21-2014 Screening for malign ant neoplasm of cervix [facility] Start: 02-21-2005 Screening for malign ant neoplasm of cervix Pap Smear [facility] Start: 02-21-2002 Adult BMI Follow Up Plan Adult BMI Follow Up Plan [facility] Start: 1996 Depression Screening Depression Scre ening [facility] Biopsy endometrium Biopsy endome trium Procedures Routine Menorrhagia with regular cycle Ordered: 07/29/2024 [facility] Work Phone: Comment on above: Ordered: 07/29/2024 CBC W Auto Different ial panel - Blood CBC and differential Lab Routine PCOS (polycystic ovarian syndrome) Ordered: 06/24/2024 [facility] Comment on above: Ordered: 06/24/2024 DHEA-sulfate DHEA-sulfate Lab Routine PCOS (polycystic ovarian syndrome) Ordered: 06/24/2024 [facility] Comment on above: Ordered: 06/24/2024 Follicle stimulating hormone Follicle stimulating hormone Lab Routine PCOS (polycystic ovarian syndrome) Ordered: 06/24/2024 [facility] Comment on above: Ordered: 06/24/2024 hCG, quantitative, hCG, quantitative, Lab Routine PCOS (polycystic ovarian syndrome) Ordered: 06/24/2024 [facility] Comment on above: Ordered: 06/24/2024 Hemoglobin A1c/Hemoglobin.total in Blood Hemoglobin A1c Lab Routine Menorrhagia with regular cycle Ordered: 06/24/2024 [facility] Comment on above: Ordered: 06/24/2024 Luteinizing hormone Luteinizing hormone Lab Routine PCOS (polycystic ovarian syndrome) Ordered: 06/24/2024 [facility] Comment on above: Ordered: 06/24/2024 THIN PREP TIS PAP AN D HR HPV DNA THIN PREP TIS PAP AND HR HPV DNA Pathology and Cytology Routine Well woman exam with routine gynecological exam Ordered: 06/24/2024 [facility] Work Phone: Comment on above: Ordered: 06/24/2024 Thyrotropin [Units/volume] in Serum or Plasma TSH Lab Routine PCOS (polycystic ovarian syndrome) Ordered: 06/24/2024 [facility] Comment on above: Ordered: 06/24/2024 Thyroxine (T4) free [Mass/volume] in Serum or Plasma T4, free Lab Routine PCOS (polycystic ovarian syndrome) Ordered: 06/24/2024 [facility] Comment on above: Ordered: 06/24/2024 Immunizations Immunization Date Immunization Notes Care Provider Brenton montana 08-28-2023 influenza virus vacc ine, unspecified formulation Lissa Laird LPN [facility] Payers Date Payer Category Payer Private Health Insurance [id number] 2022 Self-pay 2022 Unknown [id number] 2022 Unknown [id number] 1984 Unknown [id number] 2.16.840.1.024942.3.579.2.1285 1984 Unknown [id number] 2.16.840.1.277051.3.579.2.1285 1984 Unknown [id number] 2.16.840.1.269735.3.579.2.1285 1984 Unknown [id number] 2.16.840.1.728276.3.579.2.1285 1984 Unknown [id number] 2.16.840.1.702612.3.579.2.1285 1984 Unknown [id number] [id number] 1984 Unknown [id number] 2.16.840.1.027462.3.579.2.1285 1984 Unknown [id number] 2.16.840.1.288209.3.579.2.1285 1984 Unknown [id number] 2.16.840.1.133590.3.579.2.1285 1984 Unknown [id number] 2.16.840.1.621596.3.579.2.1258 1984 Unknown [id number] 2.16.840.1.404426.3.579.2.1258 1984 Unknown [id number] 2.16.840.1.756231.3.579.2.9 1984 Unknown [id number] 2.16.840.1.621161.3.579.2.1259 Unknown [employer] [id number] Unknown [id number] 2.16.840.1.049384.3.579.2.531 Unknown [id number] 2.16.840.1.069927.3.579.2.531 Unknown [id number] 2.16.840.1.600199.3.579.2.531 Social History Date Type Detail Facility Unknown if ever smoked [facility] [employer] Other Start: 12-09-2020 End: 02-07-2023 Sex Assigned At [facility] [employer] Other Start: 1985 Sex Assigned At Female [facility] Start: 08-08-2021 Gender identity Identifies as female gender (finding) [facility] Start: 09-08-2022 Tobacco smoking status AZIS Never smoked tobacco [facility] Start: 09-08-2022 Tobacco use and exposure Smokeless tobacco non-user [facility] Start: 02-07-2023 End: 05-17-2024 Alcoholic beverage intake Current drinker of alcohol (finding) [facility] Start: 12-09-2020 End: 02-07-2023 History of Social function [facility] Childcare Unknown [facility] Start: 05-29-2019 Alcohol Comment 1/month [facility] Start: 08-08-2021 Sexual orientation Heterosexual (finding) [facility] Clinical Notes 12-04-2022 to 10-13-2024 NIKOLAS Luna - 10/13/2024 9:00 AM Juarez Walters - 09/04/2024 9:40 AM Darrell Lerma LPN - 07/29/2024 9:30 AM Raffi Lerma LPN - 06/24/2024 9:00 AM EDT Note Date & Type Note Facility 10-13-2024 History of Presen t illness Narrative Reason for Appointment: Patient ID: Patricia Connors is a 39 y.o. female who presents for Post-op Visit Patient presents today for 1 Week Post Op Follow Up appointment. MEDICATIONS Current Outpatient Medications Medication Instructions albuterol HFA 90 mcg/act inhaler 2 puffs, Every 6 hours PRN ARIPiprazole (ABILIFY) 5 mg, Nightly atomoxetine (STRATTERA) 40 mg, Daily beclomethasone HFA (Qvar) 40 MCG/ACT inhaler 2 puffs, 2 times daily busPIRone (BUSPAR) 10 mg, 2 times daily hydrOXYzine pamoate (VISTARIL) 50 mg, Once lamoTRIgine (LAMICTAL) 100 mg, Every other day lisinopril 30 MG tablet Every 24 hours lisinopril-hydroCHLOROthiazide 20-12.5 MG tablet 1 tablet, Daily RT magnesium oxide (MAG-OX) 400 mg, Nightly Magnesium 500 mg, Daily montelukast (SINGULAIR) 10 mg, Nightly Ozempic (1 MG/DOSE) 1 mg, Weekly Potassium 99 mg, Daily Vitamin D-Vitamin K (K2-D3 10,000) 34441-57 UNIT-MCG capsule 1 each, Daily ALLERGIES Allergies Allergen Reactions Fish-Derived Products Anaphylaxis, Hives and Itching Shellfish-Derived Products Anaphylaxis Shellfish Allergy PROBLEMS Active Ambulatory Problems Diagnosis Date Noted BRCA gene mutation positive 09/04/2024 Pre-op examination 09/04/2024 Resolved Ambulatory Problems Diagnosis Date Noted No Resolved Ambulatory Problems Past Medical History: Diagnosis Date ADHD (attention deficit hyperactivity disorder) (CMS/HCC) Anxiety and depression (CMS/HCC) Asthma (CMS/HCC) Bipolar 1 disorder (CMS/HCC) BRCA gene positive High blood pressure ([facility]) HISTORY PAST MEDICAL HISTORY SOCIAL HISTORY Past Medical History: Diagnosis Date ADHD (attention deficit hyperactivity disorder) (CMS/HCC) Anxiety and depression (CMS/HCC) Asthma (CMS/HCC) Bipolar 1 disorder (CMS/HCC) BRCA gene positive 2 High blood pressure ([facility]/H[facility]) Social History Tobacco Use Smoking status: Not [...] BIOPSY LEFT 06/06/2024 ERCP 09/13/2022 GALLBLADDER 09/27/2022 SALPINGECTOMY Bilateral 10/03/2024 Da Helga WISDOM TOOTH EXTRACTION REVIEW OF SYSTEMS Review of Systems: Review of Systems Constitutional: Negative. HENT: Negative. Eyes: Negative. Respiratory: Negative. Cardiovascular: Negative. Gastrointestinal: Negative. Genitourinary: Negative. Musculoskeletal: Negative. Skin: Negative. Neurological: Negative. All other systems reviewed and are negative. Hematological: Negative. Endocrine: Negative. Allergic/Immunologic: Negative. OBJECTIVE Objective: Physical Exam Constitutional: Appearance: Normal appearance. She is normal weight. HENT: Head: Normocephalic. Cardiovascular: Rate and Rhythm: Normal rate. Pulses: Normal pulses. Pulmonary: Effort: Pulmonary effort is normal. Breath sounds: Normal breath sounds. Abdominal: Palpations: Abdomen is soft. Comments: Incisions healing well Musculoskeletal: General: Normal range of motion. Neurological: General: No focal deficit present. Mental Status: She is alert and oriented to person, place, and time. Psychiatric: Mood and Affect: Mood normal. Behavior: Behavior normal. Thought Content: Thought content normal. Judgment: Judgment normal. Vitals and nursing note reviewed. Vitals: Estimated body mass index is 43.93 kg/m as calculated from the following: Height as of 06/24/24: 5' 5 . Weight as of this encounter: 264 lb. BP: 120/84 Patient's last menstrual period was 10/04/2024. ASSESSMENT & PLAN ICD-10-CM 1. Postoperative examination Z09 Post Op Follow Up: Patient presents today for a postop follow up after having a Bilateral Laparoscopic Salpingectomy performed at [facility] with Dr. Dorsey. Patient is healing well and shows no signs or symptoms of infection. Pathology results was reviewed with the patient in great detail and all restrictions have been lifted. Follow Up: Patient is to return to the office for annual exam unless needed otherwise. Documented by NIKOLAS Luna on behalf of: NIKOLAS Luna documented in this encounter [facility] 09-04-2024 History of Presen t illness Narrative Reason for Appointment: Patient ID: Patricia Connors is a 39 y.o. female who presents for Pre-op Visit Patient presents today for Pre Op appointment. Patient is scheduled to undergo Da Helga assisted Bilateral Laparoscopic Salpingo-Oophorectomy on 10/03/[address] Dorsey at [facility]. MEDICATIONS Current Outpatient Medications Medication Instructions [...] MG/DOSE, SC) Vitamin D-Vitamin K (K2-D3 10,000) 79581-55 UNIT-MCG capsule 1 each, Oral, Daily ALLERGIES [...] nursing note reviewed. Exam conducted with a solar designer/installer present. Vitals: Estimated body mass index is [...] reviewed, and patient is to proceed to [facility] OR. Patient aware that she will be off at least a week after procedure. Follow Up: Patient is to follow up between 1-2 weeks post op to assess proper healing and recovery from procedure. Documented by Sylvia Benz LPN on behalf of: Cheihk Dorsey DO documented in this encounter [facility] 07-29-2024 History of Presen t illness Narrative Reason for Appointment: Patient ID: Patricia Connors is a 39 y.o. female who [...] MG/DOSE, SC) Vitamin D-Vitamin K (K2-D3 10,000) 11764-06 UNIT-MCG capsule 1 each, Oral, Daily ALLERGIES [...] nursing note reviewed. Exam conducted with a solar designer/installer present. Vitals: Estimated body mass index is [...] by Iwona Lerma LPN on behalf of: Cheikh Dorsey DO documented in this encounter [facility] 06-24-2024 History of Presen t illness Narrative Reason for Appointment: Patient ID: Patricia Connors is a 39 y.o. female who presents for Well Women Visit Patient presents today for Annual Exam. MEDICATIONS Current Outpatient Medications Medication Instructions albuterol HFA 90 mcg/act inhaler 2 puffs, Inhalation, Every 6 hours PRN ARIPiprazole (ABILIFY) 2 mg, Oral, Daily RT atomoxetine (STRATTERA) 40 mg, Oral, Daily busPIRone (BUSPAR) 10 mg, Oral, 2 times daily hydrOXYzine pamoate (VISTARIL) 50 mg, Oral, Once lamoTRIgine (LAMICTAL) 100 mg, Oral, Every other day lisinopril-hydroCHLOROthiazide 20-12.5 MG tablet 1 tablet, Oral, Daily RT Magnesium 500 mg, Oral, Daily montelukast (SINGULAIR) 10 mg, Oral, Nightly Ozempic (1 MG/DOSE) 1 mg, Subcutaneous, Weekly Potassium 99 mg, Oral, Daily Vitamin D-Vitamin K (K2-D3 10,000) 88084-78 UNIT-MCG capsule 1 each, Oral, Daily ALLERGIES Allergies Allergen Reactions Shellfish Allergy PROBLEMS Active Ambulatory Problems Diagnosis [...] Respiratory: Negative. Cardiovascular: Negative. Gastrointestinal: Negative. Genitourinary: Positive for menstrual problem and pelvic pain. Musculoskeletal: Negative. Skin: Negative. Neurological: Negative. All other systems reviewed and are negative. Hematological: Negative. Endocrine: Negative. Allergic/Immunologic: Negative. OBJECTIVE Objective: Physical Exam Constitutional: Appearance: Normal appearance. She is well-developed. Genitourinary: Vulva normal. Breasts: Breasts are soft. Right: Normal. Left: Normal. Cardiovascular: Rate and Rhythm: Normal rate and [...] nursing note reviewed. Exam conducted with a solar designer/installer present. Vitals: Estimated body mass index is 46.06 kg/m as calculated from the following: Height as of this encounter: 5' 5 . Weight as of this encounter: 276 lb 12.8 oz. BP: 120/82 Patient's last menstrual period was 06/14/2024. ASSESSMENT & PLAN ICD-10-CM 1. Well woman exam with routine gynecological exam Z01.419 THIN PREP TIS PAP AND HR HPV DNA 2. Menorrhagia with regular cycle N92.0 3. Pelvic pain in female R10.2 4. BRCA2 gene mutation positive Z15.01 Z15.09 Annual Exam: Patient presents today for an annual exam. Patient states she is doing well and has complaints of menorrhagia, pain, pt is BRCA-2 positive. Pt to referred to Dr Vega. Pap was obtained without difficulty. Discussed endometrial ablation with pt in detail. Pt to return for embx. Pt given ultrasound and labs to have obtained. Discussed hysterectomy (total) and menopausal symptoms. Pt considering all options and also Mirena IUD. No orders of the defined types were placed in this encounter. Follow Up: Patient is to return in one year for annual unless needed otherwise. Documented by Iwona Lerma LPN on behalf of: Cheikh Dorsey DO documented in this encounter [facility] 06-10-2024 Miscellaneous Notes Summary: Post-biopsy assessment Call placed to patient to check status following recent breast biopsy. Patient reports no bruising or tenderness @ biopsy site. Clarified biopsy results with patient and follow-up imaging recommendations provided by radiologist. She was encouraged to contact the [facility] if she develops any new problems at biopsy site. Voices understanding. documented in this encounter [facility] 06-10-2024 Telephone encount er Note Summary: Post-biopsy assessment Call placed to patient to check status following recent breast biopsy. Patient reports no bruising or tenderness @ biopsy site. Clarified biopsy results with patient and follow-up imaging recommendations provided by radiologist. She was encouraged to contact the [facility] if she develops any new problems at biopsy site. Voices understanding. [facility] 06-06-2024 History of Presen t illness Narrative Summary: Post-biopsy Discharge Instructions 10:25 Met with patient following stereotactic breast biopsy to review post-biopsy care instructions. Reviewed written instructions and answered related questions. Encouraged to call if any concerns related to biopsy site/breast should occur. Provided contact numbers and office hours. Written copy of care instructions provided to patient. Voices understanding of all information reviewed. documented in this encounter [facility] 05-12-2024 History of Presen t illness Narrative Images from the original note were not included. [facility] [address] [place] [phone] Subjective: Chief Complaint Shortness a breath. Asthma HPI The patient is 39-year-old female with past medical history of asthma, hypertension, BMI of 45, BRCA positive who never smoked. Patient is here as a new patient. The patient stated that she gets short of breath episodically especially when it is humid outside or when she gets exposed to pollen. She noticed that she does have some allergy to pollen and cat in [place]. She gets runny nose sometimes but not now and not often. She denies itching. She takes Singulair for allergies The patient was started on albuterol, she stated it helped. She ran out of albuterol. Her symptoms get worse when it is humid outside and she starts wheezing. 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 The test that was done this year was not accurately done with a questionable results Spirometry in both did not show obstructive or restrictive disease however there was positive bronchodilators response. There was increase in total lung capacity and residual volume in the PFT of 2020 indicating gas trapping and hyperinflation. That was not seen on the PFT this year that has questionable results. Chest x-ray on 03/18/2024 is unremarkable. 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 She never smoked Review of Systems Allergies: Patient has no known allergies. Past Medical History: Diagnosis Date ADHD Anxiety Asthma Bipolar 1 disorder ([facility]) Borderline personality disorder ([facility]) BRCA2 positive 06/26/2019 Breast disorder left breast cyst Fractures clavical as child Hypertension Hypokalemia Visual impairment Past Surgical History: Procedure Laterality Date DAVINCI CHOLECYSTECTOMY N/A 09/27/2022 Performed by Flavia Evans MD at [facility] CHOLANGIO-PANCREATOGRAPHY N/A 09/13/2022 Performed by Ron Hansen MD at [facility] WISDOM TOOTH EXTRACTION ? Social History Tobacco Use Smoking Status Never Smokeless Tobacco Never Social History Substance and Sexual Activity Alcohol Use Yes Comment: 1/month Social History Substance and Sexual Activity Drug Use Never Social History Substance and Sexual Activity Sexual Activity Defer ? Family History Problem Relation Age of Onset Anesthesia problems Mother has woken up during surgery x4 Breast cancer Mother 63 BRCA 1/2 Mother BRCA2 positive No Known Problems Father No Known Problems Sister No Known Problems Sister No Known Problems Brother Breast cancer Maternal Aunt 54 BRCA 1/2 Maternal Aunt BRCA2 positive Heart disease Maternal Uncle Parkinsonism Maternal Uncle Parkinsonism Maternal Grandmother Skin cancer Maternal Grandmother Heart disease Maternal Grandmother Pancreatic cancer Maternal Grandfather 61 Heart disease Maternal Grandfather Skin cancer Paternal Grandmother Stroke Paternal Grandmother Heart disease Paternal Grandmother Leukemia Paternal Grandfather 84 Heart disease Paternal Grandfather Maverick Breast Cancer Neg Hx Social History Tobacco Use Smoking status: Never Smokeless tobacco: Never Substance Use Topics Alcohol use: Yes Comment: 1/month Objective: There were no vitals filed for this visit. Physical Exam Vitals and nursing note reviewed. Constitutional: General: She is not in acute distress. Appearance: Normal appearance. She is not ill-appearing or toxic-appearing. HENT: Head: Normocephalic and atraumatic. Nose: Nose normal. No rhinorrhea. Mouth/Throat: Mouth: Mucous membranes are moist. Eyes: Extraocular Movements: Extraocular movements intact. Cardiovascular: Rate and Rhythm: Normal rate and regular rhythm. Heart sounds: Normal heart sounds. No murmur heard. Pulmonary: Effort: Pulmonary effort is normal. No respiratory distress. Breath sounds: Normal breath sounds. No stridor. No wheezing, rhonchi or rales. Chest: Chest wall: No tenderness. Abdominal: Palpations: Abdomen is soft. Musculoskeletal: Cervical back: Neck supple. Skin: General: Skin is warm and dry. Coloration: Skin is not jaundiced or pale. Neurological: Mental Status: She is alert. Most recent Labs, images were reviewed and independently verified. Assessment/Plan: Impression Mild persistent asthma BMI 45 Recommendations Patient has symptoms of asthma. The recent PFT is difficult to interpret, the patient was unable to do it correctly. The previous PFT in 2020 showed hyperinflation and gas trapping that is consistent with obstructive lung disease. Restart albuterol p.r.n. Start QVAR 40 mcg 2 puffs twice a day. Continue Singulair PFT findings/chest x-ray were explained to the patient. Patient was advised to stay active. Discussed the plan of care in details with the patient. Follow-up after 6 months. Thank you for involving me in this patient's care. Josh Fenton MD. Pulmonary and Critical Care Physician 05/12/24. Please note that portions of this note were generated using voice recognition M*Modal dictation software. Although every effort was made to ensure the accuracy of this automated signals intelligence analysis manager, some errors in signals intelligence analysis manager may have occurred. [facility] note Authored January 21, 2024 [...] starting the program. Her psychiatric prescriber is Patricia Gamino from [place] where they live. Her dad is a [...] in the morning. 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 8. Snorer/[place] of 6/neck size of 15.5 inches/mallampati score [...] work with her PCP. Author Jarred Siegel [facility] Authored March 05, 2024 7:59am [...] starting the program. Her psychiatric prescriber is Patricia Gamino from [place] where they live. Her dad is a [...] in the morning. 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 8. Snorer/[place] of 6/neck size of 15.5 inches/mallampati score [...] continue regular lab work with her PCP. [facility] Work Phone: 1(189) 416-483012-22-2023 Evaluation note* Encounter Date Diagnosis Assessment Notes [...] - R06.83) Sep, Asthma (ICD-10 - J45.909) [employer] Other 12-07-2023 Evaluation note* Encounter Date Diagnosis [...] / exercise routine using treadmill at home [employer] Other 11-06-2023 Evaluation note* Encounter Date Diagnosis [...] - R06.83) Aug, Asthma (ICD-10 - J45.909) [employer] Other 10-12-2023 Evaluation note* Encounter Date Diagnosis [...] new recipes to add variety; MET, CONTINUE [employer] Other 08-17-2023 Evaluation note* Encounter Date Diagnosis [...] new recipes to add variety; MET, CONTINUE [employer] Other 05-30-2023 Evaluation note* Encounter Date Diagnosis [...] - R06.83) February, Asthma (ICD-10 - J45.909) [employer] Other 04-11-2023 Evaluation note* Encounter Date Diagnosis Assessment Notes Treatment Notes Treatment Clinical Notes 11 Jan, 2023 Obesity (ICD-10 - E66.9) Jan, BMI 40.0-44.9, adult (ICD-10 - Z68.41) Jan, Other Summary of Visi t: (A) discussed foods that can help prevent breast cancer and help w/ WM (B) benefits of fiber foods Patient set the following goals: [employer] Other 04-10-2023 Evaluation note* Encounter Date Diagnosis [...] - R06.83) Jan, Asthma (ICD-10 - J45.909) [employer] Other 02-28-2023 Evaluation note* Encounter Date Diagnosis [...] - R06.83) Nov, Asthma (ICD-10 - J45.909) [employer] Other 02-06-2023 Evaluation note* Encounter Date Diagnosis Assessment Notes Treatment Notes Treatment Clinical Notes Nov, Abnormal weight gain (ICD-10 - R63.5) Nov, Hypertension (ICD-10 - I10) Nov, Mixed hyperlipidemia (ICD-10 - E78.2) Nov, Metabolic syndrome X (ICD-10 - E88.81) Nov, Bipolar affective disorder (ICD-10 - F31.9) Nov, Snores (ICD-10 - R06.83) Nov, Asthma (ICD-10 - J45.909) [employer] Other Evpuiation noteNo InformationNort [employer] Other Evzdeation note* Diagnosis Menorrhagia with regular cycle BRCA2 gene mutation positive Complex ovarian cyst Pelvic pain in female Unspecified symptom associated with female genital organs documented in this encounter [facility] HealthcareEvaluation noteNo assessment information [facility] Work Phone: Evaluation note* Diagnosis Pre-op examination BRCA gene mutation positive documented in this encounter [facility] HealthcareEvaluation note* Diagnosis Postoperative examination Follow-up examination, following unspecified surgery documented in this encounter [facility] HealthcareEvaluation note* Diagnosis Well woman exam with routine gynecological exam Routine gynecological examination Menorrhagia with regular cycle Pelvic pain in female Unspecified symptom associated with female genital organs BRCA2 gene mutation positive PCOS (polycystic ovarian syndrome) Polycystic ovaries documented in this encounter [facility] HealthcareEvaluation note* Diagnosis Asthma, unspecified asthma severity, unspecified whether complicated, unspecified whether persistent- Primary documented in this encounter [facility] Diagnosis Mild persistent asthma without complication- Primary Morbid obesity ([facility]) Morbid obesity [facility] - Reported* Type Description Date Medical History ADHD Medical History anxiety Medical History asthma Medical History bipolar Medical History BRCA2 positive Medical History endometriosis Medical History high blood pressure Medical History hypokalemia Medical History leg cramps Surgical History gallbladder 09/19 Surgical History ERCP 09/19 Surgical History wisdom teeth Hospitalization History see above [employer] Other InstructionsNot on filedocumented in this encounter [facility] SystemInstructionsNot on filedocumented in this encounter [facility] SystemInstructionsNot on filedocumented in this encounter [facility] Chief Complaint and Reason for Visit Chief [...] Advance Directives No December 01, 2022 4:22pm Date Activated Date Inactivated Comments 09/06/2022 5:42 PM 09/07/2022 4:30 PM Summary Purpose Additional Source Comments REASON FOR VISIT (unrecogniz ed section and content) Reason Comments EMBX Reason Comments Pre-op Visit Reason Comments Post-op Visit Reason Comments Well Women Visit Reason Comments New Patient Dx of asthma. Non sm oker. Prescribed Abuterol Hfa Wheezing A couple of times wh en it is warm outside Cough Denies Shortness of Breath On occasion Specialty Diagnoses / Procedures Referred By Contac t Referred To Contact Pulmonary Medicine Diagnoses Mild intermittent asthma without complication Gordon Velazco APRN-DISABILITIES SERVICES OFFICER [address] [place] [address] Leeanne Connors MD [facility] [place] [address] Referral ID Status Reason Start Date Expiration Date Visits Requested Visits Authorized [id number] Pending Review Specialty Services Required 01/16/2024 01/15/2025 1 1 Care Teams (unrecognized sec tion and content) Team Status: Active Member Role Status Dates Gordon Velazco APRN METALLOGRAPHIC TECHNICIAN-C Primary Care Provider Active Team Status: Inactive Member Role Status Dates Gordon Velazco APRN METALLOGRAPHIC TECHNICIAN-C Primary Care Provider Active Start: January 21, 2024 End: January 21, 2024 Jarred Siegel MD Attending Provider Active Start: January 21, 2024 End: January 21, 2024 Team Status: Inactive Member Role Status Dates Gordon Velazco APRN METALLOGRAPHIC TECHNICIAN-C Primary Care Provider Active Start: January 24, 2024 End: January 24, 2024 MAG Johnson Attending Provider Active Start: January 24, 2024 End: January 24, 2024 Team Status: Active Member Role Status Dates Gordon Velazco APRN METALLOGRAPHIC TECHNICIAN-C Primary Care Pr ovider, Attending Provider Active Start: February 18, 2024 Team Status: Inactive Member Role Status Dates Gordon Velazco APRN METALLOGRAPHIC TECHNICIAN-C Primary Care Provider Active Start: March 05, 2024 End: March 05, 2024 Jarred Siegel MD Attending Provider Active Start: March 05, 2024 End: March 05, 2024 Team Status: Inactive Member Role Status Dates Gordon Velazco APRN METALLOGRAPHIC TECHNICIAN-C Primary Care Provider Active Start: March 27, 2024 End: March 27, 2024 MAG Johnson Attending Provider Active Start: March 27, 2024 End: March 27, 2024 Team Status: Inactive Member Role Status Dates Gordon Velazco APRN METALLOGRAPHIC TECHNICIAN-C Primary Care Provider Active Start: July 30, 2024 End: July 30, 2024 Cheikh Dorsey DO Attending Provider Active Start : July 30, 2024 End: July 30, 2024 [employer] Console Operator Track Relationship Specialty Start Date End Date Gordon Velazco APRN-DISABILITIES SERVICES OFFICER [address] [address] PCP - General Family Medicine 04/23/19 [employer] Console Operator Track Relationship Specialty Start Date End Date Gordon Velazco APRN-DISABILITIES SERVICES OFFICER [address], [place] [id number] PCP - General Family Medicine 04/23/19 [employer] Console Operator Track Relationship Specialty Start Date End Date Albina Causey CAREER DEVELOPMENT COORDINATOR/TEACHER-TACK CUTTER [address], [place] [id number] PCP - General Family Medicine 05/22/24 Goals (unrecognized section and content) Goals may be documented in a n alternate section INFORMATION SOURCE (unrecogn ized section and content) DATE CREATED AUTHOR 05/16/2024 [facility] DATE CREATED AUTHOR AUTHOR'S ORGANIZ ATION 05/23/2024 [facility] DATE CREATED AUTHOR AUTHOR'S ORGANIZ ATION 05/31/2024 [facility] DATE CREATED AUTHOR AUTHOR'S ORGANIZ ATION 06/10/2024 [facility] DATE CREATED AUTHOR AUTHOR'S ORGANIZ ATION 10/09/2024 [facility] DATE CREATED AUTHOR AUTHOR'S ORGANIZ ATION 10/14/2024 [facility] dical Specialists [facility] FOR RECORDS PERTAINING TO PATIENTS WHO [...] BE BASED ON THE PRIMARY CLINICAL RECORDS. [employer] provides no warranty or guarantee of the accuracy or completeness of information in this document.
== END 2025-01-28 08:04 | disposition home or self-care (01) ==
LOC: HEMC 07:30
PROVIDERS: Family Provider Family Medicine; PCP Nurse Practitioner; Visit Provider Internal Medicine Hematology & Oncology
DX: Z15.09 Genetic susceptibility to other malignant neoplasm (principal); Z84.81 Family history of carrier of genetic disease; Z80.3 Family history of malignant neoplasm of breast; Z80.6 Family history of leukemia; Z80.8 Family history of malignant neoplasm of other organs or systems; Z90.722 Acquired absence of ovaries, bilateral; I10 Essential (primary) hypertension
CPT/HCPCS: G0463

== ENCOUNTER 2025-06-16 07:02 | Outpatient (RCR) | payer OTHER, SELFPAY | END 2025-06-28 23:59 | disposition home or self-care (01) | LOC: HEMC 07:02 | PROVIDERS: Family Provider Family Medicine; PCP Nurse Practitioner; Visit Provider Internal Medicine Hematology & Oncology | DX: Z15.09 Genetic susceptibility to other malignant neoplasm (principal); Z84.81 Family history of carrier of genetic disease; Z90.49 Acquired absence of other specified parts of digestive tract; Z80.3 Family history of malignant neoplasm of breast; Z80.6 Family history of leukemia; Z80.8 Family history of malignant neoplasm of other organs or systems; Z90.79 Acquired absence of other genital organ(s); Z90.722 Acquired absence of ovaries, bilateral; I10 Essential (primary) hypertension | CPT/HCPCS: G0463 ==

== ENCOUNTER 2025-07-21 09:28 | Outpatient (OUT) | payer OTHER, SELFPAY ==
--- OUTSIDE RECORDS SUMMARY | 2025-07-21 09:35 | XMS_ITS | CCD ---
Author Organization [facility] CliniSyde Care Team Providers Care Manager Managing Name Role Phone Estevan Howardn Unavailable Jarred Siegel Unavailable JOSH FENTON Attending Unavailable ANGLIM, GORDON A Referring Unavailable ANGLIM, GORDON A Primary Care Unavailable PHILLY RASHEED Referring Unavailab le NASREEN, ALBINA Primary Care Unavailable PHILLY RASHEED Referring Unavailab le NASREEN, SAUTEE NACOOCHEE Primary Care Unavailable PROVIDER, UNKNOWN Referring Unavailable NASREEN, SAUTEE NACOOCHEE Primary Care Unavailable KATELYN ZAMORA Referring Unavailable NASREEN, ALBINA Primary Care Unavailable NINA NGUYEN Referring Unavailable ANGLIM, GORDON A Primary Care Unavailable Unavailable Primary Care Provider Unavailabl e Anglim, ALLIANCE CONSULTANT Gordon Primary Care Provider [phone] DO Cheikh Dorsey Attending Provider Josue Dorseyy Admitting Unavailable Sunita, Cheikh Attending Unavailable Anglim, Gordon Primary Care Unavailable Sunita, Cheikh Attending Unavailable Anglim, Gordon Primary Care Unavailable Sunita, Cheikh Admitting Unavailable Jarred Siegel L Admitting Unavailable Jarred Siegel L Attending Unavailable Anglim, Gordon Primary Care Unavailable SUNITA, CHEIKH Attending Unavailable SUNITA, CHEIKH Attending Unavailable SUNITA, CHEIKH Attending Unavailable SUELLEN JUAREZ Attending Unavailable Anglim ALLIANCE CONSULTANTBritanyALL TERRAIN VEHICLE RACERSeana A Primary Care Provider Nasreen ALLIANCE CONSULTANT-DENTURES LAB TECHNICIAN, Albina Primary Care Provider LA NENA VEGA Referring Unavailable NASREEN, ALBINA Primary Care Unavailable NASREEN, ALBINA Referring Unavailable NASREEN, ALBINA Primary Care Unavailable SUNITACHEIKH GREGORY R Referring Unavailable NASREEN, ALBINA Primary Care Unavailable Allergies Allergy Classification Reported Allergen(s) Allergy Type Date of Onset Reaction(s) Facility (15 sources) Shellfish Propensity to adverse reactions 4 [facility] Work Phone: (10 sources) Fish-Derived Products Propensity to adverse reactions 4 Anaphylaxis, Hives, Itching [facility] (10 sources) Shellfish-Deriv ed Products Drug Allergy 4 Anaphylaxis [facility] Medications Current Medications Medication Drug Class(es) Dates Sig (Normalized) Sig (Original) 0.25 MG, 0.5 MG Dose 3 ML semaglutide 0.68 MG/ML Pen Injector [Ozempic] (2 sources) Start: 09-03-2023 Ozempic (0.25 or 0.5 MG/DOSE) 2 MG/3ML 0.25 mg for one month and then increase to 0.5 mg dose Subcutaneous weekly for Aug, Active [id number] actuat albuterol 0.09 mg/actuat metered dose [...] beclomethasone dipropionate 0.04 mg/actuat metered dose inhaler (13 sources) Corticosteroid Start: 05-12-2024 take 2 puff(s) [...] day Active lisinopril 30 mg oral tablet (18 sources) Angiotensin Converting Enzyme Inhibitor Start: 01-21-2024 [...] potassium 99 mg extended release oral tablet (15 sources) take 1 tablet by mouth once [...] (Ozempic, 1 MG/DOSE,) 4 MG/3ML solution pen-injector (15 sources) Start: 04-16-2024 inject 1 mg by subcutaneous injection every week semaglutide (Ozempic, 1 MG/DOSE,) 4 MG/3ML solution pen-injector Inject 1 mg under the skin 1 (one) time per week 04/16/2024 Active Vitamin D-Vitamin K (K2-D3 10,000) 61600-05 UNIT-MCG capsule (15 sources) take 1 capsule by mouth once daily Vitamin D-Vitamin K (K2-D3 10,000) 46973-92 UNIT-MCG capsule Take 1 each by mouth [...] sources) Asthma; Translations: [Unspecified asthma, uncomplicated] Onset: 05-12-2024 Chronic Attention-deficit, conduct, and disruptive behavior disorders (4 sources) Attention deficit hyperactivity disorder; Translations: [Attention-deficit hyperactivity disorder, unspecified type] 05-29-2019 Chronic Cardiac dysrhythmias (1 source) Tachycardia, unspecified; Translations: [Tachycardia, unspecified] Onset: 05-05-2025 Episodic Diabetes mellitus without complication (9 sources) Prediabetes; [...] mental disorders or infectious disease) (3 sources) Other abnormal and inconclusive findings on diagnostic imaging of breast; Translations: [Encounter for screening mammogram for malignant neoplasm of breast] Onset: 05-29-2024 Episodic Ovarian cyst (1 source) Complex ovarian [...] breast] Onset: 11-17-2023 Episodic Residual codes; unclassified (2 sources) Genetic susceptibility to other malignant neoplasm; Translations: [Genetic susceptibility to other malignant neoplasm] Onset: 11-17-2023 Episodic Residual codes; unclassified (8 sources) Breast cancer genetic marker of susceptibility positive; Translations: [Genetic susceptibility to malignant neoplasm of breast] Onset: 09-04-2024 09-04-2024 Episodic Residual codes; unclassified (1 source) Family history of carrier of genetic disease; Translations: [Family history of carrier of genetic disease] Onset: 03-03-2025 Episodic Results Test Name Value Interpretation Reference Range Facility MAMM 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 Computer aided detection was utilized. FINDINGS: The breasts are almost entirely fatty. There are no suspicious masses, calcifications, or areas of architectural distortion. IMPRESSION: No mammographic evidence of malignancy. BI-RADS: BI-RADS 1 - Negative RECOMMENDATION: Routine screening mammogram in 1 year. Continued MRI exams recommended given elevated risk (see below). Patient is due patient is due in February 2026. RISK ASSESSMENT: TC Lifetime risk: 41.6%. The patient's reported personal and family medical history was used calculate their Tyrer-Cuzick lifetime risk of malignancy. Scores 20% or greater are considered high risk, and patient should consider supplemental screening with MRI per ACR guidelines. Patient may discuss this option with their healthcare provider. Additionally, this patient's reported personal and/or family history of cancer indicates they may benefit from a genetic counseling consultation and possible genetic testing. If patient has not already completed this evaluation, please consider placing a referral to [facility] via [facility] or . For questions regarding this, please call [phone]. The patient was offered information on genetic counseling at the time of exam. Finalized by Breanne Romo MD on 06/17/2025 10:54 AM 1 a MAMM 1 YR Normal [facility] MR BREAST BILAT W WO CONT W CADon 03-04-2025 MR BREAST BILAT W WO CONT W CAD MR BREAST BILAT W WO CONT W CAD PATRICIA SAADIA CONNORS 1985 [id number] EXAM: MR BREAST BILAT W WO CONT W CAD, 03/03/2025 1:17 PM INDICATION: Elevated personal risk of malignancy, 67% TC lifetime risk score COMPARISON: Bilateral screening mammogram 05/17/2024, left breast stereotactic biopsy 06/06/2024, MRI 11/17/2023 TECHNIQUE: Breast images obtained utilizing a 1.5T MRI with dedicated breast coil. Three-dimensional, high resolution fat suppressed T1 weighted images were obtained prior to, immediately following, and after sequential delays relative to intravenous gadolinium contrast administration. Precontrast STIR and non-fat suppressed T1 axial images were also obtained. 3D image and subtraction processing were performed using Asurint software. The images were interpreted using image subtraction, reregistration, multiplanar reconstruction, 2D and 3D acquisition and subtracted MIP, BEVERLY, Time Activity curves and color mapping. CONTRAST VOLUME: 20 mL ProHance FINDINGS: There is mild background enhancement bilaterally, symmetric. The breast composition is . Biopsy clip present within the central left breast at site of recent benign biopsy. No abnormal enhancement this location. There are no suspicious enhancing lesions and no significant axillary or internal mammary lymphadenopathy. The skin, nipples and chest wall are unremarkable. IMPRESSION: Normal examination. No evidence for breast cancer or other significant finding. Given elevated risk level, recommend continued annual screening MRI in conjunction with annual screening mammography. These exams may be performed at alternating 6 month intervals. Patient is due for mammogram April 2025 and MRI February 2026. BI-RADS: BI-RADS 1 - Negative Recommendation: Continue with yearly screening MRI. Finalized by Breanne Romo MD on 03/04/2025 12:33 PM 1 BREAST MRI C Normal [facility] ALL CBC WITH AUTO DIFFon BASOPHILS ABSOLUTE AUTO 0.1 [facility] Basophils/100 WBC (Bld) 0.6 % 0.2 - 2.0 % [facility] Eosinophils/100 WBC (Bld) 1.6 % 0.9 - 7.0 % [facility] Erythrocyte distribution width (RBC) [Ratio] 12.9 % 11.0 - 15.0 % [facility] Hematocrit (Bld) [Volume fraction] 44.7 % 36.0 - 48.0 % [facility] Hemoglobin (Bld) [Mass/Vol] 15.2 g/dL 12.0 - 16.0 g/dL [facility] IMMATURE GRANULOCYTES ABS AUTO 0.02 [facility] Immature granulocytes/100 WBC (Bld) 0.2 % 0.0 - 0.5 % [facility] LYMPHOCYTES ABSOLUTE AUTO 2.2 [facility] Lymphocytes/100 WBC (Bld) 27.3 % 20.5 - 60.0 % [facility] MCH (RBC) [Entitic mass] 29.1 pg 26.7 - 34.0 pg [facility] MCHC (RBC) [Mass/Vol] 34 g/dL 29.9 - 35.2 g/dL [facility] MCV (RBC) [Entitic vol] 85.5 fL 81.0 - 99.0 fL [facility] MONOCYTES ABSOLUTE AUTO 0.5 [facility] Monocytes/100 WBC (Bld) 6.6 % 1.7 - 12.0 % [facility] NEUTROPHILS ABSOLUTE AUTO 5.2 [facility] Neutrophils/100 WBC (Bld) 63.7 % 43.0 - 75.0 % [facility] Platelet mean volume (Bld) [Entitic vol] 9.9 fL 9.5 - 13.5 fL [facility] TBH EO # 0.1 [facility] TB PLT [address] [facility] RBC 5.23 [facility] WBC 8.2 [facility] 10-03-2024 L ------- Specimen: [id number] Received: 10/06/24 Status: EDGARDO Weber Num: [id number] Spec Type: Surgical Subm Dr: Cheikh Dorsey Tissues: A Ovary W/ or W/O Fallopian Tube, Non-Neoplastic (BILATERAL FAL TUBES AND OVAR Procedures: , Gross/Micro L4 Age/ Patient Sex Location Account Attending Physician Patricia Connors 39/F LABELL [id number] Cheikh Dorsey SPEC NUM: [id number] RECD: 10/06/24 STATUS: EDGARDO WEBER NUM: [id number] JERMAINE: 10/03/24-[address] [facility] [address]: Cheikh Dorsey ENTERED: 10/06/[address] [facility] [address]: Ligia,Lab SPEC TYPE: Surgical DEPT: KRUPA COREY ENTERED BY: [id number] RECV BY: [id number] ORDERED: HE/, Gross/Micro L4 ORDERED: , Gross/Micro [...] lined cysts, 2.5 cm in greatest Specimen: [id number] Received: 10/06/24 Status: CHARLOTTELeatha Devlinq Num: [id number] Spec Type: Surgical Subm Dr: Cheikh Dorsey Tissues: A Ovary W/ or W/O Fallopian Tube, Non-Neoplastic (BILATERAL FAL TUBES AND OVAR Procedures: , Gross/Micro L4 Patient: Patricia Connors [id number] (Continued) Specimen: [id number] Received: 10/06/24 (Continued) Gross Description (Continued) Signed (signature on file) Librado Sheehan MD 10/07/24 1425 Specimen: [id number] Received: 10/06/24 Status: SOULeatha Req Num: [id number] Spec Type: Surgical Subm Dr: Cheikh Dorsey Tissues: A Ovary W/ or W/O Fallopian Tube, Non-Neoplastic (BILATERAL FAL TUBES AND OVAR Procedures: , Gross/Micro L4 Patient: Patricia Connors [id number] (Continued) Specimen: [id number] Received: 10/06/24140 (Continued) Gross Description (Continued) dimension that are [...] include paratubal cyst, SEE-FIM protocol) (25, ns, [id number] A)Filipe Microscopic Description Microscopic examination is performed. CPT Codes 38788 (more content not included)... Normal [facility] ALL BASIC METABOLIC PANELon 09-23-2024 Anion gap [Moles/Vol] 16.7 mmol/L [facility] Calcium [Mass/Vol] 9.5 mg/dL 8.5 - 10. 1 mg/dL [facility] Chloride [Moles/Vol] 102 mmol/L 98 - 107 mmol/L [facility] CO2 [Moles/Vol] 25.1 mmol/L 21.0 - 32.0 mmol/L [facility] Creatinine [Mass/Vol] 0.73 mg/dL 0.55 - 1.02 mg/dL [facility] GFR/1.73 sq M.predicted CKD-EPI (S/P/Bld) [Vol rate/Area] >60 >=60 mL/min/1.73m 2 [facility] Glucose [Mass/Vol] 91 mg/dL 74 - 106 mg/dL [facility] Potassium [Moles/Vol] 3.8 mmol/L 3.5 - 5.1 mmol/L [facility] Sodium [Moles/Vol] 140 mmol/L 136 - 145 mmol/L [facility] TBH EGFR-NON AF GAMBIAN >60 >=60 mL/min/1.73m 2 [facility] Urea nitrogen [Mass/Vol] 11 mg/dL 7.0 - 18.0 mg/dL [facility] Urea nitrogen/Creatinin e [Mass ratio] 15.1 mg/mg [facility] ALL CEAon 08-08-2024 CEA <0.6 0.0 - 4.7 ng/mL [facility] Comment on above: Nonsmokers <3.9 Smokers <5.6 [employer] Electrochemiluminescence Immunoassay (ECLIA) Values obtained with different assay methods or kits cannot be used interchangeably. Results cannot be interpreted as absolute evidence of the presence or absence of malignant disease. Performed at: [address] [id number] Fruit Inspector: Gustavo Dawson PhD, Phone: [phone] [facility] AFP TUMOR MARKERon 07-29 AFP, SERUM, TUMOR MARKER 12.4 ng/mL Abnormal 0.0 - 6.4 ng/mL [facility] Comment on above: [employer] SOAM[employer] ectrochemiluminescence Immunoassay (ECLIA) Values obtained with different assay methods or kits cannot be used interchangeably. Results cannot be interpreted as absolute evidence of the presence or absence of malignant disease. This test is not interpretable in females. Interpretation and review of laboratory results Abnormal [facility] No Panel Informationon 08-08 [facility] UH HCG,BETA-QUANT,TUMOR BHAVESH Dustin 08-08-2024 HCG TUMOR MARKER <1 . mIU/mL [facility] Comment on above: Female (Non- ) 0 [...] developed and its performance characteristics determined by [facility]. It has not been cleared or approved by the Food and Drug Administration for use as a tumor marker. This test is not interpretable as a tumor marker in females. Performed at: [address] [id number] Fruit Inspector: Gustavo Dawson PhD, Phone: [phone] HCG ( test) Ql (U)o n 07-29-2024 Interpretation and review of laboratory results Normal [facility] Preg Test, Ur Negative [facility] 07-29-2024 L Specimen: [id number] Received: 07/30/24 Status: EDGARDO Weber Num: [id number] Spec Type: Surgical Subm Dr: Cheikh Dorsey Tissues: A Endometrium - Biopsy (EMBX) Procedures: HE/2, Gross/Micro L4 Age/ Patient Sex Location Account Attending Physician Patricia Connors 39/F LABELL [id number] Cheikh Dorsey SPEC NUM: [id number] RECD: 07/30/24 STATUS: EDGARDO WEBER NUM: [id number] JERMAINE: 07/29/24 DR: Cheikh Dorsey ENTERED: 07/30/[address] [facility] [address]: Ligia,Lab SPEC TYPE: Surgical DEPT: KURPA COREY ENTERED BY: [id number] RECV BY: [id number] ORDERED: HE/2, Gross/Micro L4 ORDERED: HE/2, Gross/Micro [...] Description Microscopic examination is performed CPT Codes 52949 Specimen: [id number] Received: 07/30/24 Status: EDGARDO Weber Num: [id number] Spec Type: Surgical Subm Dr: Cheikh Dorsey Tissues: A Endometrium - Biopsy (EMBX) Procedures: HE/2, Gross/Micro L4 Patient: Patricia Connors [id number] (Continued) Signed (signature on file) Librado Sheehan MD 07/31/24 1118 Normal [facility] ALL LDHon 07-19-2024 LDH [Catalytic activity/Vol] 177 U/L 81 - 234 U/L [facility] IGP,APTIMA HPV,AGE GDLNon AGE GDLN ACOG TESTING Note . [facility] Comment on above: TESTS RESULT FLAG UN ITS REF RANGE LAB Clinician Provided Cytology Information Source.............Cervix;Endocervix No. of containers..01 ThinPrep Vial Age Algo ACOG Tiffanie... FLAG LEGEND: L-Low Normal,H-High Normal,LL-Alert Low,HH-Alert High <-Panic Low,>-Panic High,A-Abnormal,AA-Critical Abnormal Performed at: 01 =[address] [place] [address] Carole Arnold MD, HPV APTIMA Negative Negative [facility] Comment on above: This nucleic acid am plification test detects fourteen high- risk HPV types (16,18,31,33,35,39,45,51,52,56,58,59,66,68) without differentiation. Performed at: =[address], [place] [id number] Fruit Inspector: Carole Arnold MD, Phone: [phone] Performed at: [facility] [address] [address] [place], [place] [id number] Fruit Inspector: Sammy Murrieta MD, Phone: [phone] IGP, APTIMA HPV, RFX 16/18,45 Note . [facility] Comment on above: TESTS RESULT FLAG UN ITS REF RANGE LAB DIAGNOSIS: 02 NEGATIVE FOR INTRAEPITHELIAL LESION OR MALIGNANCY. Specimen adequacy: 02 Satisfactory for evaluation. Endocervical and/or squamous metaplastic cells (endocervical component) are present. Performed by: 02 Сергей Connors, [employer] ([facility]) . 02 Note: Note 03 The Pap [...] High,A-Abnormal,AA-Critical Abnormal Performed at: 02 [facility] [address] [address] [place] [address] Sammy Murrieta MD, 03 WB [facility] [address] [address] Carole Arnold MD, BRUSH-SPATULA ENDOCERVIX CERVIX [facility] ALL CBC WITH AUTO DIFFon BASOPHILS ABSOLUTE AUTO 0.1 [facility] Basophils/100 WBC (Bld) 0.8 % 0.2 - 2.0 % [facility] Eosinophils/100 WBC (Bld) 1.4 % 0.9 - 7.0 % [facility] Erythrocyte distribution width (RBC) [Ratio] 12.8 % 11.0 - 15.0 % [facility] Hematocrit (Bld) [Volume fraction] 40.6 % 36.0 - 48.0 % [facility] Hemoglobin (Bld) [Mass/Vol] 14.8 g/dL 12.0 - 16.0 g/dL [facility] IMMATURE GRANULOCYTES ABS AUTO 0.02 [facility] Immature granulocytes/100 WBC (Bld) 0.3 % 0.0 - 0.5 % [facility] Interpretation and review of laboratory results Abnormal [facility] LYMPHOCYTES ABSOLUTE AUTO 1.6 [facility] Lymphocytes/100 WBC (Bld) 21.0 % 20.5 - 60.0 % [facility] MCH (RBC) [Entitic mass] 29.9 pg 26.7 - 34.0 pg [facility] MCHC (RBC) [Mass/Vol] 36.5 g/dL High 29.9 - 35.2 g/dL [facility] MCV (RBC) [Entitic vol] 82.0 fL 81.0 - 99.0 fL [facility] MONOCYTES ABSOLUTE AUTO 0.5 [facility] Monocytes/100 WBC (Bld) 6.9 % 1.7 - 12.0 % [facility] NEUTROPHILS ABSOLUTE AUTO 5.1 [facility] Neutrophils/100 WBC (Bld) 69.6 % 43.0 - 75.0 % [facility] Platelet mean volume (Bld) [Entitic vol] 10.5 fL 9.5 - 13.5 fL [facility] TBH EO # 0.1 [facility] TBH PLT [address] [facility] RBC 4.95 [facility] WBC 7.4 [facility] MAMM BX BREAST STEREO GUID I NITIAL [...] MD on 06/10/2024 8:35 AM 1999 Normal [facility] MAMM POST BX DIAG UNI [...] MD on 06/10/2024 8:35 AM 1999 Normal [facility] Surgical Pathologyon 024 Surgical Pathology Normal [facility] Comment on above: Result Comment: [facility] [address] [place] [address] Surgical Pathology Consultation Patient Name:PATRICIA CONNORS:1985 (Age: 39)Gender:FTaken:06/06/2024eported:06/09/2024hysician(s):Philly Rasheed NP ([phone])Copy To:Katelyn Alee ZamoraAccession #:[id number]. Rec. #:[id number]: #[id number] Final Pathologic Diagnosis Left breast, needle biopsy @3-4:00, 5 cm fn: Benign breast tissue with focal, mild cystic change and fibrosis. Report Electronically Signed Out gr06/09/2024Robin Villanueva MD [place] [address], License number: [id number]. Clinical History Biopsy procedure: Stereotactic; Target: Mass; [...] 8 hours and 30 minutes (2, ns, [id number], A???B, m1) ADRIANO sadler/06/06/2024SSI Specimen(s) Received Left breast Fee Codes(s): 1; 25358 MAMM DIAGNOSTIC UNILAT LT W CADon 05-29-2024 [...] results before leaving the department. Finalized by Nde Soto MD on 05/29/2024 9:42 AM 4 a BIOPSY Normal [facility] US BREAST LT LIMITEDon 05-29 US [...] 05/29/2024 9:42 AM 4 a [facility]OPSY [facility] - Chemistry and C hemistry - challengeon 02-18-2024 Albumin [Mass/Vol] 4.8 g/dL [facility] ALP [Catalytic activity/Vol] 111 U/L [facility] ALT [Catalytic activity/Vol] 22 U/L [facility] AST [Catalytic activity/Vol] 16 U/L [facility] Bilirubin [Mass/Vol] 0.4 mg/dL [facility] Calcium [Mass/Vol] 9.5 mg/dL [facility] Chloride [Moles/Vol] 102 mmol/L [facility] Cholesterol [Mass/Vol] 204 mg/dL [facility] Cholesterol in HDL [Mass/Vol] 54 mg/dL [facility] Cholesterol in LDL [Mass/Vol] 122 mg/dL [facility] Cholesterol.total/ Cholesterol in HDL [Mass ratio] 3.8 {ratio} [facility] CO2 [Moles/Vol] 27 mmol/L [facility] Creatinine [Mass/Vol] 0.74 mg/dL [facility] GFR/1.73 sq M.predicted MDRD (S/P/Bld) [Vol rate/Area] 105 mL/min/{1.73_m2} [facility] Glucose [Mass/Vol] 98 mg/dL [facility] Potassium [Moles/Vol] 4.0 mmol/L [facility] Protein [Mass/Vol] 6.3 g/dL [facility] Sodium [Moles/Vol] 140 mmol/L [facility] Triglyceride [Mass/Vol] 142 mg/dL [facility] Urea nitrogen [Mass/Vol] 12 mg/dL [facility] Laboratory - Hematology and Cell countson 02-18-2024 HbA1c (Bld) [Mass fraction] 5.2 % [facility] No Panel Informationon 02-17 Estimated GFR (Non- 105 mL/min [facility] Thyroid Stimulating Hormone 3rd Gen 2.34 [facility] VLDL Cholesterol 28 mg/dL [facility] Vital Signs Date Time Vital Sign Value Performing Clinician Facility 10-13-2024 09:00-0500 Body mass index (BMI) [Ratio] 43.93 kg/m2 Suellen CONNOR Work Phone: [facility] 10-13-2024 09:00-0500 Body weight 119.75 kg Suellen CONNOR Work Phone: [facility] 10-13-2024 09:00-0500 Diastolic blood pressure 84 mm[Hg] Suellen CONNOR Work Phone: [facility] 10-13-2024 09:00-0500 Systolic blood pressure 120 mm[Hg] Suellen CONNOR Work Phone: [facility] 09-04-2024 09:54-0500 Body mass index (BMI) [Ratio] 44.93 kg/m2 Cheikh Sunita DO Work Phone: [facility] 09-04-2024 09:54-0500 Body weight 122.47 kg Cheikh Sunita DO Work Phone: [facility] 09-04-2024 09:54-0500 Diastolic blood pressure 80 mm[Hg] Cheikh Sunita DO Work Phone: [facility] 09-04-2024 09:54-0500 Systolic blood pressure 124 mm[Hg] Cheikh Sunita DO Work Phone: [facility] 07-29-2024 09:45-0400 Body mass index (BMI) [Ratio] 44.9 kg/m2 Cheikh Sunita DO Work Phone: [facility] 07-29-2024 09:45-0400 Body weight 122.38 kg Cheikh Sunita DO Work Phone: [facility] 07-29-2024 09:45-0400 Diastolic blood pressure 80 mm[Hg] Cheikh Sunita DO Work Phone: [facility] 07-29-2024 09:45-0400 Systolic blood pressure 124 mm[Hg] Cheikh Sunita DO Work Phone: [facility] 06-24-2024 09:13-0400 Body height 165.1 cm Cheikh Sunita DO Work Phone: [facility] 06-24-2024 09:13-0400 Body mass index (BMI) [Ratio] 46.06 kg/m2 Cheikh Sunita DO Work Phone: [facility] 06-24-2024 09:13-0400 Body weight 125.56 kg Cheikh Sunita DO Work Phone: [facility] 06-24-2024 09:13-0400 Diastolic blood pressure 82 mm[Hg] Cheikh Sunita DO Work Phone: [facility] 06-24-2024 09:13-0400 Systolic blood pressure 120 mm[Hg] Cheikh Sunita DO Work Phone: [facility] 05-12-2024 12:54-0400 Body height 167.6 cm Josh Fenton MD Work Phone: [facility] 05-12-2024 12:54-0400 Body mass index (BMI) [Ratio] 45.68 kg/m2 Josh Fenton MD Work Phone: [facility] 05-12-2024 12:54-0400 Body weight 128.37 kg Josh Fenton MD Work Phone: [facility] 05-12-2024 12:54-0400 Diastolic blood pressure 96 mm[Hg] Josh Fenton MD Work Phone: [facility] 05-12-2024 12:54-0400 Heart rate 105 /min Josh Fenton MD Work Phone: [facility] 05-12-2024 12:54-0400 SaO2% (BldA) [Mass fraction] 97 % Josh Fenton MD Work Phone: [facility] 05-12-2024 12:54-0400 Systolic blood pressure 139 mm[Hg] Josh Fenton MD Work Phone: [facility] 03-27-2024 08:05-0400 Body height 170.18 cm [facility] 03-27-2024 08:05-0400 Body mass index (BMI) [Ratio] 45.6 kg/m2 [facility] 03-27-2024 08:05-0400 Body weight 132.13 kg [facility] 03-05-2024 07:12-0400 Body height 170.18 cm [facility] 03-05-2024 07:12-0400 Body mass index (BMI) [Ratio] 45.7 kg/m2 [facility] 03-05-2024 07:12-0400 Body weight 132.5 kg [facility] 03-05-2024 07:12-0400 Diastolic blood pressure 18 mm[Hg] [facility] 03-05-2024 07:12-0400 Heart rate 95 /min [facility] 03-05-2024 07:12-0400 Respiratory rate 18 /min [facility] 03-05-2024 07:12-0400 SaO2% (BldA) [Mass fraction] 99 % [facility] 03-05-2024 07:12-0400 Systolic blood pressure 100 mm[Hg] [facility] 01-24-2024 15:39-0400 Body height 170.18 cm [facility] 01-24-2024 15:39-0400 Body mass index (BMI) [Ratio] 43.8 kg/m2 [facility] 01-24-2024 15:39-0400 Body weight 127 kg [facility] 01-21-2024 07:13-0400 Body height 170.18 cm [facility] 01-21-2024 07:13-0400 Body mass index (BMI) [Ratio] 44 kg/m2 [facility] 01-21-2024 07:13-0400 Body weight 127.62 kg [facility] 01-21-2024 07:13-0400 Diastolic blood pressure 84 mm[Hg] [facility] 01-21-2024 07:13-0400 Heart rate 95 /min [facility] 01-21-2024 07:13-0400 Respiratory rate 18 /min [facility] 01-21-2024 07:13-0400 SaO2% (BldA) [Mass fraction] 98 % [facility] 01-21-2024 07:13-0400 Systolic blood pressure 121 mm[Hg] [facility] 10-19-2023 07:30-0500 Body height 170.18 cm Jarred Siegel Other [employer] Other 10-19-2023 07:30-0500 Body mass index (BMI) [Ratio] 45.13 kg/m2 Jarred Siegel Other [employer] Other 10-19-2023 07:30-0500 Body weight 130.73 kg Jarred Siegel Other [employer] Other 10-19-2023 07:30-0500 Diastolic blood pressure 89 mm[Hg] Jarred Siegel Other [employer] Other 10-19-2023 07:30-0500 Respiratory rate 18 /min Jarred Siegel Other [employer] Other 10-19-2023 07:30-0500 SaO2% (BldA) [Mass fraction] 100 % Jarred Siegel Other [employer] Other 10-19-2023 07:30-0500 Systolic blood pressure 128 mm[Hg] Jarred Siegel Other [employer] Other 10-04-2023 07:15-0500 Body height 170.18 cm Sameera Fitt Other [employer] Other 10-04-2023 07:15-0500 Body mass index (BMI) [Ratio] 45.68 kg/m2 Sameera Fitt Other [employer] Other 10-04-2023 07:15-0500 Body weight 132.32 kg Sameera Fitt Other [employer] Other 09-03-2023 07:15-0500 Body height 170.18 cm Jarred Siegel Other [employer] Other 09-03-2023 07:15-0500 Body mass index (BMI) [Ratio] 46.67 kg/m2 Jarred Siegel Other [employer] Other 09-03-2023 07:15-0500 Body weight 135.17 kg Jarred Siegel Other [employer] Other 09-03-2023 07:15-0500 Diastolic blood pressure 85 mm[Hg] Jarred Bushdiff Other [employer] Other 09-03-2023 07:15-0500 Respiratory rate 18 /min Jarred Siegel Other [employer] Other 09-03-2023 07:15-0500 SaO2% (BldA) [Mass fraction] 98 % Jarred Siegel Other [employer] Other 09-03-2023 07:15-0500 Systolic blood pressure 121 mm[Hg] Jarred Siegel Other [employer] Other 08-09-2023 07:15-0400 Body height 170.18 cm Sameera Fitt Other [employer] Other 08-09-2023 07:15-0400 Body mass index (BMI) [Ratio] 46.26 kg/m2 Sameera Fitt Other [employer] Other 08-09-2023 07:15-0400 Body weight 133.99 kg Sameera Fitt Other [employer] Other 06-14-2023 08:00-0400 Body height 170.18 cm Sameera Fitt Other [employer] Other 06-14-2023 08:00-0400 Body mass index (BMI) [Ratio] 46.56 kg/m2 Sameera Fitt Other [employer] Other 06-14-2023 08:00-0400 Body weight 134.86 kg Sameera Fitt Other [employer] Other 03-27-2023 07:15-0400 Body height 170.18 cm Jarred Siegel Other [employer] Other 03-27-2023 07:15-0400 Body mass index (BMI) [Ratio] 47.44 kg/m2 Jarred Siegel Other [employer] Other 03-27-2023 07:15-0400 Body weight 137.4 kg Jarred Siegel Other [employer] Other 03-27-2023 07:15-0400 Diastolic blood pressure 88 mm[Hg] Jarred Siegel Other [employer] Other 03-27-2023 07:15-0400 Respiratory rate 18 /min Jarred Siegel Other [employer] Other 03-27-2023 07:15-0400 SaO2% (BldA) [Mass fraction] 99 % Jarred Siegel Other [employer] Other 03-27-2023 07:15-0400 Systolic blood pressure 138 mm[Hg] Jarred Siegel Other [employer] Other 02-06-2023 09:15-0400 Body height 170.18 cm Sameera Howard Other [employer] Other 02-05-2023 08:15-0400 Body height 170.18 cm Jarred Christal Other [employer] Other 02-05-2023 08:15-0400 Body mass index (BMI) [Ratio] 45.67 kg/m2 Jarred Siegel Other [employer] Other 02-05-2023 08:15-0400 Body weight 132.27 kg Jarred Christal Other [employer] Other 02-05-2023 08:15-0400 Diastolic blood pressure 93 mm[Hg] Jarred Siegel Other [employer] Other 02-05-2023 08:15-0400 Respiratory rate 18 /min Jarred Siegel Other [employer] Other 02-05-2023 08:15-0400 SaO2% (BldA) [Mass fraction] 99 % Jarred Siegel Other [employer] Other 02-05-2023 08:15-0400 Systolic blood pressure 123 mm[Hg] Jarred Siegel Other [employer] Other 12-26-2022 08:00-0500 Body height 170.18 cm Jarred Siegel Other [employer] Other 12-26-2022 08:00-0500 Body mass index (BMI) [Ratio] 45.34 kg/m2 Jarred Siegel Other [employer] Other 12-26-2022 08:00-0500 Body weight 131.32 kg Jarred Siegel Other [employer] Other 12-26-2022 08:00-0500 Diastolic blood pressure 92 mm[Hg] Jarred Siegel Other [employer] Other 12-26-2022 08:00-0500 Respiratory rate 18 /min Jarred Siegel Other [employer] Other 12-26-2022 08:00-0500 SaO2% (BldA) [Mass fraction] 98 % Jarred Siegel Other [employer] Other 12-26-2022 08:00-0500 Systolic blood pressure 122 mm[Hg] Jarred Siegel Other [employer] Other 12-04-2022 09:15-0500 Body height 170.18 cm Jarred Siegel Other [employer] Other 12-04-2022 09:15-0500 Body mass index (BMI) [Ratio] 44.41 kg/m2 Jarred Siegel Other [employer] Other 12-04-2022 09:15-0500 Body weight 128.64 kg Jarred Siegel Other [employer] Other 12-04-2022 09:15-0500 Diastolic blood pressure 93 mm[Hg] Jarred Siegel Other [employer] Other 12-04-2022 09:15-0500 Respiratory rate 18 /min Jarred Bushdiff Other [employer] Other 12-04-2022 09:15-0500 SaO2% (BldA) [Mass fraction] 99 % Jarred Siegel Other [employer] Other 12-04-2022 09:15-0500 Systolic blood pressure 122 mm[Hg] Jarred Bushdiff Other [employer] Other Encounters Encounter Date Encounter Type Care Provider Facility Start: 07-21-2025 End: 07-21-2025 Bamboo flowsheet Cheikh Sunita DO Work Phone: [facility] Start: 07-21-2025 End: 07-21-2025 Bamboo flowsheet Cheikh Sunita DO Work Phone: [facility] Start: 06-12-2025 End: 06-12-2025 ambulatory CHEIKH R [facility] Start: 05-05-2025 End: 05-05-2025 ambulatory ALBINA NASREEN [facility] Start: 03-03-2025 End: 03-03-2025 ambulatory LA NENA [facility] Start: 10-13-2024 End: 10-13-2024 Bamboo flowsheet Suellen CONNOR Work Phone: [facility] Start: 10-13-2024 End: 10-13-2024 Bamboo flowsheet Suellen CONNOR Work Phone: [facility] Start: 10-13-2024 End: 10-13-2024 Postop follow up visit related to original px Suellen CONNOR Work Phone: [facility] Comment on above: Postoperative examin ation Start: 10-13-2024 End: 10-13-2024 ambulatory SUELLEN JUAREZ Not Available Start: 10-03-2024 End: 10-03-2024 Clinisync Result Encounter Cheikh Sunita DO Work Phone: [facility] Unsolicited Start: 10-03-2024 End: 10-03-2024 Clinisync Result Encounter Cheikh Sunita DO Work Phone: [facility] Unsolicited Start: 10-03-2024 End: 10-03-2024 ambulatory Cheikh Sunita Facility:[facility] Start: 09-23-2024 End: 09-23-2024 Clinisync Result Encounter [...] Department Unsolicited Start: 07-30-2024 End: 07-30-2024 ambulatory JOANNA Velazco Work Phone: [facility] Work Phone: Start: 07-30-2024 End: 07-30-2024 Departed Referred ALLIANCE CONSULTANTMadiha Velazco Work Phone: [facility] Start: [...] 06-28-2024 End: 06-28-2024 Clinisync Result Encounter Cheikh Suntia DO Work Phone: [facility] Unsolicited Start: 06-24-2024 End: 06-24-2024 Bamboo flowsheet Cheikh Sunita DO Work Phone: [facility] Start: 06-24-2024 End: 06-30-2024 Bamboo flowsheet Cheikh Sunita DO Work Phone: [facility] Start: 06-24-2024 End: 06-30-2024 Clinisync Result Encounter Cheikh Sunita DO Work Phone: [facility] Unsolicited Start: 06-24-2024 End: 06-24-2024 Patient encounter procedure Cheikh Hamiltono DO Work Phone: [facility] Work Phone: Start: 06-24-2024 End: 06-24-2024 Periodic preventive med est patient 40-64yrs Cheikh Farriszio DO Work Phone: [facility] Comment on above: Well woman exam with routine gynecological exam; Menorrhagia with regular cycle; Pelvic pain in female; BRCA2 gene mutation positive; PCOS (polycystic ovarian syndrome) Start: 06-24-2024 End: 06-24-2024 ambulatory CHEIKH HAMILTONO Not Available Start: 06-10-2024 End: 06-10-2024 Telephone encounter Kristy Montelongo RN [facility] Start: 06-06-2024 End: 06-06-2024 Documentation procedure Kristy Montelongo RN [facility] Start: 06-06-2024 End: 06-06-2024 ambulatory [facility] Start: 06-06-2024 End: 06-06-2024 ambulatory UNKNOWN PROVIDER [facility] Start: 05-29-2024 End: 05-29-2024 ambulatory PHILLY RASHEED [facility] Start: 05-12-2024 End: 05-12-2024 Office outpatient new 45 minutes Josh Fenton MD Work Phone: [facility] Comment on above: Mild persistent asth ma without complication (Primary Dx); Morbid obesity ([facility]) Start: 05-12-2024 End: 05-12-2024 ambulatory JOSH FENTON [facility] Start: 03-27-2024 End: 03-27-2024 Patient encounter procedure [facility] Work Phone: Start: 03-18-2024 End: 03-18-2024 Orders Only Lissa Laird LPN [facility] Comment on above: Asthma, unspecified asthma severity, unspecified whether complicated, unspecified whether persistent (Primary Dx) Start: 03-05-2024 End: 03-05-2024 Patient encounter procedure [facility] Work Phone: Start: 02-18-2024 Non-patient / Non-visit [facility] [employer] Work Phone: Start: 01-24-2024 End: 01-24-2024 Patient encounter procedure [facility] Work Phone: Start: 01-21-2024 End: 01-21-2024 Patient encounter procedure [facility] Work Phone: Start: 11-28-2023 End: 11-28-2023 ambulatory Jarred Siegel Facility:[facility] Start: 11-17-2023 End: 11-17-2023 ambulatory [facility] Start: 10-19-2023 End: 10-19-2023 ambulatory Jarred Siegel Other [employer] Other Start: 10-19-2023 Follow-up encounter [facility] Start: 10-04-2023 ([facility] RD FU) [facility] F/ U [employer] Sameera Howard [facility] Start: 10-04-2023 End: 10-04-2023 ambulatory Sameera Wrightt Other [employer] Other Start: 09-03-2023 End: 09-03-2023 ambulatory Jarred Siegel Other [employer] Other Start: 09-03-2023 Follow-up encounter [facility]red [facility] Start: 08-09-2023 ([facility] RD FU) [facility] F/ U [employer] Sameera Howard [facility] Start: 08-09-2023 End: 08-09-2023 ambulatory Sameera Fitt Other [employer] Other Start: 06-22-2023 End: 06-22-2023 ambulatory Jarred Mayerff Other [employer] Other Start: 06-22-2023 Telephone encounter Jarred Bushdicanelo [facility] Start: 06-14-2023 ([facility] RD FU) [facility] F/ U [employer] Sameera Kyleleatha [facility] Start: 06-14-2023 End: 06-14-2023 ambulatory Sameera Howard Other [employer] Other Start: 03-27-2023 End: 03-27-2023 ambulatory Jarred Siegel Other [employer] Other Start: 03-27-2023 Follow-up encounter Jarred Siegel [facility] Start: 02-06-2023 ([facility] WMNI) [facility] Init ial Provider Sameera Kyleleatha [facility] Start: 02-06-2023 End: 02-06-2023 ambulatory Sameera Howard Other [employer] Other Start: 02-05-2023 End: 02-05-2023 ambulatory Jarred Bushdiff Other [employer] Other Start: 02-05-2023 Follow-up encounter Jarred Bushdiff [facility] Start: 12-26-2022 End: 12-26-2022 ambulatory Jarred Siegel Other [employer] Other Start: 12-26-2022 Follow-up encounter Jarred Christalcanelo [facility] Start: 12-04-2022 End: 12-04-2022 ambulatory Jarred Siegel Other [employer] Other Start: 12-04-2022 Nutrition therapy Jarred [facility] Start: 10-31-2022 End: 10-31-2022 ambulatory Sameera Howard Other [facility] [employer] Other Start: 10-31-2022 Telephone encounter Sameera Howard [facility] Procedures Date Procedure Procedure Detail Performing Clinician Start: 06-17-2025 Mammography Cheikh Fazi o DO Work Phone: Start: 10-03-2024 ALL CBC WITH AUTO DIFF [...] Td Vaccines (2 - Td or Tdap) [facility] Start: 06-24-2027 Screening for malign ant neoplasm of cervix [facility] Start: 06-17-2026 Screening for malign ant neoplasm of breast Mammogram [facility] Start: 07-21-2025 End: 07-21-2025 Patient encounter procedure 07/21/2025 8:30 AM EDT Office Visit SHERRI ZHOUN [address] [phone] Cheikh Dorsey, DO [address] [place] [address] Arrived [facility] Comment on above: Arrived Start: 06-29-2025 Influenza vaccination Influenza Vacc ine (#1) [facility] Start: 06-06-2025 Adult BMI Screening Adult BMI Screen ing [facility] Start: 06-06-2025 Screening for malign ant neoplasm of breast Mammogram [facility] Start: 05-12-2025 Tobacco Screening Tobacco Screening [facility] Start: 11-12-2024 Adult BMI Screening Adult BMI Screen ing [facility] Start: 10-13-2024 End: 10-13-2024 Patient encounter procedure 10/13/2024 9:00 AM EST Office Visit [facility] [address] [phone] Suellen Juarez PA [address] [place], [place] [id number] Arrived [facility] Comment on above: Arrived Start: 09-04-2024 End: 09-04-2024 Patient encounter procedure [facility] Comment on above: Arrived Start: 07-29-2024 End: 07-29-2024 Patient encounter procedure 07/29/2024 9:30 AM EDT Procedure Visit [facility] [address] [place] [phone] Cheikh Dorsey, DO [address], [place] [id number] [facility] Start: 06-29-2024 Influenza vaccination [facility] Start: 06-24-2024 End: 06-24-2025 DHEA DHEA Lab Routine PCOS (polycystic ovarian syndrome) Expected: 06/24/2024 (Approximate), Expires: 06/24/2025 [facility] Comment on above: Expected: 06/24/2024 (Approximate), Expires: 06/24/2025 Start: 06-24-2024 End: 06-24-2025 US for US PELVIS-TRANSVAG IF INDICATED Imaging Routine PCOS (polycystic ovarian syndrome) Expected: 06/24/2024 (Approximate), Expires: 06/24/2025 [facility] Comment on above: Expected: 06/24/2024 (Approximate), Expires: 06/24/2025 Start: 06-24-2024 End: 06-24-2024 Patient encounter procedure 06/24/2024 9:00 AM EDT Office Visit [facility] [address] [place] [phone] Cheikh Dorsey, [address] [place] [address] Arrived [facility] Comment on above: Arrived Start: 05-17-2024 End: 05-17-2024 Patient encounter procedure 05/17/2024 10:30 AM EDT Appointment [facility] - Mammogram DEXA [address] [place] [phone] [facility] - Mammogram DEXA Start: 05-12-2024 End: 05-12-2024 Patient encounter procedure 05/12/2024 1:00 PM EDT Office Visit [facility] [address] [place] [address] Josh Fenton MD [address] [place] [address] [facility] Start: 03-18-2024 End: 03-18-2025 XR Chest PA and Lateral [facility] Work Phone: Comment on above: Expected: 03/18/2024 , Expires: 03/18/2025 Start: 10-09-2023 Tobacco Screening Tobacco Screening [facility] Start: 06-29-2023 COVID-19 Vaccine ( season) COVID-19 Vaccine () [facility] Start: 06-29-2023 COVID-19 Vaccine () COVID-19 Vaccine () [facility] Start: 02-21-2014 Screening for malign ant neoplasm of cervix [facility] Start: 02-21-2005 Screening for malign ant neoplasm of cervix Pap Smear [facility] Start: 02-21-2002 Adult BMI Follow Up Plan Adult BMI Follow Up Plan [facility] Start: 1996 Depression Screening Depression Scre ening [facility] Biopsy endometrium Biopsy endome trium Procedures Routine Menorrhagia with regular cycle Ordered: 07/29/2024 [facility] Work Phone: Comment on above: Ordered: 07/29/2024 CBC W Auto Different ial panel - Blood CBC and differential Lab Routine PCOS (polycystic ovarian syndrome) Ordered: 06/24/2024 [facility] Comment on above: Ordered: 06/24/2024 DHEA-sulfate DHEA-sulfate Lab Routine PCOS (polycystic ovarian syndrome) Ordered: 06/24/2024 [facility] Comment on above: Ordered: 06/24/2024 Follicle stimulating hormone Follicle stimulating hormone Lab Routine PCOS (polycystic ovarian syndrome) Ordered: 06/24/2024 [facility] Comment on above: Ordered: 06/24/2024 hCG, quantitative, hCG, quantitative, Lab Routine PCOS (polycystic ovarian syndrome) Ordered: 06/24/2024 [facility] Comment on above: Ordered: 06/24/2024 Hemoglobin A1c/Hemoglobin.total in Blood Hemoglobin A1c Lab Routine Menorrhagia with regular cycle Ordered: 06/24/2024 [facility] Comment on above: Ordered: 06/24/2024 Luteinizing hormone Luteinizing hormone Lab Routine PCOS (polycystic ovarian syndrome) Ordered: 06/24/2024 [facility] Comment on above: Ordered: 06/24/2024 THIN PREP TIS PAP AN D HR HPV DNA THIN PREP TIS PAP AND HR HPV DNA Pathology and Cytology Routine Well woman exam with routine gynecological exam Ordered: 06/24/2024 [facility] Work Phone: Comment on above: Ordered: 06/24/2024 Thyrotropin [Units/volume] in Serum or Plasma TSH Lab Routine PCOS (polycystic ovarian syndrome) Ordered: 06/24/2024 [facility] Comment on above: Ordered: 06/24/2024 Thyroxine (T4) free [Mass/volume] in Serum or Plasma T4, free Lab Routine PCOS (polycystic ovarian syndrome) Ordered: 06/24/2024 [facility] Comment on above: Ordered: 06/24/2024 Immunizations Immunization Date Immunization Notes Care Provider Brenton montana 08-28-2023 influenza virus vacc ine, unspecified formulation Lissa Laird [employer] [facility] Payers Date Payer Category Payer Private Health Insurance [id number] 2022 Self-pay 2022 Unknown [id number] 2022 Unknown [id number] 1984 Unknown [id number] [id number] 1984 Unknown [id number] [id number] 1984 Unknown [id number] [id number] 1984 Unknown [id number] [id number] 1984 Unknown [id number] 2.16.840.1.589479.3.579.2.1285 1984 Unknown [id number] 2.16.840.1.522755.3.579.2.1285 1984 Unknown [id number] 2.16.840.1.429304.3.579.2.1259 1984 Unknown [id number] 2.16.840.1.986499.3.579.2.9 1984 Unknown [id number] 2.16.840.1.392155.3.579.2.9 1984 Unknown [id number] 2.16.840.1.562929.3.579.2.9 1984 Unknown [id number] 2.16.840.1.143919.3.579.2.1286 1984 Unknown [id number] 2.16.840.1.912822.3.579.2.1286 1984 Unknown [id number] [id number] Unknown [employer] [id number] Unknown [id number] [id number] Unknown [id number] [id number] Unknown [id number] Social History Date Type Detail Facility Unknown if ever smoked [employer] Other Start: 12-09-2020 End: 02-07-2023 Sex Assigned At [employer] Other Start: 1985 Sex Assigned At Female [facility] Start: 08-08-2021 Gender identity Identifies as female gender (finding) [facility] Start: 09-08-2022 Tobacco smoking status IAIS Never smoked tobacco [facility] Start: 09-08-2022 Tobacco use and exposure Smokeless tobacco non-user [facility] Start: 02-07-2023 End: 05-17-2024 Alcoholic beverage intake Current drinker of alcohol (finding) [facility] Start: 12-09-2020 End: 02-07-2023 History of Social function [facility] Childcare Unknown [facility] Start: 05-29-2019 Alcohol Comment 1/month [facility] Start: 08-08-2021 Sexual orientation Heterosexual (finding) [facility] Clinical Notes 12-04-2022 to 10-13-2024 NIKOLAS [...] mg, Daily Vitamin D-Vitamin K (K2-D3 10,000) 52215-01 UNIT-MCG capsule 1 each, Daily ALLERGIES Allergies [...] calculated from the following: Height as of 24: 5' 5 . Weight as of this encounter: 264 lb. BP: 120/84 Patient's last menstrual period was 10/04/2024. ASSESSMENT & PLAN ICD-10-CM 1. Postoperative examination Z09 Post Op Follow Up: Patient presents today for a postop follow up after having a Bilateral Laparoscopic Salpingectomy performed at [facility] with Dr. Dorsey. Patient is healing well and shows no signs or symptoms of infection. Pathology results was reviewed with the patient in great detail and all restrictions have been lifted. Follow Up: Patient is to return to the office for annual exam unless needed otherwise. Documented by NIKOLAS Luna on behalf of: NIKOLAS Luna documented in this encounter [facility] 09-04-2024 History of Presen t illness Narrative Reason for Appointment: Patient ID: Patricia Connors is a 39 y.o. female who presents for Pre-op Visit Patient presents today for Pre Op appointment. Patient is scheduled to undergo Da Helga assisted Bilateral Laparoscopic Salpingo-Oophorectomy on 10/03/[address] Dorsey at [facility]. MEDICATIONS Current Outpatient Medications Medication Instructions albuterol [...] MG/DOSE, SC) Vitamin D-Vitamin K (K2-D3 10,000) 28334-06 UNIT-MCG capsule 1 each, Oral, Daily ALLERGIES [...] nursing note reviewed. Exam conducted with a forestry aid present. Vitals: Estimated body mass index is [...] reviewed, and patient is to proceed to [facility] OR. Patient aware that she will be off at least a week after procedure. Follow Up: Patient is to follow up between 1-2 weeks post op to assess proper healing and recovery from procedure. Documented by Sylvia Benz LPN on behalf of: Cheikh Dorsey DO documented in this encounter [facility] 07-29-2024 History of Presen t illness Narrative [...] MG/DOSE, SC) Vitamin D-Vitamin K (K2-D3 10,000) 41650-66 UNIT-MCG capsule 1 each, Oral, Daily ALLERGIES Allergies Allergen Reactions Fish-Derived Products Anaphylaxis, Hives and Itching Shellfish-Derived Products Anaphylaxis Shellfish Allergy PROBLEMS Active Ambulatory Problems Diagnosis Date Noted No Active Ambulatory Problems Resolved Ambulatory Problems Diagnosis Date Noted No Resolved Ambulatory Problems Past Medical History: Diagnosis Date ADHD (attention deficit hyperactivity disorder) ([facility]/HCC) Anxiety and depression ([facility]) Asthma (CMS/[facility]) Bipolar 1 disorder (CMS/HCC) BRCA gene positive High blood pressure ([facility]) HISTORY PAST MEDICAL HISTORY SOCIAL HISTORY Past Medical History: Diagnosis Date ADHD (attention deficit hyperactivity disorder) ([facility]) Anxiety and depression ([facility]) Asthma (CMS/HCC) Bipolar 1 disorder (CMS/HCC) BRCA gene positive 2 High blood pressure ([facility]/HCC) Social History Tobacco Use Smoking status: Not [...] nursing note reviewed. Exam conducted with a forestry aid present. Vitals: Estimated body mass index is [...] Cheikh Dorsey DO documented in this encounter [facility] 06-24-2024 History of Presen t illness Narrative [...] Oral, Daily Vitamin D-Vitamin K (K2-D3 10,000) 21829-25 UNIT-MCG capsule 1 each, Oral, Daily ALLERGIES [...] nursing note reviewed. Exam conducted with a forestry aid present. Vitals: Estimated body mass index is [...] Cheikh Dorsey DO documented in this encounter [facility] 06-10-2024 Miscellaneous Notes Summary: Post-biopsy assessment Call placed to patient to check status following recent breast biopsy. Patient reports no bruising or tenderness @ biopsy site. Clarified biopsy results with patient and follow-up imaging recommendations provided by radiologist. She was encouraged to contact the [facility] if she develops any new problems at biopsy site. Voices understanding. documented in this encounter [facility] 06-10-2024 Telephone encount er Note Summary: Post-biopsy assessment Call placed to patient to check status following recent breast biopsy. Patient reports no bruising or tenderness @ biopsy site. Clarified biopsy results with patient and follow-up imaging recommendations provided by radiologist. She was encouraged to contact the [facility] Center if she develops any new problems at biopsy site. Voices understanding. [facility] [employer] 06-06-2024 History of Presen t illness Narrative [...] all information reviewed. documented in this encounter [facility] 05-12-2024 History of Presen t illness Narrative Images from the original note were not included. [facility]UL[facility]SLEEP [facility]IC[facility] [address] [address] Subjective: Chief Complaint Shortness a breath. 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 She never smoked Review of Systems Allergies: Patient has no known allergies. Past Medical History: Diagnosis Date ADHD Anxiety Asthma Bipolar 1 disorder (CMS-HCC) Borderline personality disorder ([facility]) BRCA2 positive 06/26/2019 Breast disorder left breast cyst Fractures clavical as child Hypertension Hypokalemia Visual impairment Past Surgical History: Procedure Laterality Date DAVINCI CHOLECYSTECTOMY N/A 09/27/2022 Performed by Flavia Evans MD at [facility] END[facility]COPIC RETROGRADE CHOLANGIO-PANCREATOGRAPHY N/A 09/13/2022 Performed by Ron Hansen MD at [facility] WISDOM TOOTH EXTRACTION ? Social History [...] Substance Use Topics Alcohol use: Yes Comment: 1month Objective: There were no vitals filed for [...] this note were generated using voice recognition [employer] dictation software. Although every effort was made to ensure the accuracy of this automated advanced manager, some errors in advanced manager may have occurred. documented in this encounter [employer] 01-21-2024 Evaluation note Authored January 21, 2024 [...] Her psychiatric prescriber is Patricia Gamino from [place] where they live. Her dad is a [...] in the morning. 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 8. Snorer/Alexandria of 6/neck size of 15.5 inches/mallampati score [...] work with her PCP. Author Jarred Siegel [facility] Authored March 05, 2024 7:59am Start/highest weight: [...] Her psychiatric prescriber is Patricia Gamino from [place] where they live. Her dad is a [...] in the morning. 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 8. Snorer/Alexandria of 6/neck size of 15.5 inches/mallampati score [...] continue regular lab work with her PCP. [facility] Work Phone: [phone]) 394-806112-22-2023 Evaluation note* Encounter Date Diagnosis Assessment Notes [...] - R06.83) Sep, Asthma (ICD-10 - J45.909) [employer] Other 12-07-2023 Evaluation note* Encounter Date Diagnosis [...] / exercise routine using treadmill at home [employer] Other 11-06-2023 Evaluation note* Encounter Date Diagnosis [...] - R06.83) Aug, Asthma (ICD-10 - J45.909) [employer] Other 10-12-2023 Evaluation note* Encounter Date Diagnosis [...] new recipes to add variety; MET, CONTINUE [employer] Other 08-17-2023 Evaluation note* Encounter Date Diagnosis [...] new recipes to add variety; MET, CONTINUE [employer] Other 05-30-2023 Evaluation note* Encounter Date Diagnosis [...] - R06.83) February, Asthma (ICD-10 - J45.909) [employer] Other 04-11-2023 Evaluation note* Encounter Date Diagnosis Assessment Notes Treatment Notes Treatment Clinical Notes Jan, Obesity (ICD-10 - E66.9) Jan, BMI 40.0-44.9, adult (ICD-10 - Z68.41) Jan, Other Summary of Visi t: (A) discussed foods that can help prevent breast cancer and help w/ WM (B) benefits of fiber foods Patient set the following goals: [employer] Other 04-10-2023 Evaluation note* Encounter Date Diagnosis [...] - R06.83) Jan, Asthma (ICD-10 - J45.909) [employer] Other 02-28-2023 Evaluation note* Encounter Date Diagnosis [...] - R06.83) Nov, Asthma (ICD-10 - J45.909) [employer] Other 02-06-2023 Evaluation note* Encounter Date Diagnosis Assessment Notes Treatment Notes Treatment Clinical Notes Nov, Abnormal weight gain (ICD-10 - R63.5) Nov, Hypertension (ICD-10 - I10) Nov, Mixed hyperlipidemia (ICD-10 - E78.2) Nov, Metabolic syndrome X (ICD-10 - E88.81) Nov, Bipolar affective disorder (ICD-10 - F31.9) Nov, Snores (ICD-10 - R06.83) Nov, Asthma (ICD-10 - J45.909) [employer] Other Evaluation noteNo InformationN[employer] Other Evaluation note* Diagnosis Menorrhagia with regular cycle BRCA2 gene mutation positive Complex ovarian cyst Pelvic pain in female Unspecified symptom associated with female genital organs [facility] noteNo assessment information availableUniversity [facility] Work Phone: Evaluation note* Diagnosis Pre-op examination BRCA gene mutation positive documented in this encounter [facility] Healthcare[facility]* Diagnosis Postoperative examination Follow-up examination, following unspecified surgery documented in this encounter [facility] HealthcareEvaluation note* Diagnosis Well woman exam with routine gynecological exam Routine gynecological examination Menorrhagia with regular cycle Pelvic pain in female Unspecified symptom associated with female genital organs BRCA2 gene mutation positive PCOS (polycystic ovarian syndrome) Polycystic ovaries documented in this encounter [facility] HealthcareEvaluation note* Diagnosis Asthma, unspecified asthma severity, unspecified whether complicated, unspecified whether persistent- Primary documented in this encounter [facility] SystemEvaluation note* Diagnosis Mild persistent asthma without complication- Primary Morbid obesity ([facility]) Morbid obesity documented in this encounter [facility] SystemHistory general Narrative - Reported* Type Description Date Medical History ADHD Medical History anxiety Medical History asthma Medical History bipolar Medical History BRCA2 positive Medical History endometriosis Medical History high blood pressure Medical History hypokalemia Medical History leg cramps Surgical History gallbladder 09/19 Surgical History ERCP 09/19 Surgical History wisdom teeth Hospitalization History see above [employer] Other InstructionsNot on filedocumented in this encounter [facility] Work in Field SystemInstructionsNot on filedocumented in this encounter [facility]ContactInstructionsNot on filedocumented [facility] this [facility] Chief Complaint and Reason for Visit Chief [...] occasion Specialty Diagnoses / Procedures Referred By Trevor t Referred To Contact Pulmonary Medicine Diagnoses Mild intermittent asthma without complication Gordon Velazco, JOANNA-ALL TERRAIN VEHICLE RACER [address] [place] [address] Leeanne Connors MD [address] [place] [address] Referral ID Status Reason Start Date Expiration Date Visits Requested Visits Authorized [id number] Pending Review Specialty Services Required 01/16/2024 01/15/2025 1 1 Care Teams (unrecognized sec tion and content) Team Status: Active Member Role Status Dates Gordon Velazco APRN BANQUET STEWARDESS-C Primary Care Provider Active Team Status: Inactive Member Role Status Dates Gordon Velazco APRN BANQU[facility] STEWARDESS-C Primary Care Provider Active Start: January 21, 2024 End: January 21, 2024 Jarred Siegel MD Attending Provider Active Start: January 21, 2024 End: January 21, 2024 Team Status: Inactive Member Role Status Dates Gordon Velazco APRN BANQU[facility] STEWARDESS-C Primary Care Provider Active Start: January 24, 2024 End: January 24, 2024 MAG Johnson Attending Provider Active Start: January 24, 2024 End: January 24, 2024 Team Status: Active Member Role Status Dates Gordon Velazco APRN BANQUET STEWARDESS-C Primary Care Pr ovider, Attending Provider Active Start: February 18, 2024 Team Status: Inactive Member Role Status Dates Gordon Velazco APRN [employer] STEWARDESS-C Primary Care Provider Active Start: March 05, 2024 End: March 05, 2024 Jarred Siegel MD Attending Provider Active Start: March 05, 2024 End: March 05, 2024 Team Status: Inactive Member Role Status Dates Gordon Velazco APRN [facility]QU[facility] STEWARDESS-C Primary Care Provider Active Start: March 27, 2024 End: March 27, 2024 MAG Johnson Attending Provider Active Start: March 27, 2024 End: March 27, 2024 Team Status: Inactive Member Role Status Dates Gordon Velazco APRN [facility] STEWARDESS-C Primary Care Provider Active Start: July 30, 2024 End: July 30, 2024 Cheikh Dorsey DO Attending Provider Active Start : July 30, 2024 End: July 30, 2024 Manager Managing Relationship Specialty Start Date End Date Juan A Gordonshanon Sal APRN-ALL TERRAIN VEHICLE RACER [address] [place] [address] PCP - General Family Medicine 04/23/19 Manager Managing Relationship Specialty Start Date End Date Gordon Velazco APRN-ALL TERRAIN VEHICLE RACER [address] [place] [address] PCP - General Family Medicine 04/23/19 Manager Managing Relationship Specialty Start Date End Date Albina Causey APRN-DENTURES LAB TECHNICIAN [address] [place], [place] [id number] PCP - General Family Medicine 05/22/24 Goals (unrecognized section and content) Goals may be documented in a n alternate section INFORMATION SOURCE (unrecogn ized section and content) DATE CREATED AUTHOR 05/16/2024 [facility] DATE CREATED AUTHOR AUTHOR'S ORGANIZ ATION 05/31/2024 [facility] DATE CREATED AUTHOR AUTHOR'S ORGANIZ ATION 06/10/2024 [facility] DATE CREATED AUTHOR AUTHOR'S ORGANIZ ATION 10/09/2024 [facility] DATE CREATED AUTHOR AUTHOR'S ORGANIZ ATION 10/14/2024 [facility] DATE CREATED AUTHOR AUTHOR'S ORGANIZ ATION 06/19/2025 [facility] FOR RECORDS PERTAINING TO PATIENTS WHO ARE [...] BE BASED ON THE PRIMARY CLINICAL RECORDS. [facility] [facility]. provides no warranty or guarantee of the accuracy or completeness of information in this document.
== END 2025-07-21 09:29 | disposition home or self-care (01) ==
LOC: LAB 09:30
PROVIDERS: Family Provider Family Medicine; Visit Provider Obstetrics & Gynecology
DX: E34.9 Endocrine disorder, unspecified (principal)
CPT/HCPCS: 36415; 83036

== ENCOUNTER 2025-07-21 09:35 | Outpatient (OUT) | payer OTHER, SELFPAY ==
--- OUTSIDE RECORDS SUMMARY | 2024-07-22 04:00 | XMS_ITS ---
Author Organization [facility] in [place] Address [address] [place] [address] Care Team Providers Care Head Cager Name Role Phone None, Unknown or Primary Care Provider Unavailab Zoe Leroy Unavailable [phone] REASON FOR VISIT MD Rodriguez PT Onc Encounters Encounter Location Date Provider Diagnosis [facility] [address] [place] [address] 07/22/2024 Zoe Vega Plan Of Treatment Next Appt Details Provider Name:Zoe Vega , 12/15/2025 08:30:00 AM, [address] [place], [address], Progress Notes * BRITTANY CONNORS LDOB:1984 (40 yo F)Acc No.[id number]:07/22/2024 UNLOCKED PROGRESS NOTE Progress Notes Patient: Noam GAVINKELLIMS BRITTANY Jarquin Provider: Doron Vega M.D. :1985 A ge:39 Y S ex:Female Date:07/22/2024 Address:[facility] [address], [place], [id number] Pcp:Unknown or None Subjective: * Chief Complaints: * 1 . New PT Onc. * Medical History: Objective: * Vitals: Assessment: Plan: * Treatment: * * Electronic signature of Chuy Vega MD, [id number] on 07/21/2025 at 08:18 AM EDT Sign off status: Pending Visit Status: C ONFSMS (Voice) * Provider: Doron Vega M.D. Date: 0 07/22/2024 Generated for Geoffrey land/Renee/Desiree on: 0 07/21/2025 08:18 AM EDT
--- OUTSIDE RECORDS SUMMARY | 2024-08-07 04:30 | XMS_ITS ---
Author Organization [facility] Address [address] [place] [address] Care Team Providers Care Health Sciences Manager Name Role Phone None, Unknown or Primary Care Provider Unavailab Zoe Leroy Unavailable [phone] REASON FOR VISIT MD Encounters Encounter Location Date Provider Diagnosis [facility] [address] [place] [address] 08/07/2024 Zoe Vega Plan Of Treatment Next Appt Details Provider Name:Zoe Vega , 12/15/2025 08:30:00 AM, [address] [place], [address], Progress Notes * BRITTANY CONNORS LDOB:1984 (40 yo F)Acc No.[id number]:08/07/2024 UNLOCKED PROGRESS NOTE Progress Notes Patient: BRITTANY CHARLES Provider: Doron Vega M.D. :1985 A ge:39 Y S ex:Female Date:08/07/2024 Address:[facility] [address] [place], [id number] Pcp:Unknown or None Subjective: * Chief Complaints: * 1 . MD. * Medical History: Objective: * Vitals: Assessment: Plan: * Treatment: * * Electronic signature of Chuy Vega MD, [phone] on 07/21/2025 at 08:18 AM EDT Sign off status: Pending Visit Status: C ONFSMS (Voice) * Provider: Doron Vega M.D. Date: 1 Generated for Geoffrey land/Renee/Desiree on: 0 07/21/2025 08:18 AM EDT
--- OUTSIDE RECORDS SUMMARY | 2025-01-20 04:30 | XMS_ITS ---
Author Organization [facility] [place] Address [address] [place] [address] Care Team Providers Care Library Clerical Assistant Name Role Phone None, Unknown or Primary Care Provider Unavailab Zoe Leroy Unavailable [phone] REASON FOR VISIT MD Encounters Encounter Location Date Provider Diagnosis [facility] On[facility] [address] [place] [address] 01/20/2025 Zoe Vega Plan Of Treatment Next Appt Details Provider Name:Zoe Vega , 12/15/2025 08:30:00 AM, [address] [place], [address], Progress Notes * BRITTANY CONNORS LDOB:1984 (40 yo F)Acc No.[id number]:01/20/2025 UNLOCKED PROGRESS NOTE Progress Notes Patient: BRITTANY CHARLES Provider: Doron Vega M.D. :1985 A ge:39 Y S ex:Female Date:01/20/2025 Address:[facility] [address] [place], [id number] Pcp:Unknown or None Subjective: * Chief Complaints: * 1 . MD. * Medical History: Objective: * Vitals: Assessment: Plan: * Treatment: * * Electronic signature of Chuy Vega MD, [id number] on 07/21/2025 at 08:18 AM EDT Sign off status: Pending Visit Status: C ANC (Cancelled) * Provider: Doron Vega M.D. Date: 0 01/20/2025 Generated for Geoffrey land/Renee/Desiree on: 0 07/21/2025 08:18 AM EDT
--- OUTSIDE RECORDS SUMMARY | 2025-01-27 04:30 | XMS_ITS ---
Author Organization [facility] [place] Address [address] [place] [address] Care Team Providers Care Agronomy Teacher Name Role Phone None, Unknown or Primary Care Provider Unavailab Zoe Leroy Unavailable [phone] REASON FOR VISIT MD Encounters Encounter Location Date Provider Diagnosis [facility] [address] [place] [address] 01/27/2025 Zoe Vega Plan Of Treatment Next Appt Details Provider Name:Zoe Vega , 12/15/2025 08:30:00 AM, [address] [place], [address], Progress Notes * BRITTANY CONNORS LDOB:1984 (40 yo F)Acc No.[id number]:01/27/2025 UNLOCKED PROGRESS NOTE Progress Notes Patient: BRITTANY CHARLES Provider: Doron Vega M.D. :1985 A ge:39 Y S ex:Female Date:01/27/2025 Address:[facility] [address] [place], [id number] Pcp:Unknown or None Subjective: * Chief Complaints: * 1 . MD. * Medical History: Objective: * Vitals: Assessment: Plan: * Treatment: * * Electronic signature of Chuy Vega MD, [id number] on 07/21/2025 at 08:18 AM EDT Sign off status: Pending Visit Status: C ONFSMS (Voice) * Provider: Doron Vega M.D. Date: 0 01/27/2025 Generated for Geoffrey land/Renee/Desiree on: 0 07/21/2025 08:18 AM EDT
--- OUTSIDE RECORDS SUMMARY | 2025-06-16 05:30 | XMS_ITS ---
Author Organization [facility] [place] Address [address] [place] [address] Care Team Providers Care Shoe Dyer Name Role Phone None, Unknown or Primary Care Provider Unavailab Zoe Leroy Unavailable [phone] REASON FOR VISIT MD Encounters Encounter Location Date Provider Diagnosis [facility] Oncology [address] [place] [address] 06/16/2025 Zoe Vega Plan Of Treatment Next Appt Details Provider Name:Zoe Vega , 12/15/2025 08:30:00 AM, [address] [place], [address], Progress Notes * BRITTANY CONNORS LDOB:1984 (40 yo F)Acc No.[id number]:06/16/2025 UNLOCKED PROGRESS NOTE Progress Notes Patient: BRITTANY CHARLES Provider: Doron Vega M.D. :1985 A ge:40 Y S ex:Female Date:06/16/2025 Address:[facility] [address] [place], [id number] Pcp:Unknown or None Subjective: * Chief Complaints: * 1 . MD. * Medical History: Objective: * Vitals: Assessment: Plan: * Treatment: * * Electronic signature of Chuy Vega MD, [id number] on 07/21/2025 at 08:18 AM EDT Sign off status: Pending Visit Status: C ONFSMS (Voice) * Provider: Doron Vega M.D. Date: 0 06/16/2025 Generated for Geoffrey land/Renee/Desiree on: 0 07/21/2025 08:18 AM EDT
--- OUTSIDE RECORDS SUMMARY | 2025-07-20 13:30 | XMS_ITS ---
Author Organization [facility] vices Address [address] [place], [place] [id number] Care Team Providers Care Dishing Machine Operator Name Role Phone KathyaCarolinaPhilly Primary Care Provider Eliseo Ren Unavailable [phone] Katty Causey Unavailable [phone] REASON FOR VISIT hld Social History Sex Assigned At : Social History Observation Description Sex Assigned At Female Encounters Encounter Location Date Provider Diagnosis [address] [id number] 07/20 Katty Causey Plan Of Treatment Next Appt Details Provider Name:Philly chapin, 07/27/2025 07:15:00 AM, [address] [place], [place], [phone], Provider Name:Richard Zepeda, 08/03/2025 07:30:00 AM, [address] [place] [address], [id number], Provider Name:Damian oBwers , 12/03/2025 08:45:00 AM, [address] [place] [address], [id number], Progress Notes * Patricia CONNORSDOB:[birth year] (40 yo F)Acc No.[id number]:07/20/2025 Medical Note Patient: Patricia CHARLES Provider: Boyd Casuey :1985 A ge:40 Y S ex:Female Date:07/20/2025 Address:[address] [place] [address], [facility], [id number] Pcp:Philly Rasheed Subjective: * Chief Complaints: * 1 . Hld. * Medical History: Objective: * Vitals: Assessment: Plan: * Treatment: * Billing Information: * Visit Code: * Procedure Codes: * Electronic signature of SELENE Waller on 07/21/2025 at 08:18 AM EDT Sign off status: Pending * Provider: Boyd Causey Date: 0 07/20/2025 Generated for Geoffrey Resendez/Desiree on: 07/21/2025 08:18 AM EDT
--- OUTSIDE RECORDS SUMMARY | 2025-07-21 08:30 | XMS_ITS | Encounter Summary ---
Author Organization [facility] Address [address] [place] [address] Care Team Providers Care Energy Efficiency Engineer Name Role Phone Unavailable Primary Care Provider Unavailabl e Reason for Visit * Reason Comments Well Women Visit Encounter Details Date Type Department Care Team (Late st Contact Info) Description 07/21/2025 8:30 AM EDT Office Visit [facility] [address] [place] [address] Cheikh Dorsey DO [address] [place] [address] Well woman exam with routine gynecological exam; [...] 9:13 AM EDT documented in this encounter Plan of Treatment Upcoming Encounters Date Type Department Care Team (Late st Contact Info) Description 07/26/2026 8:30 AM EDT Procedure Visit [facility] [address] [place] [address] Cheikh Dorsey DO [address] [place] [address] Scheduled Orders Name Type Priority Associated Diagnoses [...]
--- OUTSIDE RECORDS SUMMARY | 2025-07-21 09:39 | XMS_ITS | Encounter Summary ---
Author Organization [facility] Address [address] [facility] [place] [address] Care Team Providers Care Guide Foreign Tour Name Role Phone Unavailable Primary Care Provider Unavailabl e Encounter Details Date Type Department Care Team (Late st Contact Info) Description 07/10/2025 Abstract SHERRI FELIZ [address] [place], [place] [address] [phone] Cheikh Dorsey DO [address], [facility] Social History Tobacco Use Types Packs/Day Years Used Date Smoking Tobacco: Never Assessed Comments No Sex and Gender Information Value Date Recorded Sex Assigned at Female 06/18/2024 12:40 PM EDT Legal Sex Female 7:07 PM EDT Gender Identity Female 06/18/2024 12:40 PM EDT Sexual Orientation Not on file documented as of this encounter Plan of Treatment Upcoming Encounters Date Type Department Care Team (Late st Contact Info) Description 07/26/2026 8:30 AM EDT Procedure Visit SHERRI FELIZ [address] [place] [phone] Cheikh Dorsey DO [address], [place] [id number] documented as of this encounter Visit Diagnoses Not on filedocumented in this encounter
--- OUTSIDE RECORDS SUMMARY | 2025-07-21 09:39 | XMS_ITS | Encounter Summary ---
Author Organization [facility] Address [address] [facility] [place] [address] Care Team Providers Care Siebel Administrator Name Role Phone Unavailable Primary Care Provider Unavailabl e Encounter Details Date Type Department Care Team (Late st Contact Info) Description 07/10/2025 Abstract SHERRI FELIZ [address] [place], [place] [address] [phone] Cheikh Dorsey DO [address], [facility]11 Social History Tobacco Use Types Packs/Day [...] Procedure Visit SHERRI FELIZ [address] [place] [phone] Cheikh Dorsey DO [address], [place] [phone] documented as of this encounter Visit Diagnoses Not on filedocumented in this encounter
--- OUTSIDE RECORDS SUMMARY | 2025-07-21 09:39 | XMS_ITS | Encounter Summary ---
Author Organization [facility] Address [address] [facility] [place] [address] Care Team Providers Care Delivery Lead Name Role Phone Unavailable Primary Care Provider Unavailabl e Encounter Details Date Type Department Care Team (Late st Contact Info) Description 07/21/2025 Bamboo flowsheet SHERRI FELIZ [address] [place] [phone] Cheikh Dorsey DO [address], [facility]11 Social History Tobacco Use Types Packs/Day Years [...] Description 07/26/2026 8:30 AM EDT Procedure Visit [facility] FELIZ [address] [place] [phone] Cheikh Dorsey, DO [address], [place] [phone] documented as of this encounter Visit Diagnoses Not on filedocumented in this encounter
--- OUTSIDE RECORDS SUMMARY | 2025-07-21 09:39 | XMS_ITS | Encounter Summary ---
Author Organization [facility] Address [address] [place] [address] Care Team Providers Care Explosive Ordnance Manager Name Role Phone Unavailable Primary Care Provider Unavailabl e Encounter Details Date Type Department Care Team (Late st Contact Info) Description 07/01/2024 Clinisync Result Encounter [facility] External Department Unsolicited Levi Dorsey, [address] [place] [address] Social History Tobacco Use Types Packs/Day Years Used Date Smoking Tobacco: Never Assessed Comments Unknown Sex and Gender Information Value Date Recorded Sex Assigned at Female 06/18/2024 12:40 PM EDT Legal Sex Female 7:07 PM EDT Gender Identity Female 06/18/2024 12:40 PM EDT Sexual Orientation Not on file documented as of this encounter Miscellaneous Notes * Result Encounter Note - Leigha Mata LPN - 07/01/2024 3:27 PM EDT Pt notified and verbalizes understanding. documented in this encounter Plan of Treatment Upcoming Encounters Date Type Department Care Team (Late st Contact Info) Description 07/26/2026 8:30 AM EDT Procedure Visit [facility] [address] [place] [phone] Levi Dorsey, DO [address] [place] [address] [place] [address] documented as of this encounter Procedures Procedure Name Priority Date/Time Associated Diagnosis Comments US PELVIS W/ TRANSVAGINAL 07/01/2024 3:21 PM EDT documented in this encounter Results * US PELVIS W/ TRANSVAGINAL (07/01/2024 3:21 PM EDT) Anatomical Region Laterality Modality Other 07/01/2024 3:21 PM EDT Narrative 07/01/2024 3:24 PM EDT [address] [address] Ultrasound Report Signed Patient: BRITTANY CONNORS MR#: [id number] : 1985 Acct:[id number] Age/Sex: 39 / F ADM Date: 06/28/24 Loc: US Attending Dr: Levi Dorsey D.O. Ordering Physician: Levi Dorsey D.O. Date of Service: 06/28/24 Procedure(s): US pelvis w/ transvaginal Accession Number(s): [id number] cc: Levi Dorsey D.O.; Physician,Non-Staff Elia [address] [address] Patient Name: BRITTANY CONNORS MRN: [id number] date: 1985 Sex: F Assigned Patient Location: US Current Patient Location: Accession/Order Number: [id number] Exam Date: 06/28/2024 11:00 Report Date: 07/01/2024 15:21 At the request of: LEVI DORSEY Procedure: US pelvis w/ transvaginal EXAMINATION: US pelvis w/ transvaginal HISTORY: PCOS (Polycystic ovarian syndrome) (E28.2) COMPARISON: No relevant comparison available. TECHNIQUE: Transabdominal and/or transvaginal sonographic examination was performed as indicated by examination type. FINDINGS: UTERUS: Normal size and appearance. Uterus size: 7.1 x 3.8 x 4.5 cm ENDOMETRIUM: Normal homogeneous appearance. Endometrial thickness: 7 mm RIGHT OVARY: Contains a 3.1 cm round hypoechoic hypovascular mass versus complex cyst, and a 3.0 cm anechoic simple appearing cyst. Blood flow present within ovary on color Doppler. . Ovary size: 5.6 x 4.1 x 4.7 cm LEFT OVARY: Contains a slightly hypoechoic slightly geographic shaped 1.3 cm complex cyst versus mass. Blood flow present within ovary on color Doppler. . Ovary size: 3.0 x 2.7 x 2.9 cm CUL-DE-SAC: Unremarkable. No significant free fluid. BLADDER: Unremarkable. OTHER: None. US/US pelvis w/ transvaginal IMPRESSION: 1. Nonspecific complex cysts/lesions within right and left ovary. Follow-up ultrasound evaluation in 6 weeks to document regression is recommended. 2. No findings to suggest polycystic ovarian syndrome. Electronically authenticated by: JNEARO PEREZ Date: 07/01/2024 15:21 Dictated By: Jenaro Perez M.D. Signed By: 07/01/24 1524 DD/ 1521 TD/TT: Electrophysiology Scientist: Procedure Note Radiology, Radiologist, MD - 07/01/2024 [place] [address] Ultrasound Report Signed Patient: BRITTANY CONNORS LMR#: [id number] : 1985Acct:[id number] Age/Sex: 39 / FADM Date: 06/28/24 Loc: US Attending Dr: Levi Dorsey D.O. Ordering Physician: Levi Dorsey D.O. Date of Service: 06/28/24 Procedure(s): US pelvis w/ transvaginal Accession Number(s): [id number] cc: Levi Dorsey D.O.; Physician,Non-Staff Elia The [address] [address] Patient Name: BRITTANY CONNORS MRN: [id number] date: 1985 Sex: F Assigned Patient Location: US Current Patient Location: Accession/Order Number: [id number] Exam Date: 06/28/2024 11:00 Report Date: 07/01/2024 15:21 At the request of: LEVI DORSEY Procedure: US pelvis w/ transvaginal EXAMINATION: US pelvis w/ transvaginal HISTORY: PCOS (Polycystic ovarian syndrome) (E28.2) COMPARISON: No relevant comparison available. TECHNIQUE: Transabdominal and/or transvaginal sonographic examination was performed as indicated by examination type. FINDINGS: UTERUS: Normal size and appearance. Uterus size: 7.1 x 3.8 x 4.5 cm ENDOMETRIUM: Normal homogeneous appearance. Endometrial thickness: 7 mm RIGHT OVARY: Contains a 3.1 cm round hypoechoic hypovascular mass versus complex cyst, and a 3.0 cm anechoic simple appearing cyst. Blood flowpresent within ovary on color Doppler. . Ovary size: 5.6 x 4.1 x 4.7 cm LEFT OVARY: Contains a slightly hypoechoic slightly geographic shaped 1.3cm complex cyst versus mass. Blood flow present within ovary on colorDoppler. . Ovary size: 3.0 x 2.7 x 2.9 cm CUL-DE-SAC: Unremarkable. No significant free fluid. BLADDER: Unremarkable. OTHER: None. US/US pelvis w/ transvaginal IMPRESSION: 1. Nonspecific complex cysts/lesions within right and left ovary.Follow-up ultrasound evaluation in 6 weeks to document regression is recommended. 2. No findings to suggest polycystic ovarian syndrome. Electronically authenticated by: JENARO PERZE Date: 07/01/2024 15:21 Dictated By: Jenaro Perez M.D. Signed By:07/01/24 1524 DD/ 1521 TD/TT: Electrophysiology Scientist: us Levi Dorsey DO [facility] Final Result documented in this encounter Visit Diagnoses Not on filedocumented in this encounter
--- OUTSIDE RECORDS SUMMARY | 2025-07-21 09:39 | XMS_ITS | Encounter Summary ---
Author Organization [employer] Address [id number] [address] [place] [address] Care Team Providers Care Dirt Bike Racer Name Role Phone Katty Causey SCRAPER OPERATOR-REFERENCE INVESTIGATOR Primary Care Provider +1- [phone] Encounter Details Date Type Department Care Team (Late st Contact Info) Description 09/15/2021 Telephone [facility] [address] [address] Marco Juárez, [address], [address] [place] [id number] Social History Tobacco Use Types Packs/Day Years Used Date Smoking Tobacco: Never Smokeless Tobacco: Never Alcohol Use Standard Drinks/Week Comments Yes 0 (1 standard drink = 0.6 oz pur e alcohol) 1/month Childcare Answer Date Recorded Childcare Unknown 04/09/2019 Employment Answer Date Recorded Employment Unknown 04/09/2019 Purpose - Life Answer Date Recorded Purpose and direction in life Unknown Comments No Sex and Gender Information Value Date Recorded Sex Assigned at Female 08/08/2021 5:03 PM EDT Legal Sex Female 11:32 AM EDT Gender Identity Female 08/08/2021 5:03 PM EDT Sexual Orientation Straight 08/08/2021 5: 03 PM EDT COVID-19 Exposure Response Date Recorded In the last month, have you been in contact with someone who was confirmed or suspected to have Coronavirus / COVID-19? No / Unsure 09/15/2021 11:10 AM EST documented as of this encounter Miscellaneous Notes * Telephone Encounter - Sylvia Madeline - 09/15/2021 4:39 PM EST LMOM for the patient to call and schedule their new pt appointment with [facility]. documented in this encounter Plan of Treatment Not on file documented as of this encounter Visit Diagnoses Not on filedocumented in this encounter Care Teams Dirt Bike Racer Relationship Specialty Start Date End Date Katty Causey APRN-REFERENCE INVESTIGATOR [address] [place] [address] PCP - General Family Medicine 05/22/24 documented as of this encounter
--- OUTSIDE RECORDS SUMMARY | 2025-07-21 09:39 | XMS_ITS | Encounter Summary ---
Author Organization [employer] Address [id number] [address] [place] [address] Care Team Providers Care Python Engineer Name Role Phone Katty Causey SMT OPERATOR-ASSOCIATE PROFESSOR OF AUTOMATION Primary Care Provider +1- [phone] Encounter Details Date Type Department Care Team (Late st Contact Info) Description 10/17/2021 Orders Only [facility] [address] [place] [address] External, Scanning Provider Social History Tobacco Use Types Packs/Day Years [...] have Coronavirus / COVID-19? No / Unsure 10/11/2021 7:56 AM EST documented as of this encounter Plan of Treatment Not on file documented as of this encounter Procedures Procedure Name Priority Date/Time Associated Diagnosis Comments LIPID PROFILE Routine 08/16/2021 documented in this encounter Results * Lipid profile (08/16/2021) External Cholesterol 227 MANUALLY TRANSCRIBED RESULTS External Cholesterol:Hdl 3.5 MANUALLY TRANSCRIBED RESULTS External Hdl Cholesterol 65 MANUALLY TRANSCRIBED RESULTS External Ldl (Calc) 131 MANUALLY TRANSCRIBED RESULTS External Triglycerides 153 MANUALLY TRANSCRIBED RESULTS External Very Low Lipoprotein 31 MANUALLY TRANSCRIBED RESULTS us Scanning Provider External LAB BLOOD ORDERABLES Edited Result - Final MANUALLY TRANSCRIBED RESULTS documented in this encounter Visit Diagnoses Not on filedocumented in this encounter Care Teams Python Engineer Relationship Specialty Start Date End Date Katty Causey APRN-FNP [address] [place] [address] PCP - General Family Medicine 05/22/24 documented as of this encounter
--- OUTSIDE RECORDS SUMMARY | 2025-07-21 09:39 | XMS_ITS | Encounter Summary ---
Author Organization [employer] Address [facility]-[id number] [address] [place] [address] Care Team Providers Care Corporate Services Manager Name Role Phone Katty Causey ENVELOPE ADDRESSER-EYE CLINIC MANAGER Primary Care Provider +1- [phone] Encounter Details Date Type Department Care Team ([facility] st Contact Info) Description 03/18/2024 Orders Only [facility] Pul[facility]/Sleep Medicine [address] [facility] [address] [place] [address] Josh Crandall MD [address] [facility], [address] [place] [address] Social History Tobacco Use Types Packs/Day Years Used Date Smoking Tobacco: Never Smokeless Tobacco: Never Alcohol Use Standard Drinks/Week Comments Yes 0 (1 standard drink = 0.6 oz pur e alcohol) 1/month Childcare Answer Date Recorded Childcare Unknown 04/09/2019 Employment Answer Date Recorded Employment Unknown 04/09/2019 Hunger Screening Answer Date Recorded Within the past 12 months we worried whether our food would run out before we got money to buy more. Never True 10/09/2022 Within the past 12 months th e food we bought just didn't last and we didn't have money to get more. Never True 10/09/2022 Purpose - Life Answer Date Recorded Purpose and direction in life Unknown Comments No Sex and Gender Information Value Date Recorded Sex Assigned at Female 08/08/2021 5:03 PM EDT Legal Sex Female 11:32 AM EDT Gender Identity Female 08/08/2021 5:03 PM EDT Sexual Orientation Straight 08/08/2021 5: 03 PM EDT documented as of this encounter Plan of Treatment Not on file documented as of this encounter Visit Diagnoses Not on filedocumented in this encounter Care Teams Corporate Services Manager Relationship Specialty Start Date End Date Katty Causey APRN-SELENE [address] [place] [address] PCP - General Family Medicine 05/22/24 documented as of this encounter
--- OUTSIDE RECORDS SUMMARY | 2025-07-21 09:39 | XMS_ITS | Encounter Summary ---
Author Organization [facility] Address [address] [place] [address] Care Team Providers Care Backup Administrator Name Role Phone Unavailable Primary Care Provider Unavailabl e Encounter Details Date Type Department Care Team (Late st Contact Info) Description 07/03/2024 Orders Only [facility] [address] [place] [address] Maria Elena Boateng LPN [address] [facility] [facility] [place] [address] Social History Tobacco Use Types Packs/Day Years [...] AM EDT Procedure Visit [facility] [address] [place] [address] Cheikh Dorsey DO [address] [place], [place] [id number] documented as of this encounter Procedures Procedure Name Priority Date/Time Associated Diagnosis Comments PAP SMEAR Routine 06/24/2024 12:00 AM EDT documented in this encounter Results * Pap Smear (06/24/2024 12:00 AM EDT) Swab Cervical swab / Unknown us Sunita Nurse [facility] LAB CYTOLOGY ORDERABLES Final Result EXTERNAL LAB documented in this encounter Visit Diagnoses Not on filedocumented in this encounter
--- OUTSIDE RECORDS SUMMARY | 2025-07-21 09:39 | XMS_ITS | Encounter Summary ---
Author Organization [facility] Address [address] [place] [address] Care Team Providers Care Guest Services Representative Name Role Phone Unavailable Primary Care Provider Unavailabl e Encounter Details Date Type Department Care Team (Latest Contact Info) Description 07/18/2025 Travel Social History Tobacco Use Types Packs/Day Years [...] EDT Procedure Visit [facility] [address] [place] [address] Cheikh Dorsey DO [address] [facility] [address] [place], [facility] documented as of this encounter Visit Diagnoses Not on filedocumented in this encounter
--- OUTSIDE RECORDS SUMMARY | 2025-07-21 09:39 | XMS_ITS | Clinical Summary ---
Author Organization [facility] Address [address] [place] [address] Care Team Providers Care Tour Escort Name Role Phone Unavailable Primary Care Provider Unavailabl e Allergies Active Allergy Reactions Criticality Noted Date Comments Fish-Derived Products Anaphylaxis,Hives,Itching High 07/29/2024 Shellfish Allergy 06/24/2024 Shellfish-Derived Products Anaphylaxis High 07/29/20 24 Medications albuterol HFA 90 mcg/act inhaler Inhale 2 puffs every 6 (six) hours if needed 4 Active atomoxetine (Strattera) 40 MG capsule Take 40 mg by mouth Daily Active busPIRone (Buspar) 10 MG tablet Take 10 mg by mouth in the morning and 10 mg before bedtime. 0 Active hydrOXYzine pamoate (Vistaril) 50 MG capsule Take 50 mg by mouth 1 (one) time 4 Active lamoTRIgine (LaMICtal) 100 MG tablet Take 100 mg by mouth every other day 4 Active Magnesium 500 MG capsule Take 500 mg by mouth Daily Active montelukast (Singulair) 10 MG tablet Take 10 mg by mouth at bedtime 4 Active Potassium 99 MG tablet Take 99 mg by mouth Daily Active ARIPiprazole (Abilify) 5 MG tablet Take 5 mg by mouth at bedtime 4 Active lisinopril 30 MG tablet 1 (one) time each day at the same time 4 Active beclomethasone HFA (Qvar) 40 MCG/ACT inhaler Inhale 2 puffs in the morning and 2 puffs in the evening. 4 Active hydroCHLOROthi azide (HYDRODiuril) 25 MG tablet 1 (one) time each day at the same time Active simvastatin (Zocor) 20 MG tablet 1 (one) time each day at the same time Active metFORMIN XR (Glucophage-XR ) 500 MG 24 hr tablet TAKE ONE TABLET WITH EVENING MEAL BY MOUTH ONCE DAILY FOR 30 DAYS; Duration: 30 Active estradiol (Climara) 0.05 MG/24HRIndicat ions:Hormone imbalance,Nigh t sweats Place 1 patch over 7 days on the skin 1 (one) time per week 12 patch 3 5 07/21/20 26 Active progesterone (Prometrium) 100 MG capsuleIndicat ions:Hormone imbalance Take 1 capsule (100 mg) by mouth Daily 30 capsule 11 5 07/21/20 26 Active lisinopril-hyd roCHLOROthiazi de 20-12.5 MG tablet Take 1 tablet by mouth in the morning. 07/21/20 25 Discontinued Vitamin D-Vitamin K (K2-D3 10,000) 05877-19 UNIT-MCG capsule Take 1 each by mouth Daily 07/21/20 25 Discontinued semaglutide (Ozempic, 1 MG/DOSE,) 4 MG/3ML solution pen-injector Inject 1 mg under the skin 1 (one) time per week 4 07/21/20 25 Discontinued magnesium oxide (Mag-Ox) 400 MG tablet Take 400 mg by mouth at bedtime 07/21/20 25 Discontinued Active Problems Problem Noted Date Diagnosed Date BRCA gene mutation positive 09/04/2024 Pre-op examination 09/04/2024 Encounters Date Type Department Care Team Description 07/21/2025 8:30 AM EDT Office Visit [facility] [address] [place] [address] Cheikh Dorsey, DO Well woman exam with routine gynecological exam; Encounter for screening mammogram for malignant neoplasm of breast; Hormone imbalance; Night sweats 07/21/2025 Bamboo flowsheet [facility] [address] [place] [address] Cheikh Dorsey, DO 07/18/2025 Travel 07/10/2025 Abstract [facility] [address] [facility] [place] [address] Cheikh Dorsey, DO 07/10/2025 Abstract [facility] [address] [facility] [place] [address] Cheikh Dorsey, DO 06/17/2025 External Result Encounter [facility] [address] [facility] [place] [address] Cheikh Dorsey, DO 05/19/2025 Telephone [facility] [address] [facility] [place] [address] Susie Key MA from Last 3 Months Family History Medical History Relation Name Comments Brain cancer Cousin Prostate cancer Father Pancreatic cancer Maternal Grandfather Breast cancer Mother Breast cancer Mother's Sister LUMPECTOMY Leukemia Paternal Grandfather Relation Name Status Comments Cousin Other MATERNAL Father Maternal Grandfather Mother Mother's Sister Paternal Grandfather Social History Tobacco Use Types Packs/Day Years Used Date Smoking Tobacco: Never Assessed Comments No Sex and Gender Information Value Date Recorded Sex Assigned at Female 06/18/2024 12:40 PM EDT Legal Sex Female 7:07 PM EDT Gender Identity Female 06/18/2024 12:40 PM EDT Sexual Orientation Not on file Last Filed Vital Signs Vital Sign Reading Time Taken Comments Blood Pressure 116/88 07/21/2025 8:40 AM EDT Pulse - - Temperature - - Respiratory Rate - - Oxygen Saturation - - Inhaled Oxygen Concentration - - Weight 124 kg (273 lb 12 oz) 07/21/2025 8:40 AM EDT Height 165.1 cm (5' 5 ) 06/24/2024 9:13 AM EDT Body Mass Index 45.55 06/24/2024 9:13 AM EDT Plan of Treatment Upcoming Encounters Date Type Department Care Team (Late st Contact Info) Description 07/26/2026 8:30 AM EDT Procedure Visit [facility] [address] [facility] [place] [address] Cheikh Dorsey, DO [address] [facility] [place] [address] Health Maintenance Due Date Last Done Comments HPV/Cotest 02/21/2014 Influenza Vaccine (#1) 2025 , 07/12/2021, 09/07/2020, Additional history exists Mammogram 06/17/2026 06/17/2025, 05/29, 06/06/2024, Additional history exists Cervical Cancer Screening 06/24/2027 Pap Smear 06/24/2027 06/24/2024 Procedures Procedure Name Priority Date/Time Associated Diagnosis Comments BI MAMMOGRAM SCREENING TOMOSYNTHESIS BILATERAL 06/17/2025 10:55 AM EDT PAP SMEAR Routine 06/24/2024 12:00 AM EDT from Last 3 Months or Most Recently Relevant to Health Maintenance Results * Bilateral screening mammogram with tomosynthesis (06/17/2025 10:55 AM EDT) Anatomical Region Laterality Modality Breast Bilateral Mammography 06/17/2025 10:5 5 AM EDT Narrative 06/17/2025 10:54 AM EDT [facility] 1985 [id number] EXAM: MAMM SCREENING BILATERAL W CAD, 06/12/2025 [...] evaluation, please consider placing a referral to [facility]- Hereditary Cancer Genetics via [employer] or . For questions regarding this, please call [phone]. The patient was offered information on genetic counseling at the time of exam. Finalized by Breanne Romo MD on 06/17/2025 10:54 AM 1 a MAMM 1 YR FDA Accredited Performing Facility: [facility] - Mammography/DEXA Imaging [address] [facility] [address] Procedure Note Radiology, Radiologist, - 06/17/2025 [facility] 1985 [id number] EXAM: MAMM SCREENING BILATERAL W CAD, 06/12/2025 11:10 AM CLINICAL INDICATIONS: Screening, Visit for screening mammogram COMPARISON: 05/09/2024, 02/07/2023, 08/11/2021 TECHNIQUE: Bilateral digital tomosynthesis MLO and CC views of the breastswere obtained, with creation of synthetic 2D views. Computer aideddetection was utilized. FINDINGS: The breasts are almost entirely fatty. There are no suspicious masses, calcifications, or areas of architecturaldistortion. IMPRESSION: No mammographic evidence of malignancy. BI-RADS: BI-RADS 1 - Negative RECOMMENDATION: Routine screening mammogram in 1 year. Continued MRIexams recommended given elevated risk (see below). Patient is due patientis due in February 2026. RISK ASSESSMENT: TC Lifetime risk: 41.6%. The patient's reported personal and family medical history was usedcalculate their Tyrer-Cuzick lifetime risk of malignancy. Scores 20% orgreater are considered high risk, and patient should consider supplementalscreening with MRI per ACR guidelines. Patient may discuss this optionwith their healthcare provider. Additionally, this patient's reported personal and/or family history ofcancer indicates they may benefit from a genetic counseling consultationand possible genetic testing. If patient has not already completed thisevaluation, please consider placing a referral to [facility]etics via [employer] or . For questions regarding this,please call [phone]. The patient was offered information on geneticcounseling at the time of exam. Finalized by Breanne Romo MD on 06/17/2025 10:54 AM 1 a MAMM 1 YR FDA Accredited Performing Facility: [facility] - Mammography/DEXA Imaging [address] [facility] [address] us Cheikh Sunita DO IMG BI PROCEDURES Final Result * Pap Smear (06/24/2024 12:00 AM EDT) Swab Cervical swab / Unknown Sunita Nurse [facility] Ob LAB CYTOLOGY ORDERABLES Final Result EXTERNAL LAB from Last 3 Months or Most Recently Relevant to Health Maintenance Insurance [employer]
--- OUTSIDE RECORDS SUMMARY | 2025-07-21 09:39 | XMS_ITS | Patient Health Record ---
Author Organization [facility] [place] Address [address] [place] [address] Care Team Providers Care Soiled Linen Distributor Name Role Phone None, Unknown or Primary Care Provider Unavailab Zoe Leroy Unavailable [phone] Results Component Value Reference Range Notes Cancer Antigen (CA) 125 (Not yet reviewed by provider) Interpretation: Performing Lab: Notes/Report: [facility] , Cancer Antigen (CA) 125 34.4 0.0-38.1 U/mL [facility] Electrochemiluminescence Immunoassay (ECLIA) Values obtained with different assay methods or kits cannot be used interchangeably. Results cannot be interpreted as absolute evidence of the presence or absence of malignant disease. Performed at: [facility] [id number] Maintenance Data Analyst: Gustavo Dawson PhD, Phone: [phone] Performing Lab: see note - [facility] LB Reason For Referral No Information Encounters Encounter Location Date Provider Diagnosis [facility] Oncology [address] [place] [address] 07/22/2024 Zoe Vega [facility] Oncology [address] [place] [address] 08/07/2024 Zoe Vega [facility] [address] [place] [address] 01/27/2025 Zoe Vega [facility]cology [address] [place] [address] 06/16/2025 Zoe Vega Plan Of Treatment Pending Test Test Name Order Date Cancer Antigen (CA) 125 07/22/2024 Next Appt Details Provider Name:Zoe Vega , 12/15/2025 08:30:00 AM, [address] [place], [address], Insurance Providers Payer Name Payer Address Payer Phone Subscriber Number Group Number Insured Name Patient Relationship to Insured Coverage Start Date Coverage End Date O [address] [place], [place] [id number] BRITTANY CONNORS Self - patient is the insured
--- OUTSIDE RECORDS SUMMARY | 2025-07-21 09:39 | XMS_ITS | Encounter Summary ---
Author Organization [employer] Address [facility]-[id number] [address] [place] [address] Care Team Providers Care Business Systems Administrator Name Role Phone Katty Causey CASE PACKER AND SEALER-POWER STATION OPERATOR Primary Care Provider +1- [phone] Encounter Details Date Type Department Care Team ([facility] st Contact Info) Description 03/17/2024 Telephone [facility] [address] [address] Josh Crandall MD [address] [facility] [place] [address] Social History Tobacco Use Types [...] PM EDT documented as of this encounter Miscellaneous Notes * Telephone Encounter - Roxanne Savage Ciro - 03/17/2024 2:59 PM EDT New patient scheduled for 05/12/24 at [facility] with [facility]. Patient has already had a PFT done. Please orderCXR. Thank you! documented in this encounter Plan of Treatment Not on file documented as of this encounter Visit Diagnoses Not on filedocumented in this encounter Care Teams Business Systems Administrator Relationship Specialty Start Date End Date Katty Causey APRN-SELENE [address] [place] [address] PCP - General Family Medicine 05/22/24 documented as of this encounter
--- OUTSIDE RECORDS SUMMARY | 2025-07-21 09:40 | XMS_ITS | Encounter Summary ---
Author Organization [facility] Address [address] [facility] [place] [address] Care Team Providers Care Hair Or Beauty Salon Assistant Name Role Phone Unavailable Primary Care Provider Unavailabl e Encounter Details Date Type Department Care Team (Late st Contact Info) Description 07/31/2024 Abstract [facility] [address] [place], [place] [address] [place] [address] Cheikh Dorsey DO [address], [facility] Social History Tobacco Use Types Packs/Day [...] Procedure Visit [facility] FELIZ [address] [place] [address] Cheikh Dorsey DO [address] [place] [address] documented as of this encounter Visit Diagnoses Not on filedocumented in this encounter
--- OUTSIDE RECORDS SUMMARY | 2025-07-21 09:40 | XMS_ITS | Encounter Summary ---
Author Organization [facility] Address [address] [place] [address] Care Team Providers Care Boom Storage Name Role Phone Unavailable Primary Care Provider Unavailabl e Encounter Details Date Type Department Care Team (Late st Contact Info) Description 09/23/2024 Clinisync Result Encounter [facility] External Department Unsolicited Levi Dorsey DO [address] [place] [address] Social History Tobacco Use Types Packs/Day Years [...] 8:30 AM EDT Procedure Visit [facility] OBS[facility]IE [address] [place] [address] Levi Dorsey DO [address] [place] [address] [place] [address] documented as of this encounter Procedures Procedure Name Priority Date/Time Associated Diagnosis Comments ECG 12-LEAD 09/23/2024 9:36 AM EST documented in this encounter Results * ECG 12-LEAD (09/23/2024 9:36 AM EST) Anatomical Region Laterality Modality Other 09/23/2024 9:36 AM EST Narrative 09/23/2024 8:21 [place] [address] Electrocardiograph Report Signed Patient: BRITTANY CONNORS MR#: [id number] : 1985 Acct:[id number] Age/Sex: 39 / F ADM Date: 09/23/24 Loc: PST Attending Dr: Levi Dorsey D.O. Ordering Physician: Levi Dorsey D.O. Date of Service: 09/23/24 Procedure(s): ECG 12 lead Accession Number(s): [id number] cc: [facility] Test Date: 2024-09-23 Pat Name: BRITTANY CONNORS Department: Room: - Gender: Female Tie Presser: : 1985 Requested By: LEVI DORSEY Order Number: [id number] Reading MD: CHRISTIAN VELASQUEZ Measurements Intervals [place] Rate: 89 P: 20 GA: 155 QRS: 70 QRSD: 98 T: 18 QT: 374 QTc: 455 Interpretive Statements SINUS RHYTHM No previous ECG available for comparison Electronically Signed On 09-23-2024 20:20:53 EST by CHRISTIAN VELASQUEZ Dictated By: Christian Velasquez D.O. Signed By: 09/23/242020 DD/ 5 TD/TT: Petrographer: Procedure Note Radiology, Radiologist, MD - 09/23/2024 [place] [address] Electrocardiograph Report Signed Patient: BRITTANY CONNORS LMR#: [id number] : 1985Acct:[id number] Age/Sex: 39 / FADM Date: 09/23/24 Loc: PST Attending Dr: Levi Dorsey D.O. Ordering Physician: Levi Dorsey D.O. Date of Service: 09/23/24 Procedure(s): ECG 12 lead Accession Number(s): [id number] cc: [facility] Test Date: 2024-09-23 Pat Name: BRITTANY CONNORS Department: Room: - Gender: Female Tie Presser: : 1985 Requested By: LEVI DORSEY Order Number: [id number] Reading MD: CHRISTIAN VELASQUEZ Measurements Intervals [place] Rate: 89 P: 20 GA: 155 QRS: 70 QRSD: 98 T: 18 QT: 374 QTc: 455 Interpretive Statements SINUS RHYTHM No previous ECG available for comparison Electronically Signed On 09-23-2024 20:20:53 EST by CHRISTIAN VELASQUEZ Dictated By: Christian Velasquez D.O. Signed By:09/23/242020 DD/ 5 TD/TT: Petrographer: us Levi Dorsey DO [facility] Final Result documented in this encounter Visit Diagnoses Not on filedocumented in this encounter
--- OUTSIDE RECORDS SUMMARY | 2025-07-21 09:40 | XMS_ITS | Encounter Summary ---
Author Organization [facility] Address [address] [place] [address] Care Team Providers Care Lead Vulcanizing Operator Name Role Phone Unavailable Primary Care Provider Unavailabl e Encounter Details Date Type Department Care Team (Late st Contact Info) Description 06/17/2025 External Result Encounter SHERRI FELIZ [facility] [place] [phone] Cheikh Dorsey DO [address], [facility]11 Social History Tobacco Use Types Packs/Day [...] 8:30 AM EDT Procedure Visit NOMJanette FELIZ [facility] [place] [phone] Cheikh Dorsey DO [address] [place], [place] [id number] documented as of this encounter Procedures Procedure Name Priority Date/Time Associated Diagnosis Comments BI MAMMOGRAM SCREENING TOMOSYNTHESIS BILATERAL 06/17/2025 10:55 AM EDT documented in this encounter Results * Bilateral screening mammogram with tomosynthesis (06/17/2025 10:55 AM EDT) Anatomical Region Laterality Modality Breast Bilateral Mammography 06/17/2025 10:5 5 AM EDT Narrative 06/17/2025 10:54 AM EDT THIS EXAM WAS PERFORMED AT [facility] [place] 1985 [id number] EXAM: MAMM SCREENING BILATERAL W CAD, 06/12/2025 [...] evaluation, please consider placing a referral to [facility]- Hereditary Cancer Genetics via [employer] or . For questions regarding this, please call [phone]. The patient was offered information on genetic counseling at the time of exam. Finalized by Breanne Romo MD on 06/17/2025 10:54 AM 1 a MAMM 1 YR FDA Accredited Performing Facility: [facility] - Mammography/DEXA Imaging [address] [facility] [address] Procedure Note Radiology, Radiologist, - 06/17/2025 [facility] 1985 [id number] EXAM: MAMM SCREENING BILATERAL W CAD, 06/12/2025 [...] thisevaluation, please consider placing a referral to [facility] HereditaryCancer Genetics via [employer] or . For questions regarding this,please call [phone]. The patient was offered information on geneticcounseling at the time of exam. Finalized by Breanne Romo MD on 06/17/2025 10:54 AM 1 a MAMM 1 YR FDA Accredited Performing Facility: [facility] - Mammography/DEXA Imaging [address] [facility] [address] Cheikh Dorsey DO IM BI PROCEDURES Final Result documented in this encounter Visit Diagnoses Not on filedocumented in this encounter
--- OUTSIDE RECORDS SUMMARY | 2025-07-21 09:40 | XMS_ITS | Encounter Summary ---
Author Organization [facility] Address [address] [facility] [place] [address] Care Team Providers Care School Age Teacher Name Role Phone Unavailable Primary Care Provider Unavailabl e Encounter Details Date Type Department Care Team (Late st Contact Info) Description 08/13/2024 Abstract SHERRI FELIZ [address] [place], [place] [address] [place] [phone] Cheikh Dorsey DO [address], [facility]11 Social History Tobacco Use Types Packs/Day [...] Visit SHERRI FELIZ [address] [place] [phone] Cheikh Dorsey DO [address] [place] [address] documented as of this encounter Visit Diagnoses Not on filedocumented in this encounter
--- OUTSIDE RECORDS SUMMARY | 2025-07-21 09:40 | XMS_ITS | Encounter Summary ---
Author Organization [facility] Address [address] [facility] [place] [address] Care Team Providers Care Bilingual Operator Name Role Phone Unavailable Primary Care Provider Unavailabl e Encounter Details Date Type Department Care Team (Late st Contact Info) Description 10/06/2024 Abstract SHERRI FELIZ [address] [place], [place] [address] [phone] Cheikh Dorsey DO [address], [facility]11 Social History Tobacco Use Types Packs/Day Years [...] Procedure Visit SHERRI FELIZ [address] [place] [phone] Cheikh Dorsey DO [address], [place] [phone] documented as of this encounter Visit Diagnoses Not on filedocumented in this encounter
--- OUTSIDE RECORDS SUMMARY | 2025-07-21 09:40 | XMS_ITS | Encounter Summary ---
Author Organization [facility] Address [address] [facility] [place] [address] Care Team Providers Care Sales Representative Jewelry Name Role Phone Unavailable Primary Care Provider Unavailabl e Encounter Details Date Type Department Care Team (Late st Contact Info) Description 10/03/2024 Abstract SHERRI FELIZ [address] [place], [place] [address] [phone] Cheikh Dorsey DO [address], [facility]11 Social History Tobacco [...] Procedure Visit SHERRI FELIZ [address] [place] [phone] Cheikh Dorsey DO [address], [place] [phone] documented as of this encounter Visit Diagnoses Not on filedocumented in this encounter
--- OUTSIDE RECORDS SUMMARY | 2025-07-21 09:40 | XMS_ITS | Encounter Summary ---
Author Organization [facility] Address [address] [facility] [place] [address] Care Team Providers Care Industrial Diamond Polisher Name Role Phone Unavailable Primary Care Provider Unavailabl e Encounter Details Date Type Department Care Team (Late st Contact Info) Description 08/07/2024 Abstract SHERRI FELIZ [address] [place], [place] [address] [phone] Cheikh Dorsey DO [address], [facility]11 Social History Tobacco Use Types Packs/Day [...] Procedure Visit SHERRI FELIZ [address] [place] [phone] Cheikh Dorsey DO [address] [place] [address] documented as of this encounter Visit Diagnoses Not on filedocumented in this encounter
--- OUTSIDE RECORDS SUMMARY | 2025-07-21 09:40 | XMS_ITS | Encounter Summary ---
Author Organization [facility] Address [id number] [address] [place] [address] Care Team Providers Care Operations Intern Name Role Phone Katty Causey ASSOCIATE MUSIC PROFESSOR-STATION MANAGER Primary Care Provider [phone] Reason for Referral * Gastroenterology (Routine) - Closed Specialty Diagnoses / Procedures Referred By Trevor zhang Referred To Contact Diagnoses Choledocholithiasis Procedures ERCP Bonnie Ariza PA Phone: tel: fax: Referral ID Status Reason Start Date Expiration Date Visits Re quested Visits Authorized [id number] Closed 09/08/2022 09/08/2023 1 1 Encounter Details Date Type Department Care Team (Late st Contact Info) Description 09/08/2022 Orders Only [facility] [address] [place] [address]. [address] [place] [phone] Bonnie Ariza PA [address] [facility], [address] [place] [address] Choledocholithiasis (Primary Dx) Social History Tobacco Use Types Packs/Day Years [...] have Coronavirus / COVID-19? No / Unsure 09/08/2022 2:31 PM EST documented as of this encounter Plan of Treatment Scheduled Orders Name Type Priority Associated Diagnoses Orde r Schedule ERCP GI Routine Choledocholithiasis 1 Occurrences starting 09/08/2022 until 09/08/2023 documented as of this encounter Visit Diagnoses Diagnosis Choledocholithiasis- Primary Calculus of bile duct without mention of cholecystitis or obstruction documented in this encounter Care Teams Operations Intern Relationship Specialty Start Date End Date Katty Causey, JOANNA-STATION MANAGER [address] [place] [address] PCP - General Family Medicine 05/22/24 documented as of this encounter
--- OUTSIDE RECORDS SUMMARY | 2025-07-21 09:40 | XMS_ITS | Encounter Summary ---
Author Organization [facility] Address [address] [facility] [place] [address] Care Team Providers Care Cook Fish And Chips Name Role Phone Unavailable Primary Care Provider Unavailabl e Encounter Details Date Type Department Care Team (Late st Contact Info) Description 09/28/2024 Clinisync Result Encounter NOMS External Department Unsolicited Levi Dorsey DO [address] [place] [address] Social History Tobacco Use Types Packs/Day Years [...] 8:30 AM EDT Procedure Visit NOMS Ligia OBGYMadiha [address] [place] [phone] Levi Dorsey DO [address] [place] [address] [place] [address] documented as of this encounter Procedures Procedure Name Priority Date/Time Associated Diagnosis Comments US PELVIS W/ TRANSVAGINAL 09/28/2024 6:20 AM EST documented in this encounter Results * US PELVIS W/ TRANSVAGINAL (09/28/2024 6:20 AM EST) Anatomical Region Laterality Modality Other 09/28/2024 6:20 AM EST Narrative 09/28/2024 6:22 [place] [address] Ultrasound Report Signed Patient: BRITTANY CONNORS MR#: [id number] : 1985 Acct:[id number] Age/Sex: 39 / F ADM Date: 09/27/24 Loc: US Attending Dr: Levi Dorsey D.O. Ordering Physician: Levi Dorsey D.O. Date of Service: 09/27/24 Procedure(s): US pelvis w/ transvaginal Accession Number(s): [id number] cc: Leiv Dorsey D.O.; Katty Causey [place] [id number] Patient Name: BRITTANY CONNORS MRN: [id number] date: 1985 Sex: F Assigned Patient Location: US Current Patient Location: Accession/Order Number: [id number] Exam Date: 09/27/2024 09:00 Report Date: 09/28/2024 06:20 At the request of: LEVI DORSEY Procedure: US pelvis w/ transvaginal EXAMINATION: US pelvis w/ transvaginal HISTORY: Bilateral ovarian cysts COMPARISON: Ultrasound pelvis 08/23/2024 TECHNIQUE: Transabdominal and/or transvaginal sonographic examination was performed as indicated by examination type. FINDINGS: UTERUS: Normal size and appearance. Uterus size: 7.7 x 4.6 x 3.3 cm ENDOMETRIUM: Normal homogeneous appearance. Endometrial thickness: 8 mm RIGHT OVARY: Contains a 2.5 cm cyst. In addition there may be a 1.6 cm paraovarian cyst or exophytic uterine cyst. Duplex Doppler demonstrates normal waveform and flow; resistive index 0.5. Ovary size: 3.1 x 2.7 x 2.6 cm LEFT OVARY: Contains a 3.3 cm hypoechoic slightly heterogeneous cyst. Duplex Doppler demonstrates normal waveform and flow; resistive index 0.6. Ovary size: 4.9 x 3.9 x 3.3 cm CUL-DE-SAC: Unremarkable. No significant free fluid. BLADDER: Unremarkable. OTHER: None. US/US pelvis w/ transvaginal IMPRESSION: 1. Nonspecific bilateral ovarian cysts. The largest 3.3 cm left ovarian cyst may represent an endometrioma given its appearance. Electronically authenticated by: JENARO PEREZ Date: 09/28/2024 06:20 Dictated By: Jenaro Perez M.D. Signed By: 09/28/24621 DD/ 9 TD/TT: Commercial Real Estate Appraiser: Procedure Note Radiology, Radiologist, MD - 09/28/2024 [place] [address] Ultrasound Report Signed Patient: BRITTANY CONNORS LMR#: [id number] : 1985Acct:[id number] Age/Sex: 39 / FADM Date: 09/27/24 Loc: US Attending Dr: Levi Dorsey D.O. Ordering Physician: Levi Dorsey D.O. Date of Service: 09/27/24 Procedure(s): US pelvis w/ transvaginal Accession Number(s): [id number] cc: Levi Dorsey D.O.; Katty Causey NP The [place] [id number] Patient Name: BRITTANY CONNORS MRN: [id number] date: 1985 Sex: F Assigned Patient Location: US Current Patient Location: Accession/Order Number: [id number] Exam Date: 09/27/2024 09:00 Report Date: 09/28/2024 06:20 At the request of: LEVI DORSEY Procedure: US pelvis w/ transvaginal EXAMINATION: US pelvis w/ transvaginal HISTORY: Bilateral ovarian cysts COMPARISON: Ultrasound pelvis 08/23/2024 TECHNIQUE: Transabdominal and/or transvaginal sonographic examination was performed as indicated by examination type. FINDINGS: UTERUS: Normal size and appearance. Uterus size: 7.7 x 4.6 x 3.3 cm ENDOMETRIUM: Normal homogeneous appearance. Endometrial thickness: 8 mm RIGHT OVARY: Contains a 2.5 cm cyst. In addition there may be a 1.6 cm paraovarian cyst or exophytic uterine cyst. Duplex Doppler demonstratesnormal waveform and flow; resistive index 0.5. Ovary size: 3.1 x 2.7 x 2.6 cm LEFT OVARY: Contains a 3.3 cm hypoechoic slightly heterogeneous cyst.Duplex Doppler demonstrates normal waveform and flow; resistive index 0.6. Ovary size: 4.9 x 3.9 x 3.3 cm CUL-DE-SAC: Unremarkable. No significant free fluid. BLADDER: Unremarkable. OTHER: None. US/US pelvis w/ transvaginal IMPRESSION: 1. Nonspecific bilateral ovarian cysts. The largest 3.3 cm left ovariancyst may represent an endometrioma given its appearance. Electronically authenticated by: JENARO PEREZ Date: 09/28/2024 06:20 Dictated By: Jenaro Perez M.D. Signed By:09/28/24621 DD/ 9 TD/TT: Commercial Real Estate Appraiser: us [facility] DO [facility] Final Result documented in this encounter Visit Diagnoses Not on filedocumented in this encounter
--- OUTSIDE RECORDS SUMMARY | 2025-07-21 09:40 | XMS_ITS | Encounter Summary ---
Author Organization [facility] Address [address] [facility] [place] [address] Care Team Providers Care Branch Credit Counselor Name Role Phone Unavailable Primary Care Provider Unavailabl e Encounter Details Date Type Department Care Team (Late st Contact Info) Description 09/09/2024 Abstract SHERRI FELIZ [address] [place], [place] [address] [place] [phone] Cheikh Dorsey DO [address], [facility]11 Social History Tobacco Use Types [...] Visit SHERRI FELIZ [address] [place] [phone] Cheikh Dorsey DO [address], [place] [phone] documented as of this encounter Visit Diagnoses Not on filedocumented in this encounter
--- OUTSIDE RECORDS SUMMARY | 2025-07-21 09:40 | XMS_ITS | Encounter Summary ---
Author Organization [facility] Address [address] [facility] [place] [address] Care Team Providers Care Grain Elevator Clerk Name Role Phone Unavailable Primary Care Provider Unavailabl e Encounter Details Date Type Department Care Team (Late st Contact Info) Description 08/24/2024 Clinisync Result Encounter NOMS External Department Unsolicited Levi Dorsey DO [address] [place] [address] Social History Tobacco Use Types Packs/Day Years [...] Visit NOMS Ligia OBGYMadiha [address] [place] [phone] Levi Dorsey DO [address] [place] [address] [place] [address] documented as of this encounter Procedures Procedure Name Priority Date/Time Associated Diagnosis Comments US PELVIS W/ TRANSVAGINAL 08/24/2024 6:02 AM EDT documented in this encounter Results * US PELVIS W/ TRANSVAGINAL (08/24/2024 6:02 AM EDT) Anatomical Region Laterality Modality Other 08/24/2024 6:02 AM EDT Narrative 08/24/2024 6:05 [place] [address] Ultrasound Report Signed Patient: BRITTANY CONNORS MR#: [id number] : 1985 Acct:[id number] Age/Sex: 39 / F ADM Date: 08/23/24 Loc: US Attending Dr: Levi Dorsey D.O. Ordering Physician: Levi Dorsey D.O. Date of Service: 08/23/24 Procedure(s): US pelvis w/ transvaginal Accession Number(s): [id number] cc: Levi Dorsey D.O.; Katty Causey AMMUNITION STORAGE SUPERINTENDENT [place] [address] Patient Name: BRITTANY CONNORS MRN: [id number] date: 1985 Sex: F Assigned Patient Location: US Current Patient Location: Accession/Order Number: [id number] Exam Date: 08/23/2024 08:40 Report Date: 08/24/2024 06:02 At the request of: LEVI DORSEY Procedure: US pelvis w/ transvaginal EXAMINATION: US pelvis w/ transvaginal HISTORY: COMPLEX OVARIAN CYST N83.299 ; chronic pelvic pain COMPARISON: Ultrasound pelvis/transvaginal 06/28/2024 TECHNIQUE: Transabdominal and/or transvaginal sonographic examination was performed as indicated by examination type. FINDINGS: UTERUS: Normal size and appearance. Uterus size: 6.8 x 4.5 x 3.3 cm ENDOMETRIUM: Normal homogeneous appearance. Endometrial thickness: 9 mm RIGHT OVARY: Contains a 1.8 cm benign-appearing cyst on today's study. Duplex Doppler demonstrates normal waveform and flow; resistive index 3.2 x 2.3 x 2.1 cm. Ovary size: 0.6 LEFT OVARY: Contains a homogeneous hypoechoic complex cyst versus mass on today's study, 2.4 x 2.8 x 3.0 cm. Duplex Doppler demonstrates normal waveform and flow; resistive index 0.6. Ovary size: 4.8 x 3.5 x 3.3 cm CUL-DE-SAC: Unremarkable. No significant free fluid. BLADDER: Unremarkable. OTHER: None. US/US pelvis w/ transvaginal IMPRESSION: 1. Bilateral ovarian cysts/complex cysts. The ovaries may be mobile as the appearance of the right ovary looks like the left ovary on the prior study and today's left ovary looks like prior right ovary, or they may have been inadvertently mislabeled. No appreciable change in appearance of the ovarian cysts/lesions. Consider additional follow-up in 6 weeks to evaluate for regression. Electronically authenticated by: JENARO PEREZ Date: 08/24/2024 06:02 Dictated By: Jenaro Perez M.D. Signed By: 08/24/24604 DD/ 1 TD/TT: Advice Nurse: Procedure Note Radiology, Radiologist, MD - 08/24/2024 [place] [address] Ultrasound Report Signed Patient: BRITTANY CONNORS LMR#: [id number] : 1985Acct:[id number] Age/Sex: 39 / FADM Date: 08/23/24 Loc: US Attending Dr: Levi Dorsey D.O. Ordering Physician: Levi Dorsey D.O. Date of Service: 08/23/24 Procedure(s): US pelvis w/ transvaginal Accession Number(s): [id number] cc: Levi Dorsey D.O.; Katty Causey AMMUNITION STORAGE SUPERINTENDENT The [address] [address] Patient Name: BRITTANY CONNORS MRN: [id number] date: 1985 Sex: F Assigned Patient Location: US Current Patient Location: Accession/Order Number: [id number] Exam Date: 08/23/2024 08:40 Report Date: 08/24/2024 06:02 At the request of: LEVI DORSEY Procedure: US pelvis w/ transvaginal EXAMINATION: US pelvis w/ transvaginal HISTORY: COMPLEX OVARIAN CYST N83.299 ; chronic pelvic pain COMPARISON: Ultrasound pelvis/transvaginal 06/28/2024 TECHNIQUE: Transabdominal and/or transvaginal sonographic examination was performed as indicated by examination type. FINDINGS: UTERUS: Normal size and appearance. Uterus size: 6.8 x 4.5 x 3.3 cm ENDOMETRIUM: Normal homogeneous appearance. Endometrial thickness: 9 mm RIGHT OVARY: Contains a 1.8 cm benign-appearing cyst on today's study.Duplex Doppler demonstrates normal waveform and flow; resistive index 3.2 x 2.3 x2.1 cm. Ovary size: 0.6 LEFT OVARY: Contains a homogeneous hypoechoic complex cyst versus mass on today's study, 2.4 x 2.8 x 3.0 cm. Duplex Doppler demonstrates normalwaveform and flow; resistive index 0.6. Ovary size: 4.8 x 3.5 x 3.3 cm CUL-DE-SAC: Unremarkable. No significant free fluid. BLADDER: Unremarkable. OTHER: None. US/US pelvis w/ transvaginal IMPRESSION: 1. Bilateral ovarian cysts/complex cysts. The ovaries may be mobile as the appearance of the right ovary looks like the left ovary on the prior studyand today's left ovary looks like prior right ovary, or they may have been inadvertently mislabeled. No appreciable change in appearance of theovarian cysts/lesions. Consider additional follow-up in 6 weeks to evaluate for regression. Electronically authenticated by: JENARO PEREZ Date: 08/24/2024 06:02 Dictated By: Jenaro Perez M.D. Signed By:08/24/2405 DD/ 1 TD/TT: Advice Nurse: us Levi Dorsey DO [facility] Final Result documented in this encounter Visit Diagnoses Not on filedocumented in this encounter
--- OUTSIDE RECORDS SUMMARY | 2025-07-21 09:40 | XMS_ITS | Clinical Summary ---
Author Organization [facility] Address [id number] [place] [address] Care Team Providers Care Children Librarian Name Role Phone Katty Causey APRN-SHEET METAL FOREMAN Primary Care Provider [phone] Allergies No known active allergies Medications ARIPiprazole (ABILIFY) 2 mg tabletIndications :bipolar disorder in remission,major depressive disorder treatment adjunct Take 1 tablet (2 mg total) by mouth in the morning. Indications: additional treatment for major depressive disorder, bipolar disorder in remission. In the PM . Active atomoxetine (STRATTERA) 40 mg capsuleIndication s:attention-defic it hyperactivity disorder Take 1 capsule (40 mg total) by mouth in the morning. Indications: attention deficit disorder with hyperactivity. In the am . Active busPIRone (BUSPAR) 10 mg tabletIndications :generalized anxiety disorder Take 1 tablet (10 mg total) by mouth in the morning and 1 tablet (10 mg total) before bedtime. Indications: repeated episodes of anxiety. Active lamoTRIgine (LaMICtal) 100 mg tabletIndications :depression associated with bipolar disorder Take 1 tablet (100 mg total) by mouth in the morning. Indications: bipolar depression. In the am . Active lisinopril-hydroC HLOROthiazide (PRINZIDE,ZESTORE TIC) 20-12.5 mg per tabletIndications :hypertension Take 1 tablet by mouth in the morning. Indications: high blood pressure. Active magnesium oxide (MAG-OX) 400 mg tablet Take 1 tablet (400 mg total) by mouth nightly. Takes 250mg Active montelukast (SINGULAIR) 10 mg tabletIndications :seasonal allergic rhinitis Take 1 tablet (10 mg total) by mouth nightly Indications: seasonal runny nose. Active potassium chloride (K-TAB,KLOR-CON) 10 MEQ CR tablet Take 10 mEq by mouth daily. Active hydrOXYzine (VISTARIL) 50 mg capsule TAKE 1 CAPSULE BY MOUTH EVERYDAY AT BEDTIME NEEDED FOR SLEEP 2 Active albuterol (PROVENTIL HFA;VENTOLIN HFA) 90 mcg/actuation inhalerIndication s:Mild persistent asthma without complication Inhale 2 puffs every 6 (six) hours as needed for wheezing or shortness of breath. 18 g 11 4 Active beclomethasone HFA (QVAR REDIHALER) 40 mcg/actuation Inhale 2 puffs in the morning and 2 puffs before bedtime. 10.6 g 11 4 Active Active Problems Problem Noted Date Diagnosed Date Choledocholithiasis 09/06/2022 Other chest pain 10/11/2021 ADHD Encounters Date Type Department Care Team Description 06/12/2025 11:10 AM EDT - 06/12/2025 11:59 PM EDT Hospital Encounter [facility] - Mammography/DEXA Imaging [address] [place] [id number] Visit for screening mammogram Discharge Disposition: Home 06/10/2025 Travel 05/05/2025 8:30 AM EDT - 05/05/2025 11:59 PM EDT Hospital Encounter [facility] - Cardiovascular [address] [place] [id number] Tachycardia Discharge Disposition: Home 05/04/2025 Travel from Last 3 Months Family History Medical History Relation Name Comments No Known Problems Brother Diabetes Father Kamron Connors Sr Hypertension Father Kamron Connors Sr BRCA 1/2 Maternal Aunt 1 Junie Gutierres BRCA2 positi ve Breast cancer Maternal Aunt 1 Junie Gutierres Heart disease Maternal Grandfather Pancreatic cancer Maternal Grandfather Heart disease Maternal Grandmother María Daniela Cha s Strokes started in her 30s Parkinsonism Maternal Grandmother Khloeshanon Connors Skin cancer Maternal Grandmother Khloeshanon Connors Heart disease Maternal Uncle 1 [place] Parkinsonism Maternal Uncle 2 half Anesthesia problems Mother Petra Connors has w oken up during surgery x4 Asthma Mother Petra Connors BRCA 1/2 Mother Petra Connors BRCA2 positi ve Breast cancer Mother Petra Connors Depression Mother Petra Connors Hypertension Mother Petra Connors Heart disease Paternal Grandfather Leukemia Paternal Grandfather Heart disease Paternal Grandmother María Suarez.Semaj s Skin cancer Paternal Grandmother María Suarez.Chris Stroke Paternal Grandmother María Suarez.Chris No Known Problems Sister 1 No Known Problems Sister 2 [place] Breast Cancer Neg Hx Relation Name Status Comments Brother Alive Father Kamron Connors Sr Alive Maternal Aunt 1 Junie Gutierres Alive Maternal Aunt 2 Alive Maternal Grandfather Maternal Grandmother María Connors Maternal Uncle 1 [place] Maternal Uncle 2 half Mother Petra Connors Alive Paternal Aunt 1 Alive Paternal Aunt 2 Alive Paternal Grandfather Paternal Grandmother María Suarez.Chris Sister 1 Alive Sister 2 Alive Social History Tobacco Use Types Packs/Day Years Used Date Smoking Tobacco: Never Smokeless Tobacco: Never Tobacco Cessation:Counseling Given: Not Answered Alcohol Use Standard Drinks/Week Comments Yes 0 [...] Orientation Straight 08/08/2021 5: 03 PM EDT Last Filed Vital Signs Vital Sign Reading Time Taken Comments Blood Pressure 139/96 05/12/2024 12:54 PM EDT Pulse 105 05/12/2024 12:54 PM EDT Temperature 36 C (96.8 F) 09/27/2022 2:40 PM EST Respiratory Rate 22 09/27/2022 2:40 PM EST Oxygen Saturation 97% 05/12/2024 12:54 PM EDT Inhaled Oxygen Concentration - - Weight 114.3 kg (252 lb) 03/03/2025 1:17 PM EDT Height 167.6 cm (5' 6 ) 06/06/2024 7:50 AM EDT Body Mass Index 40.67 06/06/2024 7:50 AM EDT Plan of Treatment Health Maintenance Due Date Last Done Comments Depression Screening 1996 Tobacco Screening 05/12/2025 05/12/2024 COVID-19 Vaccine (2024- 6 season) 2025 11/04/2021, 02/25/2021, 01/28/2021 Influenza Vaccine 06/29/2025 08/28/2023, , 09/07/2020, Additional history exists Adult BMI Screening 03/03/2026 03/03/2025 Pap Smear 06/24/2027 06/24/2024 DTaP,Tdap and Td Vaccines (2 - Td or Tdap) 08/28/2033 08/28/2023 Medical Devices Not on file Procedures Procedure Name Priority Date/Time Associated Diagnosis Comments MAMM SCREENING BILATERAL W CAD Routine 06/12/2025 11:27 AM EDT Visit for screening mammogram HOLTER MONITOR LEGAL PROJECT MANAGER/UP TO 48 HOUR Routine 05/05/2025 8:52 AM EDT Tachycardia from Last 3 Months Results * Mammography screening bilateral with CAD (06/12/2025 11:27 AM EDT) Anatomical Region Laterality Modality Breast Bilateral Mammography 06/17/2025 10:5 3 AM EDT Narrative 06/17/2025 10:54 AM EDT BRITTANY CONNORS 1985 [id number] EXAM: MAMM SCREENING BILATERAL W CAD, 06/12/2025 [...] evaluation, please consider placing a referral to [facility] via [employer] or . For questions regarding this, please call [phone]. The patient was offered information on genetic counseling at the time of exam. Finalized by Breanne Romo MD on 06/17/2025 10:54 AM 1 a MAMM 1 YR FDA Accredited Performing Facility: [facility] - Mammography/DEXA Imaging [address] [address] Procedure Note Breanne Romo MD - 06/17/2025 BRITTANY BLUEMadiha CONNORS 1985 [id number] EXAM: MAMM SCREENING BILATERAL W CAD, 06/12/2025 [...] thisevaluation, please consider placing a referral to [facility] via [employer] or . For questions regarding this,please call [phone]. The patient was offered information on geneticcounseling at the time of exam. Finalized by Breanne Romo MD on 06/17/2025 10:54 AM 1 a MAMM 1 YR FDA Accredited Performing Facility: [facility] - Mammography/DEXA Imaging [address] [address] Cheikh R Sunita DO IMG MAMMOGRAPHY ORDERABLES Iram l Result * HOLTER MONITOR LEGAL PROJECT MANAGER/UP TO 48 HOUR (05/05/2025 8:52 AM EDT) Anatomical Region Laterality Modality Chest N/A Other Narrative 05/11/2025 2:06 PM EDT 1d 35sec Holter monitor. Primary rhythm sinus rhythm with average. 98 beats per minute. Ranged between 63-143 beats per minute. Rare PACs. No significant arrhythmias. No triggered events. Katty Causey ALTERATION SPECIALIST-SHEET METAL FOREMAN [facility] ORDERA BLES Final Result from Last 3 Months Insurance [employer] Advance Directives * Full Code (Latest Code Status on File) Date Activated Date Inactivated Comments 09/06/2022 5:42 PM 09/07/2022 4:30 PM Care Teams Children Librarian Relationship Specialty Start Date End Date Katty Causey APRN-FNP [address] [place] [address] PCP - General Family Medicine 05/22/24
--- OUTSIDE RECORDS SUMMARY | 2025-07-21 09:40 | XMS_ITS | Patient Health Record ---
Author Organization [facility] Address [address] [place] [address] Care Team Providers Care New Home Sales Consultant Name Role Phone Anabella Velazco Primary Care Provider Ok Sanchez Unavailable [phone] Allergies No Known Allergies Reason For Referral No Information Medications Medication SIG (Take, Route, Frequency, Duration) Notes Start Date End Date Status atomoxetine Active busPIRone Active albuterol Active ARIPiprazole Active potassium chloride A ctive Magnesium Active montelukast Active lamoTRIgine Active hydrochlorothiazide-lisinop ril Active hydrOXYzine Active Social History Tobacco Use: Social History Observation Description Date Details (start date - stop date) Never Smoker NA - NA Smoking History Question Answer Notes Smoking Status NonSmoker Problems Problem Type SNOMED Code ICD Code Onset Dates Problem Status W/U Status Risk Notes Problem 84020858794561965 Flat foot [pes planus] (acquired), right foot (M21.41) Active confirmed Problem 824587973743422 Flat foot [pes planus] (acquired), left foot (M21.42) Active confirmed Problem 567259687710147 Left tibialis posterior tendonitis (M76.822) Active confirmed Problem 4403931 Short Achilles tendon (acquired), 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) Active confirmed Problem 197045980886684 Short Achilles tendon (acquired), left ankle (M67.02) Active confirmed Plan Of Treatment No Information Insurance Providers Payer Name Payer Address Payer Phone Subscriber Number Group Number Insured Name Patient Relationship to Insured Coverage Start Date Coverage End Date Saundra HARRIS [address] [place] [phone] [id number] BRITTANY CONNORS Self - patient is the insured Medical (General) History Medical History History ICD Code Allergies, food Yes Mental Illness: Yes Depression: Yes High Blood Pressure: Yes Asthma/Emphysema/Wheezing Yes Have you been seen by a dentist in the l ast year? Yes Surgical History Surgery Date(Month/Year)
--- OUTSIDE RECORDS SUMMARY | 2025-07-21 09:40 | XMS_ITS | Encounter Summary ---
Author Organization [facility] Address [address] [place] [address] Care Team Providers Care Plant Floor Automation Manager Name Role Phone Unavailable Primary Care Provider Unavailabl e Encounter Details Date Type Department Care Team (Late st Contact Info) Description 08/18/2024 Abstract SHERRI FELIZ [address] [place], [place] [address] [place] [id number] Cheikh Dorsey DO [address], [facility] Social History Tobacco Use Types Packs/Day [...] Procedure Visit SHERRI FELIZ [address] [place] [phone] Cheikh Dorsey DO [address], [place] [id number] documented as of this encounter Visit Diagnoses Not on filedocumented in this encounter
--- OUTSIDE RECORDS SUMMARY | 2025-07-21 09:43 | XMS_ITS | CCD ---
Author Organization [facility] CliniSys[facility] Care Team Providers Care Goggles Assembler Name Role Phone Estevan Howardn Unavailable Jarred Siegel Unavailable JOSH FENTON Attending Unavailable ANGLIM, GORDON A Referring Unavailable ANGLIM, GORDON A Primary Care Unavailable PHILLY RASHEED Referring Unavailab le NASREEN, ALBINA Primary Care Unavailable PHILLY RASHEED Referring Unavailab le NASREEN, [place] Primary Care Unavailable PROVIDER, UNKNOWN Referring Unavailable NASREEN, [place] Primary Care Unavailable KATELYN ZAMORA Referring Unavailable NASREEN, ALBINA Primary Care Unavailable NINA NGUYEN Referring Unavailable ANGLIM, GORDON A Primary Care Unavailable Unavailable Primary Care Provider Unavailabl e Anglim, CAMBERING MACHINE OPERATOR Gordon Primary Care Provider DO Cheikh Dorsey Attending Provider [phone] Josue Dorseyy Admitting Unavailable Sunita, Cheikh Attending Unavailable Anglim, Gordon Primary Care Unavailable Sunita, Cheikh Attending Unavailable Anglim, Gordon Primary Care Unavailable Sunita, Cheikh Admitting Unavailable Jarred Siegel L Admitting Unavailable Jarred Siegel L Attending Unavailable Anglim, Gordon Primary Care Unavailable SUNITA, CHEIKH Attending Unavailable SUNITA, CHEIKH Attending Unavailable SUNITA, CHEIKH Attending Unavailable SUELLEN JUAREZ Attending Unavailable Anglim CAMBERING MACHINE OPERATORBritanyREGISTERED NURSE BEHAVIORAL HEALTHSeana A Primary Care Provider Nasreen CAMBERING MACHINE OPERATOR-MANAGER EXPORT, Albina Primary Care Provider [phone] LA NENA VEGA Referring Unavailable NASREEN, ALBINA Primary Care Unavailable NASREEN, ALBINA Referring Unavailable NASREEN, ALBINA Primary Care Unavailable SUNITACHEIKH GREGORY R Referring Unavailable NASREEN, ALBINA Primary Care Unavailable Allergies Allergy Classification Reported Allergen(s) Allergy Type Date of Onset Reaction(s) Facility (15 sources) Shellfish Propensity to adverse reactions 4 [facility] Work Phone: (10 sources) Fish-Derived Products [...] mg dose Subcutaneous weekly for Aug, Active [id number] 200 actuat albuterol 0.09 mg/actuat metered dose [...] 04/16/2024 Active Vitamin D-Vitamin K (K2-D3 10,000) 38280-75 UNIT-MCG capsule (15 sources) take 1 capsule by mouth once daily Vitamin D-Vitamin K (K2-D3 10,000) 33956-28 UNIT-MCG capsule Take 1 each by mouth [...] Range 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 via [facility] or . For questions regarding this, please call [phone]. The patient was offered information on genetic counseling at the time of exam. Finalized by Breanne Romo MD on 06/17/2025 10:54 AM 1 a MAMM 1 YR Normal [facility] MR BREAST BILAT W WO CONT W CADon 03-04-2025 MR BREAST BILAT W WO CONT W CAD MR BREAST BILAT W WO CONT W CAD PATRICIA SAADIA CONNORS 1985 [id number] EXAM: MR BREAST BILAT W WO CONT [...] image and subtraction processing were performed using [employer] software. The images were interpreted using image [...] 12:33 PM 1 BREAST MRI C Normal [facility] ALL CBC WITH AUTO DIFFon BASOPHILS ABSOLUTE AUTO 0.1 [facility] Basophils/100 WBC (Bld) 0.6 % 0.2 - 2.0 % [facility] Eosinophils/100 WBC (Bld) 1.6 % 0.9 - 7.0 % [facility] Erythrocyte distribution width (RBC) [Ratio] 12.9 % 11.0 - 15.0 % [facility] Hematocrit (Bld) [Volume fraction] 44.7 % 36.0 - 48.0 % [facility] Hemoglobin (Bld) [Mass/Vol] 15.2 g/dL 12.0 - 16.0 g/dL [facility] IMMATURE GRANULOCYTES ABS AUTO 0.02 [facility] Immature granulocytes/100 WBC (Bld) 0.2 % 0.0 - 0.5 % [facility] LYMPHOCYTES ABSOLUTE AUTO 2.2 [facility] Lymphocytes/100 WBC (Bld) 27.3 % 20.5 - 60.0 % [facility] MCH (RBC) [Entitic mass] 29.1 pg 26.7 - 34.0 pg [facility] MCHC (RBC) [Mass/Vol] 34 g/dL 29.9 - 35.2 g/dL [facility] MCV (RBC) [Entitic vol] 85.5 fL 81.0 - 99.0 fL [facility] MONOCYTES ABSOLUTE AUTO 0.5 [facility] Monocytes/100 WBC (Bld) 6.6 % 1.7 - 12.0 % [facility] NEUTROPHILS ABSOLUTE AUTO 5.2 [facility] Neutrophils/100 WBC (Bld) 63.7 % 43.0 - 75.0 % [facility] Platelet mean volume (Bld) [Entitic vol] 9.9 fL 9.5 - 13.5 fL [facility] TBH EO # 0.1 [facility] TB PLT 229 [facility] RBC 5.23 [facility] WBC 8.2 [facility] 10-03-2024 L ------- Specimen: [id number] Received: 10/06/24 Status: EDGARDO Weber Num: [id number] Spec Type: Surgical Subm Dr: Cheikh Dorsey Tissues: A Ovary W/ or W/O Fallopian Tube, Non-Neoplastic (BILATERAL FAL TUBES AND OVAR Procedures: , Gross/Micro L4 Age/ Patient Sex Location Account Attending Physician Patricia Connors 39/F LABELL [id number] Cheikh Dorsey SPEC NUM: [id number] RECD: 10/06/24 STATUS: EDGARDO WEBER NUM: [id number] JERMAINE: 10/03/24-1205 [facility] DR: Cheikh Dorsey ENTERED: 10/06/[address] [facility] [address]: Ligia,Lab SPEC TYPE: Surgical DEPT: KRUPA COREY ENTERED BY: [id number] RECV BY: [id number] ORDERED: HE/, Gross/Micro L4 ORDERED: , Gross/Micro [...] lined cysts, 2.5 cm in greatest Specimen: [id number] Received: 10/06/24 Status: CHARLOTTELeatha Devlinq Num: [id number] Spec Type: Surgical Subm Dr: Cheikh Dorsey Tissues: A Ovary W/ or W/O Fallopian Tube, Non-Neoplastic (BILATERAL FAL TUBES AND OVAR Procedures: , Gross/Micro L4 Patient: Patricia Connors [id number] (Continued) Specimen: [id number] Received: 10/06/24 (Continued) Gross Description (Continued) Signed (signature on file) Librado Sheehan MD 10/07/24 1425 Specimen: [id number] Received: 10/06/24 Status: SOULeatha Req Num: [id number] Spec Type: Surgical Subm Dr: Cheikh Dorsey Tissues: A Ovary W/ or W/O Fallopian Tube, Non-Neoplastic (BILATERAL FAL TUBES AND OVAR Procedures: , Gross/Micro L4 Patient: Patricia Connors [id number] (Continued) Specimen: [id number] Received: 10/06/24140 (Continued) Gross Description (Continued) dimension that are filled with a henry-pink, watery material. The remaining ovarian parenchyma is praedes-pink to yellow with focal simple cysts. No [...] include paratubal cyst, SEE-FIM protocol) (25, ns, [id number] A)Filipe Microscopic Description Microscopic examination is performed. CPT Codes 92057 (more content not included)... Normal [facility] ALL BASIC METABOLIC PANELon 09-23-2024 Anion gap [Moles/Vol] 16.7 mmol/L [facility] Calcium [Mass/Vol] 9.5 mg/dL 8.5 - 10. 1 mg/dL [facility] Chloride [Moles/Vol] 102 mmol/L 98 - 107 mmol/L [facility] CO2 [Moles/Vol] 25.1 mmol/L 21.0 - 32.0 mmol/L [facility] Creatinine [Mass/Vol] 0.73 mg/dL 0.55 - 1.02 mg/dL [facility] GFR/1.73 sq M.predicted CKD-EPI (S/P/Bld) [Vol rate/Area] >60 >=60 mL/min/1.73m 2 [facility] Glucose [Mass/Vol] 91 mg/dL 74 - 106 mg/dL [facility] Potassium [Moles/Vol] 3.8 mmol/L 3.5 - 5.1 mmol/L [facility] Sodium [Moles/Vol] 140 mmol/L 136 - 145 mmol/L [facility] TBH EGFR-NON AF CITIZEN OF [place] >60 >=60 mL/min/1.73m 2 [facility] Urea nitrogen [Mass/Vol] 11 mg/dL 7.0 - 18.0 mg/dL [facility] Urea nitrogen/Creatinin e [Mass ratio] 15.1 mg/mg [facility] ALL CEAon 08-08-2024 CEA <0.6 0.0 - 4.7 ng/mL [facility] Comment on above: Nonsmokers <3.9 Smokers <5.6 [employer] Electrochemiluminescence Immunoassay (ECLIA) Values obtained with different assay methods or kits cannot be used interchangeably. Results cannot be interpreted as absolute evidence of the presence or absence of malignant disease. Performed at: [address] [id number] International Specialist: Gustavo Dawson PhD, Phone: [phone] [facility] AFP TUMOR MARKERon 07-29 AFP, SERUM, TUMOR MARKER 12.4 ng/mL Abnormal 0.0 - 6.4 ng/mL [facility] Comment on above: [employer] ectrochemiluminescence Immunoassay (ECLIA) Values obtained with different assay methods or kits cannot be used interchangeably. Results cannot be interpreted as absolute evidence of the presence or absence of malignant disease. This test is not interpretable in females. Interpretation and review of laboratory results Abnormal [facility] No Panel Informationon 08-08 [facility] HCG,BETA-QUANT,TUMOR BHAVESH Dustin 08-08-2024 HCG TUMOR MARKER <1 . mIU/mL [facility] Comment on above: Female (Non- ) 0 [...] developed and its performance characteristics determined by [facility]. It has not been cleared or approved by the Food and Drug Administration for use as a tumor marker. This test is not interpretable as a tumor marker in females. Performed at: [address] [id number] International Specialist: Gustavo Dawson PhD, Phone: [phone] HCG ( test) Ql (U)o n 07-29-2024 Interpretation and review of laboratory results Normal [facility] Preg Test, Ur Negative [facility] 07-29-2024 L Specimen: [id number] Received: 07/30/24 Status: EDGARDO Weber Num: [id number] Spec Type: Surgical Subm Dr: Cheikh Dorsey Tissues: A Endometrium - Biopsy (EMBX) Procedures: HE/2, Gross/Micro L4 Age/ Patient Sex Location Account Attending Physician Patricia Connors 39/F LABELL [id number] Cheikh Dorsey SPEC NUM: [id number] RECD: 07/30/24 STATUS: EDGARDO WEBER NUM: [id number] JERMAINE: 07/29/24 DR: Cheikh Dorsey ENTERED: 07/30/[address] [facility] [address]: Ligia,Lab SPEC TYPE: Surgical DEPT: KRUPA COREY ENTERED BY: [id number] RECV BY: [id number] ORDERED: HE/2, Gross/Micro L4 ORDERED: HE/2, Gross/Micro [...] Description Microscopic examination is performed CPT Codes 29553 Specimen: [id number] Received: 07/30/24 Status: EDGARDO Weber Num: [id number] Spec Type: Surgical Subm Dr: Cheikh Dorsey Tissues: A Endometrium - Biopsy (EMBX) Procedures: HE/2, Gross/Micro L4 Patient: Patricia Connors [id number] (Continued) Signed (signature on file) Librado Sheehan MD 07/31/24 1118 Normal [facility] ALL LDHon 07-19-2024 LDH [Catalytic activity/Vol] 177 U/L 81 - 234 U/L [facility] IGP,APTIMA HPV,AGE GDLNon AGE GDLN ACOG TESTING Note . [facility] Comment on above: TESTS RESULT FLAG UN ITS REF RANGE LAB Clinician Provided Cytology Information Source.............Cervix;Endocervix No. of containers..01 ThinPrep Vial Age Algo ACOG Tiffanie... FLAG LEGEND: L-Low Normal,H-High Normal,LL-Alert Low,HH-Alert High <-Panic Low,>-Panic High,A-Abnormal,AA-Critical Abnormal Performed at: [address] [place] [address] Carole Arnold MD, HPV APTIMA Negative Negative [facility] Comment on above: This nucleic acid am plification test detects fourteen high- risk HPV types (16,18,31,33,35,39,45,51,52,56,58,59,66,68) without differentiation. Performed at: =[address], [place] [id number] International Specialist: Carole Arnold MD, Phone: [phone] Performed at: [facility] [address] [place], [place] [id number] International Specialist: Sammy Murrieta MD, Phone: [phone] IGP, APTIMA HPV, RFX 16/18,45 Note . [facility] Comment on above: TESTS RESULT FLAG UN ITS REF RANGE LAB DIAGNOSIS: 02 NEGATIVE FOR INTRAEPITHELIAL LESION OR MALIGNANCY. Specimen adequacy: 02 Satisfactory for evaluation. Endocervical and/or squamous metaplastic cells (endocervical component) are present. Performed by: 02 Сергей Connors, Associate Software Engineer ([facility]) . 02 Note: Note 03 The [...] High,A-Abnormal,AA-Critical Abnormal Performed at: 02 [facility] [address] [place] [address] Sammy Murrieta MD, 03 WB [facility] [address] [address] Carole Arnold MD, BRUSH-SPATULA ENDOCERVIX CERVIX [facility] ALL CBC WITH AUTO DIFFon BASOPHILS ABSOLUTE AUTO 0.1 [facility] Basophils/100 WBC (Bld) 0.8 % 0.2 - 2.0 % [facility] Eosinophils/100 WBC (Bld) 1.4 % 0.9 - 7.0 % [facility] Erythrocyte distribution width (RBC) [Ratio] 12.8 % 11.0 - 15.0 % [facility] Hematocrit (Bld) [Volume fraction] 40.6 % 36.0 - 48.0 % [facility] Hemoglobin (Bld) [Mass/Vol] 14.8 g/dL 12.0 - 16.0 g/dL [facility] IMMATURE GRANULOCYTES ABS AUTO 0.02 [facility] Immature granulocytes/100 WBC (Bld) 0.3 % 0.0 - 0.5 % [facility] Interpretation and review of laboratory results Abnormal [facility] LYMPHOCYTES ABSOLUTE AUTO 1.6 [facility] Lymphocytes/100 WBC (Bld) 21.0 % 20.5 - 60.0 % [facility] MCH (RBC) [Entitic mass] 29.9 pg 26.7 - 34.0 pg [facility] MCHC (RBC) [Mass/Vol] 36.5 g/dL High 29.9 - 35.2 g/dL [facility] MCV (RBC) [Entitic vol] 82.0 fL 81.0 - 99.0 fL [facility] MONOCYTES ABSOLUTE AUTO 0.5 [facility] Monocytes/100 WBC (Bld) 6.9 % 1.7 - 12.0 % [facility] NEUTROPHILS ABSOLUTE AUTO 5.1 [facility] Neutrophils/100 WBC (Bld) 69.6 % 43.0 - 75.0 % [facility] Platelet mean volume (Bld) [Entitic vol] 10.5 fL 9.5 - 13.5 fL [facility] TBH EO # 0.1 [facility] TBH PLT 214 [facility] RBC 4.95 [facility] WBC 7.4 [facility] MAMM BX BREAST STEREO GUID I NITIAL [...] MD on 06/10/2024 8:35 AM 1999 Normal [facility] MAMM POST BX DIAG UNI LTon [...] MD on 06/10/2024 8:35 AM 1999 Normal [facility] Surgical Pathologyon 024 Surgical Pathology Normal [facility] Comment on above: Result Comment: [facility] [address] [place] [address] Surgical Pathology Consultation Patient Name:PATRICIA CONNORS:1985 (Age: 39)Gender:FTaken:06/06/2024eported:06/09/2024hysician(s):Philly Rasheed NP ([phone])Copy To:Katelyn Alee ZamoraAccession #:[id number]. Rec. #:[id number]: #[id number] Final Pathologic Diagnosis Left breast, needle biopsy @3-4:00, 5 cm fn: Benign breast tissue with focal, mild cystic change and fibrosis. Report Electronically Signed Out gr06/09/2024Robin Villanueva MD [place] [address], License number: [id number]. Clinical History Biopsy procedure: Stereotactic; Target: Mass; [...] 8 hours and 30 minutes (2, ns, [id number], A???B, m1) ADRIANO sadler/06/06/2024SSI Specimen(s) Received Left breast Fee Codes(s): 1; 91180 MAMM DIAGNOSTIC UNILAT LT W CADon 05-29-2024 [...] 05/29/2024 9:42 AM [address] [facility] US BREAST LT LIMITEDon 05-29 US [...] 05/29/2024 9:42 AM 4 a BIOPSY [facility] and C hemistry - challengeon 02-18-2024 Albumin [Mass/Vol] 4.8 g/dL [facility] ALP [Catalytic activity/Vol] 111 U/L [facility] ALT [Catalytic activity/Vol] 22 U/L [facility] AST [Catalytic activity/Vol] 16 U/L [facility] Bilirubin [Mass/Vol] 0.4 mg/dL [facility] Calcium [Mass/Vol] 9.5 mg/dL [facility] Chloride [Moles/Vol] 102 mmol/L [facility] Cholesterol [Mass/Vol] 204 mg/dL [facility] Cholesterol in HDL [Mass/Vol] 54 mg/dL [facility] Cholesterol in LDL [Mass/Vol] 122 mg/dL [facility] Cholesterol.total/ Cholesterol in HDL [Mass ratio] 3.8 {ratio} [facility] CO2 [Moles/Vol] 27 mmol/L [facility] Creatinine [Mass/Vol] 0.74 mg/dL [facility] GFR/1.73 sq M.predicted MDRD (S/P/Bld) [Vol rate/Area] 105 mL/min/{1.73_m2} [facility] Glucose [Mass/Vol] 98 mg/dL [facility] Potassium [Moles/Vol] 4.0 mmol/L [facility] Protein [Mass/Vol] 6.3 g/dL [facility] Sodium [Moles/Vol] 140 mmol/L [facility] Triglyceride [Mass/Vol] 142 mg/dL [facility] Urea nitrogen [Mass/Vol] 12 mg/dL [facility] - Hematology and Cell countson 02-18-2024 HbA1c (Bld) [Mass fraction] 5.2 % [facility] No Panel Informationon 02-17 Estimated GFR (Non- 105 mL/min [facility] Thyroid Stimulating Hormone 3rd Gen 2.34 [facility] VLDL Cholesterol 28 mg/dL [facility] Vital Signs Date Time Vital Sign Value Performing Clinician Facility 10-13-2024 09:00-0500 Body mass index (BMI) [Ratio] 43.93 kg/m2 Suellen CONNOR Work Phone: [facility] 10-13-2024 09:00-0500 Body weight 119.75 kg Suellen CONNOR Work Phone: [facility] 10-13-2024 09:00-0500 Diastolic blood pressure 84 mm[Hg] Suellen CONNOR Work Phone: [facility] 10-13-2024 09:00-0500 Systolic blood pressure 120 mm[Hg] Suellen CONNOR Work Phone: [facility] 09-04-2024 09:54-0500 Body mass index (BMI) [Ratio] 44.93 kg/m2 Cheikh Sunita DO Work Phone: [facility] 09-04-2024 09:54-0500 Body weight 122.47 kg Cheikh Sunita DO Work Phone: [facility] 09-04-2024 09:54-0500 Diastolic blood pressure 80 mm[Hg] Cheikh Sunita DO Work Phone: [facility] 09-04-2024 09:54-0500 Systolic blood pressure 124 mm[Hg] Cheikh Sunita DO Work Phone: [facility] 07-29-2024 09:45-0400 Body mass index (BMI) [Ratio] 44.9 kg/m2 Cheikh Sunita DO Work Phone: [facility] 07-29-2024 09:45-0400 Body weight 122.38 kg Cheikh Sunita DO Work Phone: [facility] 07-29-2024 09:45-0400 Diastolic blood pressure 80 mm[Hg] Cheikh Sunita DO Work Phone: [facility] 07-29-2024 09:45-0400 Systolic blood pressure 124 mm[Hg] Cheikh Sunita DO Work Phone: [facility] 06-24-2024 09:13-0400 Body height 165.1 cm Cheikh Sunita DO Work Phone: [facility] 06-24-2024 09:13-0400 Body mass index (BMI) [Ratio] 46.06 kg/m2 Cheikh Sunita DO Work Phone: [facility] 06-24-2024 09:13-0400 Body weight 125.56 kg Cheikh Sunita DO Work Phone: [facility] 06-24-2024 09:13-0400 Diastolic blood pressure 82 mm[Hg] Cheikh Sunita DO Work Phone: [facility] 06-24-2024 09:13-0400 Systolic blood pressure 120 mm[Hg] Cheikh Sunita DO Work Phone: [facility] 05-12-2024 12:54-0400 Body height 167.6 cm Josh Fenton MD Work Phone: [facility] 05-12-2024 12:54-0400 Body mass index (BMI) [Ratio] 45.68 kg/m2 Josh Fenton MD Work Phone: [facility] 05-12-2024 12:54-0400 Body weight 128.37 kg Josh Fenton MD Work Phone: [facility] 05-12-2024 12:54-0400 Diastolic blood pressure 96 mm[Hg] Josh Fenton MD Work Phone: [facility] 05-12-2024 12:54-0400 Heart rate 105 /min Josh Fenton MD Work Phone: [facility] 05-12-2024 12:54-0400 SaO2% (BldA) [Mass fraction] 97 % Josh Fenton MD Work Phone: [facility] 05-12-2024 12:54-0400 Systolic blood pressure 139 mm[Hg] Josh Fenton MD Work Phone: [facility] 03-27-2024 08:05-0400 Body height 170.18 cm [facility] 03-27-2024 08:05-0400 Body mass index (BMI) [Ratio] 45.6 kg/m2 [facility] 03-27-2024 08:05-0400 Body weight 132.13 kg [facility] 03-05-2024 07:12-0400 Body height 170.18 cm [facility] 03-05-2024 07:12-0400 Body mass index (BMI) [Ratio] 45.7 kg/m2 [facility] 03-05-2024 07:12-0400 Body weight 132.5 kg [facility] 03-05-2024 07:12-0400 Diastolic blood pressure 18 mm[Hg] [facility] 03-05-2024 07:12-0400 Heart rate 95 /min [facility] 03-05-2024 07:12-0400 Respiratory rate 18 /min [facility] 03-05-2024 07:12-0400 SaO2% (BldA) [Mass fraction] 99 % [facility] 03-05-2024 07:12-0400 Systolic blood pressure 100 mm[Hg] [facility] 01-24-2024 15:39-0400 Body height 170.18 cm [facility] 01-24-2024 15:39-0400 Body mass index (BMI) [Ratio] 43.8 kg/m2 [facility] 01-24-2024 15:39-0400 Body weight 127 kg [facility] 01-21-2024 07:13-0400 Body height 170.18 cm [facility] 01-21-2024 07:13-0400 Body mass index (BMI) [Ratio] 44 kg/m2 [facility] 01-21-2024 07:13-0400 Body weight 127.62 kg [facility] 01-21-2024 07:13-0400 Diastolic blood pressure 84 mm[Hg] [facility] 01-21-2024 07:13-0400 Heart rate 95 /min [facility] 01-21-2024 07:13-0400 Respiratory rate 18 /min [facility] 01-21-2024 07:13-0400 SaO2% (BldA) [Mass fraction] 98 % [facility] 01-21-2024 07:13-0400 Systolic blood pressure 121 mm[Hg] [facility] 10-19-2023 07:30-0500 Body height 170.18 cm Jarred Siegel Other [facility] Other 10-19-2023 07:30-0500 Body mass index (BMI) [Ratio] 45.13 kg/m2 Jarred Siegel Other [facility] Other 10-19-2023 07:30-0500 Body weight 130.73 kg Jarred Siegel Other [facility] Other 10-19-2023 07:30-0500 Diastolic blood pressure 89 mm[Hg] Jarred Sigeel Other [facility] Other 10-19-2023 07:30-0500 Respiratory rate 18 /min Jarred Siegel Other [facility] Other 10-19-2023 07:30-0500 SaO2% (BldA) [Mass fraction] 100 % Jarred Siegel Other [facility] Other 10-19-2023 07:30-0500 Systolic blood pressure 128 mm[Hg] Jarred Siegel Other [facility] Other 10-04-2023 07:15-0500 Body height 170.18 cm Sameera Fitt Other [facility] Other 10-04-2023 07:15-0500 Body mass index (BMI) [Ratio] 45.68 kg/m2 Sameera Fitt Other [facility] Other 10-04-2023 07:15-0500 Body weight 132.32 kg Sameera Fitt Other [facility] Other 09-03-2023 07:15-0500 Body height 170.18 cm Jarred Siegel Other [facility] Other 09-03-2023 07:15-0500 Body mass index (BMI) [Ratio] 46.67 kg/m2 Jarred Siegel Other [facility] Other 09-03-2023 07:15-0500 Body weight 135.17 kg aJrred Siegel Other [facility] Other 09-03-2023 07:15-0500 Diastolic blood pressure 85 mm[Hg] Jarred Bushdiff Other [facility] Other 09-03-2023 07:15-0500 Respiratory rate 18 /min Jarred Siegel Other [facility] Other 09-03-2023 07:15-0500 SaO2% (BldA) [Mass fraction] 98 % Jarred Siegel Other [facility] Other 09-03-2023 07:15-0500 Systolic blood pressure 121 mm[Hg] Jarred Siegel Other [facility] Other 08-09-2023 07:15-0400 Body height 170.18 cm Sameera Fitt Other [facility] Other 08-09-2023 07:15-0400 Body mass index (BMI) [Ratio] 46.26 kg/m2 Sameera Fitt Other [facility] Other 08-09-2023 07:15-0400 Body weight 133.99 kg Sameera Fitt Other [facility] Other 06-14-2023 08:00-0400 Body height 170.18 cm Sameera Fitt Other [facility] Other 06-14-2023 08:00-0400 Body mass index (BMI) [Ratio] 46.56 kg/m2 Sameera Fitt Other [facility] Other 06-14-2023 08:00-0400 Body weight 134.86 kg Sameera Fitt Other [facility] Other 03-27-2023 07:15-0400 Body height 170.18 cm Jarred Siegel Other [facility] Other 03-27-2023 07:15-0400 Body mass index (BMI) [Ratio] 47.44 kg/m2 Jarred Siegel Other [facility] Other 03-27-2023 07:15-0400 Body weight 137.4 kg Jarred Siegel Other [facility] Other 03-27-2023 07:15-0400 Diastolic blood pressure 88 mm[Hg] Jarred Siegel [facility] Other 03-27-2023 07:15-0400 Respiratory rate 18 /min [facility]red Siegel [facility] Other 03-27-2023 07:15-0400 SaO2% (BldA) [Mass fraction] 99 % Jarred Siegel [facility] Other 03-27-2023 07:15-0400 Systolic blood pressure 138 mm[Hg] Jarred Siegel [facility] Other 02-06-2023 09:15-0400 Body height 170.18 cm Sameera Howard Other [facility] Other 02-05-2023 08:15-0400 Body height 170.18 cm Jarred Christal [facility] Other 02-05-2023 08:15-0400 Body mass index (BMI) [Ratio] 45.67 kg/m2 Jarred Siegel [facility] Other 02-05-2023 08:15-0400 Body weight 132.27 kg Jarred Christal [facility] Other 02-05-2023 08:15-0400 Diastolic blood pressure 93 mm[Hg] Jarred Siegel [facility] Other 02-05-2023 08:15-0400 Respiratory rate 18 /min Jarred Siegel [facility] Other 02-05-2023 08:15-0400 SaO2% (BldA) [Mass fraction] 99 % Jarred Siegel [facility] Other 02-05-2023 08:15-0400 Systolic blood pressure 123 mm[Hg] Jarred Siegel [facility] Other 12-26-2022 08:00-0500 Body height 170.18 cm Jarred Siegel [facility] Other 12-26-2022 08:00-0500 Body mass index (BMI) [Ratio] 45.34 kg/m2 Jarred Siegel [facility] Other 12-26-2022 08:00-0500 Body weight 131.32 kg Jarred Siegel [facility] Other 12-26-2022 08:00-0500 Diastolic blood pressure 92 mm[Hg] Jarred Siegel [facility] Other 12-26-2022 08:00-0500 Respiratory rate 18 /min Jarred Siegel [facility] Other 12-26-2022 08:00-0500 SaO2% (BldA) [Mass fraction] 98 % Jarred Siegel [facility] Other 12-26-2022 08:00-0500 Systolic blood pressure 122 mm[Hg] Jarred Siegel [facility] Other 12-04-2022 09:15-0500 Body height 170.18 cm Jarred Siegel [facility] Other 12-04-2022 09:15-0500 Body mass index (BMI) [Ratio] 44.41 kg/m2 Jarred Siegel [facility] Other 12-04-2022 09:15-0500 Body weight 128.64 kg Jarred Siegel [facility] Other 12-04-2022 09:15-0500 Diastolic blood pressure 93 mm[Hg] Jarred Siegel [facility] Other 12-04-2022 09:15-0500 Respiratory rate 18 /min Jarred Bushdiff Other [facility] Other 12-04-2022 09:15-0500 SaO2% (BldA) [Mass fraction] 99 % Jarred Siegel [facility] Other 12-04-2022 09:15-0500 Systolic blood pressure 122 mm[Hg] Jarred Bushdiff Other [facility] Other Encounters Encounter Date Encounter Type Care Provider Facility Start: 07-21-2025 End: 07-21-2025 Bamboo flowsheet Cheikh Sunita DO Work Phone: [facility] Start: 07-21-2025 End: 07-21-2025 Bamboo flowsheet Cheikh Sunita DO Work Phone: [facility] [place] Start: 06-12-2025 End: 06-12-2025 ambulatory CHEIKH R [facility] Start: 05-05-2025 End: 05-05-2025 ambulatory ALBINA NASREEN [facility] Start: 03-03-2025 End: 03-03-2025 ambulatory LA NENA [facility] Start: 10-13-2024 End: 10-13-2024 Bamboo flowsheet Suellen CONNOR Work Phone: [facility] Start: 10-13-2024 End: 10-13-2024 Bamboo flowsheet Suellen CONNOR Work Phone: [facility] Start: 10-13-2024 End: 10-13-2024 Postop follow up visit related to original px Suellen CONNOR Work Phone: [facility] Comment on above: Postoperative examin ation Start: 10-13-2024 End: 10-13-2024 ambulatory SUELLEN JUAREZ Not Available Start: 10-03-2024 End: 10-03-2024 Clinisync Result Encounter Cheikh Sunita DO Work Phone: [facility] Unsolicited Start: 10-03-2024 End: 10-03-2024 Clinisync Result Encounter Cheikh Sunita DO Work Phone: [facility] Unsolicited Start: 10-03-2024 End: 10-03-2024 ambulatory Cheikh Sunita Facility:[facility] Start: 09-23-2024 End: 09-23-2024 Clinisync Result [...] End: 07-30-2024 ambulatory JOANNA Velazco Work Phone: [facility] Work Phone: Start: 07-30-2024 End: 07-30-2024 Departed Referred CAMBERING MACHINE OPERATORMadiha Velazco Work Phone: [facility] Start: [...] encounter Kristy Montelongo RN [facility] Start: 06-06-2024 End: 06-06-2024 Documentation procedure Kristy Montelongo RN [facility] Start: 06-06-2024 End: 06-06-2024 ambulatory [facility] Start: 06-06-2024 End: 06-06-2024 ambulatory UNKNOWN PROVIDER [facility] Start: 05-29-2024 End: 05-29-[address] [facility] Start: 05-12-2024 End: 05-12-2024 Office outpatient new 45 minutes Josh Fenton MD Work Phone: [facility] Comment on above: Mild persistent asth ma without complication (Primary Dx); Morbid obesity ([facility]-HCC) Start: 05-12-2024 End: 05-12-2024 ambulatory JOSH FENTON [facility] Start: 03-27-2024 End: 03-27-2024 Patient encounter procedure [facility] Work Phone: Start: 03-18-2024 End: 03-18-2024 Orders Only Lissa Laird LPN [facility] Comment on above: Asthma, unspecified asthma severity, unspecified whether complicated, unspecified whether persistent (Primary Dx) Start: 03-05-2024 End: 03-05-2024 Patient encounter procedure [facility] Work Phone: Start: 02-18-2024 Non-patient / Non-visit [facility] [employer] Work Phone: Start: 01-24-2024 End: 01-24-2024 Patient encounter procedure [facility] Work Phone: Start: 01-21-2024 End: 01-21-2024 Patient encounter procedure [facility] Work Phone: Start: 11-28-2023 End: 11-28-2023 ambulatory Jarred Siegel Facility:[facility] Start: 11-17-2023 End: 11-17-2023 ambulatory [facility] Start: 10-19-2023 End: 10-19-2023 ambulatory [facility]red Siegel [facility] Start: 10-19-2023 Follow-up encounter [facility] Start: 10-04-2023 ([facility] FU) [facility] F/ U [employer] Sameera Howard [facility] Start: 10-04-2023 End: 10-04-2023 ambulatory Sameera Wrightt [facility] Other Start: 09-03-2023 End: 09-03-2023 ambulatory Jarred Siegel [facility] Other Start: 09-03-2023 Follow-up encounter Jarred [facility] Start: 08-09-2023 ([facility] RD FU) [facility] F/ U [employer] Sameera Howard [facility] Start: 08-09-2023 End: 08-09-2023 ambulatory Sameera Fitt [facility] Other Start: 06-22-2023 End: 06-22-2023 ambulatory Jarred Mayerff [facility] Other Start: 06-22-2023 Telephone encounter Jarred Bushdicanelo [facility] Start: 06-14-2023 ([facility] RD FU) [facility] F/ U [employer] [facility] Start: 06-14-2023 End: 06-14-2023 ambulatory Sameera Howard [facility] Other Start: 03-27-2023 End: 03-27-2023 ambulatory Jarred Siegel [facility] Other Start: 03-27-2023 Follow-up encounter Jarred Siegel Boyd [facility] Start: 02-06-2023 ([facility] WMNI) [facility] Init ial Provider [facility] Start: 02-06-2023 End: 02-06-2023 ambulatory Sameera Howard [facility] Other Start: 02-05-2023 End: 02-05-2023 ambulatory Jarred Bushdiff Other [facility] Other Start: 02-05-2023 Follow-up encounter Jarred Bushdiff [facility] Start: 12-26-2022 End: 12-26-2022 ambulatory Jarred Siegel [facility] Other Start: 12-26-2022 Follow-up encounter Jarred Christalcanelo [facility] Start: 12-04-2022 End: 12-04-2022 ambulatory Jarred Siegel [facility] Other Start: 12-04-2022 Nutrition therapy Jarred [facility] Start: 10-31-2022 End: 10-31-2022 ambulatory Sameera Howard Other [facility] [employer] Other Start: 10-31-2022 Telephone encounter Sameera Howard [facility] Procedures Date Procedure Procedure Detail Performing Clinician [...] Td Vaccines (2 - Td or Tdap) [facility] Start: 06-24-2027 Screening for malign ant neoplasm of cervix [facility] Start: 06-17-2026 Screening for malign ant neoplasm of breast Mammogram [facility] Start: 07-21-2025 End: 07-21-2025 Patient encounter procedure 07/21/2025 8:30 AM EDT Office Visit SHERRI ZHOUN [address] [place] [phone] Cheikh Dorsey, DO [address] [place] [address] Arrived [facility] Comment on above: Arrived Start: 06-29-2025 Influenza vaccination Influenza Vacc ine (#1) [facility] Start: 06-06-2025 Adult BMI Screening Adult BMI Screen ing [facility] Start: 06-06-2025 Screening for malign ant neoplasm of breast Mammogram [facility] Start: 05-12-2025 Tobacco Screening Tobacco Screening [facility] Start: 11-12-2024 Adult BMI Screening Adult BMI Screen ing [facility] Start: 10-13-2024 End: 10-13-2024 Patient encounter procedure 10/13/2024 9:00 AM EST Office Visit [facility] [address] [place] [phone] Suellen Juarez PA [address] [place], [place] [id number] Arrived [facility] Comment on above: Arrived Start: 09-04-2024 End: 09-04-2024 Patient encounter procedure [facility] Comment on above: Arrived Start: 07-29-2024 End: 07-29-2024 Patient encounter procedure 07/29/2024 9:30 AM EDT Procedure Visit [facility] [address] [place] [phone] Cheikh Dorsey, DO [address], [place] [id number] [facility] Start: 06-29-2024 Influenza vaccination [facility] Start: 06-24-2024 End: 06-24-2025 DHEA DHEA Lab Routine PCOS (polycystic ovarian syndrome) Expected: 06/24/2024 (Approximate), Expires: 06/24/2025 [facility] Comment on above: Expected: 06/24/2024 (Approximate), Expires: 06/24/2025 Start: 06-24-2024 End: 06-24-2025 US for US PELVIS-TRANSVAG IF INDICATED Imaging Routine PCOS (polycystic ovarian syndrome) Expected: 06/24/2024 (Approximate), Expires: 06/24/2025 [facility] Comment on above: Expected: 06/24/2024 (Approximate), Expires: 06/24/2025 Start: 06-24-2024 End: 06-24-2024 Patient encounter procedure 06/24/2024 9:00 AM EDT Office Visit [facility] [address] [place] [phone] Cheikh Dorsey, [address] [place] [address] Arrived [facility] Comment on above: Arrived Start: 05-17-2024 End: 05-17-2024 Patient encounter procedure 05/17/2024 10:30 AM EDT Appointment [facility] DEXA [address] [place] [id number] [facility] Start: 05-12-2024 End: 05-12-2024 Patient encounter procedure 05/12/2024 1:00 PM EDT Office Visit [facility] [address] [address] Josh Fentno MD [address] [place] [address] [facility] Start: 03-18-2024 End: 03-18-2025 XR Chest PA and Lateral [facility] Work Phone: Comment on above: Expected: 03/18/2024 , Expires: 03/18/2025 Start: 10-09-2023 Tobacco Screening Tobacco Screening [facility] Start: 06-29-2023 COVID-19 Vaccine ( season) COVID-19 Vaccine () [facility] Start: 06-29-2023 COVID-19 Vaccine () COVID-19 Vaccine () [facility] Start: 02-21-2014 Screening for malign ant neoplasm of cervix [facility] Start: 02-21-2005 Screening for malign ant neoplasm of cervix Pap Smear [facility] Start: 02-21-2002 Adult BMI Follow Up Plan Adult BMI Follow Up Plan [facility] Start: 1996 Depression Screening Depression Scre ening [facility] Biopsy endometrium Biopsy endome trium Procedures Routine Menorrhagia with regular cycle Ordered: 07/29/2024 [facility] Work Phone: Comment on above: Ordered: 07/29/2024 CBC W Auto Different ial panel - Blood CBC and differential Lab Routine PCOS (polycystic ovarian syndrome) Ordered: 06/24/2024 [facility] Comment on above: Ordered: 06/24/2024 DHEA-sulfate DHEA-sulfate Lab Routine PCOS (polycystic ovarian syndrome) Ordered: 06/24/2024 [facility] Comment on above: Ordered: 06/24/2024 Follicle stimulating hormone Follicle stimulating hormone Lab Routine PCOS (polycystic ovarian syndrome) Ordered: 06/24/2024 [facility] Comment on above: Ordered: 06/24/2024 hCG, quantitative, hCG, quantitative, Lab Routine PCOS (polycystic ovarian syndrome) Ordered: 06/24/2024 [facility] Comment on above: Ordered: 06/24/2024 Hemoglobin A1c/Hemoglobin.total in Blood Hemoglobin A1c Lab Routine Menorrhagia with regular cycle Ordered: 06/24/2024 [facility] Comment on above: Ordered: 06/24/2024 Luteinizing hormone Luteinizing hormone Lab Routine PCOS (polycystic ovarian syndrome) Ordered: 06/24/2024 [facility] Comment on above: Ordered: 06/24/2024 THIN PREP TIS PAP AN D HR HPV DNA THIN PREP TIS PAP AND HR HPV DNA Pathology and Cytology Routine Well woman exam with routine gynecological exam Ordered: 06/24/2024 [facility] Work Phone: Comment on above: Ordered: 06/24/2024 Thyrotropin [Units/volume] in Serum or Plasma TSH Lab Routine PCOS (polycystic ovarian syndrome) Ordered: 06/24/2024 [facility] Comment on above: Ordered: 06/24/2024 Thyroxine (T4) free [Mass/volume] in Serum or Plasma T4, free Lab Routine PCOS (polycystic ovarian syndrome) Ordered: 06/24/2024 [facility] Comment on above: Ordered: 06/24/2024 Immunizations Immunization Date Immunization Notes Care Provider Brenton montana 08-28-2023 influenza virus vacc ine, unspecified formulation Lissa Laird SUPERVISOR [employer] [facility] Payers Date Payer Category Payer Private Health Insurance [id number] 2022 Self-pay 2022 Unknown [id number] 2022 Unknown [id number] 1984 Unknown [id number] [id number] 1984 Unknown [id number] 2.16.840.1.678701.3.579.2.1285 1984 Unknown [id number] 2.16.840.1.862633.3.579.2.1285 1984 Unknown [id number] 2.16.840.1.114485.3.579.2.1285 1984 Unknown [id number] 2.16.840.1.108352.3.579.2.1285 1984 Unknown [id number] 2.16.840.1.528049.3.579.2.1285 1984 Unknown [id number] 2.16.840.1.357398.3.579.2.1259 1984 Unknown [id number] 2.16.840.1.992560.3.579.2.9 1984 Unknown [id number] 2.16.840.1.060556.3.579.2.9 1984 Unknown [id number] 2.16.840.1.949696.3.579.2.9 1984 Unknown [id number] 2.16.840.1.587341.3.579.2.1286 1984 Unknown [id number] 2.16.840.1.441366.3.579.2.1286 1984 Unknown [id number] 2.16.840.1.667568.3.579.2.1286 Unknown [employer] [id number] Unknown [id number] 2.16.840.1.592371.3.579.2.531 Unknown [id number] 2.16.840.1.598176.3.579.2.531 Unknown [id number] 2.16.840.1.135720.3.579.2.531 Social History Date Type Detail Facility Unknown if ever smoked [facility] Other Start: 12-09-2020 End: 02-07-2023 Sex Assigned At [facility] Other Start: 1985 [facility] Start: 08-08-2021 Gender identity Identifies as female gender (finding) [facility] Start: 09-08-2022 Tobacco smoking status IDIS Never smoked tobacco [facility] Start: 09-08-2022 Tobacco use and exposure Smokeless tobacco non-user [facility] Start: 02-07-2023 End: 05-17-2024 Alcoholic beverage intake Current drinker of alcohol (finding) [facility] Start: 12-09-2020 End: 02-07-2023 History of Social function [facility] Childcare Unknown [facility] Start: 05-29-2019 Alcohol Comment 1/month [facility] Start: 08-08-2021 Sexual orientation Heterosexual (finding) [facility] Clinical Notes 12-04-2022 to 10-13-2024 NIKOLAS Luna [...] mg, Daily Vitamin D-Vitamin K (K2-D3 10,000) 63649-79 UNIT-MCG capsule 1 each, Daily ALLERGIES Allergies [...] a Bilateral Laparoscopic Salpingectomy performed at [facility] with Dr. Dorsey. Patient is healing well and shows no signs or symptoms of infection. Pathology results was reviewed with the patient in great detail and all restrictions have been lifted. Follow Up: Patient is to return to the office for annual exam unless needed otherwise. Documented by NIKOLAS Luna on behalf of: NIKOLAS Luna documented in this encounter [facility] 09-04-2024 History of Presen t illness Narrative Reason for Appointment: Patient ID: Patricia Connors is a 39 y.o. female who presents for Pre-op Visit Patient presents today for Pre Op appointment. Patient is scheduled to undergo Da Helga assisted Bilateral Laparoscopic Salpingo-Oophorectomy on 10/03/[address] Dorsey at [facility]. MEDICATIONS Current Outpatient Medications Medication Instructions [...] MG/DOSE, SC) Vitamin D-Vitamin K (K2-D3 10,000) 27022-69 UNIT-MCG capsule 1 each, Oral, Daily ALLERGIES [...] nursing note reviewed. Exam conducted with a business instructor present. Vitals: Estimated body mass index is [...] reviewed, and patient is to proceed to [facility] OR. Patient aware that she will be off at least a week after procedure. Follow Up: Patient is to follow up between 1-2 weeks post op to assess proper healing and recovery from procedure. Documented by Sylvia Benz LPN on behalf of: Cheikh Dorsey DO documented in this encounter [facility] 07-29-2024 History of Presen t illness Narrative [...] MG/DOSE, SC) Vitamin D-Vitamin K (K2-D3 10,000) 00607-18 UNIT-MCG capsule 1 each, Oral, Daily ALLERGIES Allergies Allergen Reactions Fish-Derived Products Anaphylaxis, Hives and Itching Shellfish-Derived Products Anaphylaxis Shellfish Allergy PROBLEMS Active Ambulatory Problems Diagnosis Date Noted No Active Ambulatory Problems Resolved Ambulatory Problems Diagnosis Date Noted No Resolved Ambulatory Problems Past Medical History: Diagnosis Date ADHD (attention deficit hyperactivity disorder) ([facility]/HCC) Anxiety and depression ([facility]/HCC) Asthma (CMS/[facility]) Bipolar 1 disorder (CMS/HCC) BRCA gene positive High blood pressure ([facility]) HISTORY PAST MEDICAL HISTORY SOCIAL HISTORY Past Medical History: Diagnosis Date ADHD (attention deficit hyperactivity disorder) ([facility]/HCC) Anxiety and depression ([facility]/HCC) Asthma (CMS/HCC) Bipolar 1 disorder (CMS/HCC) BRCA gene positive 2 High blood pressure ([facility]/HCC) Social History Tobacco Use Smoking status: [...] nursing note reviewed. Exam conducted with a business instructor present. Vitals: Estimated body mass index is [...] Dorsey DO documented in this encounter [facility] 06-24-2024 History of Presen t illness Narrative [...] Oral, Daily Vitamin D-Vitamin K (K2-D3 10,000) 60347-25 UNIT-MCG capsule 1 each, Oral, Daily ALLERGIES [...] nursing note reviewed. Exam conducted with a business instructor present. Vitals: Estimated body mass index is [...] Dorsey DO documented in this encounter [facility] 06-10-2024 Miscellaneous Notes Summary: Post-biopsy assessment Call placed to patient to check status following recent breast biopsy. Patient reports no bruising or tenderness @ biopsy site. Clarified biopsy results with patient and follow-up imaging recommendations provided by radiologist. She was encouraged to contact the [facility] if she develops any new problems at biopsy site. Voices understanding. documented in this encounter [facility] 06-10-2024 Telephone encount er Note Summary: Post-biopsy assessment Call placed to patient to check status following recent breast biopsy. Patient reports no bruising or tenderness @ biopsy site. Clarified biopsy results with patient and follow-up imaging recommendations provided by radiologist. She was encouraged to contact the [facility] if she develops any new problems at biopsy site. Voices understanding. [facility] [email or web address] 06-06-2024 History of Presen t illness Narrative [...] all information reviewed. documented in this encounter [facility] 05-12-2024 History of Presen t illness Narrative Images from the original note were not included. 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 She never smoked Review of Systems Allergies: Patient has no known allergies. Past Medical History: Diagnosis Date ADHD Anxiety Asthma Bipolar 1 disorder (CMS-HCC) Borderline personality disorder ([facility]-HCC) BRCA2 positive 06/26/2019 Breast disorder left breast cyst Fractures clavical as child Hypertension Hypokalemia Visual impairment Past Surgical History: Procedure Laterality Date DAVINCI CHOLECYSTECTOMY N/A 09/27/2022 Performed by Flavia Evans MD at [facility] CHOLANGIO-PANCREATOGRAPHY N/A 09/13/2022 Performed by Ron Hansen MD at [facility] TOOTH EXTRACTION ? Social History [...] this note were generated using voice recognition M*[employer] dictation software. Although every effort was made to ensure the accuracy of this automated cytogenetics technologist, some errors in cytogenetics technologist may have occurred. documented in this encounter [employer] 01-21-2024 Evaluation note Authored January 21, 2024 [...] Her psychiatric prescriber is Patricia Gamino from [place] where they live. Her dad is a [...] in the morning. 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 8. Snorer/[place] of 6/neck size of 15.5 inches/mallampati score [...] work with her PCP. Author Jarred Siegel [facility] Authored March 05, 2024 7:59am Start/highest [...] Her psychiatric prescriber is Patricia Gamino from [place] where they live. Her dad is a [...] in the morning. 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 8. Snorer/[place] of 6/neck size of 15.5 inches/mallampati score [...] lab work with her PCP. [facility] Work Phone: [phone]) 315-865412-22-2023 Evaluation note* Encounter Date Diagnosis Assessment Notes [...] - R06.83) Sep, Asthma (ICD-10 - J45.909) [facility] Other 12-07-2023 Evaluation note* Encounter Date Diagnosis [...] / exercise routine using treadmill at home [facility] Other 11-06-2023 Evaluation note* Encounter Date Diagnosis [...] - R06.83) Aug, Asthma (ICD-10 - J45.909) [facility] Other 10-12-2023 Evaluation note* Encounter Date Diagnosis [...] new recipes to add variety; MET, CONTINUE [facility] Other 08-17-2023 Evaluation note* Encounter Date Diagnosis [...] new recipes to add variety; MET, CONTINUE [facility] Other 05-30-2023 Evaluation note* Encounter Date Diagnosis [...] - R06.83) February, Asthma (ICD-10 - J45.909) [facility] Other 04-11-2023 Evaluation note* Encounter Date Diagnosis Assessment Notes Treatment Notes Treatment Clinical Notes Jan, Obesity (ICD-10 - E66.9) Jan, BMI 40.0-44.9, adult (ICD-10 - Z68.41) Jan, Other Summary of Visi t: (A) discussed foods that can help prevent breast cancer and help w/ WM (B) benefits of fiber foods Patient set the following goals: [facility] Other 04-10-2023 Evaluation note* Encounter Date Diagnosis [...] - R06.83) Jan, Asthma (ICD-10 - J45.909) [facility] Other 02-28-2023 Evaluation note* Encounter Date Diagnosis [...] - R06.83) Nov, Asthma (ICD-10 - J45.909) [facility] Other 02-06-2023 Evaluation note* Encounter Date Diagnosis Assessment Notes Treatment Notes Treatment Clinical Notes Nov, Abnormal weight gain (ICD-10 - R63.5) Nov, Hypertension (ICD-10 - I10) Nov, Mixed hyperlipidemia (ICD-10 - E78.2) Nov, Metabolic syndrome X (ICD-10 - E88.81) Nov, Bipolar affective disorder (ICD-10 - F31.9) Nov, Snores (ICD-10 - R06.83) Nov, Asthma (ICD-10 - J45.909) [facility] Other Evaluation noteNo InformationNort Mandae Other Evaluation note* Diagnosis Menorrhagia with regular cycle BRCA2 gene mutation positive Complex ovarian cyst Pelvic pain in female Unspecified symptom associated with female genital organs documented in this encounter [facility] Work Phone: Evaluation note* Diagnosis Pre-op examination BRCA gene mutation positive documented in this encounter [facility]* Diagnosis Postoperative examination Follow-up examination, following unspecified surgery documented in this encounter [facility] HealthcareEvaluation note* Diagnosis Well woman exam with routine gynecological exam Routine gynecological examination Menorrhagia with regular cycle Pelvic pain in female Unspecified symptom associated with female genital organs BRCA2 gene mutation positive PCOS (polycystic ovarian syndrome) Polycystic ovaries documented in this encounter [facility] HealthcareEvaluation note* Diagnosis Asthma, unspecified asthma severity, unspecified whether complicated, unspecified whether persistent- Primary documented [facility] this [facility]* Diagnosis Mild persistent asthma without complication- Primary Morbid obesity ([facility]) Morbid obesity [facility] Narrative - Reported* Type Description Date Medical History ADHD Medical History anxiety Medical History asthma Medical History bipolar Medical History BRCA2 positive Medical History endometriosis Medical History high blood pressure Medical History hypokalemia Medical History leg cramps Surgical History gallbladder 09/19 Surgical History ERCP 09/19 Surgical History wisdom teeth Hospitalization History see above [facility] Other InstructionsNot on filedocumented in this encounter [facility] TableNOW SystemInstructionsNot on filedocumented in this encounter [facility] NetworksInstructionsNot on filedocumented in this encounter [facility] Chief Complaint and Reason for Visit Chief [...] Mild intermittent asthma without complication Gordon Velazco, JOANNA-REGISTERED NURSE [facility]IORAL HE[facility] [address] [place] [address] Leeanne Connors MD [address] [place] [address] Referral ID Status Reason Start Date Expiration Date Visits Requested Visits Authorized [id number] Pending Review Specialty Services Required 01/16/2024 01/15/2025 1 1 Care Teams (unrecognized sec tion and content) Team Status: Active Member Role Status Dates Gordon Velazco APRN GRANTS DIRECTOR-C Primary Care Provider Active Team Status: Inactive Member Role Status Dates Gordon Velazco APRN GRANTS DIRECTOR-C Primary Care Provider Active Start: January 21, 2024 End: January 21, 2024 Jarred Siegel MD Attending Provider Active Start: January 21, 2024 End: January 21, 2024 Team Status: Inactive Member Role Status Dates Gordon Velazco APRN GRANTS DIRECTOR-C Primary Care Provider Active Start: January 24, 2024 End: January 24, 2024 MAG Johnson Attending Provider Active Start: January 24, 2024 End: January 24, 2024 Team Status: Active Member Role Status Dates Gordon Velazco APRN GRANTS DIRECTOR-C Primary Care Pr ovider, Attending Provider Active Start: February 18, 2024 Team Status: Inactive Member Role Status Dates Gordon Velazco APRN GRANTS DIRECTOR-C Primary Care Provider Active Start: March 05, 2024 End: March 05, 2024 Jarred Siegel MD Attending Provider Active Start: March 05, 2024 End: March 05, 2024 Team Status: Inactive Member Role Status Dates Gordon Velazco APRN GRANTS DIRECTOR-C Primary Care Provider Active Start: March 27, 2024 End: March 27, 2024 MAG Johnson Attending Provider Active Start: March 27, 2024 End: March 27, 2024 Team Status: Inactive Member Role Status Dates Gordon Velazco APRN GRANTS DIRECTOR-C Primary Care Provider Active Start: July 30, 2024 End: July 30, 2024 Cheikh Dorsey DO Attending Provider Active Start : July 30, 2024 End: July 30, 2024 Goggles Assembler Relationship Specialty Start Date End Date Juan A Gordonshanon Sal APRN-REGISTERED NURSE BEH[facility]IORAL HEALTH [address] [address] PCP - General Family Medicine 04/23/19 Goggles Assembler Relationship Specialty Start Date End Date Gordon Velazco APRN-REGISTERED NUR[facility] [address] [place] [address] PCP - General Family Medicine 04/23/19 Goggles Assembler Relationship Specialty Start Date End Date Albina Causey APRN-MANAGER EXPORT [address] [place], [place] [phone] PCP - General Family Medicine 05/22/24 Goals (unrecognized section and content) Goals may be documented in a n alternate section INFORMATION SOURCE (unrecogn ized section and content) DATE CREATED AUTHOR 05/16/2024 [facility] DATE CREATED AUTHOR AUTHOR'S ORGANIZ ATION 05/31/2024 [facility] DATE CREATED AUTHOR AUTHOR'S ORGANIZ ATION 06/10/2024 [facility] DATE CREATED AUTHOR AUTHOR'S ORGANIZ ATION 10/09/2024 [facility] DATE CREATED AUTHOR AUTHOR'S ORGANIZ ATION 10/14/[address] [facility] DATE CREATED AUTHOR AUTHOR'S ORGANIZ ATION 06/19/2025 [facility] FOR RECORDS PERTAINING TO PATIENTS WHO ARE [...] BE BASED ON THE PRIMARY CLINICAL RECORDS. [facility]. provides no warranty or guarantee of the accuracy or completeness of information in this document.
[2025-07-21 10:20] LABS: Hematocrit 41.7 % (36.0-48.0); Hemoglobin 14.7 g/dL (12.0-16.0); Immature Granulocytes Abs Auto 0.02 10^3/uL (0.00-0.03); Immature Granulocytes Pct Auto 0.3 % (0.0-0.5); Lymphocytes Absolute Auto 2.0 10^3/uL (1.2-3.8); Mean Corpuscular HGB Conc 35.3 g/dL (29.9-35.2); Mean Corpuscular Hemoglobin 28.6 pg (26.7-34.0); Mean Corpuscular Volume 81.1 fL (81.0-99.0); Platelet Count 209 10^3/uL (150-450); Red Blood Count 5.14 10^6/uL (4.20-5.40); White Blood Count 6.3 10^3/uL (4.0-11.0)
[2025-07-21 10:50] LABS: Alanine Aminotransferase 34 U/L (14-59); Albumin Globulin Ratio 1.3; Albumin Level 4.0 g/dL (3.4-5.0); Alkaline Phosphatase 112 U/L (46-116); Anion Gap 12.8; Aspartate Amino Transferase 18 U/L (15-37); Blood Urea Nitrogen 16.0 mg/dL (7.0-18.0); Calcium 9.2 mg/dL (8.5-10.1); Carbon Dioxide 28.0 mmol/L (21.0-32.0); Chloride 105 mmol/L (98-107); Cholesterol 167 mg/dL (<=200); Estimated GFR (African America >60 (>=60 mL/min/1.73m^2); Estimated GFR (Non-African Ame >60 (>=60 mL/min/1.73m^2); Globulin 3.0 g/dL; Glucose 95 mg/dL (74-106); HDL Cholesterol 64 mg/dL (40-60); Potassium 3.8 mmol/L (3.5-5.1); Sodium 142 mmol/L (136-145); Total Protein 7.0 g/dL (6.4-8.2); Triglycerides 99 mg/dL (<=150); VLDL CHOLESTEROL 19.8 mg/dL
[2025-07-21 10:58] LABS: Thyroid Stimulating Hormone 1.608 uIU/mL (0.358-3.740)
[2025-07-22 08:09] LABS: CA 19-9 6 U/mL (0-35)
== END 2025-07-21 09:36 | disposition home or self-care (01) ==
PROVIDERS: Family Provider Family Medicine; Visit Provider Internal Medicine Hematology & Oncology
DX: E34.9 Endocrine disorder, unspecified (principal); Z01.419 Encounter for gynecological examination (general) (routine) without abnormal findings; Z15.09 Genetic susceptibility to other malignant neoplasm; Z84.81 Family history of carrier of genetic disease
CPT/HCPCS: 36415; 80053; 80061; 83036; 84439; 84443; 85025; 86301; 88175

== ENCOUNTER 2025-07-21 12:15 | Outpatient (REF) | payer OTHER, SELFPAY ==
--- OUTSIDE RECORDS SUMMARY | 2025-07-21 08:30 | XMS_ITS | Encounter Summary ---
Author Organization [facility] Address [address] [place] [address] Care Team Providers Care Caramel Cutter Machine Name Role Phone Unavailable Primary Care Provider Unavailabl e Reason for Visit * Reason Comments Well Women Visit Encounter Details Date Type Department Care Team (Late st Contact Info) Description 07/21/2025 8:30 AM EDT Office Visit [facility] [address] [place] [address] Cheikh Dorsey DO [address] [place] [address] Well woman exam with routine gynecological exam; Encounter for screening mammogram for malignant neoplasm of breast; Hormone imbalance; Night sweats Social History Tobacco Use Types Packs/Day Years Used Date Smoking Tobacco: Never Assessed Comments No Sex and Gender Information Value Date Recorded Sex Assigned at Female 06/18/2024 12:40 PM EDT Legal Sex Female 7:07 PM EDT Gender Identity Female 06/18/2024 12:40 PM EDT Sexual Orientation Not on file documented as of this encounter Last Filed Vital Signs Vital Sign Reading Time Taken Comments Blood Pressure 116/88 07/21/2025 8:40 AM EDT Pulse - - Temperature - - Respiratory Rate - - Oxygen Saturation - - Inhaled Oxygen Concentration - - Weight 124 kg (273 lb 12 oz) 07/21/2025 8:40 AM EDT Height - - Body Mass Index 45.55 06/24/2024 9:13 AM EDT documented in this encounter Progress Notes * Iwona Lerma, WATER ANALYST - 07/21/2025 8:30 AM EDT Reason for Appointment: Patient ID: Patricia Perez is a 40 y.o. female who presents for Well Women Visit Patient presents today for Annual Exam. and Acute Visit. MEDICATIONS Current Outpatient Medications Medication Instructions albuterol HFA 90 mcg/act inhaler 2 puffs, Every 6 hours PRN ARIPiprazole (ABILIFY) 5 mg, Nightly atomoxetine (STRATTERA) 40 mg, Daily beclomethasone HFA (Qvar) 40 MCG/ACT inhaler 2 puffs, 2 times daily busPIRone (BUSPAR) 10 mg, 2 times daily hydroCHLOROthiazide (HYDRODiuril) 25 MG tablet Every 24 hours hydrOXYzine pamoate (VISTARIL) 50 mg, Once lamoTRIgine (LAMICTAL) 100 mg, Every other day lisinopril 30 MG tablet Every 24 hours Magnesium 500 mg, Daily metFORMIN XR (Glucophage-XR) 500 MG 24 hr tablet TAKE ONE TABLET WITH EVENING MEAL BY MOUTH ONCE DAILY FOR 30 DAYS; Duration: 30 montelukast (SINGULAIR) 10 mg, Nightly Potassium 99 mg, Daily simvastatin (Zocor) 20 MG tablet Every 24 hours ALLERGIES Allergies Allergen Reactions Fish-Derived Products Anaphylaxis, Hives and Itching Shellfish-Derived Products Anaphylaxis Shellfish Allergy PROBLEMS Active Ambulatory Problems Diagnosis Date Noted BRCA gene mutation positive 09/04/2024 Pre-op examination 09/04/2024 Resolved Ambulatory Problems Diagnosis Date Noted No Resolved Ambulatory Problems Past Medical History: Diagnosis Date ADHD (attention deficit hyperactivity disorder) Anxiety and depression Asthma (HCC) Bipolar 1 disorder (HCC) BRCA gene positive High blood pressure HISTORY PAST MEDICAL HISTORY SOCIAL HISTORY Past Medical History: Diagnosis Date ADHD (attention deficit hyperactivity disorder) Anxiety and depression Asthma (HCC) Bipolar 1 disorder (HCC) BRCA gene positive 2 High blood pressure Social History Tobacco Use Smoking status: Not on file Smokeless tobacco: Not on file Substance Use Topics Alcohol use: Not on file Drug use: Not on file FAMILY HISTORY Family History Problem Relation Name Age of Onset Breast cancer Mother Prostate cancer Father 68 - 69 Breast cancer Mother's Sister 75 LUMPECTOMY Pancreatic [...] Review of Systems: Review of Systems Constitutional: Positive for night sweats, unexpected weight change and hot flashes. HENT: Negative. Eyes: Negative. Respiratory: Negative. Cardiovascular: Negative. Gastrointestinal: Negative. Genitourinary: Negative. Musculoskeletal: Negative. Skin: Negative. Neurological: Negative. All other systems reviewed and are negative. Hematological: Negative. Allergic/Immunologic: Negative. OBJECTIVE Objective: Physical Exam [...] nursing note reviewed. Exam conducted with a enterprise account executive present. Vitals: Estimated body mass index is 45.55 kg/m?? as calculated from the following: Height as of 06/24/24: 5' 5 . Weight as of this encounter: 273 lb 12 oz. BP: 116/88 No LMP recorded. ASSESSMENT & PLAN ICD-10-CM 1. Well woman exam with routine gynecological exam Z01.419 THIN PREP TIS PAP AND HR HPV DNA 2. Encounter for screening mammogram for malignant neoplasm of breast Z12.31 No orders of the defined types were placed in this encounter. Annual Wellness Exam: Patient presents today for routine annual exam. Patient states she has complaints of night sweats, hot flashes, anxiety , rx for prometrium and climara. Discussed adding semaglutide, will have telehealth in 3 weeks and discuss calling in [facility]. Given labs to have obtained. Patients vitals were reviewed and within normal limits. Growth and development is noted to be appropriate for age. No mental health concerns was expressed. Pap Smear: Speculum was inserted into the vagina and pap was obtained without difficulty. HPV testing was performed per age guideline. Patient was advised that pap results could take anywhere from 7 to 10 days to receive and our office will reach out to the patient with those once we have them. Patient can also view results via [employer]. I reinforced importance of condom use for STI prevention. Patient declined cultures to be performed with today's visit. Breast Exam: Upon examination, clinical breast exam was noted to be normal and screening mammogram was ordered and given to patient to have obtained. Patient was counseled on breast self-awareness, including the importance of knowing what is normal for her own breasts and promptly reporting any changes such as new lumps, skin dimpling, nipple discharge, or pain. Screening mammogram was recommended annually. Discussed signs and symptoms of breast cancer and when to seek medical attention. Answered all patient questions. Follow Up: Patient is to return to our office in one year for annual exam unless needed otherwise. Documented by Iwona Lerma LPN on behalf of: Cheikh Dorsey DO documented in this encounter Plan of Treatment Upcoming Encounters Date Type Department Care Team (Late st Contact Info) Description 07/26/2026 8:30 AM EDT Procedure Visit [facility] [address] [place] [phone] Cheikh Dorsey DO [address] [place] [address] Scheduled Orders Name Type Priority Associated Diagnoses Orde r Schedule THIN PREP TIS PAP AND HR HPV DNA Pathology and Cytology Routine Well woman exam with routine gynecological exam Ordered: 07/21/2025 TSH Lab Routine Hormone imbalance Night sweats Ordered: 07/21/2025 T4, free Lab Routine Hormone imbalance Night sweats Ordered: 07/21/2025 Hemoglobin A1c Lab Routine Hormone imbalance Night sweats Expected: 07/21/2025 (Approximate), Expires: 07/21/2026 documented as of this encounter Visit Diagnoses Diagnosis Well woman exam with routine gynecological exam Routine gynecological examination Encounter for screening mammogram for malignant neoplasm of breast Hormone imbalance Night sweats Generalized hyperhidrosis documented in this encounter
--- OUTSIDE RECORDS SUMMARY | 2025-07-21 12:18 | XMS_ITS | Encounter Summary ---
Author Organization [employer] tem Address [id number] [address] [place] [address] Care Team Providers Care Roll Up Operator Name Role Phone Katty Causey SKEIN STRAIGHTENER-POSTAL INSPECTOR Primary Care Provider +1- [phone] Encounter Details Date Type Department Care Team (Late st Contact Info) Description 10/17/2021 Orders Only [facility] [address] [place] [address] External, Scanning Provider Social History Tobacco Use [...] on filedocumented in this encounter Care Teams Roll Up Operator Relationship Specialty Start Date End Date Katty Causey APRN-FNP [address] [place] [address] PCP - General Family Medicine 05/22/24 documented as of this encounter
--- OUTSIDE RECORDS SUMMARY | 2025-07-21 12:18 | XMS_ITS | Clinical Summary ---
Author Organization [facility] Address [address] [place] [address] Care Team Providers Care Cloth Bleaching Range Operator Chief Name Role Phone Unavailable Primary Care Provider [...] 25 Discontinued Vitamin D-Vitamin K (K2-D3 10,000) 06678-68 UNIT-MCG capsule Take 1 each by mouth [...] AM EDT Office Visit [facility] FELIZ [address] [place] [address] Cheikh Dorsey, DO Well woman exam with routine gynecological exam; Encounter for screening mammogram for malignant neoplasm of breast; Hormone imbalance; Night sweats 07/21/2025 Bamboo flowsheet SHERRI FELIZ [address] [place] [address] Cheikh Dorsey, DO 07/18/2025 Travel 07/10/2025 Abstract [facility] [address] [facility] [place] [address] Cheikh Dorsey, DO 07/10/2025 Abstract [facility] [address] [facility] [address] [address] Cheihk Dorsey, DO 06/17/2025 External Result Encounter [facility] [address] [facility] [address] [address] Cheikh Dorsey, DO 05/19/2025 Telephone [facility] [address] [facility] [place] [address] Susie Key MA from Last 3 [...] AM EDT Procedure Visit NOMJanette BARBOZAGYN [address] [facility] [place] [address] Cheikh Dorsey, DO [address] [facility] [place] [address] Health Maintenance Due Date Last Done Comments [...] AM EDT [facility] 1985 [id number] EXAM: MAMM SCREENING BILATERAL W CAD, 06/12/2025 [...] consider placing a referral to [facility]- Hereditary Cancer Genetics via [employer] or . For questions regarding this, please call [phone]. The patient was offered information on genetic counseling at the time of exam. Finalized by Breanne Romo MD on 06/17/2025 10:54 AM 1 a MAMM 1 YR FDA Accredited Performing Facility: [place] - Mammography/DEXA Imaging [address] [facility] [address] Procedure Note Radiology, Radiologist, - 06/17/2025 [facility] [place] 1985 [id number] EXAM: MAMM SCREENING BILATERAL W CAD, 06/12/2025 [...] thisevaluation, please consider placing a referral to [facility] Genetics via Epic or . For questions regarding this,please call [phone]. The patient was offered information on geneticcounseling at the time of exam. Finalized by Breanne Romo MD on 06/17/2025 10:54 AM 1 a MAMM 1 YR FDA Accredited Performing Facility: [facility] - Mammography/DEXA Imaging [address] [facility] [address] us Cheikh Sunita DO IMG BI PROCEDURES Final Result * Pap Smear (06/24/2024 12:00 AM EDT) Swab Cervical swab / Unknown Sunita Nurse [facility] CYTOLOGY ORDERABLES Final Result EXTERNAL LAB from Last 3 Months or Most Recently Relevant to Health Maintenance Insurance [employer]
--- OUTSIDE RECORDS SUMMARY | 2025-07-21 12:18 | XMS_ITS | Encounter Summary ---
Author Organization [facility] Address [address] [place] [address] Care Team Providers Care Diploma Medical Assistant Name Role Phone Unavailable Primary Care [...] EDT Procedure Visit [facility] [address] [place] [address] Cheikh Dorsey DO [address] [facility] [address] [place], [facility]11 documented as of this encounter Visit Diagnoses Not on filedocumented in this encounter
--- OUTSIDE RECORDS SUMMARY | 2025-07-21 12:18 | XMS_ITS | Encounter Summary ---
Author Organization [facility] Address [address] [facility] [place] [address] Care Team Providers Care Collar Baster Name Role Phone Unavailable Primary Care Provider Unavailabl e Encounter Details Date Type Department Care Team (Late st Contact Info) Description 07/10/2025 Abstract SHERRI FELIZ [address] [place], [place] [address] [place] [address] Cheikh Dorsey DO [address], [facility] Social History Tobacco Use Types [...] Procedure Visit SHERRI FELIZ [address] [place] [address] Cheikh Dorsey DO [address] [place], [place] [phone] documented as of this encounter Visit Diagnoses Not on filedocumented in this encounter
--- OUTSIDE RECORDS SUMMARY | 2025-07-21 12:18 | XMS_ITS | Encounter Summary ---
Author Organization [facility] Address [address] [facility] [place] [address] Care Team Providers Care Outboard Motors Experimental Mechanic Name Role Phone Unavailable Primary Care Provider Unavailabl e Encounter Details Date Type Department Care Team (Late st Contact Info) Description 07/03/2024 Orders Only SHERRI FELIZ [address] [place] [phone] Maria Elena Boateng LPN [address] [employer] [facility] [address] [place] [address] Social History Tobacco Use Types Packs/Day Years [...] AM EDT Procedure Visit NOMJanette FELIZ [address] [place] [address] Cheikh Dorsey DO [address] [place] [place], [place] [phone] documented as of this encounter Procedures Procedure [...]
--- OUTSIDE RECORDS SUMMARY | 2025-07-21 12:18 | XMS_ITS | Encounter Summary ---
Author Organization [facility] Address [address] [place] [address] Care Team Providers Care Dairy Consultant Name Role Phone Unavailable Primary Care Provider Unavailabl e Encounter Details Date Type Department Care Team (Late st Contact Info) Description 07/01/2024 Clinisync Result Encounter [facility] External Department Unsolicited Levi Dorsey, [address] [place] [address] Social History Tobacco Use Types Packs/Day Years [...] Visit [facility] [address] [place] [phone] Levi Dorsey, DO [address] [place] [address] [place] [address] documented as of this encounter Procedures Procedure Name Priority Date/Time Associated Diagnosis Comments US PELVIS W/ TRANSVAGINAL 07/01/2024 3:21 PM EDT documented in this encounter Results * US PELVIS W/ TRANSVAGINAL (07/01/2024 3:21 PM EDT) Anatomical Region Laterality Modality Other 07/01/2024 3:21 PM EDT Narrative 07/01/2024 3:24 PM EDT [address] [address] Ultrasound Report Signed Patient: BRITTANY CONNORS MR#: [id number] : 1985 Acct:[id number] Age/Sex: 39 / F ADM Date: 06/28/24 Loc: US Attending Dr: Levi Dorsey D.O. Ordering Physician: Levi Dorsey D.O. Date of Service: 06/28/24 Procedure(s): US pelvis w/ transvaginal Accession Number(s): [id number] cc: Levi Dorsey D.O.; Physician,Non-Staff Elia [address] [address] Patient Name: BRITTANY CONNORS MRN: [id number] date: 1985 Sex: F Assigned Patient Location: US Current Patient Location: Accession/Order Number: [id number] Exam Date: 06/28/2024 11:00 Report Date: 07/01/2024 [...] polycystic ovarian syndrome. Electronically authenticated by: JENARO PEREZ Date: 07/01/2024 15:21 Dictated By: Jenaro Perez M.D. Signed By: 07/01/24 1524 DD/ 1521 TD/TT: Marine Specialist: Procedure Note Radiology, Radiologist, MD - 07/01/2024 [place] [address] Ultrasound Report Signed Patient: BRITTANY CONNORS LMR#: [id number] : 1985Acct:[id number] Age/Sex: 39 / FADM Date: 06/28/24 Loc: US Attending Dr: Levi Dorsey D.O. Ordering Physician: Levi Dorsey D.O. Date of Service: 06/28/24 Procedure(s): US pelvis w/ transvaginal Accession Number(s): [id number] cc: Levi Dorsey D.O.; Physician,Non-Staff Elia The [address] [address] Patient Name: BRITTANY CONNORS MRN: [id number] date: 1985 Sex: F Assigned Patient Location: US Current Patient Location: Accession/Order Number: [id number] Exam Date: 06/28/2024 11:00 Report Date: 07/01/2024 [...] polycystic ovarian syndrome. Electronically authenticated by: JENARO PEREZ Date: 07/01/2024 15:21 Dictated By: Jenaro Perez M.D. Signed By:07/01/24 1524 DD/ 1521 TD/TT: Marine Specialist: us Levi Dorsey DO [facility] Final Result documented in this encounter Visit Diagnoses Not on filedocumented in this encounter
--- OUTSIDE RECORDS SUMMARY | 2025-07-21 12:18 | XMS_ITS | Encounter Summary ---
Author Organization [employer] Address [id number] [address] [place] [address] Care Team Providers Care Pierce And Shave Press Operator Name Role Phone Katty Causey FIXED ASSETS ACCOUNTANT-BLIND HOOKER Primary Care Provider +1- [phone] Encounter Details Date Type Department Care Team (Late st Contact Info) Description 09/15/2021 Telephone [facility] [address] [address] Marco Juárez, [address], [address] [place] [phone] Social History Tobacco Use Types Packs/Day Years [...] on filedocumented in this encounter Care Teams Pierce And Shave Press Operator Relationship Specialty Start Date End Date Katty Causey APRN-BLIND HOOKER [address] [place] [address] PCP - General Family Medicine 05/22/24 documented as of this encounter
--- OUTSIDE RECORDS SUMMARY | 2025-07-21 12:18 | XMS_ITS | Encounter Summary ---
Author Organization [employer] tem Address [id number] [address] [place] [address] Care Team Providers Care Emergency Planner Name Role Phone Katty Causey HANDLE ROUNDER OPERATOR-SEARCH MARKETING COORDINATOR Primary Care Provider +1- [phone] Reason for Referral * Gastroenterology (Routine) - Closed Specialty Diagnoses / Procedures Referred By Trevor zhang Referred To Contact Diagnoses Choledocholithiasis Procedures ERCP Bonnie Ariza PA Phone: tel: fax: Referral ID Status Reason Start Date Expiration Date Visits Re quested Visits Authorized [id number] Closed 09/08/2022 09/08/2023 1 1 Encounter Details Date Type Department Care Team (Late st Contact Info) Description 09/08/2022 Orders Only [facility] [address] [place] [address]. [address] [place] [phone] Bonnie Ariza PA [address] [facility] [place] [address] Choledocholithiasis (Primary Dx) Social History Tobacco Use [...] obstruction documented in this encounter Care Teams Emergency Planner Relationship Specialty Start Date End Date Katty Causey, JOANNA-SEARCH MARKETING COORDINATOR [address] [place] [place] [address] PCP - General Family Medicine 05/22/24 documented as of this encounter
--- OUTSIDE RECORDS SUMMARY | 2025-07-21 12:18 | XMS_ITS | Encounter Summary ---
Author Organization [facility] Address [address] [facility] [place] [address] Care Team Providers Care Network Support Manager Name Role Phone Unavailable Primary Care Provider Unavailabl e Encounter Details Date Type Department Care Team (Late st Contact Info) Description 06/17/2025 External Result Encounter [facility] FEL[facility] [place] [address] Cheikh Dorsey DO [address], [facility] Social History Tobacco Use Types Packs/Day Years [...] 8:30 AM EDT Procedure Visit NOMJanette FELIZ [facility] [place] [address] Cheikh Dorsey DO [address] [place], [place] [phone] documented as of this encounter Procedures Procedure Name Priority Date/Time Associated Diagnosis Comments BI MAMMOGRAM SCREENING TOMOSYNTHESIS BILATERAL 06/17/2025 10:55 AM EDT documented in this encounter Results * Bilateral screening mammogram with tomosynthesis (06/17/2025 10:55 AM EDT) Anatomical Region Laterality Modality Breast Bilateral Mammography 06/17/2025 10:5 5 AM EDT Narrative 06/17/2025 10:54 AM EDT THIS EXAM WAS PERFORMED AT [facility] 1985 [id number] EXAM: MAMM SCREENING BILATERAL W CAD, 06/12/2025 [...] evaluation, please consider placing a referral to [facility]- Hereditary Cancer Genetics via [employer] or . For questions regarding this, please call [phone]. The patient was offered information on genetic counseling at the time of exam. Finalized by Breanne Romo MD on 06/17/2025 10:54 AM 1 a MAMM 1 YR FDA Accredited Performing Facility: [facility] - Mammography/DEXA Imaging [address] [facility] [address] Procedure Note Radiology, Radiologist, - 06/17/2025 [facility] 1985 [id number] EXAM: MAMM SCREENING BILATERAL W CAD, 06/12/2025 [...] thisevaluation, please consider placing a referral to [facility] HereditaryCancer Genetics via [employer] or . For questions regarding this,please call [phone]. The patient was offered information on geneticcounseling at the time of exam. Finalized by Breanne Romo MD on 06/17/2025 10:54 AM 1 a MAMM 1 YR FDA Accredited Performing Facility: [facility] - Mammography/DEXA Imaging [address] [facility] [address] Cheikh Dorsey DO IM BI PROCEDURES Final Result documented in this encounter Visit Diagnoses Not on filedocumented in this encounter
--- OUTSIDE RECORDS SUMMARY | 2025-07-21 12:18 | XMS_ITS | Encounter Summary ---
Author Organization [facility] Address [address] [facility] [place] [address] Care Team Providers Care Retail Tire Sales Manager Name Role Phone Unavailable Primary Care Provider Unavailabl e Encounter Details Date Type Department Care Team (Late st Contact Info) Description 07/21/2025 Bamboo flowsheet SHERRI FELIZ [address] [place] [address] Cheikh Dorsey DO [address], [facility] Social History Tobacco Use Types Packs/Day [...] Procedure Visit NOMJanette FELIZ [address] [place] [address] Cheikh Dorsey, DO [address] [place], [place] [address] documented as of this encounter Visit Diagnoses Not on filedocumented in this encounter
--- OUTSIDE RECORDS SUMMARY | 2025-07-21 12:18 | XMS_ITS | Encounter Summary ---
Author Organization [employer] tem Address [id number] [address] [place] [address] Care Team Providers Care Glass Blower Name Role Phone Katty Causey INFORMATION DEVELOPER-BEAMSTER Primary Care Provider +1- [phone] Encounter Details Date Type Department Care Team ([facility] st Contact Info) Description 03/17/2024 Telephone [facility] [address] [address] Josh Crandall MD [address] [facility] [place] [address] Social History Tobacco Use Types [...] EDT New patient scheduled for 05/12/24 at [facility] with [place]. Patient has already had a PFT done. Please orderCXR. Thank you! documented in this encounter Plan of Treatment Not on file documented as of this encounter Visit Diagnoses Not on filedocumented in this encounter Care Teams Glass Blower Relationship Specialty Start Date End Date Katty Causey APRN-SELENE [address] [place] [address] PCP - General Family Medicine 05/22/24 documented as of this encounter
--- OUTSIDE RECORDS SUMMARY | 2025-07-21 12:18 | XMS_ITS | Encounter Summary ---
Author Organization [employer] tem Address [facility]-[id number] [address] [place] [address] Care Team Providers Care Saturation Diver Name Role Phone Katty Causey CUFF STITCHER-CAPITAL PROJECT ENGINEER Primary Care Provider +1- [phone] Encounter Details Date Type Department Care Team ([facility] st Contact Info) Description 03/18/2024 Orders Only [facility] [address] [facility] [address] [place] [address] Josh Crandall MD [address] [facility] [place] [address] Social History Tobacco Use Types [...] on filedocumented in this encounter Care Teams Saturation Diver Relationship Specialty Start Date End Date Katty Causey APRN-SELENE [address] [place] [address] PCP - General Family Medicine 05/22/24 documented as of this encounter
--- OUTSIDE RECORDS SUMMARY | 2025-07-21 12:18 | XMS_ITS | Encounter Summary ---
Author Organization [facility] Address [address] [place] [address] Care Team Providers Care Paperhanger Name Role Phone Unavailable Primary Care Provider Unavailabl e Encounter Details Date Type Department Care Team (Late st Contact Info) Description 07/10/2025 Abstract SHERRI FELIZ [address] [place], [place] [address] [place] [address] Cheikh Dorsey DO [address], [facility]11 Social History Tobacco Use Types [...] Procedure Visit SHERRI FELIZ [address] [place] [address] Cheikh Dorsey DO [address] [place], [place] [address] documented as of this encounter Visit Diagnoses Not on filedocumented in this encounter
--- OUTSIDE RECORDS SUMMARY | 2025-07-21 12:18 | XMS_ITS | Clinical Summary ---
Author Organization [employer] Address [id number] [place] [address] Care Team Providers Care Director Zone Name Role Phone Katty Causey APRN-ASSISTANT PROFESSOR OF LIFE SCIENCES Primary Care Provider [phone]- [phone] Allergies No known active allergies Medications ARIPiprazole [...] - 06/12/2025 11:59 PM EDT Hospital Encounter [facility] - Mammography[facility]DEXA Imaging [address] [place] [phone] Visit for screening mammogram Discharge Disposition: Home 06/10/2025 Travel 05/05/2025 8:30 AM EDT - 05/05/2025 11:59 PM EDT Hospital Encounter [facility] - Cardiovascular [address] [place] [phone] Tachycardia Discharge Disposition: Home 05/04/2025 Travel from [...] Khloeshanon Connors Heart disease Maternal Uncle 1 [place] Garnett Parkinsonism Maternal Uncle 2 half Anesthesia problems [...] Maternal Grandmother María Connors Maternal Uncle 1 [place] Amrik Maternal Uncle 2 half Mother Petra [...] EDT Visit for screening mammogram HOLTER MONITOR DIRECTOR GAME/UP TO 48 HOUR Routine 05/05/2025 8:52 AM EDT Tachycardia from Last 3 Months Results * Mammography screening bilateral with CAD (06/12/2025 11:27 AM EDT) Anatomical Region Laterality Modality Breast Bilateral Mammography 06/17/2025 10:5 3 AM EDT Narrative 06/17/2025 10:54 AM EDT BRITTANY CONNORS 1985 [id number] EXAM: MAMM SCREENING BILATERAL W CAD, 06/12/2025 [...] evaluation, please consider placing a referral to [facility] Hered[facility] Cancer Genetics via [employer] or . For questions regarding this, please call [phone]. The patient was offered information on genetic counseling at the time of exam. Finalized by Breanne Romo MD on 06/17/2025 10:54 AM 1 a MAMM 1 YR FDA Accredited Performing Facility: [facility] - Mammography[facility]DEXA Imaging [address] [place] [address] Procedure Note Breanne Romo MD - 06/17/2025 BRITTANY BLUEMadiha CONNORS 1985 [id number] EXAM: MAMM SCREENING BILATERAL W CAD, 06/12/2025 [...] thisevaluation, please consider placing a referral to [facility] via [employer] or . For questions regarding this,please call [phone]. The patient was offered information on geneticcounseling at the time of exam. Finalized by Breanne Romo MD on 06/17/2025 10:54 AM 1 a MAMM 1 YR FDA Accredited Performing Facility: [facility] - Mammography[facility]DEXA Imaging [address] [address] Cheikh R Sunita DO IMG MAMMOGRAPHY ORDERABLES Iram l Result * HOLTER MONITOR DIRECTOR GAME/UP TO 48 HOUR (05/05/2025 8:52 AM EDT) Anatomical Region Laterality Modality Chest N/A Other Narrative 05/11/2025 2:06 PM EDT 1d 35sec Holter monitor. Primary rhythm sinus rhythm with average. 98 beats per minute. Ranged between 63-143 beats per minute. Rare PACs. No significant arrhythmias. No triggered events. Katty Causey INSTRUCTIONAL RESOURCE TEACHER-ASSISTANT PROFESSOR OF LIFE SCIENCES CV CARDIAC SERVICES ORDERA BLES Final Result from Last 3 Months Insurance [employer] Advance Directives * Full Code (Latest Code Status on File) Date Activated Date Inactivated Comments 09/06/2022 5:42 PM 09/07/2022 4:30 PM Care Teams Director Zone Relationship Specialty Start Date End Date Katty Causey APRN-FNP [address] [place] [address] PCP - General Family Medicine 05/22/24
--- OUTSIDE RECORDS SUMMARY | 2025-07-21 12:19 | XMS_ITS | Encounter Summary ---
Author Organization [facility] Address [address] [facility] [[email or web address]] [place] [address] Care Team Providers Care Bottle Feeder Name Role Phone Unavailable Primary Care Provider Unavailabl e Encounter Details Date Type Department Care Team (Late st Contact Info) Description 08/07/2024 Abstract SHERRI FELIZ [address] [place], [place] [address] [phone] Cheikh Dorsey DO [address], [facility]11 Social History Tobacco Use Types Packs/Day [...] Procedure Visit SHERRI FELIZ [address] [place] [phone] Cheikh Dorsey DO [address] [place] [address] documented as of this encounter Visit Diagnoses Not on filedocumented in this encounter
--- OUTSIDE RECORDS SUMMARY | 2025-07-21 12:19 | XMS_ITS | Encounter Summary ---
Author Organization [facility] Address [address] [facility] [place] [address] Care Team Providers Care Sheet Manufacturing Supervisor Name Role Phone Unavailable Primary Care Provider Unavailabl e Encounter Details Date Type Department Care Team (Late st Contact Info) Description 08/13/2024 Abstract SHERRI FELIZ [address] [place], [place] [address] [phone] Cheikh Dorsey DO [address], [facility]11 Social History Tobacco Use Types Packs/Day [...] Procedure Visit SHERRI FELIZ [address] [place] [phone] Cheikh Dorsey DO [address] [place] [address] documented as of this encounter Visit Diagnoses Not on filedocumented in this encounter
--- OUTSIDE RECORDS SUMMARY | 2025-07-21 12:19 | XMS_ITS | Encounter Summary ---
Author Organization [facility] Address [address] [facility] [place] [address] Care Team Providers Care Electronics Tech Name Role Phone Unavailable Primary Care Provider Unavailabl e Encounter Details Date Type Department Care Team (Late st Contact Info) Description 08/24/2024 Clinisync Result Encounter [facility] External Department Unsolicited Levi Dorsey DO [address] [place] [address] Social History Tobacco Use Types Packs/Day Years [...] Visit [facility] OBGYMadiha [address] [place] [phone] Levi Dorsey DO [address] [place] [address] [place] [address] documented as of this encounter Procedures Procedure Name Priority Date/Time Associated Diagnosis Comments US PELVIS W/ TRANSVAGINAL 08/24/2024 6:02 AM EDT documented in this encounter Results * US PELVIS W/ TRANSVAGINAL (08/24/2024 6:02 AM EDT) Anatomical Region Laterality Modality Other 08/24/2024 6:02 AM EDT Narrative 08/24/2024 6:05 [place] [address] Ultrasound Report Signed Patient: BRITTANY CONNORS MR#: [id number] : 1985 Acct:[id number] Age/Sex: 39 / F ADM Date: 08/23/24 Loc: US Attending Dr: Levi Dorsey D.O. Ordering Physician: Levi Dorsey D.O. Date of Service: 08/23/24 Procedure(s): US pelvis w/ transvaginal Accession Number(s): [id number] cc: Levi Dorsey D.O.; Katty Causey TOPPIECE CHOPPER [place] [address] Patient Name: BRITTANY CONNORS MRN: [id number] date: 1985 Sex: F Assigned Patient Location: US Current Patient Location: Accession/Order Number: [id number] Exam Date: 08/23/2024 08:40 Report Date: 08/24/2024 [...] M.D. Signed By: 08/24/24604 DD/ 1 TD/TT: Staff Genetic Counselor: Procedure Note Radiology, Radiologist, MD - 08/24/2024 [place] [address] Ultrasound Report Signed Patient: BRITTANY CONNORS LMR#: [id number] : 1985Acct:[id number] Age/Sex: 39 / FADM Date: 08/23/24 Loc: US Attending Dr: Levi Dorsey D.O. Ordering Physician: Levi Dorsey D.O. Date of Service: 08/23/24 Procedure(s): US pelvis w/ transvaginal Accession Number(s): [id number] cc: Levi Dorsey D.O.; Katty Causey TOPPIECE CHOPPER The [address] [address] Patient Name: BRITTANY CONNORS MRN: [id number] date: 1985 Sex: F Assigned Patient Location: US Current Patient Location: Accession/Order Number: [id number] Exam Date: 08/23/2024 08:40 Report Date: 08/24/2024 [...] Perez M.D. Signed By:08/24/2405 DD/ 1 TD/TT: Staff Genetic Counselor: us Levi Dorsey DO [facility] Final Result documented in this encounter Visit Diagnoses Not on filedocumented in this encounter
--- OUTSIDE RECORDS SUMMARY | 2025-07-21 12:19 | XMS_ITS | Encounter Summary ---
Author Organization [facility] Address [address] [place] [address] Care Team Providers Care Director Operating Room Name Role Phone Unavailable Primary Care Provider Unavailabl e Encounter Details Date Type Department Care Team (Late st Contact Info) Description 09/23/2024 Clinisync Result Encounter [facility] External Department Unsolicited Levi Dorsey DO [address] [place] [address] Social History Tobacco Use Types Packs/Day Years [...] Visit [facility] Ligia OBSHELLIE [address] [place] [phone] Levi Dorsey DO [address] [place] [address] [place] [address] documented as of this encounter Procedures Procedure Name Priority Date/Time Associated Diagnosis Comments ECG 12-LEAD 09/23/2024 9:36 AM EST documented in this encounter Results * ECG 12-LEAD (09/23/2024 9:36 AM EST) Anatomical Region Laterality Modality Other 09/23/2024 9:36 AM EST Narrative 09/23/2024 8:21 [place] [address] Electrocardiograph Report Signed Patient: BRITTANY CONNORS MR#: [id number] : 1985 Acct:[id number] Age/Sex: 39 / F ADM Date: 09/23/24 Loc: PST Attending Dr: Levi Dorsey D.O. Ordering Physician: Levi Dorsey D.O. Date of Service: 09/23/24 Procedure(s): ECG 12 lead Accession Number(s): [id number] cc: The [facility] Test Date: 2024-09-23 Pat Name: BRITTANY CONNORS Department: Room: - Gender: Female Assignment Desk Editor: : 1985 Requested By: LEVI DORSEY Order Number: [id number] Reading MD: CHRISTIAN VELASQUEZ Measurements Intervals [place] Rate: 89 P: 20 LA: 155 QRS: 70 QRSD: 98 T: 18 QT: 374 QTc: 455 Interpretive Statements SINUS RHYTHM No previous ECG available for comparison Electronically Signed On 09-23-2024 20:20:53 EST by CHRISTIAN VELASQUEZ Dictated By: Christian Velasquez D.O. Signed By: 09/23/242020 DD/ 5 TD/TT: Clip On Sunglasses Assembler: Procedure Note Radiology, Radiologist, MD - 09/23/2024 [place] [address] Electrocardiograph Report Signed Patient: BRITTANY CONNORS LMR#: [id number] : 1985Acct:[id number] Age/Sex: 39 / FADM Date: 09/23/24 Loc: PST Attending Dr: Levi Dorsey D.O. Ordering Physician: Levi Dorsey D.O. Date of Service: 09/23/24 Procedure(s): ECG 12 lead Accession Number(s): [id number] cc: [facility] Test Date: 2024-09-23 Pat Name: BRITTANY CONNORS Department: Room: - Gender: Female Assignment Desk Editor: : 1985 Requested By: LEVI DORSEY Order Number: [id number] Reading MD: CHRISTIAN VELASQUEZ Measurements Intervals [place] Rate: 89 P: 20 LA: 155 QRS: 70 QRSD: 98 T: 18 QT: 374 QTc: 455 Interpretive Statements SINUS RHYTHM No previous ECG available for comparison Electronically Signed On 09-23-2024 20:20:53 EST by CHRISTIAN VELASQUEZ Dictated By: Christian Velasquez D.O. Signed By:09/23/242020 DD/ 5 TD/TT: Clip On Sunglasses Assembler: us Levi Dorsey DO [facility] Final Result documented in this encounter Visit Diagnoses Not on filedocumented in this encounter
--- OUTSIDE RECORDS SUMMARY | 2025-07-21 12:19 | XMS_ITS | Encounter Summary ---
Author Organization [facility] Address [address] [facility] [place] [address] Care Team Providers Care Enlisted Aircrew/Aerial Observer/Gunner Name Role Phone Unavailable Primary Care Provider Unavailabl e Encounter Details Date Type Department Care Team (Late st Contact Info) Description 08/18/2024 Abstract SHERRI FELIZ [address] [place], [place] [address] [place] [phone] Cheikh Dorsey DO [address], [facility]11 Social History Tobacco Use Types Packs/Day Years [...] Procedure Visit SHERRI FELIZ [address] [place] [phone] Cheikh Dorsey DO [address], [place] [address] documented as of this encounter Visit Diagnoses Not on filedocumented in this encounter
--- OUTSIDE RECORDS SUMMARY | 2025-07-21 12:19 | XMS_ITS | Encounter Summary ---
Author Organization [facility] Address [address] [facility] [place] [address] Care Team Providers Care Pot Fireman Name Role Phone Unavailable Primary Care Provider Unavailabl e Encounter Details Date Type Department Care Team (Late st Contact Info) Description 09/09/2024 Abstract SHERRI FELIZ [address] [place], [place] [address] [phone] Cheikh Dorsey DO [address], [facility]11 Social History Tobacco Use Types Packs/Day [...] Procedure Visit SHERRI FELIZ [address] [place] [phone] Cheikh Dorsey DO [address], [place] [phone] documented as of this encounter Visit Diagnoses Not on filedocumented in this encounter
--- OUTSIDE RECORDS SUMMARY | 2025-07-21 12:19 | XMS_ITS | Encounter Summary ---
Author Organization [facility] Address [address] [facility] [place] [address] Care Team Providers Care Dramatic Agent Name Role Phone Unavailable Primary Care Provider Unavailabl e Encounter Details Date Type Department Care Team (Late st Contact Info) Description 07/31/2024 Abstract SHERRI FELIZ [address] [place], [place] [address]Court [place] [phone] Cheikh Dorsey DO [address], [facility]11 Social History Tobacco Use Types Packs/Day [...] Visit SHERRI FELIZ [address] [place] [phone] Cheikh Dorsey DO [address] [place] [address] documented as of this encounter Visit Diagnoses Not on filedocumented in this encounter
--- OUTSIDE RECORDS SUMMARY | 2025-07-21 12:19 | XMS_ITS | Encounter Summary ---
Author Organization [facility] Address [address] [facility] [place] [address] Care Team Providers Care Educational Assistant Name Role Phone Unavailable Primary Care Provider Unavailabl e Encounter Details Date Type Department Care Team (Late st Contact Info) Description 10/06/2024 Abstract SHERRI FELIZ [address] [place], [place] [address] [phone] Cheikh Dorsey DO [address], [facility]11 Social History Tobacco Use Types Packs/Day Years [...] Visit SHERRI FELIZ [address] [place] [phone] Cheikh Dorsey DO [address], [place] [phone] documented as of this encounter Visit Diagnoses Not on filedocumented in this encounter
--- OUTSIDE RECORDS SUMMARY | 2025-07-21 12:19 | XMS_ITS | Encounter Summary ---
Author Organization [facility] Address [address] [facility] [place] [address] Care Team Providers Care Vegetable Tester Name Role Phone Unavailable Primary Care Provider Unavailabl e Encounter Details Date Type Department Care Team (Late st Contact Info) Description 09/28/2024 Clinisync Result Encounter [facility] External Department Unsolicited Levi Dorsey DO [address] [place] [address] Social History Tobacco Use Types Packs/Day Years [...] Visit [facility] [address] [place] [phone] Levi Dorsey DO [address] [place] [address] [place] [address] documented as of this encounter Procedures Procedure Name Priority Date/Time Associated Diagnosis Comments US PELVIS W/ TRANSVAGINAL 09/28/2024 6:20 AM EST documented in this encounter Results * US PELVIS W/ TRANSVAGINAL (09/28/2024 6:20 AM EST) Anatomical Region Laterality Modality Other 09/28/2024 6:20 AM EST Narrative 09/28/2024 6:22 [place] [address] Ultrasound Report Signed Patient: BRITTANY CONNORS MR#: [id number] : 1985 Acct:[id number] Age/Sex: 39 / F ADM Date: 09/27/24 Loc: US Attending Dr: Levi Dorsey D.O. Ordering Physician: Levi Dorsey D.O. Date of Service: 09/27/24 Procedure(s): US pelvis w/ transvaginal Accession Number(s): [id number] cc: Levi Dorsey D.O.; Katty Causey [place] [id number] Patient Name: BRITTANY CONNORS MRN: [id number] date: 1985 Sex: F Assigned Patient Location: US Current Patient Location: Accession/Order Number: [id number] Exam Date: 09/27/2024 09:00 Report Date: 09/28/2024 [...] M.D. Signed By: 09/28/24621 DD/ 9 TD/TT: Art Class Model: Procedure Note Radiology, Radiologist, MD - 09/28/2024 [place] [address] Ultrasound Report Signed Patient: BRITTANY CONNORS LMR#: [id number] : 1985Acct:[id number] Age/Sex: 39 / FADM Date: 09/27/24 Loc: US Attending Dr: Levi Dorsey D.O. Ordering Physician: Levi Dorsey D.O. Date of Service: 09/27/24 Procedure(s): US pelvis w/ transvaginal Accession Number(s): [id number] cc: Levi Dorsey D.O.; Katty Causey NP The [place] [id number] Patient Name: BRITTANY CONNORS MRN: [id number] date: 1985 Sex: F Assigned Patient Location: US Current Patient Location: Accession/Order Number: [id number] Exam Date: 09/27/2024 09:00 Report Date: 09/28/2024 [...] Perez M.D. Signed By:09/28/24621 DD/ 9 TD/TT: Art Class Model: us [facility] DO [facility] Final Result documented in this encounter Visit Diagnoses Not on filedocumented in this encounter
--- OUTSIDE RECORDS SUMMARY | 2025-07-21 12:19 | XMS_ITS | Encounter Summary ---
Author Organization [facility] Address [address] [facility] [place] [address] Care Team Providers Care Skoog Patching Machine Operator Name Role Phone Unavailable Primary Care Provider Unavailabl e Encounter Details Date Type Department Care Team (Late st Contact Info) Description 10/03/2024 Abstract SHERRI FELIZ [address] [place], [place] [address] [phone] Cheikh Dorsey DO [address], [facility]11 Social History Tobacco Use Types Packs/Day [...] Visit SHERRI FELIZ [address] [place] [phone] Cheikh Dorsey DO [address], [place] [address] documented as of this encounter Visit Diagnoses Not on filedocumented in this encounter
--- OUTSIDE RECORDS SUMMARY | 2025-07-21 12:21 | XMS_ITS | CCD ---
Author Organization [facility] CliniSyla Care Team Providers Care Cigar Packer And Grader Name Role Phone Estevan Howardn Unavailable Jarred Siegel Unavailable JOSH FENTON Attending Unavailable ANGLIM, GORDON A Referring Unavailable ANGLIM, GORDON A Primary Care Unavailable PHILLY RASHEED Referring Unavailab le NASREEN, ALBINA Primary Care Unavailable PHILLY RASHEED Referring Unavailab le NASREEN, WOLVERINE Primary Care Unavailable PROVIDER, UNKNOWN Referring Unavailable NASREEN, WOLVERINE Primary Care Unavailable KATELYN ZAMORA Referring Unavailable NASREEN, ALBINA Primary Care Unavailable NINA NGUYEN Referring Unavailable ANGLIM, GORDON A Primary Care Unavailable Unavailable Primary Care Provider Unavailabl e Anglim, MEDICAL TECHNOLOGIST HEMATOLOGY Gordon Primary Care Provider DO Cheikh Dorsey Attending Provider [phone] Josue Dorseyy Admitting Unavailable Sunita, Cheikh Attending Unavailable Anglim, Gordon Primary Care Unavailable Sunita, Cheikh Attending Unavailable Anglim, Gordon Primary Care Unavailable Sunita, Cheikh Admitting Unavailable Jarred Siegel L Admitting Unavailable Jarred Siegel L Attending Unavailable Anglim, Gordon Primary Care Unavailable SUNITA, CHEIKH Attending Unavailable SUNITA, CHEIKH Attending Unavailable SUNITA, CHEIKH Attending Unavailable SUELLEN JUAREZ Attending Unavailable Anglim MEDICAL TECHNOLOGIST HEMATOLOGYBritanyRETAIL BAKERY MANAGERSeana A Primary Care Provider Nasreen MEDICAL TECHNOLOGIST HEMATOLOGY-GARBAGE COLLECTOR, Albina Primary Care Provider [phone] LA NENA VEGA Referring Unavailable NASREEN, ALBINA Primary Care Unavailable NASREEN, ALBINA Referring Unavailable NASREEN, ALBINA Primary Care Unavailable SUNITACHEIKH GREGORY R Referring Unavailable NASREEN, ALBINA Primary Care Unavailable Allergies Allergy Classification Reported Allergen(s) Allergy Type Date of Onset Reaction(s) Facility (17 sources) Shellfish Propensity to adverse reactions 4 [facility] Work Phone: (12 sources) Fish-Derived Products Propensity to adverse reactions 4 Anaphylaxis, Hives, Itching [facility] (12 sources) Shellfish-Deriv ed Products Drug Allergy 4 Anaphylaxis [facility] Medications Current Medications Medication Drug Class(es) Dates Sig (Normalized) Sig (Original) 0.25 MG, 0.5 MG Dose 3 ML semaglutide 0.68 MG/ML Pen Injector [Ozempic] (2 sources) Start: 09-03-2023 Ozempic (0.25 or 0.5 MG/DOSE) 2 MG/3ML 0.25 mg for one month and then increase to 0.5 mg dose Subcutaneous weekly for Aug, Active [id number] 200 actuat albuterol 0.09 mg/actuat metered dose [...] beclomethasone dipropionate 0.04 mg/actuat metered dose inhaler (15 sources) Corticosteroid Start: 05-12-2024 take 2 puff(s) [...] and 10 mg before bedtime. 06/23/2020 Active 168 hr estradiol 0.22448 mg/hr transdermal system (2 sources) Estrogen Start: 07-21-2025 End: 07-21-2026 estradiol (Climara) 0.05 MG/24HR Indications: Hormone imbalance , Night sweats Place 1 patch over 7 days on the skin 1 (one) time per week 12 patch 3 07/21/2025 07/21/2026 Active hydroCHLOROthiazide 25 mg oral tablet (10 sources) Thiazide Diuretic Start: 03-25-2024 take 25 mg by mouth once daily Hydrochlorothiazide Active 25 MG PO Daily January 21, 2024 12:00am hydroCHLOROthiazide 12.5 mg / lisinopril 20 mg oral tablet (20 sources) Thiazide Diuretic, Angiotensin Converting Enzyme Inhibitor End: 07-21-2025 take 1 tablet by mouth in the morning lisinopril-hydroCHLORO thiazide 20-12.5 MG tablet Take 1 tablet by mouth in the morning. 07/21/2025 Discontinued take 1 tablet by cristine th once [...] day Active lisinopril 30 mg oral tablet (20 sources) Angiotensin Converting Enzyme Inhibitor Start: 01-21-2024 lisinopril 30 MG tablet 1 (one) time each day at the same time 01/21/2024 Active Lisinopril 30 MG Oral for 30 Days Active 24 hr metFORMIN hydrochloride 500 mg extended release oral tablet (2 sources) Biguanide take 1 tablet by mouth once daily at dinner metFORMIN XR (Glucophage-XR) 500 MG 24 hr tablet TAKE ONE TABLET WITH EVENING MEAL BY MOUTH ONCE DAILY FOR 30 DAYS; Duration: 30 Active montelukast 10 mg oral tablet (20 sources) Leukotriene Receptor Antagonist Start: 024 take 1 tablet by mouth at bedtime montelukast (Singulair) 10 MG tablet Take 10 mg by mouth at bedtime 01/21/2024 Active ozempic (0.25 or 0.5 mg/dose) 2 mg/3ml solution pen-injector (1 source) Start: Ozempic (0.25 or 0.5 MG/DOSE) 2 MG/3ML 0.25 mg for one month and then increase to 0.5 mg dose Subcutaneous weekly for 30 Aug, Active potassium 99 mg extended release oral tablet (17 sources) take 1 tablet by mouth once daily Potassium 99 MG tablet Take 99 mg by mouth Daily Active microencapsulated potassium chloride 10 meq extended release oral tablet (16 sources) potassium chlori de (K-TAB,KLOR-CON) 10 MEQ CR tablet Take 10 mEq by mouth daily. Active take 1 tablet by cristine th every twenty-four hours Klor-Con M20 20 MEQ 1 tablet with food Orally Once a day Active potassium citrate (2 sources) Start: 01-21-2024 Potassium Citr ate Active 0 PO .COMPLEX January 21, 2024 12:00am orally daily; progesterone 100 mg oral capsule (2 sources) Progesterone Start: 07-21-2025 End: 07-21-2026 take 1 capsule by mouth once daily progesterone (Prometrium) 100 MG capsule Indications: Hormone imbalance Take 1 capsule (100 mg) by mouth Daily 30 capsule 11 07/21/2025 07/21/2026 Active Semaglutide (OZEMPIC, 1 MG/DOSE, SC) (9 sources) End: 10-13-2024 Semaglutide (OZEMPIC, 1 MG/DOSE, SC) 10/13/2024 Discontinued Semaglutide (OZE MPIC, 1 MG/DOSE, SC) Active semaglutide (Ozempic, 1 MG/DOSE,) 4 MG/3ML solution pen-injector (17 sources) Start: 04-16-2024 End: 07-21-2025 inject 1 mg by subcutaneous injection every week semaglutide (Ozempic, 1 MG/DOSE,) 4 MG/3ML solution pen-injector Inject 1 mg under the skin 1 (one) time per week 04/16/2024 07/21/2025 Discontinued Start: 04-16-2024 inject 1 mg by subcu taneous injection every week semaglutide (Ozempic, 1 MG/DOSE,) 4 MG/3ML solution pen-injector Inject 1 mg under the skin 1 (one) time per week 04/16/2024 Active simvastatin 20 mg oral tablet (2 sources) HMG-CoA Reductase Inhibitor simvastatin (Zocor) 20 MG tablet 1 (one) time each day at the same time Active Vitamin D-Vitamin K (K2-D3 10,000) 90002-14 UNIT-MCG capsule (17 sources) End: take 1 capsule by mouth once daily Vitamin D-Vitamin K (K2-D3 10,000) 03296-99 UNIT-MCG capsule Take 1 each by mouth Daily 07/21/2025 Discontinued take 1 capsule by mouth once ewa ly Vitamin D-Vitamin K (K2-D3 10,000) 15166-53 UNIT-MCG capsule Take 1 each by mouth Daily Active wegovy 1 mg/0.5ml solution auto-injector (1 source) Start: 10-19-2023 Wegovy 1 MG/0. 5ML as directed Subcutaneous Weekly for 30 days Sep, Active Completed/Discontinued Medications Medication Drug Class(es) Dates Sig (Normalized) Sig (Original) magnesium oxide 400 mg oral tablet (20 sources) Start: 01-21-2024 End: 07-21-2025 take 400 mg by mouth once daily [...] Translations: [Polycystic ovarian syndrome] 06-24-2024 Chronic Other endocrine disorders (2 sources) Disorder of endocrine system; Translations: [Endocrine disorder, unspecified] 07-21-2025 Episodic Other lower respiratory disease (6 sources) Snoring [...] conditions (not mental disorders or infectious disease) (5 sources) Other abnormal and inconclusive findings on diagnostic imaging of breast; Translations: [Encounter for screening mammogram for malignant neoplasm of breast] Onset: 05-29-2024 07-21-2025 Episodic Other skin disorders (2 sources) Night sweats; Translations: [Generalized hyperhidrosis] 07-21-2025 Episodic Ovarian cyst (1 source) Complex ovarian [...] neoplasm] Onset: 11-17-2023 Episodic Residual codes; unclassified (10 sources) Breast cancer genetic marker of susceptibility positive; Translations: [Genetic susceptibility to malignant neoplasm of breast] Onset: 09-04-2024 09-04-2024 Episodic Residual codes; unclassified (1 source) Family history of carrier of genetic disease; Translations: [Family history of carrier of genetic disease] Onset: 03-03-2025 Episodic Results Test Name Value Interpretation Reference Range Facility 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 or . For questions regarding this, please call [phone]. The patient was offered information on genetic counseling at the time of exam. Finalized by Breanne Romo MD on 06/17/2025 10:54 AM 1 a MAMM 1 YR [address] [facility] MR BREAST BILAT W WO CONT W CADon 03-04-2025 MR BREAST BILAT W WO CONT W CAD MR BREAST BILAT W WO CONT W CAD PATRICIA ZEE DORY 1985 [id number] EXAM: MR BREAST BILAT W WO CONT [...] image and subtraction processing were performed using [employer] software. The images were interpreted using image [...] 12:33 PM 1 BREAST MRI C Normal [facility] ALL CBC WITH AUTO DIFFon BASOPHILS ABSOLUTE AUTO 0.1 [facility] Basophils/100 WBC (Bld) 0.6 % 0.2 - 2.0 % [facility] Eosinophils/100 WBC (Bld) 1.6 % 0.9 - 7.0 % [facility] Erythrocyte distribution width (RBC) [Ratio] 12.9 % 11.0 - 15.0 % [facility] Hematocrit (Bld) [Volume fraction] 44.7 % 36.0 - 48.0 % [facility] Hemoglobin (Bld) [Mass/Vol] 15.2 g/dL 12.0 - 16.0 g/dL [facility] IMMATURE GRANULOCYTES ABS AUTO 0.02 [facility] Immature granulocytes/100 WBC (Bld) 0.2 % 0.0 - 0.5 % [facility] LYMPHOCYTES ABSOLUTE AUTO 2.2 [facility] Lymphocytes/100 WBC (Bld) 27.3 % 20.5 - 60.0 % [facility] MCH (RBC) [Entitic mass] 29.1 pg 26.7 - 34.0 pg [facility] MCHC (RBC) [Mass/Vol] 34 g/dL 29.9 - 35.2 g/dL [facility] MCV (RBC) [Entitic vol] 85.5 fL 81.0 - 99.0 fL [facility] MONOCYTES ABSOLUTE AUTO 0.5 [facility] Monocytes/100 WBC (Bld) 6.6 % 1.7 - 12.0 % [facility] NEUTROPHILS ABSOLUTE AUTO 5.2 [facility] Neutrophils/100 WBC (Bld) 63.7 % 43.0 - 75.0 % [facility] Platelet mean volume (Bld) [Entitic vol] 9.9 fL 9.5 - 13.5 fL [facility] EO # 0.1 [facility] PLT [address] [facility] RBC 5.23 [facility] WBC 8.2 [facility] Grupo 10-03-2024 L ------- Specimen: [id number] Received: 10/06/24 Status: EDGARDO Cristiane Num: [id number] Spec Type: Surgical Subm Dr: Cheikh Dorsey Tissues: A Ovary W/ or W/O Fallopian Tube, Non-Neoplastic (BILATERAL FAL TUBES AND OVAR Procedures: , Gross/Micro L4 Age/ Patient Sex Location Account Attending Physician Patricia Connors 39/F LABELL [id number] Cheikh Dorsey SPEC NUM: [id number] RECD: 10/06/24 STATUS: EDGARDO CRISTIANE NUM: [id number] JERMAINE: 10/03/[address]: Cheikh Dorsey ENTERED: 10/06/[address] [facility] [address]: Ligia,Lab SPEC TYPE: Surgical DEPT: KRUPA COREY ENTERED BY: [id number] RECV BY: [id number] ORDERED: , Gross/Micro L4 ORDERED: , Gross/Micro L4 Pathological [...] lined cysts, 2.5 cm in greatest Specimen: [id number] Received: 10/06/24 Status: EDGARDO Cristiane Num: [id number] Spec Type: Surgical Subm Dr: Cheikh Dorsey Tissues: A Ovary W/ or W/O Fallopian Tube, Non-Neoplastic (BILATERAL FAL TUBES AND OVAR Procedures: , Gross/Micro L4 Patient: Patricia Connors [id number] (Continued) Specimen: [id number] Received: 10/06/24 (Continued) Gross Description (Continued) Signed (signature on file) Librado Sheehan MD 10/07/24 1425 Specimen: [id number] Received: 10/06/24 Status: EDGARDO Weber Num: [id number] Spec Type: Surgical Subm Dr: Cheikh Dorsey Tissues: A Ovary W/ or W/O Fallopian Tube, Non-Neoplastic (BILATERAL FAL TUBES AND OVAR Procedures: , Gross/Micro L4 Patient: Patricia Connors [id number] (Continued) Specimen: [id number] Received: 10/06/24-1 (Continued) Gross Description (Continued) dimension that are [...] include paratubal cyst, SEE-FIM protocol) (25, ns, [id number] A) Microscopic Description Microscopic examination is performed. CPT Codes 99723 (more content not included)... Normal [facility] ALL BASIC METABOLIC PANELon 09-23-2024 Anion gap [Moles/Vol] 16.7 mmol/L [facility] Calcium [Mass/Vol] 9.5 mg/dL 8.5 - 10. 1 mg/dL [facility] Chloride [Moles/Vol] 102 mmol/L 98 - 107 mmol/L [facility] CO2 [Moles/Vol] 25.1 mmol/L 21.0 - 32.0 mmol/L [facility] Creatinine [Mass/Vol] 0.73 mg/dL 0.55 - 1.02 mg/dL [facility] GFR/1.73 sq M.predicted CKD-EPI (S/P/Bld) [Vol rate/Area] >60 >=60 mL/min/1.73m 2 [facility] Glucose [Mass/Vol] 91 mg/dL 74 - 106 mg/dL [facility] Potassium [Moles/Vol] 3.8 mmol/L 3.5 - 5.1 mmol/L [facility] Sodium [Moles/Vol] 140 mmol/L 136 - 145 mmol/L [facility] TBH EGFR-NON AF [place] >60 >=60 mL/min/1.73m 2 [facility] Urea nitrogen [Mass/Vol] 11 mg/dL 7.0 - 18.0 mg/dL [facility] Urea nitrogen/Creatinin e [Mass ratio] 15.1 mg/mg [facility] ALL CEAon 08-08-2024 CEA <0.6 0.0 - 4.7 ng/mL [facility] Comment on above: Nonsmokers <3.9 Smokers <5.6 [employer] Electrochemiluminescence Immunoassay (ECLIA) Values obtained with different assay methods or kits cannot be used interchangeably. Results cannot be interpreted as absolute evidence of the presence or absence of malignant disease. Performed at: [address] [id number] Skate Hop: Gustavo Dawson PhD, Phone: [phone] TETO AFP TUMOR MARKERon 07-29 AFP, SERUM, TUMOR MARKER 12.4 ng/mL Abnormal 0.0 - 6.4 ng/mL [facility] Comment on above: [employer] ectrochemiluminescence Immunoassay (ECLIA) Values obtained with different assay methods or kits cannot be used interchangeably. Results cannot be interpreted as absolute evidence of the presence or absence of malignant disease. This test is not interpretable in females. Interpretation and review of laboratory results Abnormal [facility] No Panel Informationon 08-08 [facility] HCG,BETA-QUANT,TUMOR BHAVESH Dustin 08-08-2024 HCG TUMOR MARKER <1 . mIU/mL [facility] Comment on above: Female (Non- ) [...] developed and its performance characteristics determined by [employer]. It has not been cleared or approved by the Food and Drug Administration for use as a tumor marker. This test is not interpretable as a tumor marker in females. Performed at: [address] [id number] Skate Hop: Gustavo Dawson PhD, Phone: [phone] HCG ( test) Ql (U)o n 07-29-2024 Interpretation and review of laboratory results Normal [facility] Preg Test, Ur Negative [facility] Grupo 07-29-2024 L Specimen: [id number] Received: 07/30/24 Status: EDGARDO Weber Num: [id number] Spec Type: Surgical Subm : Cheikh Dorsey Tissues: A Endometrium - Biopsy (EMBX) Procedures: HE/2, Gross/Micro L4 Age/ Patient Sex Location Account Attending Physician Patricia Connors 39/F LABELL [id number] Cheikh Dorsey SPEC NUM: [id number] RECD: 07/30/24 STATUS: EDGARDO WEBER NUM: [id number] JERMAINE: 07/29/24- SUBM : Cheikh Dorsey ENTERED: 07/30/[address] [facility] [address]: Santosh Strong SPEC TYPE: Surgical DEPT: KRUPA COREY ENTERED BY: [id number] RECV BY: [id number] ORDERED: HE/2, Gross/Micro L4 ORDERED: HE/2, Gross/Micro [...] Description Microscopic examination is performed CPT Codes 45912 Specimen: [id number] Received: 07/30/24 Status: EDGARDO Weber Num: [id number] Spec Type: Surgical Subm Dr: Cheikh Dorsey Tissues: A Endometrium - Biopsy (EMBX) Procedures: HE/2, Gross/Micro L4 Patient: Patricia Connors [id number] (Continued) Signed (signature on file) Librado Sheehan MD 07/31/24 1118 Normal [facility] ALL LDHon 07-19-2024 LDH [Catalytic activity/Vol] 177 U/L 81 - 234 U/L [facility] IGP,APTIMA HPV,AGE GDLNon AGE GDLN ACOG TESTING Note . [facility] Comment on above: TESTS RESULT FLAG UN ITS REF RANGE LAB Clinician Provided Cytology Information Source.............Cervix;Endocervix No. of containers..01 ThinPrep Vial Age Algo ACOG Tiffnaie... 3065 01 FLAG LEGEND: L-Low Normal,H-High Normal,LL-Alert Low,HH-Alert High <-Panic Low,>-Panic High,A-Abnormal,AA-Critical Abnormal Performed at: 01 =G [facility] [place] [address] Carole Arnold MD, HPV APTIMA Negative Negative [facility] Comment on above: This nucleic acid am plification test detects fourteen high- risk HPV types (16,18,31,33,35,39,45,51,52,56,58,59,66,68) without differentiation. Performed at: =G - [facility] [id number] Skate Hop: Carole Arnold MD, Phone: [phone] Performed at: [facility] [address] [place], [place] [id number] Skate Hop: Sammy Murrieta MD, Phone: [phone] IGP, APTIMA HPV, RFX 16/18,45 Note . [facility] Comment on above: TESTS RESULT FLAG UN ITS REF RANGE LAB DIAGNOSIS: 02 NEGATIVE FOR INTRAEPITHELIAL LESION OR MALIGNANCY. Specimen adequacy: 02 Satisfactory for evaluation. Endocervical and/or squamous metaplastic cells (endocervical component) are present. Performed by: Juan Carlos Connors, Music Therapist ([facility]) . 02 Note: Note 03 The [...] High,A-Abnormal,AA-Critical Abnormal Performed at: 02 [facility] [address] [address] [place] [address] Sammy Murrieta MD, 03 WB [facility] [address] [address] Carole Arnold MD, BRUSH-SPATULA ENDOCERVIX CERVIX [facility] ALL CBC WITH AUTO DIFFon BASOPHILS ABSOLUTE AUTO 0.1 [facility] Basophils/100 WBC (Bld) 0.8 % 0.2 - 2.0 % [facility] Eosinophils/100 WBC (Bld) 1.4 % 0.9 - 7.0 % [facility] Erythrocyte distribution width (RBC) [Ratio] 12.8 % 11.0 - 15.0 % [facility] Hematocrit (Bld) [Volume fraction] 40.6 % 36.0 - 48.0 % [facility] Hemoglobin (Bld) [Mass/Vol] 14.8 g/dL 12.0 - 16.0 g/dL [facility] IMMATURE GRANULOCYTES ABS AUTO 0.02 [facility] Immature granulocytes/100 WBC (Bld) 0.3 % 0.0 - 0.5 % [facility] Interpretation and review of laboratory results Abnormal [facility] LYMPHOCYTES ABSOLUTE AUTO 1.6 [facility] Lymphocytes/100 WBC (Bld) 21.0 % 20.5 - 60.0 % [facility] MCH (RBC) [Entitic mass] 29.9 pg 26.7 - 34.0 pg [facility] MCHC (RBC) [Mass/Vol] 36.5 g/dL High 29.9 - 35.2 g/dL [facility] MCV (RBC) [Entitic vol] 82.0 fL 81.0 - 99.0 fL [facility] MONOCYTES ABSOLUTE AUTO 0.5 [facility] Monocytes/100 WBC (Bld) 6.9 % 1.7 - 12.0 % [facility] NEUTROPHILS ABSOLUTE AUTO 5.1 [facility] Neutrophils/100 WBC (Bld) 69.6 % 43.0 - 75.0 % [facility] Platelet mean volume (Bld) [Entitic vol] 10.5 fL 9.5 - 13.5 fL [facility] EO # 0.1 [facility] PLT 214 [facility] RBC 4.95 [facility] WBC 7.4 [facility] MAMM BX BREAST STEREO GUID I NITIAL [...] MD on 06/10/2024 8:35 AM 1999 Normal [facility] MAMM POST BX DIAG UNI LTon [...] MD on 06/10/2024 8:35 AM 1999 Normal [facility] Surgical Pathologyon 024 Surgical Pathology Normal [facility] Comment on above: Result Comment: [email or web address] [address] [place] [address] Surgical Pathology Consultation Patient Name:PATRICIA CONNORS:1985 (Age: 39)Gender:FTaken:06/06/2024eported:06/09/2024hysician(s):Philly Rasheed NP ([phone])Copy To:Katelyn ZamoraAccession #:[id number]. Rec. #:[id number]: #[id number] Final Pathologic Diagnosis Left breast, needle biopsy @3-4:00, 5 cm fn: Benign breast tissue with focal, mild cystic change and fibrosis. Report Electronically Signed Out gr06/09/2024Robin Villanueva MD Interpretation performed [place] [address], License number: [id number]. Clinical History Biopsy procedure: Stereotactic; Target: Mass; [...] 8 hours and 30 minutes (2, ns, [id number], A???B, m1) ADRIANO sadler/06/06/2024SSI Specimen(s) Received Left breast Fee Codes(s): 1; 43486 MAMM DIAGNOSTIC UNILAT LT W CADon 05-29-2024 [...] 05/29/2024 9:42 AM 4 a BIOPSY Normal [facility] BREAST LT LIMITEDon 05-29 US BREAST LT [...] 9:42 AM 4 a BIOPSY Normal [facility] Laboratory - Chemistry and C hemistry - challengeon 02-18-2024 Albumin [Mass/Vol] 4.8 g/dL [facility] ALP [Catalytic activity/Vol] 111 U/L [facility] ALT [Catalytic activity/Vol] 22 U/L [facility] AST [Catalytic activity/Vol] 16 U/L [facility] Bilirubin [Mass/Vol] 0.4 mg/dL [facility] Calcium [Mass/Vol] 9.5 mg/dL [facility] Chloride [Moles/Vol] 102 mmol/L [facility] Cholesterol [Mass/Vol] 204 mg/dL [facility] Cholesterol in HDL [Mass/Vol] 54 mg/dL [facility] Cholesterol in LDL [Mass/Vol] 122 mg/dL [facility] Cholesterol.total/ Cholesterol in HDL [Mass ratio] 3.8 {ratio} [facility] CO2 [Moles/Vol] 27 mmol/L [facility] Creatinine [Mass/Vol] 0.74 mg/dL [facility] GFR/1.73 sq M.predicted MDRD (S/P/Bld) [Vol rate/Area] 105 mL/min/{1.73_m2} [facility] Glucose [Mass/Vol] 98 mg/dL [facility] Potassium [Moles/Vol] 4.0 mmol/L [facility] Protein [Mass/Vol] 6.3 g/dL [facility] Sodium [Moles/Vol] 140 mmol/L [facility] Triglyceride [Mass/Vol] 142 mg/dL [facility] Urea nitrogen [Mass/Vol] 12 mg/dL [facility] Laboratory - Hematology and Cell countson 02-18-2024 HbA1c (Bld) [Mass fraction] 5.2 % [facility] No Panel Informationon 02-17 Estimated GFR (Non- 105 mL/min [facility] Thyroid Stimulating Hormone 3rd Gen 2.34 [facility] VLDL Cholesterol 28 mg/dL [facility] Vital Signs Date Time Vital Sign Value Performing Clinician Facility 07-21-2025 08:40-0400 Body mass index (BMI) [Ratio] 45.55 kg/m2 Pellucid Analyticso DO Work Phone: [facility] 07-21-2025 08:40-0400 Body weight 124.17 kg FreeBrie DO Work Phone: [facility] 07-21-2025 08:40-0400 Diastolic blood pressure 88 mm[Hg] Cheikh Sunita DO Work Phone: [facility] 07-21-2025 08:40-0400 Systolic blood pressure 116 mm[Hg] Cheikh Sunita DO Work Phone: [facility] 10-13-2024 09:00-0500 Body mass index (BMI) [Ratio] 43.93 kg/m2 Suellen CONNOR Work Phone: [facility] 10-13-2024 09:00-0500 Body weight 119.75 kg Suellen Neeraj CONNOR Work Phone: [facility] 10-13-2024 09:00-0500 Diastolic blood pressure 84 mm[Hg] Suellen Mcmahaney PA Work Phone: [facility] 10-13-2024 09:00-0500 Systolic blood pressure 120 mm[Hg] Suellen Mcmahandenise CONNOR Work Phone: [facility] 09-04-2024 09:54-0500 Body mass index (BMI) [Ratio] 44.93 kg/m2 Cheikh Sunita DO Work Phone: [facility] 09-04-2024 09:54-0500 Body weight 122.47 kg Cheikh Sunita DO Work Phone: [facility] 09-04-2024 09:54-0500 Diastolic blood pressure 80 mm[Hg] Cheikh Sunita DO Work Phone: [facility] 09-04-2024 09:54-0500 Systolic blood pressure 124 mm[Hg] Cheikh Sunita DO Work Phone: [facility] 07-29-2024 09:45-0400 Body mass index (BMI) [Ratio] 44.9 kg/m2 Cheikh Sunita DO Work Phone: [facility] 07-29-2024 09:45-0400 Body weight 122.38 kg Cheikh Sunita DO Work Phone: [facility] 07-29-2024 09:45-0400 Diastolic blood pressure 80 mm[Hg] Cheikh Sunita DO Work Phone: [facility] 07-29-2024 09:45-0400 Systolic blood pressure 124 mm[Hg] Cheikh Sunita DO Work Phone: [facility] 06-24-2024 09:13-0400 Body height 165.1 cm Cheikh Sunita DO Work Phone: [facility] 06-24-2024 09:13-0400 Body mass index (BMI) [Ratio] 46.06 kg/m2 Cheikh Sunita DO Work Phone: [facility] 06-24-2024 09:13-0400 Body weight 125.56 kg Cheikh Sunita DO Work Phone: [facility] 06-24-2024 09:13-0400 Diastolic blood pressure 82 mm[Hg] Cheikh Sunita DO Work Phone: [facility] 06-24-2024 09:13-0400 Systolic blood pressure 120 mm[Hg] Cheikh Sunita DO Work Phone: [facility] 05-12-2024 12:54-0400 Body height 167.6 cm Josh Fenton MD Work Phone: [facility] 05-12-2024 12:54-0400 Body mass index (BMI) [Ratio] 45.68 kg/m2 Josh Fenton MD Work Phone: [facility] 05-12-2024 12:54-0400 Body weight 128.37 kg Josh Fenton MD Work Phone: [facility] 05-12-2024 12:54-0400 Diastolic blood pressure 96 mm[Hg] Josh Fenton MD Work Phone: [facility] 05-12-2024 12:54-0400 Heart rate 105 /min Josh Fenton MD Work Phone: [facility] 05-12-2024 12:54-0400 SaO2% (BldA) [Mass fraction] 97 % Josh Fenton MD Work Phone: [facility] 05-12-2024 12:54-0400 Systolic blood pressure 139 mm[Hg] Josh Fenton MD Work Phone: [facility] 03-27-2024 08:05-0400 Body height 170.18 cm [facility] 03-27-2024 08:05-0400 Body mass index (BMI) [Ratio] 45.6 kg/m2 [facility] 03-27-2024 08:05-0400 Body weight 132.13 kg [facility] 03-05-2024 07:120400 Body height 170.18 cm [facility] 03-05-2024 07:12-0400 Body mass index (BMI) [Ratio] 45.7 kg/m2 [facility] 03-05-2024 07:120400 Body weight 132.5 kg [facility] 03-05-2024 07:12-0400 Diastolic blood pressure 18 mm[Hg] [facility] 03-05-2024 07:12-0400 Heart rate 95 /min [facility] 03-05-2024 07:12-0400 Respiratory rate 18 /min [facility] 03-05-2024 07:12-0400 SaO2% (BldA) [Mass fraction] 99 % [facility] 03-05-2024 07:12-0400 Systolic blood pressure 100 mm[Hg] [facility] 01-24-2024 15:39-0400 Body height 170.18 cm [facility] 01-24-2024 15:39-0400 Body mass index (BMI) [Ratio] 43.8 kg/m2 [facility] 01-24-2024 15:39-0400 Body weight 127 kg [facility] 01-21-2024 07:13-0400 Body height 170.18 cm [facility] 01-21-2024 07:13-0400 Body mass index (BMI) [Ratio] 44 kg/m2 [facility] 01-21-2024 07:13-0400 Body weight 127.62 kg [facility] 01-21-2024 07:13-0400 Diastolic blood pressure 84 mm[Hg] [facility] 01-21-2024 07:13-0400 Heart rate 95 /min [facility] 01-21-2024 07:13-0400 Respiratory rate 18 /min [facility] 01-21-2024 07:13-0400 SaO2% (BldA) [Mass fraction] 98 % [facility] 01-21-2024 07:13-0400 Systolic blood pressure 121 mm[Hg] [facility] 10-19-2023 07:30-0500 Body height 170.18 cm Jarred Siegel Other [facility] Other 10-19-2023 07:30-0500 Body mass index (BMI) [Ratio] 45.13 kg/m2 Jarred Siegel Other [facility] Other 10-19-2023 07:30-0500 Body weight 130.73 kg Jarred Siegel Other [facility] Other 10-19-2023 07:30-0500 Diastolic blood pressure 89 mm[Hg] Jarred Siegel Other [facility] Other 10-19-2023 07:30-0500 Respiratory rate 18 /min Jarred Siegel Other [facility] Other 10-19-2023 07:30-0500 SaO2% (BldA) [Mass fraction] 100 % Jarred Siegel Other [facility] Other 10-19-2023 07:30-0500 Systolic blood pressure 128 mm[Hg] Jarred Siegel Other [facility] Other 10-04-2023 07:15-0500 Body height 170.18 cm Sameera Howard Other [facility] Other 10-04-2023 07:15-0500 Body mass index (BMI) [Ratio] 45.68 kg/m2 Sameera Fitt Other [facility] Other 10-04-2023 07:15-0500 Body weight 132.32 kg Sameera Fitt Other [facility] Other 09-03-2023 07:15-0500 Body height 170.18 cm Jarred Siegel Other [facility] Other 09-03-2023 07:15-0500 Body mass index (BMI) [Ratio] 46.67 kg/m2 Jarred Siegel Other [facility] Other 09-03-2023 07:15-0500 Body weight 135.17 kg Jarred Siegel Other [facility] Other 09-03-2023 07:15-0500 Diastolic blood pressure 85 mm[Hg] Jarred Siegel Other [facility] Other 09-03-2023 07:15-0500 Respiratory rate 18 /min Jarred Siegel Other [facility] Other 09-03-2023 07:15-0500 SaO2% (BldA) [Mass fraction] 98 % Jarred Siegel Other [facility] Other 09-03-2023 07:15-0500 Systolic blood pressure 121 mm[Hg] Jarred Siegel Other [facility] Other 08-09-2023 07:15-0400 Body height 170.18 cm Sameera Fitt Other [facility] Other 08-09-2023 07:15-0400 Body mass index (BMI) [Ratio] 46.26 kg/m2 Sameera Fitt Other [facility] Other 08-09-2023 07:15-0400 Body weight 133.99 kg Sameera Fitt Other [facility] Other 06-14-2023 08:00-0400 Body height 170.18 cm Sameera Fitt Other [facility] Other 06-14-2023 08:00-0400 Body mass index (BMI) [Ratio] 46.56 kg/m2 Sameera Fitt Other [facility] Other 06-14-2023 08:00-0400 Body weight 134.86 kg Sameera Fitt Other [facility] Other 03-27-2023 07:15-0400 Body height 170.18 cm Jarred Christal Other [facility] Other 03-27-2023 07:15-0400 Body mass index (BMI) [Ratio] 47.44 kg/m2 Jarred Siegel Other [facility] Other 03-27-2023 07:15-0400 Body weight 137.4 kg Jarred Christal Other [facility] Other 03-27-2023 07:15-0400 Diastolic blood pressure 88 mm[Hg] Jarred Siegel Other [facility] Other 03-27-2023 07:15-0400 Respiratory rate 18 /min Jarred Siegel Other [facility] Other 03-27-2023 07:15-0400 SaO2% (BldA) [Mass fraction] 99 % Jarred Christal Other [facility] Other 03-27-2023 07:15-0400 Systolic blood pressure 138 mm[Hg] Jarred Siegel Other [facility] Other 02-06-2023 09:15-0400 Body height 170.18 cm Sameerafelicia Wrightleatha Other [facility] Other 02-05-2023 08:15-0400 Body height 170.18 cm Jarred Siegel Other [facility] Other 02-05-2023 08:15-0400 Body mass index (BMI) [Ratio] 45.67 kg/m2 Jarred Siegel Other [facility] Other 02-05-2023 08:15-0400 Body weight 132.27 kg Jarred Christal Other [facility] Other 02-05-2023 08:15-0400 Diastolic blood pressure 93 mm[Hg] Jarred Siegel Other [facility] Other 02-05-2023 08:15-0400 Respiratory rate 18 /min Jarred Siegel Other [facility] Other 02-05-2023 08:15-0400 SaO2% (BldA) [Mass fraction] 99 % Jarred Siegel Other [facility] Other 02-05-2023 08:15-0400 Systolic blood pressure 123 mm[Hg] Jarred Mayerff Other [facility] Other 12-26-2022 08:00-0500 Body height 170.18 cm Jarred Siegel Other [facility] Other 12-26-2022 08:00-0500 Body mass index (BMI) [Ratio] 45.34 kg/m2 Jarred Siegel Other [facility] Other 12-26-2022 08:00-0500 Body weight 131.32 kg Jarred Bushdiff Other [facility] Other 12-26-2022 08:00-0500 Diastolic blood pressure 92 mm[Hg] Jarred Bushdiff Other [facility] Other 12-26-2022 08:00-0500 Respiratory rate 18 /min Jarred Siegel Other [facility] Other 12-26-2022 08:00-0500 SaO2% (BldA) [Mass fraction] 98 % Jarred Bushdiff Other [facility] Other 12-26-2022 08:00-0500 Systolic blood pressure 122 mm[Hg] Jarred Bushdiff Other [facility] Other 12-04-2022 09:15-0500 Body height 170.18 cm Jarred Bushdiff Other [facility] Other 12-04-2022 09:15-0500 Body mass index (BMI) [Ratio] 44.41 kg/m2 Jarred Bushdiff Other [facility] Other 12-04-2022 09:15-0500 Body weight 128.64 kg Jarredpearl Bushdiff Other [facility] Other 12-04-2022 09:15-0500 Diastolic blood pressure 93 mm[Hg] Jarred Christal Other [facility] Other 12-04-2022 09:15-0500 Respiratory rate 18 /min Jarred Siegel Other [facility] Other 12-04-2022 09:15-0500 SaO2% (BldA) [Mass fraction] 99 % Jarred Siegel Other [facility] Other 12-04-2022 09:15-0500 Systolic blood pressure 122 mm[Hg] Jarred Siegel Other [facility] Other Encounters Encounter Date Encounter Type Care Provider Facility Start: 07-21-2025 End: 07-21-2025 Bamboo flowsheet Cheikh Sunita DO Work Phone: [facility] Start: 07-21-2025 End: 07-21-2025 Bamboo flowsheet Cheikh Sunita DO Work Phone: [facility] Start: 07-21-2025 End: 07-21-2025 Patient encounter procedure Cheikh Sunita DO Work Phone: [facility] Start: 07-21-2025 End: 07-21-2025 Periodic preventive med est patient 40-64yrs Cheikh Sunita DO Work Phone: [facility] Comment on above: Well woman exam with routine gynecological exam; Encounter for screening mammogram for malignant neoplasm of breast; Hormone imbalance; Night sweats Start: 06-12-2025 End: 06-12-2025 ambulatory [facility] Start: 05-05-2025 End: 05-05-2025 ambulatory ALBINA NASREEN [facility] Start: 03-03-2025 End: 03-03-2025 ambulatory LA NENA KEEGAN [facility] Start: 10-13-2024 End: 10-13-2024 Bamboo flowsheet Suellen CONONR Work Phone: [facility] Start: 10-13-2024 [...] Start: 10-03-2024 End: 10-03-2024 ambulatory Cheikh Sunita Facility:[facility] Start: 09-23-2024 End: 09-23-2024 Clinisync Result Encounter Cheikh Sunita DO Work Phone: [facility] Unsolicited Start: 09-23-2024 End: 09-23-2024 Clinisync Result Encounter Cheikh Sunita DO Work Phone: [facility]solic[facility] Start: 09-04-2024 End: 09-04-2024 Bamboo flowsheet Cheikh Sunita DO Work Phone: [facility] Start: 09-04-2024 End: 09-04-2024 Bamboo flowsheet Cheikh Sunita DO Work Phone: [facility] Start: 09-04-2024 End: 09-04-2024 Office outpatient visit 15 minutes Cheikh Sunita DO Work Phone: [facility] Comment on above: Pre-op examination; BRCA gene mutation positive Start: 09-04-2024 End: 09-04-2024 Preprocedural examination done Cheikh Sunita DO Work Phone: [facility] Start: 09-04-2024 End: 09-04-2024 ambulatory CHEIKH SUNITA Not Available Start: 08-07-2024 End: 08-08-2024 Clinisync Result Encounter Cheikh Sunita DO Work Phone: [facility] Unsolicited Start: 08-07-2024 End: 08-08-2024 Clinisync Result Encounter Cheikh Sunita DO Work Phone: [facility] Unsolicited Start: 07-30-2024 End: 07-30-2024 ambulatory JOANNA Velazco Work Phone: [facility] Work Phone: Start: 07-30-2024 End: 07-30-2024 Departed Referred JOANNA Gordonshanon Velazco Work Phone: [facility] Start: 07-29-2024 End: 07-29-2024 Patient encounter procedure Chekih Sunita DO Work Phone: [facility] Comment on above: Menorrhagia with reg [...] Start: 06-24-2024 End: 06-30-2024 Bamboo flowsheet Cheikh Suniat DO Work Phone: [facility] Start: 06-24-2024 End: 06-30-2024 Clinisync Result Encounter Cheikh Sunita DO Work Phone: [facility] Unsolicited Start: 06-24-2024 End: 06-24-2024 Patient encounter procedure Cheikh Sunita DO Work Phone: [facility] Work Phone: Start: 06-24-2024 End: 06-24-2024 Periodic preventive med est patient 40-64yrs Cheikh Sunita DO Work Phone: [facility] Comment on above: Well woman exam with routine gynecological exam; Menorrhagia with regular cycle; Pelvic pain in female; BRCA2 gene mutation positive; PCOS (polycystic ovarian syndrome) Start: 06-24-2024 End: 06-24-2024 ambulatory CHEIKH SUNITA Not Available Start: 06-10-2024 End: 06-10-2024 Telephone encounter [facility] Start: 06-06-2024 End: 06-06-2024 Documentation procedure Kristy Gardner [facility] Start: 06-06-2024 End: 06-06-2024 ambulatory KATELYN ZAMORA [facility] Start: 06-06-2024 End: 06-06-2024 ambulatory [facility] Start: 05-29-2024 End: 05-29-2024 [facility] Start: 05-12-2024 End: 05-12-2024 Office outpatient new 45 minutes Josh Fenton MD Work Phone: [facility] Comment on above: Mild persistent asth ma without complication (Primary Dx); Morbid obesity (CMS-HCC) Start: 05-12-2024 End: 05-12-2024 ambulatory JOSH FENTON [facility] Start: 03-27-2024 End: 03-27-2024 Patient encounter procedure [facility] Work Phone: Start: 03-18-2024 End: 03-18-2024 Orders Only Lissa Laird [employer]STRU[employer] [facility] Comment on above: Asthma, unspecified asthma severity, unspecified whether complicated, unspecified whether persistent (Primary Dx) Start: 03-05-2024 End: 03-05-2024 Patient encounter procedure [facility] Work Phone: Start: 02-18-2024 Non-patient / Non-visit [facility] Work Phone: Start: 01-24-2024 End: 01-24-2024 [facility] encounter [facility] Work Phone: Start: 01-21-2024 End: 01-21-2024 Patient encounter procedure [facility] Work Phone: Start: 11-28-2023 End: 11-28-2023 ambulatory Jarred Siegel Facility:[facility] Start: 11-17-2023 End: 11-17-2023 ambulatory [facility] Start: 10-19-2023 End: 10-19-2023 ambulatory Jarred Siegel Other [facility] Other Start: 10-19-2023 Follow-up encounter [facility]red [facility] Start: 10-04-2023 ([facility] RD FU) [facility] F/ U Registerd Associate Professor Of Literacy Sameera Kyleleatha [facility] Start: 10-04-2023 End: 10-04-2023 ambulatory Sameera Fitt Other [facility] Other Start: 09-03-2023 End: 09-03-2023 ambulatory Jarred Siegel Other [facility] Other Start: 09-03-2023 Follow-up encounter Jarred [facility] Start: 08-09-2023 ([facility] RD FU) [facility] F/ U Registerd Associate Professor Of Literacy Sameera Kyleleatha [facility] Start: 08-09-2023 End: 08-09-2023 ambulatory Sameera Fitt Other [facility] Other Start: 06-22-2023 End: 06-22-2023 ambulatory Jarred Siegel Other [facility] Other Start: 06-22-2023 Telephone encounter Jarred [facility] Start: 06-14-2023 ([facility] RD FU) [facility] F/ U Registerd Associate Professor Of Literacy Sameera Kyleleatha [facility] Start: 06-14-2023 End: 06-14-2023 ambulatory Sameera Fitt Other [facility] Other Start: 03-27-2023 End: 03-27-2023 ambulatory Jarred Siegel Other [facility] Other Start: 03-27-2023 Follow-up encounter Jarred [facility] Start: 02-06-2023 ([facility] WMNI) [facility]N Init ial Provider Sameera Howard [facility] Start: 02-06-2023 End: 02-06-2023 ambulatory Sameera Fitt Other [facility] Other Start: 02-05-2023 End: 02-05-2023 ambulatory Jarred Siegel Other [facility] Other Start: 02-05-2023 Follow-up encounter Jarred Nix [facility] Start: 12-26-2022 End: 12-26-2022 ambulatory Jarred Bushdiff Other [facility] Other Start: 12-26-2022 Follow-up encounter Jarred Nix [facility] Start: 12-04-2022 End: 12-04-2022 ambulatory Jarred Bushdiff Other [facility] Other Start: 12-04-2022 Nutrition therapy Jarred Cadena [facility] Start: 10-31-2022 End: 10-31-2022 ambulatory Sameera Howard Other [facility] Other Start: 10-31-2022 Telephone encounter Sameera Cadena [facility] Procedures Date [...] Urine test visual color cmprsn meths Cheikh Fano DO Work Phone: Start: 07-19-2024 ALL LDH Cheikh Fan o DO Work Phone: Start: 06-28-2024 ALL CBC WITH AUTO DIFF Cheikh Fano DO Work Phone: Start: 06-24-2024 IGP,APTIMA HPV,AGE GDLN Cheikh Farriszio DO Work Phone: Start: 06-24-2024 Microscopic observat ion [Identifier] in Cervix by Cyto stain Cheikh Fano DO Work Phone: Start: 06-06-2024 Mammography Cheikh cespedes DO Work Phone: Plan of Treatment Date Care Activity Detail Author Start: 08-28-2033 DTaP,Tdap and Td Vaccines (2 - Td or Tdap) DTaP,Tdap and Td Vaccines (2 - Td or Tdap) [facility] Start: 06-24-2027 Screening for malign ant neoplasm of cervix [facility] Start: 07-26-2026 End: 07-26-2026 Patient encounter procedure 07/26/2026 8:30 AM EDT Procedure Visit [facility] [address] [place] [address] Cheikh Dorsey, DO [address] [place] [address] [facility] Start: 06-17-2026 Screening for malign ant neoplasm of breast Mammogram [facility] Start: 07-21-2025 End: 07-21-2026 Hemoglobin A1c/Hemoglobin.total in Blood Hemoglobin A1c Lab Routine Hormone imbalance Night sweats Expected: 07/21/2025 (Approximate), Expires: 07/21/2026 [facility] Comment on above: Expected: 07/21/2025 (Approximate), Expires: 07/21/2026 Start: 07-21-2025 End: 07-21-2025 Patient encounter procedure 07/21/2025 8:30 AM EDT Office Visit [facility] [address] [place] [id number] Cheikh Dorsey, DO [address] [place], [place] [id number] Arrived [facility] Comment on above: Arrived Start: 06-29-2025 Influenza vaccination Influenza Vacc ine (#1) [facility] Start: 06-06-2025 Adult BMI Screening Adult BMI Screen ing [facility] Start: 06-06-2025 Screening for malign ant neoplasm of breast Mammogram [facility] Start: 05-12-2025 Tobacco Screening Tobacco Screening [facility] Start: 11-12-2024 Adult BMI Screening Adult BMI Screen ing [facility] Start: 10-13-2024 End: 10-13-2024 Patient encounter procedure 10/13/2024 9:00 AM EST Office Visit [facility] [address] [place] [phone] Suellen Juarez PA [address] [place] [address] Arrived [facility] Comment on above: Arrived Start: 09-04-2024 End: 09-04-2024 Patient encounter procedure [facility] Comment on above: Arrived Start: 07-29-2024 End: 07-29-2024 Patient encounter procedure 07/29/2024 9:30 AM EDT Procedure Visit [facility] [address] [place] [phone] Cheikh Dorsey, DO [address] [place] [address] [facility] Start: 06-29-2024 Influenza vaccination [facility] Start: 06-24-2024 End: 06-24-2025 DHEA DHEA Lab Routine PCOS (polycystic ovarian syndrome) Expected: 06/24/2024 (Approximate), Expires: 06/24/2025 [facility] Comment on above: Expected: 06/24/2024 (Approximate), Expires: 06/24/2025 Start: 06-24-2024 End: 06-24-2025 US for US PELVIS-TRANSVAG IF INDICATED Imaging Routine PCOS (polycystic ovarian syndrome) Expected: 06/24/2024 (Approximate), Expires: 06/24/2025 [facility] Comment on above: Expected: 06/24/2024 (Approximate), Expires: 06/24/2025 Start: 06-24-2024 End: 06-24-2024 Patient encounter procedure 06/24/2024 9:00 AM EDT Office Visit [facility] [address] [place] [phone] Cheikh Dorsey, [address] [place] [address] Arrived [facility] Comment on above: Arrived Start: 05-17-2024 End: 05-17-2024 Patient encounter procedure 05/17/2024 10:30 AM EDT Appointment [facility] - Mammogram DEXA [address] [place] [phone] [facility] - Mammogram D[facility]A Start: 05-12-2024 End: 05-12-2024 Patient encounter procedure 05/12/2024 1:00 PM EDT Office Visit [facility] [address] [place] [phone] Josh Fenton MD [address] [place] [address] [facility] Start: 03-18-2024 End: 03-18-2025 XR Chest PA and Lateral [facility] Work Phone: Comment on above: Expected: 03/18/2024 , Expires: 03/18/2025 Start: 10-09-2023 Tobacco Screening Tobacco Screening [facility] Start: 06-29-2023 COVID-19 Vaccine ( season) COVID-19 Vaccine ( season) [facility] Start: 06-29-2023 COVID-19 Vaccine ( season) COVID-19 Vaccine ( season) [facility] Start: 02-21-2014 Screening for malign ant neoplasm of cervix [facility] Start: 02-21-2005 Screening for malign ant neoplasm of cervix Pap Smear [facility] Start: 02-21-2002 Adult BMI Follow Up Plan Adult BMI Follow Up Plan [facility] Start: 1996 Depression Screening Depression Scre ening [facility] Biopsy endometrium Biopsy endome trium Procedures Routine Menorrhagia with regular cycle Ordered: 07/29/2024 [facility] Work Phone: Comment on above: Ordered: 07/29/2024 CBC W Auto Different ial panel - Blood CBC and differential Lab Routine PCOS (polycystic ovarian syndrome) Ordered: 06/24/2024 [facility] Comment on above: Ordered: 06/24/2024 DHEA-sulfate DHEA-sulfate Lab Routine PCOS (polycystic ovarian syndrome) Ordered: 06/24/2024 [facility] Comment on above: Ordered: 06/24/2024 Follicle stimulating hormone Follicle stimulating hormone Lab Routine PCOS (polycystic ovarian syndrome) Ordered: 06/24/2024 [facility] Comment on above: Ordered: 06/24/2024 hCG, quantitative, hCG, quantitative, Lab Routine PCOS (polycystic ovarian syndrome) Ordered: 06/24/2024 [facility] Comment on above: Ordered: 06/24/2024 Hemoglobin A1c/Hemoglobin.total in Blood Hemoglobin A1c Lab Routine Menorrhagia with regular cycle Ordered: 06/24/2024 [facility] Comment on above: Ordered: 06/24/2024 Luteinizing hormone Luteinizing hormone Lab Routine PCOS (polycystic ovarian syndrome) Ordered: 06/24/2024 [facility] Comment on above: Ordered: 06/24/2024 THIN PREP TIS PAP AN D HR HPV DNA THIN PREP TIS PAP AND HR HPV DNA Pathology and Cytology Routine Well woman exam with routine gynecological exam Ordered: 06/24/2024 [facility] Work Phone: Comment on above: Ordered: 06/24/2024 THIN PREP TIS PAP AN D HR HPV DNA THIN PREP TIS PAP AND HR HPV DNA Pathology and Cytology Routine Well woman exam with routine gynecological exam Ordered: 07/21/2025 [facility] Work Phone: Comment on above: Ordered: 07/21/2025 Thyrotropin [Units/volume] in Serum or Plasma TSH Lab Routine PCOS (polycystic ovarian syndrome) Ordered: 06/24/2024 [facility] Comment on above: Ordered: 06/24/2024 Thyrotropin [Units/volume] in Serum or Plasma TSH Lab Routine Hormone imbalance Night sweats Ordered: 07/21/2025 [facility] Comment on above: Ordered: 07/21/2025 Thyroxine (T4) free [Mass/volume] in Serum or Plasma T4, free Lab Routine PCOS (polycystic ovarian syndrome) Ordered: 06/24/2024 [facility] Comment on above: Ordered: 06/24/2024 Thyroxine (T4) free [Mass/volume] in Serum or Plasma T4, free Lab Routine Hormone imbalance Night sweats Ordered: 07/21/2025 [facility] Comment on above: Ordered: 07/21/2025 Immunizations Immunization Date Immunization Notes Care Provider [facility] 08-28-2023 influenza virus vacc ine, unspecified formulation Lissa Laird [employer] [facility] Payers Date Payer Category Payer Private Health Insurance [id number] 2022 Self-pay 2022 Unknown [id number] 2022 Unknown [id number] 2.16.840.1.172298.19 1984 Unknown [id number] 2.16.840.1.381406.3.579.2.1285 1984 Unknown [id number] 2.16.840.1.646024.3.579.2.1286 1984 Unknown [id number] 2.16.840.1.681897.3.579.2.6 1984 Unknown [id number] 2.16.840.1.398988.3.579.2.1286 1984 Unknown [id number] 2.16.840.1.436908.3.579.2.1286 1984 Unknown [id number] 2.16.840.1.983803.3.579.2.1286 1984 Unknown [id number] 2.16.840.1.937534.3.579.2.1259 1984 Unknown [id number] 2.16.840.1.705996.3.579.2.1259 1984 Unknown [id number] 2.16.840.1.642127.3.579.2.1259 1984 Unknown [id number] 2.16.840.1.015714.3.579.2.9 1984 Unknown [id number] 2.16.840.1.947889.3.579.2.128 1984 Unknown [id number] 2.16.840.1.350589.3.579.2.1286 1984 Unknown [id number] 2.16.840.1.232912.3.579.2.1286 Unknown [employer] [id number] Unknown [id number] 2.16.840.1.959623.3.579.2.531 Unknown [id number] 2.16840.1.385356.3.579.2.531 Unknown [id number] 2.16840.1.653808.3.579.2.531 Social History Date Type Detail Facility Unknown if ever smoked [facility] Start: 12-09-2020 End: 02-07-2023 Sex Assigned At [facility] Start: 1985 Sex Assigned At Female [facility] Tobacco smoking stat [facility] Tobacco smoking consumption unknown [facility] Start: 08-08-2021 Gender identity Identifies as female gender (finding) [facility] Start: 09-08-2022 Tobacco smoking status NHIS Never smoked tobacco [facility] Start: 09-08-2022 Tobacco use and exposure Smokeless tobacco non-user [facility] Start: 02-07-2023 End: 05-17-2024 Alcoholic beverage intake Current drinker of alcohol (finding) [facility] Start: 12-09-2020 End: 02-07-2023 History of Social function [facility] Childcare Unknown [facility] Start: 05-29-2019 Alcohol Comment 1/month [facility] Start: 08-08-2021 Sexual orientation Heterosexual (finding) [facility] Clinical Notes 12-04-2022 to 07-21-2025 Iwona Lerma LPN - 07/21/2025 8:30 AM NIKOLAS Pizano - 10/13/2024 9:00 AM Juarez Walters - 09/04/2024 9:40 AM Darrell Lerma LPN - 07/29/2024 9:30 AM EDT Note Date & Type Note Facility 07-21-2025 History of Presen t illness Narrative Reason for Appointment: Patient ID: Patricia Connors is a 40 y.o. female who presents [...] nursing note reviewed. Exam conducted with a head operator present. Vitals: Estimated body mass index is 45.55 kg/m as calculated from the following: Height [...] in 3 weeks and discuss calling in [employer]. Given labs to have obtained. Patients vitals [...] them. Patient can also view results via [email or web address]. I reinforced importance of condom use for [...] by Iwona Lerma LPN on behalf of: DO Fredrick Wilsonally signed by Iwona Lerma LPN at 07/21/2025 10:21 AM EDT documented in this encounter [facility] 10-13-2024 History of Presen t illness Narrative [...] mg, Daily Vitamin D-Vitamin K (K2-D3 10,000) 58884-80 UNIT-MCG capsule 1 each, Daily ALLERGIES Allergies [...] a Bilateral Laparoscopic Salpingectomy performed at [facility] with Dr. Dorsey. Patient is healing well and shows no signs or symptoms of infection. Pathology results was reviewed with the patient in great detail and all restrictions have been lifted. Follow Up: Patient is to return to the office for annual exam unless needed otherwise. Documented by NIKOLAS Luna on behalf of: NIKOLAS Luna documented in this encounter [facility] 09-04-2024 History of Presen t illness Narrative Reason for Appointment: Patient ID: Patricia Connors is a 39 y.o. female who presents for Pre-op Visit Patient presents today for Pre Op appointment. Patient is scheduled to undergo Da Helga assisted Bilateral Laparoscopic Salpingo-Oophorectomy on 10/03/[address] Dorsey at [facility]. MEDICATIONS Current Outpatient Medications Medication Instructions albuterol [...] MG/DOSE, SC) Vitamin D-Vitamin K (K2-D3 10,000) 30121-27 UNIT-MCG capsule 1 each, Oral, Daily ALLERGIES Allergies Allergen Reactions Fish-Derived Products Anaphylaxis, Hives and Itching Shellfish-Derived Products Anaphylaxis Shellfish Allergy PROBLEMS Active Ambulatory Problems Diagnosis Date Noted No Active Ambulatory Problems Resolved Ambulatory Problems Diagnosis Date Noted No Resolved Ambulatory Problems Past Medical History: Diagnosis Date ADHD (attention deficit hyperactivity disorder) ([facility]) Anxiety and depression ([facility]/HCC) Asthma (CMS/HCC) Bipolar 1 disorder (CMS/HCC) [...] nursing note reviewed. Exam conducted with a head operator present. Vitals: Estimated body mass index is [...] reviewed, and patient is to proceed to [facility] OR. Patient aware that she will be off at least a week after procedure. Follow Up: Patient is to follow up between 1-2 weeks post op to assess proper healing and recovery from procedure. Documented by Sylvia Benz LPN on behalf of: Cheikh Dorsey DO documented in this encounter [facility] 07-29-2024 History of Presen t illness Narrative [...] MG/DOSE, SC) Vitamin D-Vitamin K (K2-D3 10,000) 69422-77 UNIT-MCG capsule 1 each, Oral, Daily ALLERGIES [...] nursing note reviewed. Exam conducted with a head operator present. Vitals: Estimated body mass index is [...] Cheikh Dorsey DO documented in this encounter [facility] 06-24-2024 History of Presen t illness Narrative [...] Oral, Daily Vitamin D-Vitamin K (K2-D3 10,000) 56125-21 UNIT-MCG capsule 1 each, Oral, Daily ALLERGIES Allergies Allergen Reactions Shellfish Allergy PROBLEMS Active Ambulatory Problems Diagnosis Date Noted No Active Ambulatory Problems Resolved Ambulatory Problems Diagnosis Date Noted No Resolved Ambulatory Problems Past Medical History: Diagnosis Date ADHD (attention deficit hyperactivity disorder) ([facility]) Anxiety and depression ([facility]) Asthma ([facility]) [facility]ipolar 1 disorder ([facility]) BRCA gene positive High blood pressure ([facility]) HISTORY PAST MEDICAL HISTORY SOCIAL HISTORY Past Medical History: Diagnosis Date ADHD (attention deficit hyperactivity disorder) ([facility]) Anxiety and depression ([facility]) Asthma ([facility]) [facility]ipolar 1 disorder ([facility]) BRCA gene positive 2 High blood pressure ([facility]) Social History Tobacco Use Smoking status: [...] nursing note reviewed. Exam conducted with a head operator present. Vitals: Estimated body mass index is [...] Cheikh Dorsey DO documented in this encounter [facility] 06-10-2024 Miscellaneous Notes Summary: Post-biopsy assessment Call placed to patient to check status following recent breast biopsy. Patient reports no bruising or tenderness @ biopsy site. Clarified biopsy results with patient and follow-up imaging recommendations provided by radiologist. She was encouraged to contact the [facility] if she develops any new problems at biopsy site. Voices understanding. documented in this encounter [facility] 06-10-2024 Telephone encount er Note Summary: Post-biopsy assessment Call placed to patient to check status following recent breast biopsy. Patient reports no bruising or tenderness @ biopsy site. Clarified biopsy results with patient and follow-up imaging recommendations provided by radiologist. She was encouraged to contact the [facility] Center if she develops any new problems at biopsy site. Voices understanding. [facility] 06-06-2024 History of Presen t illness [...] all information reviewed. documented in this encounter [facility] 05-12-2024 History of Presen t illness Narrative Images from the original note were not included. 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 She never smoked Review of Systems Allergies: Patient has no known allergies. 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 Social History [...] Substance Use Topics Alcohol use: Yes Comment: /month Objective: There were no vitals filed for [...] to ensure the accuracy of this automated contact center specialist, some errors in contact center specialist may have occurred. documented in this encounter [facility] 01-21-2024 Evaluation note Authored January 21, [...] Her psychiatric prescriber is Patricia Gamino from [place] where they live. Her dad is a [...] in the morning. 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 8. Snorer/Calliham of 6/neck size of 15.5 inches/mallampati score [...] lab work with her PCP. Author [facility] Authored March 05, 2024 7:59am [...] Her psychiatric prescriber is Patricia Gamino from [place] where they live. Her dad is a [...] in the morning. 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 8. Snorer/Calliham of 6/neck size of 15.5 inches/mallampati score [...] continue regular lab work with her PCP. [facility] Work Phone: [phone]) 900-853012-22-2023 Evaluation note* Encounter Date Diagnosis Assessment Notes [...] - R06.83) Sep, Asthma (ICD-10 - J45.909) [facility] 12-07-2023 Evaluation note* Encounter Date Diagnosis [...] / exercise routine using treadmill at home [facility] 11-06-2023 Evaluation note* Encounter Date Diagnosis [...] - R06.83) Aug, Asthma (ICD-10 - J45.909) [facility] 10-12-2023 Evaluation note* Encounter Date Diagnosis [...] new recipes to add variety; MET, CONTINUE [facility] 08-17-2023 Evaluation note* Encounter Date Diagnosis [...] new recipes to add variety; MET, CONTINUE [facility] 05-30-2023 Evaluation note* Encounter Date Diagnosis [...] - R06.83) February, Asthma (ICD-10 - J45.909) [facility] 04-11-2023 Evaluation note* Encounter Date Diagnosis Assessment Notes Treatment Notes Treatment Clinical Notes Jan, Obesity (ICD-10 - E66.9) Jan, BMI 40.0-44.9, adult (ICD-10 - Z68.41) Jan, Other Summary of Visi t: (A) discussed foods that can help prevent breast cancer and help w/ WM (B) benefits of fiber foods Patient set the following goals: [facility] 04-10-2023 Evaluation note* Encounter Date Diagnosis [...] - R06.83) Jan, Asthma (ICD-10 - J45.909) [facility] 02-28-2023 Evaluation note* Encounter Date Diagnosis [...] - R06.83) Nov, Asthma (ICD-10 - J45.909) [facility] Other 02-06-2023 Evaluation note* Encounter Date Diagnosis Assessment Notes Treatment Notes Treatment Clinical Notes Nov, Abnormal weight gain (ICD-10 - R63.5) Nov, Hypertension (ICD-10 - I10) Nov, Mixed hyperlipidemia (ICD-10 - E78.2) Nov, Metabolic syndrome X (ICD-10 - E88.81) Nov, Bipolar affective disorder (ICD-10 - F31.9) Nov, Snores (ICD-10 - R06.83) Nov, Asthma (ICD-10 - J45.909) [email or web address] [facility] Other Evaluation noteNo InformationNortWellSpan [facility] Other evaluation note* Diagnosis Menorrhagia with regular cycle BRCA2 gene mutation positive Complex ovarian cyst Pelvic pain in female Unspecified symptom associated with female genital organs documented in this encounter [facility] HealthcareEvaluation noteNo assessment information availableGood [facility]aritan [facility] Work Phone: evaluation note* Diagnosis Pre-op examination BRCA gene mutation positive documented in this encounter [facility] Healthcare[facility]* Diagnosis Postoperative examination Follow-up examination, following unspecified surgery documented in this encounter [facility] Healthcare[facility] note* Diagnosis Well woman exam with routine gynecological exam Routine gynecological examination Menorrhagia with regular cycle Pelvic pain in female Unspecified symptom associated with female genital organs BRCA2 gene mutation positive PCOS (polycystic ovarian syndrome) Polycystic ovaries documented in this encounter [facility] Healthcare[facility] note* Diagnosis Asthma, unspecified asthma severity, unspecified whether complicated, unspecified whether persistent- Primary documented in this encounter [facility]* Diagnosis Mild persistent asthma without complication- Primary Morbid obesity ([facility]) Morbid obesity documented in this encounter [facility]* Diagnosis Well woman exam with routine gynecological exam Routine gynecological examination Encounter for screening mammogram for malignant neoplasm of breast Hormone imbalance Night sweats Generalized hyperhidrosis [facility] N[facility] - Reported* Type Description Date Medical History ADHD Medical History anxiety Medical History asthma Medical History bipolar Medical History BRCA2 positive Medical History endometriosis Medical History high blood pressure Medical History hypokalemia Medical History leg cramps Surgical History gallbladder 09/19 Surgical History ERCP 09/19 Surgical History wisdom teeth Hospitalization History see above [facility] Other InstructionsNot on filedocumented in this encounter [facility] SystemInstructionsNot on filedocumented in this encounter [facility] CenterDis[facility] SystemInstructionsNot on filedocumented in this encounter [facility] CenterHatsize Chief Complaint and Reason for Visit Chief [...] Mild intermittent asthma without complication Gordon Velazco, MEDICAL TECHNOLOGIST HEMATOLOGY-RETAIL BAKERY MANAGER [address] [place] [address] Leeanne Connors MD [address] [place] [address] Referral ID Status Reason Start Date Expiration Date Visits Requested Visits Authorized [id number] Pending Review Specialty Services Required 01/16/2024 01/15/2025 1 1 Care Teams (unrecognized sec tion and content) Team Status: Active Member Role Status Dates Gordon Velazco APRN BANANA GRADER-C Primary Care Provider Active Team Status: Inactive Member Role Status Dates Gordon Velazco APRN BANANA GRADER-C Primary Care Provider Active Start: January 21, 2024 End: January 21, 2024 Jarred Siegel MD Attending Provider Active Start: January 21, 2024 End: January 21, 2024 Team Status: Inactive Member Role Status Dates Gordon Velazco APRN BANANA GRADER-C Primary Care Provider Active Start: January 24, 2024 End: January 24, 2024 MAG Johnson Attending Provider Active Start: January 24, 2024 End: January 24, 2024 Team Status: Active Member Role Status Dates Gordon Velazco APRN BANANA GRADER-C Primary Care Pr ovider, Attending Provider Active Start: February 18, 2024 Team Status: Inactive Member Role Status Dates Gordon Velazco APRN BANANA GRADER-C Primary Care Provider Active Start: March 05, 2024 End: March 05, 2024 Jarred Siegel MD Attending Provider Active Start: March 05, 2024 End: March 05, 2024 Team Status: Inactive Member Role Status Dates Gordon Velazco APRN BANANA GRADER-C Primary Care Provider Active Start: March 27, 2024 End: March 27, 2024 MAG Johnson Attending Provider Active Start: March 27, 2024 End: March 27, 2024 Team Status: Inactive Member Role Status Dates Gordon Velazco APRN BANANA GRADER-C Primary Care Provider Active Start: July 30, 2024 End: July 30, 2024 Cheikh Dorsey DO Attending Provider Active Start : July 30, 2024 End: July 30, 2024 [employer] Relationship Specialty Start Date End Date Gordon Velazco APRN-RETAIL BAKERY MANAGER [address] [place] [address] PCP - General Family Medicine 04/23/19 [employer] Relationship Specialty Start Date End Date Gordon Velazco, MEDICAL TECHNOLOGIST HEMATOLOGY-RETAIL BAKERY MANAGER [address] [place] [address] PCP - General Family Medicine 04/23/19 [employer]acker [employer] Grader Relationship Specialty Start Date End Date Albina Causey APRN-GARBAGE COLLECTOR [address] [place], [place] [id number] PCP - General Family Medicine 05/22/24 Goals (unrecognized section and content) Goals may be documented in a n alternate section INFORMATION SOURCE (unrecogn ized section and content) DATE CREATED AUTHOR 05/16/[address] [facility] DATE CREATED AUTHOR AUTHOR'S ORGANIZ ATION 05/31/2024 [facility] DATE CREATED AUTHOR AUTHOR'S ORGANIZ ATION 06/10/2024 [facility] DATE CREATED AUTHOR AUTHOR'S ORGANIZ ATION 10/09/2024 [facility] DATE CREATED AUTHOR AUTHOR'S ORGANIZ ATION 10/14/2024 [facility] dical Specialists [facility] DATE CREATED AUTHOR AUTHOR'S ORGANIZ ATION 06/19/2025 [facility] FOR RECORDS PERTAINING TO PATIENTS [...] BE BASED ON THE PRIMARY CLINICAL RECORDS. [employer] provides no warranty or guarantee of the accuracy or completeness of information in this document.
== END 2025-07-21 12:16 | disposition home or self-care (01) ==
LOC: LAB 12:15
PROVIDERS: Family Provider Family Medicine; Visit Provider Obstetrics & Gynecology
DX: Z01.419 Encounter for gynecological examination (general) (routine) without abnormal findings (principal)
CPT/HCPCS: 88175